=== PATIENT | male | born 1950 | race Caucasian/White ===

== ENCOUNTER 2016-12-13 18:17 | Inpatient (IN) | payer OTHER ==
[~2016-12-13] VITALS: Ht 185.4 cm; Wt 174.6 kg
[2016-12-13] MEDS ORDERED: ASPIRIN CHEWABLE 81 MG TABLET. PO ONE (18:30)
[2016-12-13] MEDS ORDERED: NITROGLYCERIN OINT 1 GM PACKET. TP ONE (18:30)
[2016-12-13 18:51] LABS: BASO % 1 % (0-3); EOS % 3 % (0-3); HEMATOCRIT 46.5 % (39.0-53.0); HEMOGLOBIN 15.4 g/dL (13.0-17.5); LYMPH % 16 % (24-48); MEAN CORPUSCULAR HEMOGLOBIN 29 pg (25-35); MEAN CORPUSCULAR HGB CONC 33 g/dL (31-37); MEAN CORPUSCULAR VOLUME 89 fL (79-100); MONO % 9 % (0-9); NEUT % 73 % (31-73); PLATELET COUNT 174 x10^3/uL (140-400); RED BLOOD COUNT 5.24 x10^6/uL (4.30-5.70); RED CELL DISTRIBUTION WIDTH 15.3 % (11.5-14.5); WHITE BLOOD COUNT 6.3 x10^3/uL (4.0-11.0)
[2016-12-13 19:04] LABS: CREATININE 1.4 mg/dL (0.7-1.3); GFR 50.4; POTASSIUM 4.3 mmol/L (3.5-5.1)
[2016-12-13 19:11] LABS: ALBUMIN 3.2 g/dL (3.4-5.0); ALBUMIN/GLOBULIN RATIO 0.9 (1.0-1.7); TOTAL BILIRUBIN 0.3 mg/dL (0.2-1.0); TOTAL PROTEIN 6.7 g/dL (6.4-8.2)
[2016-12-13] MEDS ORDERED: MORPHINE SULFATE 2 MG/ML DISP.SYRIN. IV PRN (19:45)
[2016-12-13] MEDS ORDERED: ONDANSETRON PF 4 MG/2 ML VIAL. IV PRN (19:45)
[2016-12-13] MEDS ORDERED: NITROGLYCERIN SUBLINGUAL 0.4 MG BOTTLE OF 25. SL PRN (19:45)
[2016-12-13] MEDS ORDERED: ACETAMINOPHEN 325 MG TABLET. PO PRN (19:45)
--- NOTE | 2016-12-13 20:07 | PDOC1 ---
History and Physical Date of Admission Date of Admission DATE: 12/13/16 TIME: 20:02 Identification/Chief Complaint Chief Complaint chest pain, pressure Problems: Source Source: Chart review, Patient History of Present Illness History of Present Illness Mr. Ortiz, 66 yo male, last night arm pain with pressure to arms only. TOday, 3 separate episodes of chest pain, left shoulder across chest multiple times at rest with pressure, pain 8/10, caused diaphoresis 2 times prior chest pain is remote, stress test remote, never cath mult family members with CAD, some deaths at young age. DM2, and Htn, his PCP is Dr. Eric Doyle Past Medical History Cardiovascular: HTN Pulmonary: No pertinent hx GI: No pertinent hx Heme/Onc: No pertinent hx Family History Family History: Coronary Artery Disease, Heart Disease, Hypertension Family History: Parent, Other Social History Smoke: No ALCOHOL: none Drugs: None Current Medications Current Medications Current Medications Nitroglycerin (Nitro-Bid Oint) 1 inch 1X ONCE TP Last administered on 18:38; Start 12/13/16 at 18:30; Stop 12/13/16 at 18:31; Status DC Aspirin (Children'S Aspirin) 324 mg 1X ONCE PO ; Start 12/13/16 at 18:30; Stop 12/13/16 at 18:31; Status DC Enoxaparin Sodium (Lovenox Per Pharmacy Treatment Dosing) 1 each PRN DAILY PRN MC SEE COMMENTS; Start 12/13/16 at 19:15; Status UNV Enoxaparin Sodium (Lovenox 100mg Syringe) 100 mg 1X ONCE SQ Last administered on 12/13/16 19:50; Start 12/13/16 at 19:30; Stop 12/13/16 at 19:31; Status DC Enoxaparin Sodium (Lovenox 80mg Syringe) 80 mg 1X ONCE SQ Last administered on 12/13/16 19:50; Start 12/13/16 at 19:30; Stop 12/13/16 at 19:31; Status DC Ondansetron HCl (Zofran) 4 mg PRN Q8HRS PRN IV NAUSEA/VOMITING; Start 12/13/16 at 19:45; Stop 12/14/16 at 19:44; Status UNV Morphine Sulfate 2 mg PRN Q2HR PRN IV PAIN; Start 12/13/16 at 19:45; Stop 12/14 at 19:44; Status UNV Acetaminophen (Tylenol) 650 mg PRN Q4HRS PRN PO FEVER; Start 12/13/16 at 19:45 ; Stop 12/14/16 at 19:44; Status UNV Nitroglycerin (Nitrostat) 0.4 mg PRN Q5MIN PRN SL CHEST PAIN; Start 12/13/16 at 19:45; Stop 12/14/16 at 19:44; Status UNV Allergies Allergies: Coded Allergies: No Known Drug Allergies (Unverified , 12/13/16) ROS General: YES: Malaise, No: Chills, Night Sweats, Fatigue, Appetite, Other PSYCHOLOGICAL ROS: YES: Suicidal ideation, No: Anxiety, Behavioral Disorder, Concentration difficultie, Decreased libido , Depression, Disorientation, Hallucinations, Hostility, Irritablity, Memory difficulties, Mood Swings, Obsessive thoughts, Other Eyes: No Blurry vision, No Decreased vision, No Double vision, No Dry eyes, No Excessive tearing, No Eye Pain, No Itchy Eyes, No Loss of vision, No Photophobia , No Scotomata, No Uses contacts, No Uses glasses, No Other HEENT: No: Heacaches, Visual Changes, Hearing change, Nasal congestion, Nasal discharge, Oral lesions, Sinus pain, Sore Throat, Epistaxis, Sneezing, Snoring, Tinnitus, Vertigo, Vocal changes, Other Respiratory: No: Cough, Hemoptysis, Orthopnea, Pleuritic Pain, Shortness of breath, SOB with excertion, Sputum Changes, Stridor, Tachypnea, Wheezing, Other Cardiovascular: yes Chest Pain, No Palpitations, No Orthopnea, No Paroxysmal Noc. Dyspnea, No Edema, No Lt Headedness, No Other Gastrointestinal: No Nausea, No Vomiting, No Abdominal Pain, No Diarrhea, No Constipation, No Melena, No Hematochezia, No Other Genitourinary: No Dysuria, No Frequency, No Incontinence, No Hematuria, No Retention, No Discharge, No Urgency, No Pain, No Flank Pain, No Other, No , No , No , No , No , No , No Musculoskeletal: Yes Joint Pain, Yes Joint Stiffness, Yes Pain In: (right ankle ), No Gait Disturbance, No Joint Swelling, No Muscle Pain, No Muscular Weakness , No Swelling In:, No Other Neurological: No Behavorial Changes, No Bowel/Bladder ControlChng, No Confusion , No Dizziness, No Gait Disturbance, No Headaches, No Impaired Coord/balance, No Memory Loss, No Numbness/Tingling, No Seizures, No Speech Problems, No Tremors, No Visual Changes, No Weakness, No Other Skin: No Dry Skin, No Eczema, No Hair Changes, No Lumps, No Mole Changes, No Mottling, No Nail Changes, No Pruritus, No Rash, No Skin Lesion Changes, No Other, No Acne Physical Exam General: Alert, Oriented X3, Cooperative, mild distress HEENT: Mucous membr. moist/pink Lungs: Normal air movement Heart: no gallops, no murmurs Abdomen: Normal bowel sounds, Soft (very obese) Extremities: No clubbing, No cyanosis, Normal pulses Skin: No rashes, No significant lesion, Other (chroinc skin car changer shins, 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 ) Neuro: Normal speech, Sensation intact Psych/Mental Status: Mental status NL, Mood NL Vitals Vitals Vital Signs Date Time Temp Pulse Resp B/P (MAP) Pulse Ox O2 Delivery O2 Flow Rate FiO2 12/13/16 18:38 84 190/107 12/13/16 18:19 98.4 22 93 Room Air 98.4 Labs Labs Laboratory Tests Test 12/13/16 18:22 12/13/16 18:44 Glucose (Fingerstick) 277 mg/dL (70-99) White Blood Count 6.3 x10^3/uL (4.0-11.0) Red Blood Count 5.24 x10^6/uL (4.30-5.70) Hemoglobin 15.4 g/dL (13.0-17.5) Hematocrit 46.5 % (39.0-53.0) Mean Corpuscular Volume 89 fL (79-100) Mean Corpuscular Hemoglobin 29 pg (25-35) Mean Corpuscular Hemoglobin Concent 33 g/dL (31-37) Red Cell Distribution Width 15.3 % (11.5-14.5) Platelet Count 174 x10^3/uL (140-400) Neutrophils (%) (Auto) 73 % (31-73) Lymphocytes (%) (Auto) 16 % (24-48) Monocytes (%) (Auto) 9 % (0-9) Eosinophils (%) (Auto) 3 % (0-3) Basophils (%) (Auto) 1 % (0-3) Neutrophils # (Auto) 4.6 x10^3uL (1.8-7.7) Lymphocytes # (Auto) 1.0 x10^3/uL (1.0-4.8) Monocytes # (Auto) 0.5 x10^3/uL (0.0-1.1) Eosinophils # (Auto) 0.2 x10^3/uL (0.0-0.7) Basophils # (Auto) 0.0 x10^3/uL (0.0-0.2) Sodium Level 138 mmol/L (136-145) Potassium Level 4.3 mmol/L (3.5-5.1) Chloride Level 101 mmol/L (98-107) Carbon Dioxide Level 28 mmol/L (21-32) Anion Gap 9 (6-14) Blood Urea Nitrogen 20 mg/dL (8-26) Creatinine 1.4 mg/dL (0.7-1.3) Estimated GFR (Cockcroft-Gault) 50.4 BUN/Creatinine Ratio 14 (6-20) Glucose Level 267 mg/dL (70-99) Calcium Level 9.0 mg/dL (8.5-10.1) Total Bilirubin 0.3 mg/dL (0.2-1.0) Aspartate Amino Transf (AST/SGOT) 27 U/L (15-37) Alanine Aminotransferase (ALT/SGPT) 31 U/L (16-63) Alkaline Phosphatase 119 U/L (46-116) Troponin I Quantitative 0.081 ng/mL (0.000-0.055) Total Protein 6.7 g/dL (6.4-8.2) Albumin 3.2 g/dL (3.4-5.0) Albumin/Globulin Ratio 0.9 (1.0-1.7) Laboratory Tests Test 12/13/16 18:22 12/13/16 18:44 Glucose (Fingerstick) 277 mg/dL (70-99) White Blood Count 6.3 x10^3/uL (4.0-11.0) Red Blood Count 5.24 x10^6/uL (4.30-5.70) Hemoglobin 15.4 g/dL (13.0-17.5) Hematocrit 46.5 % (39.0-53.0) Mean Corpuscular Volume 89 fL (79-100) Mean Corpuscular Hemoglobin 29 pg (25-35) Mean Corpuscular Hemoglobin Concent 33 g/dL (31-37) Red Cell Distribution Width 15.3 % (11.5-14.5) Platelet Count 174 x10^3/uL (140-400) Neutrophils (%) (Auto) 73 % (31-73) Lymphocytes (%) (Auto) 16 % (24-48) Monocytes (%) (Auto) 9 % (0-9) Eosinophils (%) (Auto) 3 % (0-3) Basophils (%) (Auto) 1 % (0-3) Neutrophils # (Auto) 4.6 x10^3uL (1.8-7.7) Lymphocytes # (Auto) 1.0 x10^3/uL (1.0-4.8) Monocytes # (Auto) 0.5 x10^3/uL (0.0-1.1) Eosinophils # (Auto) 0.2 x10^3/uL (0.0-0.7) Basophils # (Auto) 0.0 x10^3/uL (0.0-0.2) Sodium Level 138 mmol/L (136-145) Potassium Level 4.3 mmol/L (3.5-5.1) Chloride Level 101 mmol/L (98-107) Carbon Dioxide Level 28 mmol/L (21-32) Anion Gap 9 (6-14) Blood Urea Nitrogen 20 mg/dL (8-26) Creatinine 1.4 mg/dL (0.7-1.3) Estimated GFR (Cockcroft-Gault) 50.4 BUN/Creatinine Ratio 14 (6-20) Glucose Level 267 mg/dL (70-99) Calcium Level 9.0 mg/dL (8.5-10.1) Total Bilirubin 0.3 mg/dL (0.2-1.0) Aspartate Amino Transf (AST/SGOT) 27 U/L (15-37) Alanine Aminotransferase (ALT/SGPT) 31 U/L (16-63) Alkaline Phosphatase 119 U/L (46-116) Troponin I Quantitative 0.081 ng/mL (0.000-0.055) Total Protein 6.7 g/dL (6.4-8.2) Albumin 3.2 g/dL (3.4-5.0) Albumin/Globulin Ratio 0.9 (1.0-1.7) VTE Prophylaxis Ordered VTE Prophylaxis Devices: No VTE Pharmacological Prophylaxi: Yes Assessment/Plan Assessment/Plan chest pain, angina, concern for ACS, trop min elevated, lovenox and aspirin given in ER, will continue CV consult angina story seems strong, strong FH, Dm2, and htn admit morbid obesity, BMI 51 Dm2, home meds htn CKD 2-3, may need hydrated if procedure to be done pt seen in ER 1. ROSY RIVERS MD Dec 13, 2016 20:07
[2016-12-13] MEDS ORDERED: DEXTROSE 50% 25 GM / 50ML DISP.SYRIN. IV PRN (20:15)
[2016-12-13 20:42] VITALS: BP 156/86
--- NOTE | 2016-12-13 20:52 | PHYS DOC ---
Past Medical History Past Medical History: Asthma, Diabetes-Type II, High Cholesterol, Hypertension Additional Past Medical Histor: DVT Past Surgical History: Cholecystectomy, Knee Replacement, Tonsillectomy Additional Past Surgical Histo: HERNIA,BACK Alcohol Use: Rarely Drug Use: None Adult General Chief Complaint Chief Complaint: CHEST PAIN HPI HPI Patient is a 66 year old gentleman with a history significant for diabetes and hypertension who presents here today complaining of midsternal chest pressure radiating to both arms. Patient denies any history of liver longer kidney problems. Patient denies any prior coronary artery disease. Patient reports he was on dialysis for short time secondary to obtaining metformin and a CT With contrast. Patient reports today had pain at home that increases with exertion with associated shortness of breath and diaphoresis and nausea. Patient is currently asleep pain-free. Patient was brought in by EMS. Patient discussed the discomfort doesn't hurt. Patient denies any fevers shakes chills nausea vomiting diarrhea cough cold or runny nose. Review of Systems Review of Systems Constitutional: Denies fever or chills [] Eyes: Denies change in visual acuity, redness, or eye pain [] All other review systems are negative except as documented in the history of present illness portion. Current Medications Current Medications Current Medications Medications (Trade) Dose Ordered Sig/Андрей Start Time Stop Time Status Last Admin Dose Admin Acetaminophen (Tylenol) 650 mg PRN Q4HRS PRN 12/13/16 19:45 12/14/16 19:44 UNV Aspirin (Children'S Aspirin) 324 mg 1X ONCE 12/13/16 18:30 12/13/16 18:31 DC Dextrose (Dextrose 50%-Water Syringe) 12.5 gm PRN Q15MIN PRN 12/13/16 20:15 UNV Enoxaparin Sodium (Lovenox 100mg Syringe) 100 mg 1X ONCE 12/13/16 19:30 12/13/16 19:31 DC 12/13/16 19:50 100 MG Enoxaparin Sodium (Lovenox 80mg Syringe) 80 mg 1X ONCE 12/13/16 19:30 12/13/16 19:31 DC 12/13/16 19:50 80 MG Enoxaparin Sodium (Lovenox Per Pharmacy Treatment Dosing) 1 each PRN DAILY PRN 12/13/16 19:15 UNV Morphine Sulfate (Morphine Ir) 15 mg Q4HRS PRN 12/13/16 20:15 UNV Nitroglycerin (Nitro-Bid Oint) 1 inch 1X ONCE 12/13/16 18:30 12/13/16 18:31 DC 12/13/16 18:38 1 INCH Nitroglycerin (Nitrostat) 0.4 mg PRN Q5MIN PRN 12/13/16 19:45 12/14/16 19:44 UNV Ondansetron HCl (Zofran) 4 mg PRN Q8HRS PRN 12/13/16 19:45 12/14/16 19:44 UNV Allergies Allergies Allergies Coded Allergies Type Severity Reaction Last Updated Verified No Known Drug Allergies 12/13/16 No Physical Exam Physical Exam Constitutional: Well developed, well nourished, no acute distress, non-toxic appearance. Obese HENT: Normocephalic, atraumatic, bilateral external ears normal, oropharynx moist, no oral exudates, nose normal. Eyes: PERRLA, EOMI, conjunctiva normal, no discharge. Neck: Normal range of motion, no tenderness, supple, no stridor. Cardiovascular:Heart rate regular rhythm, Lungs & Thorax: Bilateral breath sounds clear to auscultation Abdomen: Bowel sounds normal, soft, no tenderness, no masses, no pulsatile masses. Skin: Warm, dry, no erythema, no rash. Back: No tenderness, no CVA tenderness. Extremities: No tenderness, no cyanosis, no clubbing, ROM intact, 2+ edema Neurologic: Alert and oriented X 3, normal motor function, normal sensory function, no focal deficits noted. Psychologic: Affect normal, judgement normal, mood normal. Current Patient Data Vital Signs Vital Signs Date Time Temp Pulse Resp B/P (MAP) Pulse Ox O2 Delivery O2 Flow Rate FiO2 12/13/16 18:38 84 190/107 12/13/16 18:19 98.4 22 93 Room Air 98.4 Lab Values Laboratory Tests Test 12/13/16 18:22 12/13/16 18:44 Glucose (Fingerstick) 277 mg/dL (70-99) H White Blood Count 6.3 x10^3/uL (4.0-11.0) Red Blood Count 5.24 x10^6/uL (4.30-5.70) Hemoglobin 15.4 g/dL (13.0-17.5) Hematocrit 46.5 % (39.0-53.0) Mean Corpuscular Volume 89 fL (79-100) Mean Corpuscular Hemoglobin 29 pg (25-35) Mean Corpuscular Hemoglobin Concent 33 g/dL (31-37) Red Cell Distribution Width 15.3 % (11.5-14.5) H Platelet Count 174 x10^3/uL (140-400) Neutrophils (%) (Auto) 73 % (31-73) Lymphocytes (%) (Auto) 16 % (24-48) L Monocytes (%) (Auto) 9 % (0-9) Eosinophils (%) (Auto) 3 % (0-3) Basophils (%) (Auto) 1 % (0-3) Neutrophils # (Auto) 4.6 x10^3uL (1.8-7.7) Lymphocytes # (Auto) 1.0 x10^3/uL (1.0-4.8) Monocytes # (Auto) 0.5 x10^3/uL (0.0-1.1) Eosinophils # (Auto) 0.2 x10^3/uL (0.0-0.7) Basophils # (Auto) 0.0 x10^3/uL (0.0-0.2) Sodium Level 138 mmol/L (136-145) Potassium Level 4.3 mmol/L (3.5-5.1) Chloride Level 101 mmol/L (98-107) Carbon Dioxide Level 28 mmol/L (21-32) Anion Gap 9 (6-14) Blood Urea Nitrogen 20 mg/dL (8-26) Creatinine 1.4 mg/dL (0.7-1.3) H Estimated GFR (Cockcroft-Gault) 50.4 BUN/Creatinine Ratio 14 (6-20) Glucose Level 267 mg/dL (70-99) H Calcium Level 9.0 mg/dL (8.5-10.1) Total Bilirubin 0.3 mg/dL (0.2-1.0) Aspartate Amino Transferase (AST) 27 U/L (15-37) Alanine Aminotransferase (ALT) 31 U/L (16-63) Alkaline Phosphatase 119 U/L (46-116) H Troponin I Quantitative 0.081 ng/mL (0.000-0.055) Total Protein 6.7 g/dL (6.4-8.2) Albumin 3.2 g/dL (3.4-5.0) L Albumin/Globulin Ratio 0.9 (1.0-1.7) L Laboratory Tests 12/13/16 18:44 Laboratory Tests 12/13/16 18:44 EKG EKG Normal sinus rhythm nonspecific ST-T wave abnormalities no evidence of STEMI as interpreted by Dr. Fishman. Repeat EKG performed secondary to the elevated troponin and there are no changes in the new EKG. Chest x-ray reveals normal heart size no infiltrates or effusions. Assessment and plan This is a 58-year-old gentleman with hypertension diabetes who presents with anginal type symptoms. Patient is currently pain-free. Patient's troponin is elevated. Case has been discussed with the automotive sales manager on-call, Dr. ulloa. Patient received Lovenox, aspirin, O2, Nitropaste. Patient be admitted to the [facility] for further evaluation and monitoring. Case has been transferred over to Dr. bains.[] Interpretation Time: Critical care time of 35 minutes were utilizing a treatment and evaluation of this patient's condition including possibility of arrhythmia, myocardial infarction, sudden . Radiology/Procedures Radiology/Procedures [] Course & Med Decision Making Course & Med Decision Making Pertinent Labs and Imaging studies reviewed. (See chart for details) [] Dragon Disclaimer Dragon Disclaimer This electronic medical record was generated, in whole or in part, using a voice recognition dictation system. Departure Departure Impression: Primary Impression: Non-STEMI (non-ST elevated myocardial infarction) Additional Impression: Chest pain Disposition: 09 ADMITTED INPATIENT Admitting Physician: Dee Dee Bains Condition: GUARDED Problem Qualifiers GABO REICH MD Dec 13, 2016 20:52
[2016-12-13 22:20] VITALS: BP 122/68
[2016-12-13] MEDS: INSULIN ASPART 300 UNITS/3 ML INSULN.PEN SQ SCH (22:25)
[2016-12-14 02:57] VITALS: BP 135/72
[2016-12-14] MEDS ORDERED: CETI10TA16 PO (05:02)
[2016-12-14] MEDS ORDERED: TAMS0.4C2 PO (05:02)
[2016-12-14] MEDS ORDERED: ATOR20TA58 PO (05:02)
[2016-12-14] MEDS ORDERED: LOSA100T6 PO (05:02)
[2016-12-14] MEDS ORDERED: TRIA1CAP3 PO (05:02)
[2016-12-14] MEDS ORDERED: MONT10TA9 PO (05:02)
[2016-12-14] MEDS ORDERED: INSU100I30 SQ ×2 (05:02)
[2016-12-14] MEDS ORDERED: PIOG30TA41 PO (05:02)
[2016-12-14 06:00] LABS: BASO % 1 % (0-3); EOS % 3 % (0-3); HEMATOCRIT 45.1 % (39.0-53.0); LYMPH # 1.3 x10^3/uL (1.0-4.8); LYMPH % 22 % (24-48); MEAN CORPUSCULAR HEMOGLOBIN 29 pg (25-35); MEAN CORPUSCULAR HGB CONC 33 g/dL (31-37); MEAN CORPUSCULAR VOLUME 88 fL (79-100); MONO % 10 % (0-9); NEUT % 65 % (31-73); PLATELET COUNT 209 x10^3/uL (140-400); RED BLOOD COUNT 5.14 x10^6/uL (4.30-5.70); RED CELL DISTRIBUTION WIDTH 15.7 % (11.5-14.5)
[2016-12-14 06:29] LABS: ALBUMIN 3.2 g/dL (3.4-5.0); ALBUMIN/GLOBULIN RATIO 1.1 (1.0-1.7); CALCIUM 8.3 mg/dL (8.5-10.1); CREATININE 1.1 mg/dL (0.7-1.3); GFR 66.6; TOTAL BILIRUBIN 0.3 mg/dL (0.2-1.0)
[2016-12-14 06:32] LABS: CHOLESTEROL/HDL RATIO 4.6
[2016-12-14 07:00] VITALS: BP 137/54
[2016-12-14] MEDS: INSULIN ASPART 300 UNITS/3 ML INSULN.PEN SQ SCH ×4 (07:30→21:22)
--- NOTE | 2016-12-14 10:23 | RAD ---
AP portable chest radiograph 12/13/2016 Clinical History: Cough for 2 weeks. Chest pain today. An AP portable erect digital radiograph of the chest was obtained. Comparison study is dated 04/27/2008. The degree of inspiration is shallow. A right subclavian central venous catheter has been removed. The cardiac silhouette is normal in size. The thoracic aorta is mildly tortuous. No acute pulmonary infiltrate is seen. No pleural effusion or pneumothorax is noted. The osseous structures are grossly intact. Impression: No acute abnormality is seen.
[2016-12-14 11:00] VITALS: BP 158/79
[2016-12-14] MEDS ORDERED: hydrALAZINE 20 MG/ML VIAL. IVP PRN (11:30)
[2016-12-14] MEDS ORDERED: ONDANSETRON PF 4 MG/2 ML VIAL. IV PRN (11:30)
[2016-12-14] MEDS ORDERED: DOCUSATE SODIUM 100 MG CAPSULE. PO PRN (11:30)
[2016-12-14] MEDS ORDERED: MAGNESIUM HYDROXIDE 2,400 MG/30 ML ORAL.SUSP. PO PRN (11:30)
[2016-12-14] MEDS ORDERED: MORPHINE SULFATE 4 MG/ML DISP.SYRIN. IV PRN (11:45)
--- NOTE | 2016-12-14 12:25 | PDOC2 ---
CONSULT Date of Consult Date of Consult DATE: 12/14/16 TIME: 12:25 Reason for Consult Reason for Consult: Chest pain Referring Physician Referring Physician: Dr. Bains Identification/Chief Complaint Chief Complaint Chest pain Problems: Source Source: Chart review, Patient History of Present Illness Reason for Visit: 66-year-old male presented with intermittent episodes of retrosternal chest pressure associated with diaphoresis and mild shortness of breath. He denied any orthopnea/PND, palpitations or syncope. He has strong family history of premature coronary artery disease. Past Medical History Cardiovascular: HTN Pulmonary: No pertinent hx GI: No pertinent hx Heme/Onc: No pertinent hx Family History Family History: Coronary Artery Disease, Heart Disease, Hypertension Social History Social History: Parent, Other No ALCOHOL: none Drugs: None Current Problem List Problem List Problems Medical Problems: (1) Chest pain Status: Acute (2) Non-STEMI (non-ST elevated myocardial infarction) Status: Acute Current Medications Current Medications Current Medications Nitroglycerin (Nitro-Bid Oint) 1 inch 1X ONCE TP Last administered on 18:38; Start 12/13/16 at 18:30; Stop 12/13/16 at 18:31; Status DC Aspirin (Children'S Aspirin) 324 mg 1X ONCE PO ; Start 12/13/16 at 18:30; Stop 12/13/16 at 18:31; Status DC Enoxaparin Sodium (Lovenox Per Pharmacy Treatment Dosing) 1 each PRN DAILY PRN MC SEE COMMENTS; Start 12/13/16 at 19:15 Enoxaparin Sodium (Lovenox 100mg Syringe) 100 mg 1X ONCE SQ Last administered on 12/13/16 19:50; Start 12/13/16 at 19:30; Stop 12/13/16 at 19:31; Status DC Enoxaparin Sodium (Lovenox 80mg Syringe) 80 mg 1X ONCE SQ Last administered on 12/13/16 19:50; Start 12/13/16 at 19:30; Stop 12/13/16 at 19:31; Status DC Ondansetron HCl (Zofran) 4 mg PRN Q8HRS PRN IV NAUSEA/VOMITING; Start 12/13/16 at 19:45; Stop 12/14/16 at 11:34; Status DC Morphine Sulfate 2 mg PRN Q2HR PRN IV PAIN; Start 12/13/16 at 19:45; Stop 12/14 at 11:34; Status DC Acetaminophen (Tylenol) 650 mg PRN Q4HRS PRN PO FEVER Last administered on 12/14 06:36; Start 12/13/16 at 19:45; Stop 12/14/16 at 11:34; Status DC Nitroglycerin (Nitrostat) 0.4 mg PRN Q5MIN PRN SL CHEST PAIN; Start 12/13/16 at 19:45; Stop 12/14/16 at 19:44 Insulin Aspart (NovoLOG) 0-9 UNITS QIDACHS SQ Last administered on 12/13/16 22 :25; Start 12/13/16 at 21:30 Dextrose (Dextrose 50%-Water Syringe) 12.5 gm PRN Q15MIN PRN IV SEE COMMENTS; Start 12/13/16 at 20:15 Morphine Sulfate (Morphine Ir) 15 mg PRN Q4HRS PRN PO PAIN; Start 12/13/16 at 20:15 Enoxaparin Sodium (Lovenox 100mg Syringe) 180 mg Q12HR SQ ; Start 12/14/16 at 09 :00 Atorvastatin Calcium (Lipitor) 20 mg QHS PO ; Start 12/14/16 at 21:00 Cetirizine HCl (ZyrTEC) 10 mg DAILY PO ; Start 12/14/16 at 12:00 Montelukast Sodium (Singulair) 10 mg DAILY PO ; Start 12/14/16 at 12:00 Tamsulosin HCl (Flomax) 0.8 mg DAILY PO ; Start 12/14/16 at 12:00 Losartan Potassium (Cozaar) 100 mg DAILY PO ; Start 12/14/16 at 12:00 Pioglitazone HCl (Actos) 30 mg DAILY PO ; Start 12/14/16 at 12:00 Triamterene/HCTZ (Maxzide 37.5/ 25mg) 1 tab DAILY PO ; Start 12/14/16 at 12:00 Acetaminophen (Tylenol) 650 mg PRN Q6HRS PRN PO FEVER; Start 12/14/16 at 11:30 Ondansetron HCl (Zofran) 4 mg PRN Q6HRS PRN IV NAUSEA/VOMITING; Start 12/14/16 at 11:30 Morphine Sulfate 2 mg PRN Q2HR PRN IV MODERATE TO SEVERE PAIN; Start 12/14/16 at 11:45 Tramadol HCl (Ultram) 50 mg PRN Q6HRS PRN PO MILD TO MODERATE PAIN; Start 12/14 at 11:30 Hydralazine HCl (Apresoline) 10 mg PRN Q4HRS PRN IVP ELEVATED BP, SEE COMMENTS ; Start 12/14/16 at 11:30 Docusate Sodium (Colace) 100 mg PRN DAILY PRN PO CONSTIPATION; Start 12/14/16 at 11:30 Senna/Docusate Sodium (Senna Plus) 1 tab BID PO ; Start 12/14/16 at 12:00 Docusate Sodium (Colace) 100 mg BID PO ; Start 12/14/16 at 12:00 Magnesium Hydroxide (Milk Of Magnesia) 2,400 mg PRN Q12HR PRN PO CONSTIPATION; Start 12/14/16 at 11:30 Insulin Detemir (Levemir) 20 units QHS SQ ; Start 12/14/16 at 21:00 Active Scripts Active Reported Tresiba Flextouch U-100 (Insulin Degludec) 100 Unit/1 Ml Insuln.pen 40 Unit SQ HS Tresiba Flextouch U-100 (Insulin Degludec) 100 Unit/1 Ml Insuln.pen 36 Unit SQ DAILY Cetirizine Hcl 10 Mg Tablet 1 Tab PO DAILY Tamsulosin Hcl 0.4 Mg Cap.er.24h 2 Cap PO DAILY Triamterene-Hctz 37.5-25 Mg Cp (Triamterene/Hydrochlorothiazid) 1 Each Capsule 1 Cap PO DAILY Atorvastatin Calcium 20 Mg Tablet 1 Tab PO DAILY Actos (Pioglitazone Hcl) 30 Mg Tablet 1 Tab PO DAILY Montelukast Sodium Tablet (Montelukast Sodium) 10 Mg Tablet 1 Tab PO DAILY Losartan Potassium 100 Mg Tablet 100 Mg PO DAILY Allergies Allergies: Coded Allergies: No Known Drug Allergies (Unverified , 12/13/16) ROS PSYCHOLOGICAL ROS: No: Hallucinations Eyes: No Loss of vision HEENT: No: Epistaxis Respiratory: YES: Shortness of breath, No: Hemoptysis Cardiovascular: yes Chest Pain, No Palpitations Gastrointestinal: No Vomiting, No Diarrhea Skin: No Rash Physical Exam General: Alert, Oriented X3 HEENT: Atraumatic, PERRLA Lungs: Clear to auscultation Heart: Regular rate Abdomen: Soft, No tenderness Extremities: No edema Psych/Mental Status: Mood NL Vitals VITALS Vital Signs Date Time Temp Pulse Resp B/P (MAP) Pulse Ox O2 Delivery O2 Flow Rate FiO2 12/14/16 11:00 97.6 75 19 158/79 (105) 94 Nasal Cannula 2.0 97.6 Labs Labs Laboratory Tests Test 12/13/16 18:22 12/13/16 18:44 12/13/16 20:58 12/14/16 02:30 Glucose (Fingerstick) 277 mg/dL (70-99) 215 mg/dL (70-99) White Blood Count 6.3 x10^3/uL (4.0-11.0) Red Blood Count 5.24 x10^6/uL (4.30-5.70) Hemoglobin 15.4 g/dL (13.0-17.5) Hematocrit 46.5 % (39.0-53.0) Mean Corpuscular Volume 89 fL (79-100) Mean Corpuscular Hemoglobin 29 pg (25-35) Mean Corpuscular Hemoglobin Concent 33 g/dL (31-37) Red Cell Distribution Width 15.3 % (11.5-14.5) Platelet Count 174 x10^3/uL (140-400) Neutrophils (%) (Auto) 73 % (31-73) Lymphocytes (%) (Auto) 16 % (24-48) Monocytes (%) (Auto) 9 % (0-9) Eosinophils (%) (Auto) 3 % (0-3) Basophils (%) (Auto) 1 % (0-3) Neutrophils # (Auto) 4.6 x10^3uL (1.8-7.7) Lymphocytes # (Auto) 1.0 x10^3/uL (1.0-4.8) Monocytes # (Auto) 0.5 x10^3/uL (0.0-1.1) Eosinophils # (Auto) 0.2 x10^3/uL (0.0-0.7) Basophils # (Auto) 0.0 x10^3/uL (0.0-0.2) Sodium Level 138 mmol/L (136-145) Potassium Level 4.3 mmol/L (3.5-5.1) Chloride Level 101 mmol/L (98-107) Carbon Dioxide Level 28 mmol/L (21-32) Anion Gap 9 (6-14) Blood Urea Nitrogen 20 mg/dL (8-26) Creatinine 1.4 mg/dL (0.7-1.3) Estimated GFR (Cockcroft-Gault) 50.4 BUN/Creatinine Ratio 14 (6-20) Glucose Level 267 mg/dL (70-99) Calcium Level 9.0 mg/dL (8.5-10.1) Total Bilirubin 0.3 mg/dL (0.2-1.0) Aspartate Amino Transf (AST/SGOT) 27 U/L (15-37) Alanine Aminotransferase (ALT/SGPT) 31 U/L (16-63) Alkaline Phosphatase 119 U/L (46-116) Troponin I Quantitative 0.081 ng/mL (0.000-0.055) 0.151 ng/mL (0.000-0.055) Total Protein 6.7 g/dL (6.4-8.2) Albumin 3.2 g/dL (3.4-5.0) Albumin/Globulin Ratio 0.9 (1.0-1.7) Test 12/14/16 04:30 12/14/16 07:41 12/14/16 07:56 12/14/16 12:03 White Blood Count 6.0 x10^3/uL (4.0-11.0) Red Blood Count 5.14 x10^6/uL (4.30-5.70) Hemoglobin 15.0 g/dL (13.0-17.5) Hematocrit 45.1 % (39.0-53.0) Mean Corpuscular Volume 88 fL (79-100) Mean Corpuscular Hemoglobin 29 pg (25-35) Mean Corpuscular Hemoglobin Concent 33 g/dL (31-37) Red Cell Distribution Width 15.7 % (11.5-14.5) Platelet Count 209 x10^3/uL (140-400) Neutrophils (%) (Auto) 65 % (31-73) Lymphocytes (%) (Auto) 22 % (24-48) Monocytes (%) (Auto) 10 % (0-9) Eosinophils (%) (Auto) 3 % (0-3) Basophils (%) (Auto) 1 % (0-3) Neutrophils # (Auto) 3.9 x10^3uL (1.8-7.7) Lymphocytes # (Auto) 1.3 x10^3/uL (1.0-4.8) Monocytes # (Auto) 0.6 x10^3/uL (0.0-1.1) Eosinophils # (Auto) 0.2 x10^3/uL (0.0-0.7) Basophils # (Auto) 0.0 x10^3/uL (0.0-0.2) Sodium Level 141 mmol/L (136-145) Potassium Level 4.0 mmol/L (3.5-5.1) Chloride Level 101 mmol/L (98-107) Carbon Dioxide Level 32 mmol/L (21-32) Anion Gap 8 (6-14) Blood Urea Nitrogen 22 mg/dL (8-26) Creatinine 1.1 mg/dL (0.7-1.3) Estimated GFR (Cockcroft-Gault) 66.6 BUN/Creatinine Ratio 20 (6-20) Glucose Level 166 mg/dL (70-99) Calcium Level 8.3 mg/dL (8.5-10.1) Total Bilirubin 0.3 mg/dL (0.2-1.0) Aspartate Amino Transf (AST/SGOT) 21 U/L (15-37) Alanine Aminotransferase (ALT/SGPT) 34 U/L (16-63) Alkaline Phosphatase 102 U/L (46-116) Total Protein 6.0 g/dL (6.4-8.2) Albumin 3.2 g/dL (3.4-5.0) Albumin/Globulin Ratio 1.1 (1.0-1.7) Triglycerides Level 204 mg/dL (0-150) Cholesterol Level 160 mg/dL (0-200) LDL Cholesterol, Calculated 84 mg/dL (0-100) VLDL Cholesterol, Calculated 41 mg/dL (0-40) Non-HDL Cholesterol Calculated 125 mg/dL (0-129) HDL Cholesterol 35 mg/dL (40-60) Cholesterol/HDL Ratio 4.6 Troponin I Quantitative 0.102 ng/mL (0.000-0.055) Glucose (Fingerstick) 194 mg/dL (70-99) 163 mg/dL (70-99) Laboratory Tests Test 12/13/16 18:22 12/13/16 18:44 12/13/16 20:58 12/14/16 02:30 Glucose (Fingerstick) 277 mg/dL (70-99) 215 mg/dL (70-99) White Blood Count 6.3 x10^3/uL (4.0-11.0) Red Blood Count 5.24 x10^6/uL (4.30-5.70) Hemoglobin 15.4 g/dL (13.0-17.5) Hematocrit 46.5 % (39.0-53.0) Mean Corpuscular Volume 89 fL (79-100) Mean Corpuscular Hemoglobin 29 pg (25-35) Mean Corpuscular Hemoglobin Concent 33 g/dL (31-37) Red Cell Distribution Width 15.3 % (11.5-14.5) Platelet Count 174 x10^3/uL (140-400) Neutrophils (%) (Auto) 73 % (31-73) Lymphocytes (%) (Auto) 16 % (24-48) Monocytes (%) (Auto) 9 % (0-9) Eosinophils (%) (Auto) 3 % (0-3) Basophils (%) (Auto) 1 % (0-3) Neutrophils # (Auto) 4.6 x10^3uL (1.8-7.7) Lymphocytes # (Auto) 1.0 x10^3/uL (1.0-4.8) Monocytes # (Auto) 0.5 x10^3/uL (0.0-1.1) Eosinophils # (Auto) 0.2 x10^3/uL (0.0-0.7) Basophils # (Auto) 0.0 x10^3/uL (0.0-0.2) Sodium Level 138 mmol/L (136-145) Potassium Level 4.3 mmol/L (3.5-5.1) Chloride Level 101 mmol/L (98-107) Carbon Dioxide Level 28 mmol/L (21-32) Anion Gap 9 (6-14) Blood Urea Nitrogen 20 mg/dL (8-26) Creatinine 1.4 mg/dL (0.7-1.3) Estimated GFR (Cockcroft-Gault) 50.4 BUN/Creatinine Ratio 14 (6-20) Glucose Level 267 mg/dL (70-99) Calcium Level 9.0 mg/dL (8.5-10.1) Total Bilirubin 0.3 mg/dL (0.2-1.0) Aspartate Amino Transf (AST/SGOT) 27 U/L (15-37) Alanine Aminotransferase (ALT/SGPT) 31 U/L (16-63) Alkaline Phosphatase 119 U/L (46-116) Troponin I Quantitative 0.081 ng/mL (0.000-0.055) 0.151 ng/mL (0.000-0.055) Total Protein 6.7 g/dL (6.4-8.2) Albumin 3.2 g/dL (3.4-5.0) Albumin/Globulin Ratio 0.9 (1.0-1.7) Test 12/14/16 04:30 12/14/16 07:41 12/14/16 07:56 12/14/16 12:03 White Blood Count 6.0 x10^3/uL (4.0-11.0) Red Blood Count 5.14 x10^6/uL (4.30-5.70) Hemoglobin 15.0 g/dL (13.0-17.5) Hematocrit 45.1 % (39.0-53.0) Mean Corpuscular Volume 88 fL (79-100) Mean Corpuscular Hemoglobin 29 pg (25-35) Mean Corpuscular Hemoglobin Concent 33 g/dL (31-37) Red Cell Distribution Width 15.7 % (11.5-14.5) Platelet Count 209 x10^3/uL (140-400) Neutrophils (%) (Auto) 65 % (31-73) Lymphocytes (%) (Auto) 22 % (24-48) Monocytes (%) (Auto) 10 % (0-9) Eosinophils (%) (Auto) 3 % (0-3) Basophils (%) (Auto) 1 % (0-3) Neutrophils # (Auto) 3.9 x10^3uL (1.8-7.7) Lymphocytes # (Auto) 1.3 x10^3/uL (1.0-4.8) Monocytes # (Auto) 0.6 x10^3/uL (0.0-1.1) Eosinophils # (Auto) 0.2 x10^3/uL (0.0-0.7) Basophils # (Auto) 0.0 x10^3/uL (0.0-0.2) Sodium Level 141 mmol/L (136-145) Potassium Level 4.0 mmol/L (3.5-5.1) Chloride Level 101 mmol/L (98-107) Carbon Dioxide Level 32 mmol/L (21-32) Anion Gap 8 (6-14) Blood Urea Nitrogen 22 mg/dL (8-26) Creatinine 1.1 mg/dL (0.7-1.3) Estimated GFR (Cockcroft-Gault) 66.6 BUN/Creatinine Ratio 20 (6-20) Glucose Level 166 mg/dL (70-99) Calcium Level 8.3 mg/dL (8.5-10.1) Total Bilirubin 0.3 mg/dL (0.2-1.0) Aspartate Amino Transf (AST/SGOT) 21 U/L (15-37) Alanine Aminotransferase (ALT/SGPT) 34 U/L (16-63) Alkaline Phosphatase 102 U/L (46-116) Total Protein 6.0 g/dL (6.4-8.2) Albumin 3.2 g/dL (3.4-5.0) Albumin/Globulin Ratio 1.1 (1.0-1.7) Triglycerides Level 204 mg/dL (0-150) Cholesterol Level 160 mg/dL (0-200) LDL Cholesterol, Calculated 84 mg/dL (0-100) VLDL Cholesterol, Calculated 41 mg/dL (0-40) Non-HDL Cholesterol Calculated 125 mg/dL (0-129) HDL Cholesterol 35 mg/dL (40-60) Cholesterol/HDL Ratio 4.6 Troponin I Quantitative 0.102 ng/mL (0.000-0.055) Glucose (Fingerstick) 194 mg/dL (70-99) 163 mg/dL (70-99) Assessment/Plan Assessment/Plan 1. Chest pain with typical features in a patient with multiple cardiovascular risk factors including strong family history concerning for unstable angina. Troponin slightly elevated. He is currently chest pain-free. Continue current medications including Lovenox and proceed with cardiac catheterization and possible angioplasty. Risks and benefits were explained and he is agreeable. 2. Hypertension: Blood pressure slightly elevated. Resume home medications and titrate for better control. 3. Hyperlipidemia: Continue statin therapy 4. Diabetes mellitus type 2: Treated per Thank you for your consultation SIDNEY FLORES MD Dec 14, 2016 12:25
--- NOTE | 2016-12-14 12:45 | EKG ---
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
[2016-12-14] MEDS: PIOGLITAZONE 15 MG TABLET. PO SCH (12:58)
[2016-12-14] MEDS: DOCUSATE SODIUM 100 MG CAPSULE. PO SCH ×2 (12:58→21:14)
[2016-12-14] MEDS: MONTELUKAST SODIUM 10 MG TABLET. PO SCH (13:01)
[2016-12-14] MEDS: TAMSULOSIN 0.4 MG CAP.ER.24H. PO SCH (13:01)
[2016-12-14] MEDS: CETIRIZINE HCL 10 MG TABLET. PO SCH (13:01)
[2016-12-14] MEDS: SENNOSIDES/DOCUSATE 8.6/50MG TABLET. PO SCH ×2 (13:11→21:14)
[2016-12-14] MEDS: TRIAMTERENE/HCTZ 37.5/25MG TABLET. PO SCH (13:12)
[2016-12-14] MEDS: LOSARTAN POTASSIUM 50 MG TABLET. PO SCH (13:12)
--- NOTE | 2016-12-14 13:20 | EKG ---
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
--- NOTE | 2016-12-14 13:28 | EKG ---
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
--- NOTE | 2016-12-14 14:34 | PDOC ---
PROGRESS NOTES Chief Complaint Chief Complaint chest pain, NTEMI dm2 uncontrolled htn morbid obesity CKD 2-3 constipation with changed BM habit mild malnutrition plan: card consult hIGH CE, on lovenox bid cont home meds check hba1c, add levemir 20u qhs, ssi for now may need cath? GI consult, may need to colonoscopy as outpt check EKG add stool softner History of Present Illness History of Present Illness ROS: no fever, chills, sob or chest pain chest pain gone for now anxious on NC2 l, NEW said he has to push for BM , hard, and only small pieces, last colonoscopy was about 10years ago, neg family h/o CAD Vitals Vitals Vital Signs Date Time Temp Pulse Resp B/P (MAP) Pulse Ox O2 Delivery O2 Flow Rate FiO2 12/14/16 13:12 80 158/79 12/14/16 11:00 97.6 19 94 Nasal Cannula 2.0 97.6 Physical Exam General: Alert, Oriented X3, Cooperative, mild distress Heart: Regular rate, Normal S1 Lungs: Clear Abdomen: Normal bowel sounds, Soft (very obese) Extremities: No clubbing, No cyanosis, Normal pulses Skin: No rashes, No significant lesion, Other (chroinc skin change person shins, 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 ) Labs LABS Laboratory Tests Test 12/13/16 18:22 12/13/16 18:44 12/13/16 20:58 12/14/16 02:30 Glucose (Fingerstick) 277 mg/dL (70-99) 215 mg/dL (70-99) White Blood Count 6.3 x10^3/uL (4.0-11.0) Red Blood Count 5.24 x10^6/uL (4.30-5.70) Hemoglobin 15.4 g/dL (13.0-17.5) Hematocrit 46.5 % (39.0-53.0) Mean Corpuscular Volume 89 fL (79-100) Mean Corpuscular Hemoglobin 29 pg (25-35) Mean Corpuscular Hemoglobin Concent 33 g/dL (31-37) Red Cell Distribution Width 15.3 % (11.5-14.5) Platelet Count 174 x10^3/uL (140-400) Neutrophils (%) (Auto) 73 % (31-73) Lymphocytes (%) (Auto) 16 % (24-48) Monocytes (%) (Auto) 9 % (0-9) Eosinophils (%) (Auto) 3 % (0-3) Basophils (%) (Auto) 1 % (0-3) Neutrophils # (Auto) 4.6 x10^3uL (1.8-7.7) Lymphocytes # (Auto) 1.0 x10^3/uL (1.0-4.8) Monocytes # (Auto) 0.5 x10^3/uL (0.0-1.1) Eosinophils # (Auto) 0.2 x10^3/uL (0.0-0.7) Basophils # (Auto) 0.0 x10^3/uL (0.0-0.2) Sodium Level 138 mmol/L (136-145) Potassium Level 4.3 mmol/L (3.5-5.1) Chloride Level 101 mmol/L (98-107) Carbon Dioxide Level 28 mmol/L (21-32) Anion Gap 9 (6-14) Blood Urea Nitrogen 20 mg/dL (8-26) Creatinine 1.4 mg/dL (0.7-1.3) Estimated GFR (Cockcroft-Gault) 50.4 BUN/Creatinine Ratio 14 (6-20) Glucose Level 267 mg/dL (70-99) Calcium Level 9.0 mg/dL (8.5-10.1) Total Bilirubin 0.3 mg/dL (0.2-1.0) Aspartate Amino Transf (AST/SGOT) 27 U/L (15-37) Alanine Aminotransferase (ALT/SGPT) 31 U/L (16-63) Alkaline Phosphatase 119 U/L (46-116) Troponin I Quantitative 0.081 ng/mL (0.000-0.055) 0.151 ng/mL (0.000-0.055) Total Protein 6.7 g/dL (6.4-8.2) Albumin 3.2 g/dL (3.4-5.0) Albumin/Globulin Ratio 0.9 (1.0-1.7) Test 12/14/16 04:30 12/14/16 07:41 12/14/16 07:56 12/14/16 12:03 White Blood Count 6.0 x10^3/uL (4.0-11.0) Red Blood Count 5.14 x10^6/uL (4.30-5.70) Hemoglobin 15.0 g/dL (13.0-17.5) Hematocrit 45.1 % (39.0-53.0) Mean Corpuscular Volume 88 fL (79-100) Mean Corpuscular Hemoglobin 29 pg (25-35) Mean Corpuscular Hemoglobin Concent 33 g/dL (31-37) Red Cell Distribution Width 15.7 % (11.5-14.5) Platelet Count 209 x10^3/uL (140-400) Neutrophils (%) (Auto) 65 % (31-73) Lymphocytes (%) (Auto) 22 % (24-48) Monocytes (%) (Auto) 10 % (0-9) Eosinophils (%) (Auto) 3 % (0-3) Basophils (%) (Auto) 1 % (0-3) Neutrophils # (Auto) 3.9 x10^3uL (1.8-7.7) Lymphocytes # (Auto) 1.3 x10^3/uL (1.0-4.8) Monocytes # (Auto) 0.6 x10^3/uL (0.0-1.1) Eosinophils # (Auto) 0.2 x10^3/uL (0.0-0.7) Basophils # (Auto) 0.0 x10^3/uL (0.0-0.2) Sodium Level 141 mmol/L (136-145) Potassium Level 4.0 mmol/L (3.5-5.1) Chloride Level 101 mmol/L (98-107) Carbon Dioxide Level 32 mmol/L (21-32) Anion Gap 8 (6-14) Blood Urea Nitrogen 22 mg/dL (8-26) Creatinine 1.1 mg/dL (0.7-1.3) Estimated GFR (Cockcroft-Gault) 66.6 BUN/Creatinine Ratio 20 (6-20) Glucose Level 166 mg/dL (70-99) Calcium Level 8.3 mg/dL (8.5-10.1) Total Bilirubin 0.3 mg/dL (0.2-1.0) Aspartate Amino Transf (AST/SGOT) 21 U/L (15-37) Alanine Aminotransferase (ALT/SGPT) 34 U/L (16-63) Alkaline Phosphatase 102 U/L (46-116) Total Protein 6.0 g/dL (6.4-8.2) Albumin 3.2 g/dL (3.4-5.0) Albumin/Globulin Ratio 1.1 (1.0-1.7) Triglycerides Level 204 mg/dL (0-150) Cholesterol Level 160 mg/dL (0-200) LDL Cholesterol, Calculated 84 mg/dL (0-100) VLDL Cholesterol, Calculated 41 mg/dL (0-40) Non-HDL Cholesterol Calculated 125 mg/dL (0-129) HDL Cholesterol 35 mg/dL (40-60) Cholesterol/HDL Ratio 4.6 Troponin I Quantitative 0.102 ng/mL (0.000-0.055) Glucose (Fingerstick) 194 mg/dL (70-99) 163 mg/dL (70-99) Assessment and Plan Assessmemt and Plan Problems Medical Problems: (1) Chest pain Status: Acute (2) Non-STEMI (non-ST elevated myocardial infarction) Status: Acute Problems: Comment Review of Relevant I have reviewed the following items maxine (where applicable) has been applied. Labs Laboratory Tests Test 12/13/16 18:22 12/13/16 18:44 12/13/16 20:58 12/14/16 02:30 Glucose (Fingerstick) 277 mg/dL (70-99) 215 mg/dL (70-99) White Blood Count 6.3 x10^3/uL (4.0-11.0) Red Blood Count 5.24 x10^6/uL (4.30-5.70) Hemoglobin 15.4 g/dL (13.0-17.5) Hematocrit 46.5 % (39.0-53.0) Mean Corpuscular Volume 89 fL (79-100) Mean Corpuscular Hemoglobin 29 pg (25-35) Mean Corpuscular Hemoglobin Concent 33 g/dL (31-37) Red Cell Distribution Width 15.3 % (11.5-14.5) Platelet Count 174 x10^3/uL (140-400) Neutrophils (%) (Auto) 73 % (31-73) Lymphocytes (%) (Auto) 16 % (24-48) Monocytes (%) (Auto) 9 % (0-9) Eosinophils (%) (Auto) 3 % (0-3) Basophils (%) (Auto) 1 % (0-3) Neutrophils # (Auto) 4.6 x10^3uL (1.8-7.7) Lymphocytes # (Auto) 1.0 x10^3/uL (1.0-4.8) Monocytes # (Auto) 0.5 x10^3/uL (0.0-1.1) Eosinophils # (Auto) 0.2 x10^3/uL (0.0-0.7) Basophils # (Auto) 0.0 x10^3/uL (0.0-0.2) Sodium Level 138 mmol/L (136-145) Potassium Level 4.3 mmol/L (3.5-5.1) Chloride Level 101 mmol/L (98-107) Carbon Dioxide Level 28 mmol/L (21-32) Anion Gap 9 (6-14) Blood Urea Nitrogen 20 mg/dL (8-26) Creatinine 1.4 mg/dL (0.7-1.3) Estimated GFR (Cockcroft-Gault) 50.4 BUN/Creatinine Ratio 14 (6-20) Glucose Level 267 mg/dL (70-99) Calcium Level 9.0 mg/dL (8.5-10.1) Total Bilirubin 0.3 mg/dL (0.2-1.0) Aspartate Amino Transf (AST/SGOT) 27 U/L (15-37) Alanine Aminotransferase (ALT/SGPT) 31 U/L (16-63) Alkaline Phosphatase 119 U/L (46-116) Troponin I Quantitative 0.081 ng/mL (0.000-0.055) 0.151 ng/mL (0.000-0.055) Total Protein 6.7 g/dL (6.4-8.2) Albumin 3.2 g/dL (3.4-5.0) Albumin/Globulin Ratio 0.9 (1.0-1.7) Test 12/14/16 04:30 12/14/16 07:41 12/14/16 07:56 12/14/16 12:03 White Blood Count 6.0 x10^3/uL (4.0-11.0) Red Blood Count 5.14 x10^6/uL (4.30-5.70) Hemoglobin 15.0 g/dL (13.0-17.5) Hematocrit 45.1 % (39.0-53.0) Mean Corpuscular Volume 88 fL (79-100) Mean Corpuscular Hemoglobin 29 pg (25-35) Mean Corpuscular Hemoglobin Concent 33 g/dL (31-37) Red Cell Distribution Width 15.7 % (11.5-14.5) Platelet Count 209 x10^3/uL (140-400) Neutrophils (%) (Auto) 65 % (31-73) Lymphocytes (%) (Auto) 22 % (24-48) Monocytes (%) (Auto) 10 % (0-9) Eosinophils (%) (Auto) 3 % (0-3) Basophils (%) (Auto) 1 % (0-3) Neutrophils # (Auto) 3.9 x10^3uL (1.8-7.7) Lymphocytes # (Auto) 1.3 x10^3/uL (1.0-4.8) Monocytes # (Auto) 0.6 x10^3/uL (0.0-1.1) Eosinophils # (Auto) 0.2 x10^3/uL (0.0-0.7) Basophils # (Auto) 0.0 x10^3/uL (0.0-0.2) Sodium Level 141 mmol/L (136-145) Potassium Level 4.0 mmol/L (3.5-5.1) Chloride Level 101 mmol/L (98-107) Carbon Dioxide Level 32 mmol/L (21-32) Anion Gap 8 (6-14) Blood Urea Nitrogen 22 mg/dL (8-26) Creatinine 1.1 mg/dL (0.7-1.3) Estimated GFR (Cockcroft-Gault) 66.6 BUN/Creatinine Ratio 20 (6-20) Glucose Level 166 mg/dL (70-99) Calcium Level 8.3 mg/dL (8.5-10.1) Total Bilirubin 0.3 mg/dL (0.2-1.0) Aspartate Amino Transf (AST/SGOT) 21 U/L (15-37) Alanine Aminotransferase (ALT/SGPT) 34 U/L (16-63) Alkaline Phosphatase 102 U/L (46-116) Total Protein 6.0 g/dL (6.4-8.2) Albumin 3.2 g/dL (3.4-5.0) Albumin/Globulin Ratio 1.1 (1.0-1.7) Triglycerides Level 204 mg/dL (0-150) Cholesterol Level 160 mg/dL (0-200) LDL Cholesterol, Calculated 84 mg/dL (0-100) VLDL Cholesterol, Calculated 41 mg/dL (0-40) Non-HDL Cholesterol Calculated 125 mg/dL (0-129) HDL Cholesterol 35 mg/dL (40-60) Cholesterol/HDL Ratio 4.6 Troponin I Quantitative 0.102 ng/mL (0.000-0.055) Glucose (Fingerstick) 194 mg/dL (70-99) 163 mg/dL (70-99) Laboratory Tests Test 12/13/16 18:22 12/13/16 18:44 12/13/16 20:58 12/14/16 02:30 Glucose (Fingerstick) 277 mg/dL (70-99) 215 mg/dL (70-99) White Blood Count 6.3 x10^3/uL (4.0-11.0) Red Blood Count 5.24 x10^6/uL (4.30-5.70) Hemoglobin 15.4 g/dL (13.0-17.5) Hematocrit 46.5 % (39.0-53.0) Mean Corpuscular Volume 89 fL (79-100) Mean Corpuscular Hemoglobin 29 pg (25-35) Mean Corpuscular Hemoglobin Concent 33 g/dL (31-37) Red Cell Distribution Width 15.3 % (11.5-14.5) Platelet Count 174 x10^3/uL (140-400) Neutrophils (%) (Auto) 73 % (31-73) Lymphocytes (%) (Auto) 16 % (24-48) Monocytes (%) (Auto) 9 % (0-9) Eosinophils (%) (Auto) 3 % (0-3) Basophils (%) (Auto) 1 % (0-3) Neutrophils # (Auto) 4.6 x10^3uL (1.8-7.7) Lymphocytes # (Auto) 1.0 x10^3/uL (1.0-4.8) Monocytes # (Auto) 0.5 x10^3/uL (0.0-1.1) Eosinophils # (Auto) 0.2 x10^3/uL (0.0-0.7) Basophils # (Auto) 0.0 x10^3/uL (0.0-0.2) Sodium Level 138 mmol/L (136-145) Potassium Level 4.3 mmol/L (3.5-5.1) Chloride Level 101 mmol/L (98-107) Carbon Dioxide Level 28 mmol/L (21-32) Anion Gap 9 (6-14) Blood Urea Nitrogen 20 mg/dL (8-26) Creatinine 1.4 mg/dL (0.7-1.3) Estimated GFR (Cockcroft-Gault) 50.4 BUN/Creatinine Ratio 14 (6-20) Glucose Level 267 mg/dL (70-99) Calcium Level 9.0 mg/dL (8.5-10.1) Total Bilirubin 0.3 mg/dL (0.2-1.0) Aspartate Amino Transf (AST/SGOT) 27 U/L (15-37) Alanine Aminotransferase (ALT/SGPT) 31 U/L (16-63) Alkaline Phosphatase 119 U/L (46-116) Troponin I Quantitative 0.081 ng/mL (0.000-0.055) 0.151 ng/mL (0.000-0.055) Total Protein 6.7 g/dL (6.4-8.2) Albumin 3.2 g/dL (3.4-5.0) Albumin/Globulin Ratio 0.9 (1.0-1.7) Test 12/14/16 04:30 12/14/16 07:41 12/14/16 07:56 12/14/16 12:03 White Blood Count 6.0 x10^3/uL (4.0-11.0) Red Blood Count 5.14 x10^6/uL (4.30-5.70) Hemoglobin 15.0 g/dL (13.0-17.5) Hematocrit 45.1 % (39.0-53.0) Mean Corpuscular Volume 88 fL (79-100) Mean Corpuscular Hemoglobin 29 pg (25-35) Mean Corpuscular Hemoglobin Concent 33 g/dL (31-37) Red Cell Distribution Width 15.7 % (11.5-14.5) Platelet Count 209 x10^3/uL (140-400) Neutrophils (%) (Auto) 65 % (31-73) Lymphocytes (%) (Auto) 22 % (24-48) Monocytes (%) (Auto) 10 % (0-9) Eosinophils (%) (Auto) 3 % (0-3) Basophils (%) (Auto) 1 % (0-3) Neutrophils # (Auto) 3.9 x10^3uL (1.8-7.7) Lymphocytes # (Auto) 1.3 x10^3/uL (1.0-4.8) Monocytes # (Auto) 0.6 x10^3/uL (0.0-1.1) Eosinophils # (Auto) 0.2 x10^3/uL (0.0-0.7) Basophils # (Auto) 0.0 x10^3/uL (0.0-0.2) Sodium Level 141 mmol/L (136-145) Potassium Level 4.0 mmol/L (3.5-5.1) Chloride Level 101 mmol/L (98-107) Carbon Dioxide Level 32 mmol/L (21-32) Anion Gap 8 (6-14) Blood Urea Nitrogen 22 mg/dL (8-26) Creatinine 1.1 mg/dL (0.7-1.3) Estimated GFR (Cockcroft-Gault) 66.6 BUN/Creatinine Ratio 20 (6-20) Glucose Level 166 mg/dL (70-99) Calcium Level 8.3 mg/dL (8.5-10.1) Total Bilirubin 0.3 mg/dL (0.2-1.0) Aspartate Amino Transf (AST/SGOT) 21 U/L (15-37) Alanine Aminotransferase (ALT/SGPT) 34 U/L (16-63) Alkaline Phosphatase 102 U/L (46-116) Total Protein 6.0 g/dL (6.4-8.2) Albumin 3.2 g/dL (3.4-5.0) Albumin/Globulin Ratio 1.1 (1.0-1.7) Triglycerides Level 204 mg/dL (0-150) Cholesterol Level 160 mg/dL (0-200) LDL Cholesterol, Calculated 84 mg/dL (0-100) VLDL Cholesterol, Calculated 41 mg/dL (0-40) Non-HDL Cholesterol Calculated 125 mg/dL (0-129) HDL Cholesterol 35 mg/dL (40-60) Cholesterol/HDL Ratio 4.6 Troponin I Quantitative 0.102 ng/mL (0.000-0.055) Glucose (Fingerstick) 194 mg/dL (70-99) 163 mg/dL (70-99) Medications Current Medications Nitroglycerin (Nitro-Bid Oint) 1 inch 1X ONCE TP Last administered on 18:38; Start 12/13/16 at 18:30; Stop 12/13/16 at 18:31; Status DC Aspirin (Children'S Aspirin) 324 mg 1X ONCE PO ; Start 12/13/16 at 18:30; Stop 12/13/16 at 18:31; Status DC Enoxaparin Sodium (Lovenox Per Pharmacy Treatment Dosing) 1 each PRN DAILY PRN MC SEE COMMENTS; Start 12/13/16 at 19:15 Enoxaparin Sodium (Lovenox 100mg Syringe) 100 mg 1X ONCE SQ Last administered on 12/13/16 19:50; Start 12/13/16 at 19:30; Stop 12/13/16 at 19:31; Status DC Enoxaparin Sodium (Lovenox 80mg Syringe) 80 mg 1X ONCE SQ Last administered on 12/13/16 19:50; Start 12/13/16 at 19:30; Stop 12/13/16 at 19:31; Status DC Ondansetron HCl (Zofran) 4 mg PRN Q8HRS PRN IV NAUSEA/VOMITING; Start 12/13/16 at 19:45; Stop 12/14/16 at 11:34; Status DC Morphine Sulfate 2 mg PRN Q2HR PRN IV PAIN; Start 12/13/16 at 19:45; Stop 12/14 at 11:34; Status DC Acetaminophen (Tylenol) 650 mg PRN Q4HRS PRN PO FEVER Last administered on 12/14 06:36; Start 12/13/16 at 19:45; Stop 12/14/16 at 11:34; Status DC Nitroglycerin (Nitrostat) 0.4 mg PRN Q5MIN PRN SL CHEST PAIN; Start 12/13/16 at 19:45; Stop 12/14/16 at 19:44 Insulin Aspart (NovoLOG) 0-9 UNITS QIDACHS SQ Last administered on 12/14/16 13 :24; Start 12/13/16 at 21:30 Dextrose (Dextrose 50%-Water Syringe) 12.5 gm PRN Q15MIN PRN IV SEE COMMENTS; Start 12/13/16 at 20:15 Morphine Sulfate (Morphine Ir) 15 mg PRN Q4HRS PRN PO PAIN; Start 12/13/16 at 20:15 Enoxaparin Sodium (Lovenox 100mg Syringe) 180 mg Q12HR SQ Last administered on 12/14/16 12:58; Start 12/14/16 at 09:00 Atorvastatin Calcium (Lipitor) 20 mg QHS PO ; Start 12/14/16 at 21:00 Cetirizine HCl (ZyrTEC) 10 mg DAILY PO Last administered on 12/14/16 13:01; Start 12/14/16 at 12:00 Montelukast Sodium (Singulair) 10 mg DAILY PO Last administered on 12/14/16 13 :01; Start 12/14/16 at 12:00 Tamsulosin HCl (Flomax) 0.8 mg DAILY PO Last administered on 12/14/16 13:01; Start 12/14/16 at 12:00 Losartan Potassium (Cozaar) 100 mg DAILY PO Last administered on 12/14/16 13: 12; Start 12/14/16 at 12:00 Pioglitazone HCl (Actos) 30 mg DAILY PO Last administered on 12/14/16 12:58; Start 12/14/16 at 12:00 Triamterene/HCTZ (Maxzide 37.5/ 25mg) 1 tab DAILY PO Last administered on 13:12; Start 12/14/16 at 12:00 Acetaminophen (Tylenol) 650 mg PRN Q6HRS PRN PO FEVER; Start 12/14/16 at 11:30 Ondansetron HCl (Zofran) 4 mg PRN Q6HRS PRN IV NAUSEA/VOMITING; Start 12/14/16 at 11:30 Morphine Sulfate 2 mg PRN Q2HR PRN IV MODERATE TO SEVERE PAIN; Start 12/14/16 at 11:45 Tramadol HCl (Ultram) 50 mg PRN Q6HRS PRN PO MILD TO MODERATE PAIN; Start 12/14 at 11:30 Hydralazine HCl (Apresoline) 10 mg PRN Q4HRS PRN IVP ELEVATED BP, SEE COMMENTS ; Start 12/14/16 at 11:30 Docusate Sodium (Colace) 100 mg PRN DAILY PRN PO CONSTIPATION; Start 12/14/16 at 11:30 Senna/Docusate Sodium (Senna Plus) 1 tab BID PO Last administered on 12/14/16 13:11; Start 12/14/16 at 12:00 Docusate Sodium (Colace) 100 mg BID PO Last administered on 12/14/16t 12:58; Start 12/14/16 at 12:00 Magnesium Hydroxide (Milk Of Magnesia) 2,400 mg PRN Q12HR PRN PO CONSTIPATION; Start 12/14/16 at 11:30 Insulin Detemir (Levemir) 20 units QHS SQ ; Start 12/14/16 at 21:00 Active Scripts Active Reported Tresiba Flextouch U-100 (Insulin Degludec) 100 Unit/1 Ml Insuln.pen 40 Unit SQ HS Tresiba Flextouch U-100 (Insulin Degludec) 100 Unit/1 Ml Insuln.pen 36 Unit SQ DAILY Cetirizine Hcl 10 Mg Tablet 1 Tab PO DAILY Tamsulosin Hcl 0.4 Mg Cap.er.24h 2 Cap PO DAILY Triamterene-Hctz 37.5-25 Mg Cp (Triamterene/Hydrochlorothiazid) 1 Each Capsule 1 Cap PO DAILY Atorvastatin Calcium 20 Mg Tablet 1 Tab PO DAILY Actos (Pioglitazone Hcl) 30 Mg Tablet 1 Tab PO DAILY Montelukast Sodium Tablet (Montelukast Sodium) 10 Mg Tablet 1 Tab PO DAILY Losartan Potassium 100 Mg Tablet 100 Mg PO DAILY Vitals/I & O Vital Sign - Last 24 Hours 12/13/16 12/13/16 12/13/16 12/13/16 18:17 18:19 18:38 19:17 Temp 98.4 98.4 Pulse 92 82 84 80 Resp 22 B/P (MAP) 190/107 (134) 190/107 (134) 190/107 190/90 (123) Pulse Ox 89 93 92 O2 Delivery Room Air Room Air Room Air 12/13/16 12/13/16 12/13/16 12/13/16 19:47 20:17 20:42 21:00 Temp 97.4 97.4 Pulse 73 76 74 Resp 18 B/P (MAP) 168/79 (108) 168/83 (111) 156/86 (109) Pulse Ox 96 96 96 O2 Delivery Nasal Cannula Nasal Cannula Nasal Cannula Nasal Cannula O2 Flow Rate 2.0 2.0 2.0 2.0 12/13/16 12/13/16 12/14/16 12/14/16 22:20 23:22 02:57 07:00 Temp 97.3 97.4 98.7 97.3 97.4 98.7 Pulse 70 72 70 Resp 20 20 19 B/P (MAP) 122/68 (86) 135/72 (93) 137/54 (81) Pulse Ox 94 92 90 O2 Delivery Nasal Cannula Nasal Cannula Nasal Cannula O2 Flow Rate 2.0 2.0 2.0 12/14/16 12/14/16 12/14/16 08:00 11:00 13:12 Temp 97.6 97.6 Pulse 75 80 Resp 19 B/P (MAP) 158/79 (105) 158/79 Pulse Ox 94 O2 Delivery Nasal Cannula Nasal Cannula O2 Flow Rate 2.0 2.0 GOLDEN PEARSON MD Dec 14, 2016 14:34
[2016-12-14 15:00] VITALS: BP 153/78
[2016-12-14 19:21] VITALS: BP 139/77
[2016-12-14] MEDS: ATORVASTATIN CALCIUM 20 MG TABLET PO SCH (21:14)
[2016-12-14] MEDS: INSULIN DETEMIR 300 UNITS/3 ML INSULN.PEN. SQ SCH (21:22)
[2016-12-14 23:26] VITALS: BP 132/70
[2016-12-15] VITALS (11 sets, daily range): BP systolic 115–176; BP diastolic 74–101
[2016-12-15 06:49] LABS: BASO % 1 % (0-3); EOS % 4 % (0-3); HEMATOCRIT 46.7 % (39.0-53.0); HEMOGLOBIN 15.6 g/dL (13.0-17.5); LYMPH % 17 % (24-48); MEAN CORPUSCULAR HEMOGLOBIN 29 pg (25-35); MEAN CORPUSCULAR HGB CONC 33 g/dL (31-37); MEAN CORPUSCULAR VOLUME 87 fL (79-100); MONO % 9 % (0-9); NEUT % 70 % (31-73); PLATELET COUNT 192 x10^3/uL (140-400); RED BLOOD COUNT 5.36 x10^6/uL (4.30-5.70); RED CELL DISTRIBUTION WIDTH 15.5 % (11.5-14.5)
[2016-12-15] MEDS ORDERED: LIDOCAINE 2% 20 ML VIAL. ONE (07:10)
[2016-12-15 07:14] LABS: CALCIUM 9.2 mg/dL (8.5-10.1); GFR 74.3; POTASSIUM 3.7 mmol/L (3.5-5.1)
[2016-12-15] MEDS ORDERED: IOHEXOL 300 MG/ML 100ML VIAL. ONE (07:14)
[2016-12-15] MEDS: INSULIN ASPART 300 UNITS/3 ML INSULN.PEN SQ SCH ×4 (07:30→21:00)
--- NOTE | 2016-12-15 09:05 | PDOC2 ---
GI CONSULT Reason For Consult: Constipation HPI: HPI: 66 y/o male admitted w/ chest pressure, diaphoresis, SOA, and mild nausea. Troponin was elevated, cardiac cath planned for today. GI asked to see re: constipation. Difficult to pin down, but the patient thinks he has struggled w / straining and passage of small stools (sometimes hard, sometimes string-like) w/ feeling of incomplete evacuation for >1 year. Has tried stool softeners at home which were ineffective. 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 Thinks last colonoscopy was normal 9-10 years ago (possibly performed at [facility]). No hematochezia or melena. Decreased appetite for awhile, no weight loss or vomiting. Had GERD >5 years ago, no longer bothersome. No dysphagia. Believes had previous EGD which was normal. Takes Aleve PRN and just started a new pill for knee and foot pain, unsure of name. S/p cholecystectomy (?biliary dyskinesia - had a "special test " after recurrent n/v). No liver or pancreatic history. PMH: PMH: HTN, HLD, DM (A1c 9.1), DVT, JOY, allergic rhinitis, BPH, CKD, cholecystectomy, right inguinal hernia repair, bilateral knee arthroscopies, back surgery FH: Family History: No pertinent hx (denies GI cancers, liver/pancreatic disease, PUD), CAD Social History: Smoke: No ALCOHOL: none Drugs: None ROS: GEN: Denies fevers, chills, sweats HEENT: Denies blurred vision, sore throat CV: +CP (resolved) RESP: +SOA (resolved) GI: Per HPI : Denies hematuria, dysuria ENDO: Denies weight changes NEURO: Denies confusion, dizziness MSK: +BLE swelling +knee pain SKIN: Denies jaundice, pruritus Vitals: Vitals: Vital Signs Date Time Temp Pulse Resp B/P (MAP) Pulse Ox O2 Delivery O2 Flow Rate FiO2 12/15/16 03:12 98.4 75 16 122/75 (91) 91 Room Air 98.4 12/14/16 15:00 2.0 Labs: Labs: Laboratory Tests Test 12/14/16 12:03 12/14/16 17:17 12/14/16 20:43 12/15/16 06:15 Glucose (Fingerstick) 163 mg/dL (70-99) 131 mg/dL (70-99) 213 mg/dL (70-99) White Blood Count 6.0 x10^3/uL (4.0-11.0) Red Blood Count 5.36 x10^6/uL (4.30-5.70) Hemoglobin 15.6 g/dL (13.0-17.5) Hematocrit 46.7 % (39.0-53.0) Mean Corpuscular Volume 87 fL (79-100) Mean Corpuscular Hemoglobin 29 pg (25-35) Mean Corpuscular Hemoglobin Concent 33 g/dL (31-37) Red Cell Distribution Width 15.5 % (11.5-14.5) Platelet Count 192 x10^3/uL (140-400) Neutrophils (%) (Auto) 70 % (31-73) Lymphocytes (%) (Auto) 17 % (24-48) Monocytes (%) (Auto) 9 % (0-9) Eosinophils (%) (Auto) 4 % (0-3) Basophils (%) (Auto) 1 % (0-3) Neutrophils # (Auto) 4.3 x10^3uL (1.8-7.7) Lymphocytes # (Auto) 1.0 x10^3/uL (1.0-4.8) Monocytes # (Auto) 0.5 x10^3/uL (0.0-1.1) Eosinophils # (Auto) 0.2 x10^3/uL (0.0-0.7) Basophils # (Auto) 0.0 x10^3/uL (0.0-0.2) Sodium Level 138 mmol/L (136-145) Potassium Level 3.7 mmol/L (3.5-5.1) Chloride Level 100 mmol/L (98-107) Carbon Dioxide Level 32 mmol/L (21-32) Anion Gap 6 (6-14) Blood Urea Nitrogen 18 mg/dL (8-26) Creatinine 1.0 mg/dL (0.7-1.3) Estimated GFR (Cockcroft-Gault) 74.3 Glucose Level 161 mg/dL (70-99) Calcium Level 9.2 mg/dL (8.5-10.1) Test 12/15/16 08:10 Glucose (Fingerstick) 187 mg/dL (70-99) Allergies: Coded Allergies: No Known Drug Allergies (Unverified , 12/13/16) Medications: Current Medications Medications (Trade) Dose Ordered Sig/Андрей Route PRN Reason Start Time Stop Time Status Last Admin Dose Admin Enoxaparin Sodium (Lovenox 100mg Syringe) 180 mg Q12HR SQ 12/14/16 09:00 12/14/16 21:24 Atorvastatin Calcium (Lipitor) 20 mg QHS PO 12/14/16 21:00 12/14/16 21:14 Cetirizine HCl (ZyrTEC) 10 mg DAILY PO 12/14/16 12:00 12/14/16 13:01 Montelukast Sodium (Singulair) 10 mg DAILY PO 12/14/16 12:00 12/14/16 13:01 Tamsulosin HCl (Flomax) 0.8 mg DAILY PO 12/14/16 12:00 12/14/16 13:01 Losartan Potassium (Cozaar) 100 mg DAILY PO 12/14/16 12:00 12/14/16 13:12 Pioglitazone HCl (Actos) 30 mg DAILY PO 12/14/16 12:00 12/14/16 12:58 Triamterene/HCTZ (Maxzide 37.5/ 25mg) 1 tab DAILY PO 12/14/16 12:00 12/14/16 13:12 Senna/Docusate Sodium (Senna Plus) 1 tab BID PO 12/14/16 12:00 12/14/16 21:14 Docusate Sodium (Colace) 100 mg BID PO 12/14/16 12:00 12/14/16 21:14 Insulin Detemir (Levemir) 20 units QHS SQ 12/14/16 21:00 12/14/16 21:22 Imaging: Imaging: CXR 12/14/16 Impression: No acute abnormality is seen. PE: GEN: NAD HEENT: Atraumatic, PERRL LUNGS: clear anteriorly HEART: RRR ABD: BS+, obese, RUQ/epigastric discomfort (vague/mild) EXTREMITY: BLE edema, wrapped SKIN: chronic changes BLE NEURO/PSYCH: A & O 3 A/P: A/P: Chest pain, SOA, elevated troponin -per cardiology, cardiac cath planned Uncontrolled DM -per primary Irregular bowel habits/constipation -probably a gradual globe changer a few years, more noticeable now -incomplete evacuation, straining, passage of small stools -has tried stool softeners at home, not really helpful H/o GERD, no longer bothersome -believes had normal EGD at some point CRC screen -reports normal colonoscopy 9-10 years ago -- Proceed per cardiology. Will review w/ Dr. Seo - consider Miralax, FiberCon, Amitiza, Linzess, etc. Probably due for screening colonoscopy fairly soon, can pursue as outpt. FRANSISCO GERMAIN Dec 15, 2016 09:05
[2016-12-15] MEDS ORDERED: fentaNYL PF VIAL 100 MCG/2 ML VIAL ONE (10:07)
[2016-12-15] MEDS ORDERED: VERAPAMIL 5 MG/2 ML VIAL. ONE (10:08)
[2016-12-15] MEDS ORDERED: HEPARIN for IV BOLUS 10,000 UNIT/10 ML VIAL. ONE (10:08)
[2016-12-15] MEDS ORDERED: NITROGLYCERIN 200 MCG/2 ML SYRINGE FOR CATH/VASC LAB. ONE (10:08)
[2016-12-15] MEDS ORDERED: MIDAZOLAM HCL/PF 2 MG/2 ML VIAL. ONE (10:08)
[2016-12-15] MEDS ORDERED: NITROGLYCERIN 200 MCG/2 ML SYRINGE FOR CATH/VASC LAB. IART ONE (10:45)
[2016-12-15] MEDS ORDERED: HEPARIN for IV BOLUS 10,000 UNIT/10 ML VIAL. IART ONE (10:45)
[2016-12-15] MEDS ORDERED: IOHEXOL 300 MG/ML 100ML VIAL. IART ONE (10:45)
[2016-12-15] MEDS ORDERED: LIDOCAINE 2% 20 ML VIAL. IJ ONE (10:45)
[2016-12-15] MEDS ORDERED: MIDAZOLAM HCL/PF 2 MG/2 ML VIAL. IV ONE (10:45)
[2016-12-15] MEDS ORDERED: fentaNYL PF VIAL 100 MCG/2 ML VIAL IV ONE (10:45)
[2016-12-15] MEDS ORDERED: VERAPAMIL 5 MG/2 ML VIAL. IART ONE (10:45)
--- NOTE | 2016-12-15 10:51 | PDOC ---
MODERATE SEDATION ASSESSMENT RISKS/ALTERNATIVES Risks/Alternatives Risks and alternatives of this type of sedation and procedure discussed with: RISK/ALTERNATIVES: Patient H & P ON CHART H & P H & P on chart and reviewed for co-morbid conditions and appropriate labs. H&P ON CHART: Yes STATUS PREG STATUS ASSESSED: N/A MEDS/ALLERGIES REVIEWED Meds/Allergies Reviewed Medications and Allergies including time and route of recently administered narcotics and sedatives. MEDS/ALLERGIES REVIEWED: Yes ASA RATING ASA RATING: II AIRWAY ASSESSMENT Airway Assessment Airway patency, oral function limitations, presence of caps, crowns, dentures, partials, and ability to extend neck assessed. AIRWAY ASSESSMENT: Yes MALLAMPATI SCORE MALLAMPATI SCORE: II PRE-SEDATION ASSESSMENT PRE-SEDATION ASSESSMENT: Yes SIDNEY FLORES MD Dec 15, 2016 10:51
[2016-12-15] MEDS: SENNOSIDES/DOCUSATE 8.6/50MG TABLET. PO SCH ×2 (11:09→21:34)
[2016-12-15] MEDS: LOSARTAN POTASSIUM 50 MG TABLET. PO SCH (11:09)
--- NOTE | 2016-12-15 11:09 | CARD ---
APPROVED REPORT Procedure(s) performed: Left heart catheterization, selective coronary angiography and left ventricul ography via right transradial approach Moderate sedation: 28 minutes INDICATION The indication(s) include : non-STEMI . PROCEDURE NARRATIVE After explaining the risks, benefits and alternative options, informed consent was obtained from lula ent. Patient was brought to the cardiac Security Intern and right wrist was prepped and draped in the usual fashion after confirming a positive modified Dung's test. Arterial access was obtained in the [facility] t radial artery and a 6 Polish sheath was inserted. 6 Polish David catheter was used to perform austin ective angiography of the left and right coronary arteries. 6 Polish pigtail catheter was used to pe rform left ventriculography. Patient tolerated the procedure well. Hemostasis was achieved using TR band. There were no immediate complications. The following findings were noted. FINDINGS 1. Hemodynamics: Left ventricular end-diastolic pressure of 20 mmHg. No pullback gradient across th e aortic valve. 2. Left ventriculography: Normal left ventricle systolic function with ejection fraction estimated at 55%. No significant mitral regurgitation seen. 3. Coronary angiography: a. The left main coronary artery arose from the left sinus of Valsalva, gave rise to the left anteri or descending and left circumflex arteries and did not show any significant stenosis. b. The left anterior descending artery showed 90-95% stenosis involving the midsegment. c. The left circumflex artery showed 40-50% stenosis involving the midsegment. The first obtuse kaci inal branch showed 70% stenosis in the proximal segment. d. The right coronary artery was a dominant vessel arising from the right sinus of Valsalva that melisa wed 70% stenosis in the proximal to midsegment followed by 100% chronic total occlusion in the midseg ment. There is distal reconstitution of posterior descending and posterolateral branches from left to right collaterals. Conclusion 1. Three-vessel coronary artery disease 2. Normal left ventricle systolic function with ejection fraction estimated at 55%. Recommendations Cardiothoracic surgical team consultation for coronary artery bypass surgery.
[2016-12-15] MEDS: DOCUSATE SODIUM 100 MG CAPSULE. PO SCH ×2 (11:10→21:35)
[2016-12-15] MEDS: CETIRIZINE HCL 10 MG TABLET. PO SCH (11:10)
[2016-12-15] MEDS: TAMSULOSIN 0.4 MG CAP.ER.24H. PO SCH (11:10)
[2016-12-15] MEDS: TRIAMTERENE/HCTZ 37.5/25MG TABLET. PO SCH (11:10)
[2016-12-15] MEDS: MONTELUKAST SODIUM 10 MG TABLET. PO SCH (11:10)
[2016-12-15] MEDS: PIOGLITAZONE 15 MG TABLET. PO SCH (11:10)
[2016-12-15] MEDS ORDERED: GABA-587 PO (11:20)
--- NOTE | 2016-12-15 11:31 | PDOC ---
PROGRESS NOTES Chief Complaint Chief Complaint chest pain, NTEMI dm2 uncontrolled htn morbid obesity CKD 2-3 constipation with changed BM habit mild malnutrition plan: card consult hIGH CE, on lovenox bid cont home meds check hba1c, add levemir 20u qhs, ssi for now GI consult, may need to colonoscopy as outpt add stool softner Cath today History of Present Illness History of Present Illness ROS: no fever, chills, sob or chest pain chest pain gone anxious on NC2 l, NEW said he has to push for BM , hard, and only small pieces, last colonoscopy was about 10years ago, neg family h/o CAD Vitals Vitals Vital Signs Date Time Temp Pulse Resp B/P (MAP) Pulse Ox O2 Delivery O2 Flow Rate FiO2 12/15/16 11:09 148/77 12/15/16 10:54 82 24 91 Nasal Cannula 4.0 12/15/16 07:00 97.9 97.9 Physical Exam General: Alert, Oriented X3 Heart: Regular rate, Normal S1, Normal S2 Lungs: Clear Abdomen: Normal bowel sounds, Soft, No tenderness Extremities: No edema Skin: No rashes, No significant lesion, Other (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, 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 ) Labs LABS Laboratory Tests Test 12/14/16 12:03 12/14/16 17:17 12/14/16 20:43 12/15/16 06:15 Glucose (Fingerstick) 163 mg/dL (70-99) 131 mg/dL (70-99) 213 mg/dL (70-99) White Blood Count 6.0 x10^3/uL (4.0-11.0) Red Blood Count 5.36 x10^6/uL (4.30-5.70) Hemoglobin 15.6 g/dL (13.0-17.5) Hematocrit 46.7 % (39.0-53.0) Mean Corpuscular Volume 87 fL (79-100) Mean Corpuscular Hemoglobin 29 pg (25-35) Mean Corpuscular Hemoglobin Concent 33 g/dL (31-37) Red Cell Distribution Width 15.5 % (11.5-14.5) Platelet Count 192 x10^3/uL (140-400) Neutrophils (%) (Auto) 70 % (31-73) Lymphocytes (%) (Auto) 17 % (24-48) Monocytes (%) (Auto) 9 % (0-9) Eosinophils (%) (Auto) 4 % (0-3) Basophils (%) (Auto) 1 % (0-3) Neutrophils # (Auto) 4.3 x10^3uL (1.8-7.7) Lymphocytes # (Auto) 1.0 x10^3/uL (1.0-4.8) Monocytes # (Auto) 0.5 x10^3/uL (0.0-1.1) Eosinophils # (Auto) 0.2 x10^3/uL (0.0-0.7) Basophils # (Auto) 0.0 x10^3/uL (0.0-0.2) Sodium Level 138 mmol/L (136-145) Potassium Level 3.7 mmol/L (3.5-5.1) Chloride Level 100 mmol/L (98-107) Carbon Dioxide Level 32 mmol/L (21-32) Anion Gap 6 (6-14) Blood Urea Nitrogen 18 mg/dL (8-26) Creatinine 1.0 mg/dL (0.7-1.3) Estimated GFR (Cockcroft-Gault) 74.3 Glucose Level 161 mg/dL (70-99) Calcium Level 9.2 mg/dL (8.5-10.1) Test 12/15/16 08:10 Glucose (Fingerstick) 187 mg/dL (70-99) Assessment and Plan Assessmemt and Plan Problems Medical Problems: (1) Chest pain Status: Acute (2) Non-STEMI (non-ST elevated myocardial infarction) Status: Acute Problems: Comment Review of Relevant I have reviewed the following items maxine (where applicable) has been applied. Labs Laboratory Tests Test 12/13/16 18:22 12/13/16 18:44 12/13/16 20:58 12/14/16 02:30 Glucose (Fingerstick) 277 mg/dL (70-99) 215 mg/dL (70-99) White Blood Count 6.3 x10^3/uL (4.0-11.0) Red Blood Count 5.24 x10^6/uL (4.30-5.70) Hemoglobin 15.4 g/dL (13.0-17.5) Hematocrit 46.5 % (39.0-53.0) Mean Corpuscular Volume 89 fL (79-100) Mean Corpuscular Hemoglobin 29 pg (25-35) Mean Corpuscular Hemoglobin Concent 33 g/dL (31-37) Red Cell Distribution Width 15.3 % (11.5-14.5) Platelet Count 174 x10^3/uL (140-400) Neutrophils (%) (Auto) 73 % (31-73) Lymphocytes (%) (Auto) 16 % (24-48) Monocytes (%) (Auto) 9 % (0-9) Eosinophils (%) (Auto) 3 % (0-3) Basophils (%) (Auto) 1 % (0-3) Neutrophils # (Auto) 4.6 x10^3uL (1.8-7.7) Lymphocytes # (Auto) 1.0 x10^3/uL (1.0-4.8) Monocytes # (Auto) 0.5 x10^3/uL (0.0-1.1) Eosinophils # (Auto) 0.2 x10^3/uL (0.0-0.7) Basophils # (Auto) 0.0 x10^3/uL (0.0-0.2) Sodium Level 138 mmol/L (136-145) Potassium Level 4.3 mmol/L (3.5-5.1) Chloride Level 101 mmol/L (98-107) Carbon Dioxide Level 28 mmol/L (21-32) Anion Gap 9 (6-14) Blood Urea Nitrogen 20 mg/dL (8-26) Creatinine 1.4 mg/dL (0.7-1.3) Estimated GFR (Cockcroft-Gault) 50.4 BUN/Creatinine Ratio 14 (6-20) Glucose Level 267 mg/dL (70-99) Hemoglobin A1c 9.1 % (4.8-5.6) Calcium Level 9.0 mg/dL (8.5-10.1) Total Bilirubin 0.3 mg/dL (0.2-1.0) Aspartate Amino Transf (AST/SGOT) 27 U/L (15-37) Alanine Aminotransferase (ALT/SGPT) 31 U/L (16-63) Alkaline Phosphatase 119 U/L (46-116) Troponin I Quantitative 0.081 ng/mL (0.000-0.055) 0.151 ng/mL (0.000-0.055) Total Protein 6.7 g/dL (6.4-8.2) Albumin 3.2 g/dL (3.4-5.0) Albumin/Globulin Ratio 0.9 (1.0-1.7) Test 12/14/16 04:30 12/14/16 07:41 12/14/16 07:56 12/14/16 12:03 White Blood Count 6.0 x10^3/uL (4.0-11.0) Red Blood Count 5.14 x10^6/uL (4.30-5.70) Hemoglobin 15.0 g/dL (13.0-17.5) Hematocrit 45.1 % (39.0-53.0) Mean Corpuscular Volume 88 fL (79-100) Mean Corpuscular Hemoglobin 29 pg (25-35) Mean Corpuscular Hemoglobin Concent 33 g/dL (31-37) Red Cell Distribution Width 15.7 % (11.5-14.5) Platelet Count 209 x10^3/uL (140-400) Neutrophils (%) (Auto) 65 % (31-73) Lymphocytes (%) (Auto) 22 % (24-48) Monocytes (%) (Auto) 10 % (0-9) Eosinophils (%) (Auto) 3 % (0-3) Basophils (%) (Auto) 1 % (0-3) Neutrophils # (Auto) 3.9 x10^3uL (1.8-7.7) Lymphocytes # (Auto) 1.3 x10^3/uL (1.0-4.8) Monocytes # (Auto) 0.6 x10^3/uL (0.0-1.1) Eosinophils # (Auto) 0.2 x10^3/uL (0.0-0.7) Basophils # (Auto) 0.0 x10^3/uL (0.0-0.2) Sodium Level 141 mmol/L (136-145) Potassium Level 4.0 mmol/L (3.5-5.1) Chloride Level 101 mmol/L (98-107) Carbon Dioxide Level 32 mmol/L (21-32) Anion Gap 8 (6-14) Blood Urea Nitrogen 22 mg/dL (8-26) Creatinine 1.1 mg/dL (0.7-1.3) Estimated GFR (Cockcroft-Gault) 66.6 BUN/Creatinine Ratio 20 (6-20) Glucose Level 166 mg/dL (70-99) Calcium Level 8.3 mg/dL (8.5-10.1) Total Bilirubin 0.3 mg/dL (0.2-1.0) Aspartate Amino Transf (AST/SGOT) 21 U/L (15-37) Alanine Aminotransferase (ALT/SGPT) 34 U/L (16-63) Alkaline Phosphatase 102 U/L (46-116) Total Protein 6.0 g/dL (6.4-8.2) Albumin 3.2 g/dL (3.4-5.0) Albumin/Globulin Ratio 1.1 (1.0-1.7) Triglycerides Level 204 mg/dL (0-150) Cholesterol Level 160 mg/dL (0-200) LDL Cholesterol, Calculated 84 mg/dL (0-100) VLDL Cholesterol, Calculated 41 mg/dL (0-40) Non-HDL Cholesterol Calculated 125 mg/dL (0-129) HDL Cholesterol 35 mg/dL (40-60) Cholesterol/HDL Ratio 4.6 Troponin I Quantitative 0.102 ng/mL (0.000-0.055) Glucose (Fingerstick) 194 mg/dL (70-99) 163 mg/dL (70-99) Test 12/14/16 17:17 12/14/16 20:43 12/15/16 06:15 12/15/16 08:10 Glucose (Fingerstick) 131 mg/dL (70-99) 213 mg/dL (70-99) 187 mg/dL (70-99) White Blood Count 6.0 x10^3/uL (4.0-11.0) Red Blood Count 5.36 x10^6/uL (4.30-5.70) Hemoglobin 15.6 g/dL (13.0-17.5) Hematocrit 46.7 % (39.0-53.0) Mean Corpuscular Volume 87 fL (79-100) Mean Corpuscular Hemoglobin 29 pg (25-35) Mean Corpuscular Hemoglobin Concent 33 g/dL (31-37) Red Cell Distribution Width 15.5 % (11.5-14.5) Platelet Count 192 x10^3/uL (140-400) Neutrophils (%) (Auto) 70 % (31-73) Lymphocytes (%) (Auto) 17 % (24-48) Monocytes (%) (Auto) 9 % (0-9) Eosinophils (%) (Auto) 4 % (0-3) Basophils (%) (Auto) 1 % (0-3) Neutrophils # (Auto) 4.3 x10^3uL (1.8-7.7) Lymphocytes # (Auto) 1.0 x10^3/uL (1.0-4.8) Monocytes # (Auto) 0.5 x10^3/uL (0.0-1.1) Eosinophils # (Auto) 0.2 x10^3/uL (0.0-0.7) Basophils # (Auto) 0.0 x10^3/uL (0.0-0.2) Sodium Level 138 mmol/L (136-145) Potassium Level 3.7 mmol/L (3.5-5.1) Chloride Level 100 mmol/L (98-107) Carbon Dioxide Level 32 mmol/L (21-32) Anion Gap 6 (6-14) Blood Urea Nitrogen 18 mg/dL (8-26) Creatinine 1.0 mg/dL (0.7-1.3) Estimated GFR (Cockcroft-Gault) 74.3 Glucose Level 161 mg/dL (70-99) Calcium Level 9.2 mg/dL (8.5-10.1) Laboratory Tests Test 12/14/16 12:03 12/14/16 17:17 12/14/16 20:43 12/15/16 06:15 Glucose (Fingerstick) 163 mg/dL (70-99) 131 mg/dL (70-99) 213 mg/dL (70-99) White Blood Count 6.0 x10^3/uL (4.0-11.0) Red Blood Count 5.36 x10^6/uL (4.30-5.70) Hemoglobin 15.6 g/dL (13.0-17.5) Hematocrit 46.7 % (39.0-53.0) Mean Corpuscular Volume 87 fL (79-100) Mean Corpuscular Hemoglobin 29 pg (25-35) Mean Corpuscular Hemoglobin Concent 33 g/dL (31-37) Red Cell Distribution Width 15.5 % (11.5-14.5) Platelet Count 192 x10^3/uL (140-400) Neutrophils (%) (Auto) 70 % (31-73) Lymphocytes (%) (Auto) 17 % (24-48) Monocytes (%) (Auto) 9 % (0-9) Eosinophils (%) (Auto) 4 % (0-3) Basophils (%) (Auto) 1 % (0-3) Neutrophils # (Auto) 4.3 x10^3uL (1.8-7.7) Lymphocytes # (Auto) 1.0 x10^3/uL (1.0-4.8) Monocytes # (Auto) 0.5 x10^3/uL (0.0-1.1) Eosinophils # (Auto) 0.2 x10^3/uL (0.0-0.7) Basophils # (Auto) 0.0 x10^3/uL (0.0-0.2) Sodium Level 138 mmol/L (136-145) Potassium Level 3.7 mmol/L (3.5-5.1) Chloride Level 100 mmol/L (98-107) Carbon Dioxide Level 32 mmol/L (21-32) Anion Gap 6 (6-14) Blood Urea Nitrogen 18 mg/dL (8-26) Creatinine 1.0 mg/dL (0.7-1.3) Estimated GFR (Cockcroft-Gault) 74.3 Glucose Level 161 mg/dL (70-99) Calcium Level 9.2 mg/dL (8.5-10.1) Test 12/15/16 08:10 Glucose (Fingerstick) 187 mg/dL (70-99) Medications Current Medications Nitroglycerin (Nitro-Bid Oint) 1 inch 1X ONCE TP Last administered on t 18:38; Start 12/13/16 at 18:30; Stop 12/13/16 at 18:31; Status DC Aspirin (Children'S Aspirin) 324 mg 1X ONCE PO ; Start 12/13/16 at 18:30; Stop 12/13/16 at 18:31; Status DC Enoxaparin Sodium (Lovenox Per Pharmacy Treatment Dosing) 1 each PRN DAILY PRN MC SEE COMMENTS; Start 12/13/16 at 19:15 Enoxaparin Sodium (Lovenox 100mg Syringe) 100 mg 1X ONCE SQ Last administered on 12/13/16 19:50; Start 12/13/16 at 19:30; Stop 12/13/16 at 19:31; Status DC Enoxaparin Sodium (Lovenox 80mg Syringe) 80 mg 1X ONCE SQ Last administered on 12/13/16 19:50; Start 12/13/16 at 19:30; Stop 12/13/16 at 19:31; Status DC Ondansetron HCl (Zofran) 4 mg PRN Q8HRS PRN IV NAUSEA/VOMITING; Start 12/13/16 at 19:45; Stop 12/14/16 at 11:34; Status DC Morphine Sulfate 2 mg PRN Q2HR PRN IV PAIN; Start 12/13/16 at 19:45; Stop 12/14 at 11:34; Status DC Acetaminophen (Tylenol) 650 mg PRN Q4HRS PRN PO FEVER Last administered on 12/14 06:36; Start 12/13/16 at 19:45; Stop 12/14/16 at 11:34; Status DC Nitroglycerin (Nitrostat) 0.4 mg PRN Q5MIN PRN SL CHEST PAIN; Start 12/13/16 at 19:45; Stop 12/14/16 at 19:44; Status DC Insulin Aspart (NovoLOG) 0-9 UNITS QIDACHS SQ Last administered on 12/14/16 21 :22; Start 12/13/16 at 21:30 Dextrose (Dextrose 50%-Water Syringe) 12.5 gm PRN Q15MIN PRN IV SEE COMMENTS; Start 12/13/16 at 20:15 Morphine Sulfate (Morphine Ir) 15 mg PRN Q4HRS PRN PO PAIN; Start 12/13/16 at 20:15 Enoxaparin Sodium (Lovenox 100mg Syringe) 180 mg Q12HR SQ Last administered on 12/14/16 21:24; Start 12/14/16 at 09:00 Atorvastatin Calcium (Lipitor) 20 mg QHS PO Last administered on 12/14/16 21: 14; Start 12/14/16 at 21:00 Cetirizine HCl (ZyrTEC) 10 mg DAILY PO Last administered on 12/15/16 11:10; Start 12/14/16 at 12:00 Montelukast Sodium (Singulair) 10 mg DAILY PO Last administered on 12/15/16 11 :10; Start 12/14/16 at 12:00 Tamsulosin HCl (Flomax) 0.8 mg DAILY PO Last administered on 12/15/16 11:10; Start 12/14/16 at 12:00 Losartan Potassium (Cozaar) 100 mg DAILY PO Last administered on 12/15/16 11: 09; Start 12/14/16 at 12:00 Pioglitazone HCl (Actos) 30 mg DAILY PO Last administered on 12/15/16 11:10; Start 12/14/16 at 12:00 Triamterene/HCTZ (Maxzide 37.5/ 25mg) 1 tab DAILY PO Last administered on 11:10; Start 12/14/16 at 12:00 Acetaminophen (Tylenol) 650 mg PRN Q6HRS PRN PO FEVER; Start 12/14/16 at 11:30 Ondansetron HCl (Zofran) 4 mg PRN Q6HRS PRN IV NAUSEA/VOMITING; Start 12/14/16 at 11:30 Morphine Sulfate 2 mg PRN Q2HR PRN IV MODERATE TO SEVERE PAIN; Start 12/14/16 at 11:45 Tramadol HCl (Ultram) 50 mg PRN Q6HRS PRN PO MILD TO MODERATE PAIN; Start 12/14 at 11:30 Hydralazine HCl (Apresoline) 10 mg PRN Q4HRS PRN IVP ELEVATED BP, SEE COMMENTS ; Start 12/14/16 at 11:30 Docusate Sodium (Colace) 100 mg PRN DAILY PRN PO CONSTIPATION; Start 12/14/16 at 11:30 Senna/Docusate Sodium (Senna Plus) 1 tab BID PO Last administered on 12/15/16 11:09; Start 12/14/16 at 12:00 Docusate Sodium (Colace) 100 mg BID PO Last administered on 12/15/16 11:10; Start 12/14/16 at 12:00 Magnesium Hydroxide (Milk Of Magnesia) 2,400 mg PRN Q12HR PRN PO CONSTIPATION; Start 12/14/16 at 11:30 Insulin Detemir (Levemir) 20 units QHS SQ Last administered on 12/14/16 21:22 ; Start 12/14/16 at 21:00 Heparin Sodium/ Sodium Chloride 1,000 ml @ As Directed STK-MED ONCE .ROUTE ; Start 12/15/16 at 07:09; Stop 12/15/16 at 07:10; Status DC Lidocaine HCl 20 ml STK-MED ONCE .ROUTE ; Start 12/15/16 at 07:10; Stop at 07:11; Status DC Iohexol (Omnipaque 300 Mg/ml) 100 ml STK-MED ONCE .ROUTE ; Start 12/15/16 at 07: 14; Stop 12/15/16 at 07:15; Status DC Fentanyl Citrate (Fentanyl 2ml Vial) 100 mcg STK-MED ONCE .ROUTE ; Start at 10:07; Stop 12/15/16 at 10:08; Status DC Midazolam HCl (Versed) 2 mg STK-MED ONCE .ROUTE ; Start 12/15/16 at 10:08; Stop 12/15/16 at 10:09; Status DC Verapamil HCl (Verapamil) 5 mg STK-MED ONCE .ROUTE ; Start 12/15/16 at 10:08; Stop 12/15/16 at 10:09; Status DC Heparin Sodium (Porcine) (Heparin Sodium) 10,000 unit STK-MED ONCE .ROUTE ; Start 12/15/16 at 10:08; Stop 12/15/16 at 10:09; Status DC Nitroglycerin (Nitroglycerin) 200 mcg STK-MED ONCE .ROUTE ; Start 12/15/16 at 10 :08; Stop 12/15/16 at 10:09; Status DC Nitroglycerin (Nitroglycerin) 200 mcg 1X ONCE IART Last administered on 10:43; Start 12/15/16 at 10:45; Stop 12/15/16 at 10:46; Status DC Verapamil HCl (Verapamil) 2.5 mg 1X ONCE IART Last administered on 12/15/16 10:43; Start 12/15/16 at 10:45; Stop 12/15/16 at 10:46; Status DC Heparin Sodium (Porcine) (Heparin Sodium) 2,500 unit 1X ONCE IART Last administered on 12/15/16 10:45; Start 12/15/16 at 10:45; Stop 12/15/16 at 10:46 ; Status DC Heparin Sodium/ Sodium Chloride 1,000 unit 1X ONCE IART Last administered on 10:42; Start 12/15/16 at 10:45; Stop 12/15/16 at 10:46; Status DC Midazolam HCl (Versed) 2 mg 1X ONCE IV Last administered on 12/15/16 10:44; Start 12/15/16 at 10:45; Stop 12/15/16 at 10:46; Status DC Fentanyl Citrate (Fentanyl 2ml Vial) 50 mcg 1X ONCE IV Last administered on 10:44; Start 12/15/16 at 10:45; Stop 12/15/16 at 10:46; Status DC Iohexol (Omnipaque 300 Mg/ml) 100 ml 1X ONCE IART Last administered on 10:42; Start 12/15/16 at 10:45; Stop 12/15/16 at 10:46; Status DC Lidocaine HCl 2 ml 1X ONCE IJ Last administered on 12/15/16 10:42; Start at 10:45; Stop 12/15/16 at 10:46; Status DC Sodium Chloride 1,000 ml @ 60 mls/hr [id number] IV ; Start 12/15/16 at 10:51 Active Scripts Active Reported Gabapentin 400 Mg Capsule 400 Mg PO TID PRN Tresiba Flextouch U-100 (Insulin Degludec) 100 Unit/1 Ml Insuln.pen 40 Unit SQ HS Tresiba Flextouch U-100 (Insulin Degludec) 100 Unit/1 Ml Insuln.pen 36 Unit SQ DAILY Cetirizine Hcl 10 Mg Tablet 1 Tab PO DAILY Tamsulosin Hcl 0.4 Mg Cap.er.24h 2 Cap PO DAILY Triamterene-Hctz 37.5-25 Mg Cp (Triamterene/Hydrochlorothiazid) 1 Each Capsule 1 Cap PO DAILY Atorvastatin Calcium 20 Mg Tablet 1 Tab PO DAILY Actos (Pioglitazone Hcl) 30 Mg Tablet 1 Tab PO DAILY Montelukast Sodium Tablet (Montelukast Sodium) 10 Mg Tablet 1 Tab PO DAILY Losartan Potassium 100 Mg Tablet 100 Mg PO DAILY Vitals/I & O Vital Sign - Last 24 Hours 9/12/14/16 12/14/16 12/14/16 13:12 15:00 19:21 19:25 Temp 97.6 98.6 97.6 98.6 Pulse 80 77 89 Resp 19 18 B/P (MAP) 158/79 153/78 (103) 139/77 (97) Pulse Ox 92 92 O2 Delivery Nasal Cannula Room Air Room Air O2 Flow Rate 2.0 12/14/16 12/15/16 12/15/16 12/15/16 23:26 03:12 07:00 10:43 Temp 98.0 98.4 97.9 98.0 98.4 97.9 Pulse 80 75 48 82 Resp 18 16 20 B/P (MAP) 132/70 (90) 122/75 (91) 129/74 (92) Pulse Ox 91 91 93 O2 Delivery Room Air Room Air Room Air 12/15/16 12/15/16 12/15/16 10:44 10:54 11:09 Pulse 82 Resp 24 24 B/P (MAP) 148/77 Pulse Ox 93 91 O2 Delivery Nasal Cannula Nasal Cannula O2 Flow Rate 4.0 4.0 GOLDEN PEARSON MD Dec 15, 2016 11:31
[2016-12-15] MEDS: IV 1/2 NORMAL SALINE 1,000 ML IV SCH (12:20)
--- NOTE | 2016-12-15 16:13 | PDOC2 ---
CONSULT Date of Consult Date of Consult DATE: 12/15/16 TIME: 16:05 Reason for Consult Reason for Consult: Three-vessel coronary artery disease Referring Physician Referring Physician: Dr Culver Identification/Chief Complaint Chief Complaint Angina Problems: Source Source: Chart review, Patient History of Present Illness Reason for Visit: Patient is a 66 year old male,who presented with intermittent episodes of retrosternal chest pressure associated with diaphoresis and mild shortness of breath. He denied any orthopnea/PND, palpitations or syncope. He has strong family history of premature coronary artery disease. Troponin was negative and EKG did not show ischemic changes. LHC today showed proximal/Mid 80% LAD stenosis, 70% ostial OM and an occluded mid RCA and an RPDA that fills from left to right. LV function is preserved and there is no valvular disease. I was consulted consider the patient for surgical coronary revascularization. Past Medical History Cardiovascular: HTN Pulmonary: No pertinent hx GI: No pertinent hx Heme/Onc: No pertinent hx Family History Family History: Coronary Artery Disease, Heart Disease, Hypertension Social History Social History: Parent, Other No ALCOHOL: none Drugs: None Current Problem List Problem List Problems Medical Problems: (1) Chest pain Status: Acute (2) Non-STEMI (non-ST elevated myocardial infarction) Status: Acute Current Medications Current Medications Current Medications Nitroglycerin (Nitro-Bid Oint) 1 inch 1X ONCE TP Last administered on 18:38; Start 12/13/16 at 18:30; Stop 12/13/16 at 18:31; Status DC Aspirin (Children'S Aspirin) 324 mg 1X ONCE PO ; Start 12/13/16 at 18:30; Stop 12/13/16 at 18:31; Status DC Enoxaparin Sodium (Lovenox Per Pharmacy Treatment Dosing) 1 each PRN DAILY PRN MC SEE COMMENTS; Start 12/13/16 at 19:15 Enoxaparin Sodium (Lovenox 100mg Syringe) 100 mg 1X ONCE SQ Last administered on 12/13/16 19:50; Start 12/13/16 at 19:30; Stop 12/13/16 at 19:31; Status DC Enoxaparin Sodium (Lovenox 80mg Syringe) 80 mg 1X ONCE SQ Last administered on 12/13/16 19:50; Start 12/13/16 at 19:30; Stop 12/13/16 at 19:31; Status DC Ondansetron HCl (Zofran) 4 mg PRN Q8HRS PRN IV NAUSEA/VOMITING; Start 12/13/16 at 19:45; Stop 12/14/16 at 11:34; Status DC Morphine Sulfate 2 mg PRN Q2HR PRN IV PAIN; Start 12/13/16 at 19:45; Stop 12/14 at 11:34; Status DC Acetaminophen (Tylenol) 650 mg PRN Q4HRS PRN PO FEVER Last administered on 12/14 06:36; Start 12/13/16 at 19:45; Stop 12/14/16 at 11:34; Status DC Nitroglycerin (Nitrostat) 0.4 mg PRN Q5MIN PRN SL CHEST PAIN; Start 12/13/16 at 19:45; Stop 12/14/16 at 19:44; Status DC Insulin Aspart (NovoLOG) 0-9 UNITS QIDACHS SQ Last administered on 12/14/16 21 :22; Start 12/13/16 at 21:30 Dextrose (Dextrose 50%-Water Syringe) 12.5 gm PRN Q15MIN PRN IV SEE COMMENTS; Start 12/13/16 at 20:15 Morphine Sulfate (Morphine Ir) 15 mg PRN Q4HRS PRN PO PAIN; Start 12/13/16 at 20:15 Enoxaparin Sodium (Lovenox 100mg Syringe) 180 mg Q12HR SQ Last administered on 12/14/16 21:24; Start 12/14/16 at 09:00 Atorvastatin Calcium (Lipitor) 20 mg QHS PO Last administered on 12/14/16 21: 14; Start 12/14/16 at 21:00 Cetirizine HCl (ZyrTEC) 10 mg DAILY PO Last administered on 12/15/16 11:10; Start 12/14/16 at 12:00 Montelukast Sodium (Singulair) 10 mg DAILY PO Last administered on 12/15/16 11 :10; Start 12/14/16 at 12:00 Tamsulosin HCl (Flomax) 0.8 mg DAILY PO Last administered on 12/15/16 11:10; Start 12/14/16 at 12:00 Losartan Potassium (Cozaar) 100 mg DAILY PO Last administered on 12/15/16 11: 09; Start 12/14/16 at 12:00 Pioglitazone HCl (Actos) 30 mg DAILY PO Last administered on 12/15/16 11:10; Start 12/14/16 at 12:00 Triamterene/HCTZ (Maxzide 37.5/ 25mg) 1 tab DAILY PO Last administered on 11:10; Start 12/14/16 at 12:00 Acetaminophen (Tylenol) 650 mg PRN Q6HRS PRN PO FEVER; Start 12/14/16 at 11:30 Ondansetron HCl (Zofran) 4 mg PRN Q6HRS PRN IV NAUSEA/VOMITING; Start 12/14/16 at 11:30 Morphine Sulfate 2 mg PRN Q2HR PRN IV MODERATE TO SEVERE PAIN; Start 12/14/16 at 11:45 Tramadol HCl (Ultram) 50 mg PRN Q6HRS PRN PO MILD TO MODERATE PAIN; Start 12/14 at 11:30 Hydralazine HCl (Apresoline) 10 mg PRN Q4HRS PRN IVP ELEVATED BP, SEE COMMENTS ; Start 12/14/16 at 11:30 Docusate Sodium (Colace) 100 mg PRN DAILY PRN PO CONSTIPATION; Start 12/14/16 at 11:30 Senna/Docusate Sodium (Senna Plus) 1 tab BID PO Last administered on 12/15/16 11:09; Start 12/14/16 at 12:00 Docusate Sodium (Colace) 100 mg BID PO Last administered on 12/15/16 11:10; Start 12/14/16 at 12:00 Magnesium Hydroxide (Milk Of Magnesia) 2,400 mg PRN Q12HR PRN PO CONSTIPATION; Start 12/14/16 at 11:30 Insulin Detemir (Levemir) 20 units QHS SQ Last administered on 12/14/16 21:22 ; Start 12/14/16 at 21:00 Heparin Sodium/ Sodium Chloride 1,000 ml @ As Directed STK-MED ONCE .ROUTE ; Start 12/15/16 at 07:09; Stop 12/15/16 at 07:10; Status DC Lidocaine HCl 20 ml STK-MED ONCE .ROUTE ; Start 12/15/16 at 07:10; Stop at 07:11; Status DC Iohexol (Omnipaque 300 Mg/ml) 100 ml STK-MED ONCE .ROUTE ; Start 12/15/16 at 07: 14; Stop 12/15/16 at 07:15; Status DC Fentanyl Citrate (Fentanyl 2ml Vial) 100 mcg STK-MED ONCE .ROUTE ; Start at 10:07; Stop 12/15/16 at 10:08; Status DC Midazolam HCl (Versed) 2 mg STK-MED ONCE .ROUTE ; Start 12/15/16 at 10:08; Stop 12/15/16 at 10:09; Status DC Verapamil HCl (Verapamil) 5 mg STK-MED ONCE .ROUTE ; Start 12/15/16 at 10:08; Stop 12/15/16 at 10:09; Status DC Heparin Sodium (Porcine) (Heparin Sodium) 10,000 unit STK-MED ONCE .ROUTE ; Start 12/15/16 at 10:08; Stop 12/15/16 at 10:09; Status DC Nitroglycerin (Nitroglycerin) 200 mcg STK-MED ONCE .ROUTE ; Start 12/15/16 at 10 :08; Stop 12/15/16 at 10:09; Status DC Nitroglycerin (Nitroglycerin) 200 mcg 1X ONCE IART Last administered on 10:43; Start 12/15/16 at 10:45; Stop 12/15/16 at 10:46; Status DC Verapamil HCl (Verapamil) 2.5 mg 1X ONCE IART Last administered on 12/15/16 10:43; Start 12/15/16 at 10:45; Stop 12/15/16 at 10:46; Status DC Heparin Sodium (Porcine) (Heparin Sodium) 2,500 unit 1X ONCE IART Last administered on 12/15/16 10:45; Start 12/15/16 at 10:45; Stop 12/15/16 at 10:46 ; Status DC Heparin Sodium/ Sodium Chloride 1,000 unit 1X ONCE IART Last administered on 10:42; Start 12/15/16 at 10:45; Stop 12/15/16 at 10:46; Status DC Midazolam HCl (Versed) 2 mg 1X ONCE IV Last administered on 12/15/16 10:44; Start 12/15/16 at 10:45; Stop 12/15/16 at 10:46; Status DC Fentanyl Citrate (Fentanyl 2ml Vial) 50 mcg 1X ONCE IV Last administered on 10:44; Start 12/15/16 at 10:45; Stop 12/15/16 at 10:46; Status DC Iohexol (Omnipaque 300 Mg/ml) 100 ml 1X ONCE IART Last administered on 10:42; Start 12/15/16 at 10:45; Stop 12/15/16 at 10:46; Status DC Lidocaine HCl 2 ml 1X ONCE IJ Last administered on 12/15/16 10:42; Start at 10:45; Stop 12/15/16 at 10:46; Status DC Sodium Chloride 1,000 ml @ 60 mls/hr [id number] IV Last administered on 12:20; Start 12/15/16 at 10:51 Active Scripts Active Reported Gabapentin 400 Mg Capsule 400 Mg PO TID PRN Tresiba Flextouch U-100 (Insulin Degludec) 100 Unit/1 Ml Insuln.pen 40 Unit SQ HS Tresiba Flextouch U-100 (Insulin Degludec) 100 Unit/1 Ml Insuln.pen 36 Unit SQ DAILY Cetirizine Hcl 10 Mg Tablet 1 Tab PO DAILY Tamsulosin Hcl 0.4 Mg Cap.er.24h 2 Cap PO DAILY Triamterene-Hctz 37.5-25 Mg Cp (Triamterene/Hydrochlorothiazid) 1 Each Capsule 1 Cap PO DAILY Atorvastatin Calcium 20 Mg Tablet 1 Tab PO DAILY Actos (Pioglitazone Hcl) 30 Mg Tablet 1 Tab PO DAILY Montelukast Sodium Tablet (Montelukast Sodium) 10 Mg Tablet 1 Tab PO DAILY Losartan Potassium 100 Mg Tablet 100 Mg PO DAILY Allergies Allergies: Coded Allergies: No Known Drug Allergies (Unverified , 12/13/16) ROS General: YES: Fatigue, No: Chills, Night Sweats, Malaise, Appetite PSYCHOLOGICAL ROS: No: Anxiety, Behavioral Disorder, Concentration difficultie , Decreased libido, Depression, Disorientation, Hallucinations, Hostility, Irritablity, Memory difficulties, Mood Swings, Obsessive thoughts, Physical abuse, Sexual abuse, Sleep disturbances, Suicidal ideation Eyes: No Blurry vision, No Decreased vision, No Double vision, No Dry eyes, No Excessive tearing, No Eye Pain, No Itchy Eyes, No Loss of vision, No Photophobia , No Scotomata, No Uses contacts, No Uses glasses HEENT: No: Heacaches, Visual Changes, Hearing change, Nasal congestion, Nasal discharge, Oral lesions, Sinus pain, Sore Throat, Epistaxis, Sneezing, Snoring, Tinnitus, Vertigo, Vocal changes ALLERGY AND IMMUNOLOGY: No: Hives, Insect Bite Sensitivity, Itchy/Watery Eyes, Nasal Congestion, Post Nasal Drip, Seasonal Allergies Hematological and Lymphatic: No: Bleeding Problems, Blood Clots, Blood Transfusions, Brusing, Night Sweats, Pallor, Swollen Lymph Nodes ENDOCRINE: No: Breast Changes, Galactorrhea, Hair Pattern Changes, Hot Flashes , Malaise/lethargy, Mood Swings, Palpitations, Polydipsia/polyuria, Skin Changes , Temperature Intolerance, Unexpected Weight Changes Respiratory: YES: Shortness of breath, No: Cough, Hemoptysis, Orthopnea, Pleuritic Pain, SOB with excertion, Sputum Changes, Stridor, Tachypnea, Wheezing Cardiovascular: yes Chest Pain, No Palpitations, No Orthopnea, No Paroxysmal Noc. Dyspnea, No Edema, No Lt Headedness Gastrointestinal: No Nausea, No Vomiting, No Abdominal Pain, No Diarrhea, No Constipation, No Melena, No Hematochezia Genitourinary: No Dysuria, No Frequency, No Incontinence, No Hematuria, No Retention, No Discharge, No Urgency, No Pain, No Flank Pain Musculoskeletal: No Gait Disturbance, No Joint Pain, No Joint Stiffness, No Joint Swelling, No Muscle Pain, No Muscular Weakness, No Pain In:, No Swelling In: Neurological: No Behavorial Changes, No Bowel/Bladder ControlChng, No Confusion , No Dizziness, No Gait Disturbance, No Headaches, No Impaired Coord/balance, No Memory Loss, No Numbness/Tingling, No Seizures, No Speech Problems, No Tremors, No Visual Changes, No Weakness Skin: No Dry Skin, No Eczema, No Hair Changes, No Lumps, No Mole Changes, No Mottling, No Nail Changes, No Pruritus, No Rash, No Skin Lesion Changes, No Acne Physical Exam Physical Exam morbidly obese General: Alert, Oriented X3, No acute distress HEENT: Atraumatic, PERRLA Lungs: Clear to auscultation Heart: Regular rate, Normal S1, Normal S2 Abdomen: Soft, No tenderness Extremities: No edema Skin: No significant lesion Neuro: Normal gait, Normal speech, Strength at 5/5 X4 ext, Normal tone, Sensation intact, Cranial nerves 3-12 NL Psych/Mental Status: Mental status NL MUSCULOSKELETAL: No deformity Vitals VITALS Vital Signs Date Time Temp Pulse Resp B/P (MAP) Pulse Ox O2 Delivery O2 Flow Rate FiO2 12/15/16 15:00 97.6 79 20 133/77 (95) 95 Room Air 97.6 12/15/16 11:15 2.0 Labs Labs Laboratory Tests Test 12/13/16 18:22 12/13/16 18:44 12/13/16 20:58 12/14/16 02:30 Glucose (Fingerstick) 277 mg/dL (70-99) 215 mg/dL (70-99) White Blood Count 6.3 x10^3/uL (4.0-11.0) Red Blood Count 5.24 x10^6/uL (4.30-5.70) Hemoglobin 15.4 g/dL (13.0-17.5) Hematocrit 46.5 % (39.0-53.0) Mean Corpuscular Volume 89 fL (79-100) Mean Corpuscular Hemoglobin 29 pg (25-35) Mean Corpuscular Hemoglobin Concent 33 g/dL (31-37) Red Cell Distribution Width 15.3 % (11.5-14.5) Platelet Count 174 x10^3/uL (140-400) Neutrophils (%) (Auto) 73 % (31-73) Lymphocytes (%) (Auto) 16 % (24-48) Monocytes (%) (Auto) 9 % (0-9) Eosinophils (%) (Auto) 3 % (0-3) Basophils (%) (Auto) 1 % (0-3) Neutrophils # (Auto) 4.6 x10^3uL (1.8-7.7) Lymphocytes # (Auto) 1.0 x10^3/uL (1.0-4.8) Monocytes # (Auto) 0.5 x10^3/uL (0.0-1.1) Eosinophils # (Auto) 0.2 x10^3/uL (0.0-0.7) Basophils # (Auto) 0.0 x10^3/uL (0.0-0.2) Sodium Level 138 mmol/L (136-145) Potassium Level 4.3 mmol/L (3.5-5.1) Chloride Level 101 mmol/L (98-107) Carbon Dioxide Level 28 mmol/L (21-32) Anion Gap 9 (6-14) Blood Urea Nitrogen 20 mg/dL (8-26) Creatinine 1.4 mg/dL (0.7-1.3) Estimated GFR (Cockcroft-Gault) 50.4 BUN/Creatinine Ratio 14 (6-20) Glucose Level 267 mg/dL (70-99) Hemoglobin A1c 9.1 % (4.8-5.6) Calcium Level 9.0 mg/dL (8.5-10.1) Total Bilirubin 0.3 mg/dL (0.2-1.0) Aspartate Amino Transf (AST/SGOT) 27 U/L (15-37) Alanine Aminotransferase (ALT/SGPT) 31 U/L (16-63) Alkaline Phosphatase 119 U/L (46-116) Troponin I Quantitative 0.081 ng/mL (0.000-0.055) 0.151 ng/mL (0.000-0.055) Total Protein 6.7 g/dL (6.4-8.2) Albumin 3.2 g/dL (3.4-5.0) Albumin/Globulin Ratio 0.9 (1.0-1.7) Test 12/14/16 04:30 12/14/16 07:41 12/14/16 07:56 12/14/16 12:03 White Blood Count 6.0 x10^3/uL (4.0-11.0) Red Blood Count 5.14 x10^6/uL (4.30-5.70) Hemoglobin 15.0 g/dL (13.0-17.5) Hematocrit 45.1 % (39.0-53.0) Mean Corpuscular Volume 88 fL (79-100) Mean Corpuscular Hemoglobin 29 pg (25-35) Mean Corpuscular Hemoglobin Concent 33 g/dL (31-37) Red Cell Distribution Width 15.7 % (11.5-14.5) Platelet Count 209 x10^3/uL (140-400) Neutrophils (%) (Auto) 65 % (31-73) Lymphocytes (%) (Auto) 22 % (24-48) Monocytes (%) (Auto) 10 % (0-9) Eosinophils (%) (Auto) 3 % (0-3) Basophils (%) (Auto) 1 % (0-3) Neutrophils # (Auto) 3.9 x10^3uL (1.8-7.7) Lymphocytes # (Auto) 1.3 x10^3/uL (1.0-4.8) Monocytes # (Auto) 0.6 x10^3/uL (0.0-1.1) Eosinophils # (Auto) 0.2 x10^3/uL (0.0-0.7) Basophils # (Auto) 0.0 x10^3/uL (0.0-0.2) Sodium Level 141 mmol/L (136-145) Potassium Level 4.0 mmol/L (3.5-5.1) Chloride Level 101 mmol/L (98-107) Carbon Dioxide Level 32 mmol/L (21-32) Anion Gap 8 (6-14) Blood Urea Nitrogen 22 mg/dL (8-26) Creatinine 1.1 mg/dL (0.7-1.3) Estimated GFR (Cockcroft-Gault) 66.6 BUN/Creatinine Ratio 20 (6-20) Glucose Level 166 mg/dL (70-99) Calcium Level 8.3 mg/dL (8.5-10.1) Total Bilirubin 0.3 mg/dL (0.2-1.0) Aspartate Amino Transf (AST/SGOT) 21 U/L (15-37) Alanine Aminotransferase (ALT/SGPT) 34 U/L (16-63) Alkaline Phosphatase 102 U/L (46-116) Total Protein 6.0 g/dL (6.4-8.2) Albumin 3.2 g/dL (3.4-5.0) Albumin/Globulin Ratio 1.1 (1.0-1.7) Triglycerides Level 204 mg/dL (0-150) Cholesterol Level 160 mg/dL (0-200) LDL Cholesterol, Calculated 84 mg/dL (0-100) VLDL Cholesterol, Calculated 41 mg/dL (0-40) Non-HDL Cholesterol Calculated 125 mg/dL (0-129) HDL Cholesterol 35 mg/dL (40-60) Cholesterol/HDL Ratio 4.6 Troponin I Quantitative 0.102 ng/mL (0.000-0.055) Glucose (Fingerstick) 194 mg/dL (70-99) 163 mg/dL (70-99) Test 12/14/16 17:17 12/14/16 20:43 12/15/16 06:15 12/15/16 08:10 Glucose (Fingerstick) 131 mg/dL (70-99) 213 mg/dL (70-99) 187 mg/dL (70-99) White Blood Count 6.0 x10^3/uL (4.0-11.0) Red Blood Count 5.36 x10^6/uL (4.30-5.70) Hemoglobin 15.6 g/dL (13.0-17.5) Hematocrit 46.7 % (39.0-53.0) Mean Corpuscular Volume 87 fL (79-100) Mean Corpuscular Hemoglobin 29 pg (25-35) Mean Corpuscular Hemoglobin Concent 33 g/dL (31-37) Red Cell Distribution Width 15.5 % (11.5-14.5) Platelet Count 192 x10^3/uL (140-400) Neutrophils (%) (Auto) 70 % (31-73) Lymphocytes (%) (Auto) 17 % (24-48) Monocytes (%) (Auto) 9 % (0-9) Eosinophils (%) (Auto) 4 % (0-3) Basophils (%) (Auto) 1 % (0-3) Neutrophils # (Auto) 4.3 x10^3uL (1.8-7.7) Lymphocytes # (Auto) 1.0 x10^3/uL (1.0-4.8) Monocytes # (Auto) 0.5 x10^3/uL (0.0-1.1) Eosinophils # (Auto) 0.2 x10^3/uL (0.0-0.7) Basophils # (Auto) 0.0 x10^3/uL (0.0-0.2) Sodium Level 138 mmol/L (136-145) Potassium Level 3.7 mmol/L (3.5-5.1) Chloride Level 100 mmol/L (98-107) Carbon Dioxide Level 32 mmol/L (21-32) Anion Gap 6 (6-14) Blood Urea Nitrogen 18 mg/dL (8-26) Creatinine 1.0 mg/dL (0.7-1.3) Estimated GFR (Cockcroft-Gault) 74.3 Glucose Level 161 mg/dL (70-99) Calcium Level 9.2 mg/dL (8.5-10.1) Test 12/15/16 12:07 Glucose (Fingerstick) 156 mg/dL (70-99) Laboratory Tests Test 12/14/16 17:17 12/14/16 20:43 12/15/16 06:15 12/15/16 08:10 Glucose (Fingerstick) 131 mg/dL (70-99) 213 mg/dL (70-99) 187 mg/dL (70-99) White Blood Count 6.0 x10^3/uL (4.0-11.0) Red Blood Count 5.36 x10^6/uL (4.30-5.70) Hemoglobin 15.6 g/dL (13.0-17.5) Hematocrit 46.7 % (39.0-53.0) Mean Corpuscular Volume 87 fL (79-100) Mean Corpuscular Hemoglobin 29 pg (25-35) Mean Corpuscular Hemoglobin Concent 33 g/dL (31-37) Red Cell Distribution Width 15.5 % (11.5-14.5) Platelet Count 192 x10^3/uL (140-400) Neutrophils (%) (Auto) 70 % (31-73) Lymphocytes (%) (Auto) 17 % (24-48) Monocytes (%) (Auto) 9 % (0-9) Eosinophils (%) (Auto) 4 % (0-3) Basophils (%) (Auto) 1 % (0-3) Neutrophils # (Auto) 4.3 x10^3uL (1.8-7.7) Lymphocytes # (Auto) 1.0 x10^3/uL (1.0-4.8) Monocytes # (Auto) 0.5 x10^3/uL (0.0-1.1) Eosinophils # (Auto) 0.2 x10^3/uL (0.0-0.7) Basophils # (Auto) 0.0 x10^3/uL (0.0-0.2) Sodium Level 138 mmol/L (136-145) Potassium Level 3.7 mmol/L (3.5-5.1) Chloride Level 100 mmol/L (98-107) Carbon Dioxide Level 32 mmol/L (21-32) Anion Gap 6 (6-14) Blood Urea Nitrogen 18 mg/dL (8-26) Creatinine 1.0 mg/dL (0.7-1.3) Estimated GFR (Cockcroft-Gault) 74.3 Glucose Level 161 mg/dL (70-99) Calcium Level 9.2 mg/dL (8.5-10.1) Test 12/15/16 12:07 Glucose (Fingerstick) 156 mg/dL (70-99) Images Images FINDINGS 1. Hemodynamics: Left ventricular end-diastolic pressure of 20 mmHg. No pullback gradient across the aortic valve. 2. Left ventriculography: Normal left ventricle systolic function with ejection fraction estimated at 55%. No significant mitral regurgitation seen. 3. Coronary angiography: a. The left main coronary artery arose from the left sinus of Valsalva, gave rise to the left anterior descending and left circumflex arteries and did not show any significant stenosis. b. The left anterior descending artery showed 90-95% stenosis involving the midsegment. c. The left circumflex artery showed 40-50% stenosis involving the midsegment. The first obtuse marginal branch showed 70% stenosis in the proximal segment. d. The right coronary artery was a dominant vessel arising from the right sinus of Valsalva that showed 70% stenosis in the proximal to midsegment followed by 100% chronic total occlusion in the midsegment. There is distal reconstitution of posterior descending and posterolateral branches from left to right collaterals. Assessment/Plan Assessment/Plan 66-year-old male, with a strong family history of premature ischemic heart disease, who presents with angina. LHC today showed proximal/Mid 80% LAD stenosis, 70% ostial OM and an occluded mid RCA and an RPDA that fills from left to right. LV function is preserved and there is no valvular disease. The patient is a candidate for CABG x3 (KEN to LAD, SVG to OM and SVG to RCA) Will obtain preoperative: Carotid duplex CT chest non contrast Vein mapping Coags INR/PTT Hold YARI inhibitor before cardiac surgery X match 2 units PRBCs Plan for CABG on 12/17/16 SEVERO FARRIS MD Dec 15, 2016 16:13
--- NOTE | 2016-12-15 17:50 | CARD ---
APPROVED REPORT EXAM: Two-dimensional and M-mode echocardiogram with Doppler and color Doppler. Other Information Quality : Technically Limited Technically limited study due to body habitus. INDICATION Non STEMI 2D DIMENSIONS Left Atrium(2D)4.1 (1.6-4.0cm)IVSd2.1 (0.7-1.1cm) LVDd4.5 (3.9-5.9cm)LVOT Diameter2.5 (1.8-2.4cm) PWd1.8 (0.7-1.1cm)LVDs3.2 (2.5-4.0cm) FS (%) 29.5 %SV52.3 ml LVEF(%)56.6 (>50%) Aortic Valve AoV Peak Moises.110.8cm/sAoV VTI16.7cm AO Peak GR.4.9mmHgLVOT VTI 17.75cm AO Mean GR.3mmHg Mitral Valve MV E Anpshozj21.8cm/sMV DECEL [id number] MV A Sxvoxddd967.4cm/sE/A Ratio0.6 TDI Lateral E' P. V12.93cm/sMedial E' P. V10.16cm/s E/Lateral E'4.8E/Medial E'6.1 LEFT VENTRICLE The left ventricle is not well visualized. The left ventricle is normal size. Left ventricle systolic function is normal. The Ejection Fraction is 55-60%. There is normal LV segmental wall motion. Tissu e Doppler imaging reveals mild left ventricular diastolic dysfunction. Transmitral Doppler flow patte rn is Grade I-abnormal relaxation pattern. RIGHT VENTRICLE The right ventricle is not well visualized. ATRIA The left atrium is not well visualized. The right atrium is not well visualized. The atrial septum is not well visualized. AORTIC VALVE The aortic valve is not well visualized but appears to open. Doppler and Color Flow revealed no signi ficant aortic regurgitation. There is no significant aortic valvular stenosis. MITRAL VALVE The mitral valve is not well visualized. There is no mitral valve stenosis. Doppler and Color Flow re vealed no mitral valve regurgitation noted. TRICUSPID VALVE The tricuspid valve is not well visualized. Doppler and Color Flow revealed no tricuspid valve regurg itation noted. Unable to estimate PA pressure. There is no tricuspid valve stenosis. PULMONIC VALVE The pulmonic valve is not well visualized. Doppler and Color Flow revealed no pulmonic valvular regur gitation. There is no pulmonic valvular stenosis. GREAT VESSELS The aortic root is not well visualized. Pulmonary veins not recorded. Due to poor image quality, the IVC could not be assessed. PERICARDIAL EFFUSION There is no evidence of significant pericardial effusion. Critical Notification Critical Value: No <Conclusion> Technically very difficult study. Valves poorly visualized. Left ventricle systolic function is normal. The Ejection Fraction is 55-60%. Transmitral Doppler flow pattern is Grade I-abnormal relaxation pattern. There is no evidence of significant pericardial effusion.
[2016-12-15 18:59] LABS: PROTHROMBIN TIME PATIENT 12.5 SEC (11.7-14.0)
[2016-12-15] MEDS: METOPROLOL TART IMMED RELEASE 25 MG TABLET. PO SCH (21:34)
[2016-12-15] MEDS: ATORVASTATIN CALCIUM 20 MG TABLET PO SCH (21:35)
[2016-12-15] MEDS: traMADol 50 MG TABLET PO PRN (21:39)
[2016-12-15] MEDS: INSULIN DETEMIR 300 UNITS/3 ML INSULN.PEN. SQ SCH (21:43)
[2016-12-16 03:00] VITALS: BP 132/62
[2016-12-16] MEDS: IV 1/2 NORMAL SALINE 1,000 ML IV SCH ×2 (03:31→20:02)
[2016-12-16] MEDS: ACETAMINOPHEN 325 MG TABLET. PO PRN ×2 (03:38→19:31)
[2016-12-16 04:56] LABS: BASO % 1 % (0-3); EOS % 2 % (0-3); HEMATOCRIT 46.4 % (39.0-53.0); HEMOGLOBIN 15.3 g/dL (13.0-17.5); LYMPH % 16 % (24-48); MEAN CORPUSCULAR HEMOGLOBIN 29 pg (25-35); MEAN CORPUSCULAR HGB CONC 33 g/dL (31-37); MEAN CORPUSCULAR VOLUME 89 fL (79-100); MONO % 9 % (0-9); NEUT % 72 % (31-73); PLATELET COUNT 201 x10^3/uL (140-400); RED BLOOD COUNT 5.24 x10^6/uL (4.30-5.70); RED CELL DISTRIBUTION WIDTH 15.8 % (11.5-14.5); WHITE BLOOD COUNT 6.2 x10^3/uL (4.0-11.0)
[2016-12-16 05:14] LABS: CALCIUM 8.6 mg/dL (8.5-10.1); CREATININE 1.1 mg/dL (0.7-1.3); GFR 66.6; POTASSIUM 3.5 mmol/L (3.5-5.1)
[2016-12-16 07:00] VITALS: BP 143/76
[2016-12-16] MEDS: TAMSULOSIN 0.4 MG CAP.ER.24H. PO SCH (09:02)
[2016-12-16] MEDS: TRIAMTERENE/HCTZ 37.5/25MG TABLET. PO SCH (09:02)
[2016-12-16] MEDS: PIOGLITAZONE 15 MG TABLET. PO SCH (09:02)
[2016-12-16] MEDS: MONTELUKAST SODIUM 10 MG TABLET. PO SCH (09:02)
[2016-12-16] MEDS: CETIRIZINE HCL 10 MG TABLET. PO SCH (09:04)
[2016-12-16] MEDS: METOPROLOL TART IMMED RELEASE 25 MG TABLET. PO SCH ×2 (09:05→21:05)
[2016-12-16] MEDS: DOCUSATE SODIUM 100 MG CAPSULE. PO SCH ×2 (09:05→21:06)
[2016-12-16] MEDS: SENNOSIDES/DOCUSATE 8.6/50MG TABLET. PO SCH ×2 (09:05→21:06)
--- NOTE | 2016-12-16 09:09 | RAD ---
EXAM: Carotid Doppler sonogram. HISTORY: Coronary artery bypass grafting. TECHNIQUE: Doppler sonographic evaluation of the neck was performed and static images are submitted for review. FINDINGS: The peak systolic velocity within the right common carotid artery is 83 cm/sec. The peak systolic velocities within the right proximal, mid and distal internal carotid artery are 56 cm/sec, 61 cm/sec, and 66 cm/sec, respectively. The peak systolic velocity within the left common carotid artery is 101 cm/sec. The peak systolic velocities within the left proximal, mid and distal internal carotid artery are 60 cm/sec, 74 cm/sec, and 66 cm/sec, respectively. There is normal antegrade flow within both vertebral arteries. IMPRESSION: No Doppler evidence of hemodynamically significant stenosis within the carotid or vertebral arteries PQRS Statement: NASCET criteria were utilized for this exam.
[2016-12-16] MEDS: INSULIN ASPART 300 UNITS/3 ML INSULN.PEN SQ SCH ×4 (09:10→21:00)
--- NOTE | 2016-12-16 10:36 | RAD ---
Examination: CT chest without contrast History: History of preop CABG. Comparison: 04/16/2008 Technique: Axial CT images of the chest performed without contrast. Coronal and sagittal reformats are performed. PQRS Compliance Statement: One or more of the following individualized dose reduction techniques were utilized for this examination: 1. Automated exposure control 2. Adjustment of the mA and/or kV according to patient size 3. Use of iterative reconstruction technique Findings: The visualized thyroid gland grossly appears unremarkable with central airways are patent. Diffuse coronary artery calcifications identified. The heart size grossly appears unremarkable. No evidence of a pleural effusion. The ascending aorta measures 4.4 cm in transverse dimension. Mild prominent appearing mediastinal lymph nodes identified with the largest measuring 1.2 cm in the subcarinal region. Few enlarged mediastinal lymph nodes are identified in the right paratracheal and anterior mediastinal region measuring about 1 cm. There is a 3.0 x 2.2 cm masslike density identified in the left lower lobe of the lungs best visualized on series 2 image 34. Linear left lung base atelectasis is identified. Small calcified granuloma identified in the left lower lobe of the lung. There is focal area of diffuse low density identified in the left lobe of the liver measuring 9.2 x 1.7 cm probably large area of focal fat or fatty mass or metastasis. Moderate degenerative changes thoracic spine. There is a soft tissue density identified abutting the anterior right third rib measuring 3.4 x 2.8 cm and causing mottled appearance of the anterior portion of the right third rib. Partially visualized mottled appearance of the L2 vertebral body. Impression: 1. 3 cm masslike density identified left lower lobe of the lung, suspicious for neoplasm. Examination limited without IV contrast. 2. Soft tissue density identified abutting the anterior right third rib measuring 3.4 x 2.8 cm and causing mottled appearance of the anterior portion of the right third rib, suspicious for metastasis. 3. Multiple prominent appearing mediastinal lymph nodes could be reactive lymphadenopathy or metastasis. 4. Mild ascending aortic aneurysm with ascending aorta measuring 4.4 cm in transverse dimension. 5. Diffuse coronary artery calcifications. 6. Large 9.2 cm hypodensity identified in the left lobe of the liver possibly a large area of focal fat or fatty mass or metastasis. Consider ultrasound follow-up for further evaluation. 7. Partially visualized mottled appearance of the L2 vertebral body. Suspect metastasis or severe degeneration , consider follow-up bone scan or MRI for further evaluation.
[2016-12-16 11:00] VITALS: BP 138/88
--- NOTE | 2016-12-16 11:30 | RAD ---
EXAM: Bilateral lower extremity venous mapping. HISTORY: CABG. TECHNIQUE: Sonographic imaging of the lower extremity veins with spectral waveform analysis was performed. COMPARISON: None. FINDINGS: The right long saphenous vein measures 7.3 mm within the proximal thigh, 4.5 mm within the upper mid thigh, 4.5 mm within the mid thigh, 3.5 mm within the distal thigh, 2.8 mm at the level of the knee, 3.8 mm within the proximal calf, 2.8 mm within the distal calf and 2.2 mm at the level of the ankle. The right greater saphenous vein splits and is decreased in caliber within the mid calf. The right lesser saphenous vein measures 2.1 and within the proximal calf, 1.8 mm within the mid calf and 2.8 and within the distal calf. The left long saphenous vein measures 6.6 mm within the proximal thigh, 6.5 mm within the upper mid thigh, 5.0 mm within the mid thigh, 5.7 mm within the distal thigh, 4.1 mm the level of the knee, 5.2 mL within the proximal calf, 3.0 mm within the distal calf, and 3.9 mm at the level of the ankle. The left lesser saphenous vein measures 1.4 mm within the proximal calf, 1.3 mm within the mid calf, and 1.4 mm within the distal calf. IMPRESSION: Bilateral long and lesser saphenous vein caliber measurements, described above.
--- NOTE | 2016-12-16 13:08 | PDOC ---
Subjective: Subjective: Stooled earlier - a little "better" than yesterday but "small pellets." Says hasn't received Miralax yet. Objective: Objective: D/w RN - CABG tomorrow. Vital Signs: Vital Signs Date Time Temp Pulse Resp B/P (MAP) Pulse Ox O2 Delivery O2 Flow Rate FiO2 12/16/16 11:00 97.6 68 22 138/88 (105) 91 Room Air 97.6 12/15/16 11:15 2.0 Labs: Laboratory Tests Test 12/15/16 16:25 12/15/16 18:30 12/15/16 21:33 12/16/16 03:55 Glucose (Fingerstick) 168 mg/dL 186 mg/dL Prothrombin Time 12.5 SEC Prothromb Time International Ratio 1.0 Activated Partial Thromboplast Time 28 SEC White Blood Count 6.2 x10^3/uL Red Blood Count 5.24 x10^6/uL Hemoglobin 15.3 g/dL Hematocrit 46.4 % Mean Corpuscular Volume 89 fL Mean Corpuscular Hemoglobin 29 pg Mean Corpuscular Hemoglobin Concent 33 g/dL Red Cell Distribution Width 15.8 % Platelet Count 201 x10^3/uL Neutrophils (%) (Auto) 72 % Lymphocytes (%) (Auto) 16 % Monocytes (%) (Auto) 9 % Eosinophils (%) (Auto) 2 % Basophils (%) (Auto) 1 % Neutrophils # (Auto) 4.5 x10^3uL Lymphocytes # (Auto) 1.0 x10^3/uL Monocytes # (Auto) 0.6 x10^3/uL Eosinophils # (Auto) 0.1 x10^3/uL Basophils # (Auto) 0.0 x10^3/uL Sodium Level 138 mmol/L Potassium Level 3.5 mmol/L Chloride Level 99 mmol/L Carbon Dioxide Level 32 mmol/L Anion Gap 7 Blood Urea Nitrogen 16 mg/dL Creatinine 1.1 mg/dL Estimated GFR (Cockcroft-Gault) 66.6 Glucose Level 178 mg/dL Calcium Level 8.6 mg/dL Test 12/16/16 07:53 12/16/16 11:15 Glucose (Fingerstick) 170 mg/dL 226 mg/dL Imaging: Cardiac Cath 12/15/16 Conclusion 1. Three-vessel coronary artery disease 2. Normal left ventricle systolic function with ejection fraction estimated at 55%. Recommendations Cardiothoracic surgical team consultation for coronary artery bypass surgery. PE: GEN: NAD, up to chair LUNGS: clear HEART: RRR ABD: non-tender, obese NEURO/PSYCH: A & O 3 A/P: CAD -CABG tomorrow Irregular bowel habits/constipation -has Miralax ordered -colonoscopy ~8 years ago -- Give Miralax now (since hasn't received), continue after surgery. FRANSISCO GERMAIN Dec 16, 2016 13:08
[2016-12-16] MEDS ORDERED: POLYETHYLENE GLYCOL 3350 17 GM PACKET. PO ONE (13:30)
--- NOTE | 2016-12-16 13:41 | PDOC ---
PROGRESS NOTES Subjective Subjective No new complaints. Objective Objective Vital Signs Date Time Temp Pulse Resp B/P (MAP) Pulse Ox O2 Delivery O2 Flow Rate FiO2 12/16/16 11:00 97.6 68 22 138/88 (105) 91 Room Air 97.6 12/15/16 11:15 2.0 Intake and Output 12/17/16 07:00 Intake Total 250 ml Balance 250 ml Intake Oral 250 ml Physical Exam Physical Exam He continues with no active movements of right ankle and weakness of left foot dorsiflexor muscles.He is walking in his room. Assessment Assessment Problems Medical Problems: (1) Chest pain Status: Acute (2) Non-STEMI (non-ST elevated myocardial infarction) Status: Acute Plan Plan of Care To try him with right AFO. Comment Review of Relevant I have reviewed the following items maxine (where applicable) has been applied. Labs Laboratory Tests Test 12/14/16 17:17 12/14/16 20:43 12/15/16 06:15 12/15/16 08:10 Glucose (Fingerstick) 131 mg/dL (70-99) 213 mg/dL (70-99) 187 mg/dL (70-99) White Blood Count 6.0 x10^3/uL (4.0-11.0) Red Blood Count 5.36 x10^6/uL (4.30-5.70) Hemoglobin 15.6 g/dL (13.0-17.5) Hematocrit 46.7 % (39.0-53.0) Mean Corpuscular Volume 87 fL (79-100) Mean Corpuscular Hemoglobin 29 pg (25-35) Mean Corpuscular Hemoglobin Concent 33 g/dL (31-37) Red Cell Distribution Width 15.5 % (11.5-14.5) Platelet Count 192 x10^3/uL (140-400) Neutrophils (%) (Auto) 70 % (31-73) Lymphocytes (%) (Auto) 17 % (24-48) Monocytes (%) (Auto) 9 % (0-9) Eosinophils (%) (Auto) 4 % (0-3) Basophils (%) (Auto) 1 % (0-3) Neutrophils # (Auto) 4.3 x10^3uL (1.8-7.7) Lymphocytes # (Auto) 1.0 x10^3/uL (1.0-4.8) Monocytes # (Auto) 0.5 x10^3/uL (0.0-1.1) Eosinophils # (Auto) 0.2 x10^3/uL (0.0-0.7) Basophils # (Auto) 0.0 x10^3/uL (0.0-0.2) Sodium Level 138 mmol/L (136-145) Potassium Level 3.7 mmol/L (3.5-5.1) Chloride Level 100 mmol/L (98-107) Carbon Dioxide Level 32 mmol/L (21-32) Anion Gap 6 (6-14) Blood Urea Nitrogen 18 mg/dL (8-26) Creatinine 1.0 mg/dL (0.7-1.3) Estimated GFR (Cockcroft-Gault) 74.3 Glucose Level 161 mg/dL (70-99) Calcium Level 9.2 mg/dL (8.5-10.1) Test 12/15/16 12:07 12/15/16 16:25 12/15/16 18:30 12/15/16 21:33 Glucose (Fingerstick) 156 mg/dL (70-99) 168 mg/dL (70-99) 186 mg/dL (70-99) Prothrombin Time 12.5 SEC (11.7-14.0) Prothromb Time International Ratio 1.0 (0.8-1.1) Activated Partial Thromboplast Time 28 SEC (24-38) Test 12/16/16 03:55 12/16/16 07:53 12/16/16 11:15 White Blood Count 6.2 x10^3/uL (4.0-11.0) Red Blood Count 5.24 x10^6/uL (4.30-5.70) Hemoglobin 15.3 g/dL (13.0-17.5) Hematocrit 46.4 % (39.0-53.0) Mean Corpuscular Volume 89 fL (79-100) Mean Corpuscular Hemoglobin 29 pg (25-35) Mean Corpuscular Hemoglobin Concent 33 g/dL (31-37) Red Cell Distribution Width 15.8 % (11.5-14.5) Platelet Count 201 x10^3/uL (140-400) Neutrophils (%) (Auto) 72 % (31-73) Lymphocytes (%) (Auto) 16 % (24-48) Monocytes (%) (Auto) 9 % (0-9) Eosinophils (%) (Auto) 2 % (0-3) Basophils (%) (Auto) 1 % (0-3) Neutrophils # (Auto) 4.5 x10^3uL (1.8-7.7) Lymphocytes # (Auto) 1.0 x10^3/uL (1.0-4.8) Monocytes # (Auto) 0.6 x10^3/uL (0.0-1.1) Eosinophils # (Auto) 0.1 x10^3/uL (0.0-0.7) Basophils # (Auto) 0.0 x10^3/uL (0.0-0.2) Sodium Level 138 mmol/L (136-145) Potassium Level 3.5 mmol/L (3.5-5.1) Chloride Level 99 mmol/L (98-107) Carbon Dioxide Level 32 mmol/L (21-32) Anion Gap 7 (6-14) Blood Urea Nitrogen 16 mg/dL (8-26) Creatinine 1.1 mg/dL (0.7-1.3) Estimated GFR (Cockcroft-Gault) 66.6 Glucose Level 178 mg/dL (70-99) Calcium Level 8.6 mg/dL (8.5-10.1) Glucose (Fingerstick) 170 mg/dL (70-99) 226 mg/dL (70-99) Laboratory Tests Test 12/15/16 16:25 12/15/16 18:30 12/15/16 21:33 12/16/16 03:55 Glucose (Fingerstick) 168 mg/dL (70-99) 186 mg/dL (70-99) Prothrombin Time 12.5 SEC (11.7-14.0) Prothromb Time International Ratio 1.0 (0.8-1.1) Activated Partial Thromboplast Time 28 SEC (24-38) White Blood Count 6.2 x10^3/uL (4.0-11.0) Red Blood Count 5.24 x10^6/uL (4.30-5.70) Hemoglobin 15.3 g/dL (13.0-17.5) Hematocrit 46.4 % (39.0-53.0) Mean Corpuscular Volume 89 fL (79-100) Mean Corpuscular Hemoglobin 29 pg (25-35) Mean Corpuscular Hemoglobin Concent 33 g/dL (31-37) Red Cell Distribution Width 15.8 % (11.5-14.5) Platelet Count 201 x10^3/uL (140-400) Neutrophils (%) (Auto) 72 % (31-73) Lymphocytes (%) (Auto) 16 % (24-48) Monocytes (%) (Auto) 9 % (0-9) Eosinophils (%) (Auto) 2 % (0-3) Basophils (%) (Auto) 1 % (0-3) Neutrophils # (Auto) 4.5 x10^3uL (1.8-7.7) Lymphocytes # (Auto) 1.0 x10^3/uL (1.0-4.8) Monocytes # (Auto) 0.6 x10^3/uL (0.0-1.1) Eosinophils # (Auto) 0.1 x10^3/uL (0.0-0.7) Basophils # (Auto) 0.0 x10^3/uL (0.0-0.2) Sodium Level 138 mmol/L (136-145) Potassium Level 3.5 mmol/L (3.5-5.1) Chloride Level 99 mmol/L (98-107) Carbon Dioxide Level 32 mmol/L (21-32) Anion Gap 7 (6-14) Blood Urea Nitrogen 16 mg/dL (8-26) Creatinine 1.1 mg/dL (0.7-1.3) Estimated GFR (Cockcroft-Gault) 66.6 Glucose Level 178 mg/dL (70-99) Calcium Level 8.6 mg/dL (8.5-10.1) Test 12/16/16 07:53 12/16/16 11:15 Glucose (Fingerstick) 170 mg/dL (70-99) 226 mg/dL (70-99) Medications Current Medications Nitroglycerin (Nitro-Bid Oint) 1 inch 1X ONCE TP Last administered on t 18:38; Start 12/13/16 at 18:30; Stop 12/13/16 at 18:31; Status DC Aspirin (Children'S Aspirin) 324 mg 1X ONCE PO ; Start 12/13/16 at 18:30; Stop 12/13/16 at 18:31; Status DC Enoxaparin Sodium (Lovenox Per Pharmacy Treatment Dosing) 1 each PRN DAILY PRN MC SEE COMMENTS; Start 12/13/16 at 19:15 Enoxaparin Sodium (Lovenox 100mg Syringe) 100 mg 1X ONCE SQ Last administered on 12/13/16 19:50; Start 12/13/16 at 19:30; Stop 12/13/16 at 19:31; Status DC Enoxaparin Sodium (Lovenox 80mg Syringe) 80 mg 1X ONCE SQ Last administered on 12/13/16 19:50; Start 12/13/16 at 19:30; Stop 12/13/16 at 19:31; Status DC Ondansetron HCl (Zofran) 4 mg PRN Q8HRS PRN IV NAUSEA/VOMITING; Start 12/13/16 at 19:45; Stop 12/14/16 at 11:34; Status DC Morphine Sulfate 2 mg PRN Q2HR PRN IV PAIN; Start 12/13/16 at 19:45; Stop 12/14 at 11:34; Status DC Acetaminophen (Tylenol) 650 mg PRN Q4HRS PRN PO FEVER Last administered on 12/14 06:36; Start 12/13/16 at 19:45; Stop 12/14/16 at 11:34; Status DC Nitroglycerin (Nitrostat) 0.4 mg PRN Q5MIN PRN SL CHEST PAIN; Start 12/13/16 at 19:45; Stop 12/14/16 at 19:44; Status DC Insulin Aspart (NovoLOG) 0-9 UNITS QIDACHS SQ Last administered on 12/16/16 12 :50; Start 12/13/16 at 21:30 Dextrose (Dextrose 50%-Water Syringe) 12.5 gm PRN Q15MIN PRN IV SEE COMMENTS; Start 12/13/16 at 20:15 Morphine Sulfate (Morphine Ir) 15 mg PRN Q4HRS PRN PO PAIN; Start 12/13/16 at 20:15 Enoxaparin Sodium (Lovenox 100mg Syringe) 180 mg Q12HR SQ Last administered on 12/16/16 11:03; Start 12/14/16 at 09:00 Atorvastatin Calcium (Lipitor) 20 mg QHS PO Last administered on 12/15/16 21: 35; Start 12/14/16 at 21:00 Cetirizine HCl (ZyrTEC) 10 mg DAILY PO Last administered on 12/16/16 09:04; Start 12/14/16 at 12:00 Montelukast Sodium (Singulair) 10 mg DAILY PO Last administered on 12/16/16 09 :02; Start 12/14/16 at 12:00 Tamsulosin HCl (Flomax) 0.8 mg DAILY PO Last administered on 12/16/16 09:02; Start 12/14/16 at 12:00 Losartan Potassium (Cozaar) 100 mg DAILY PO Last administered on 12/15/16 11: 09; Start 12/14/16 at 12:00; Stop 12/15/16 at 16:19; Status DC Pioglitazone HCl (Actos) 30 mg DAILY PO Last administered on 12/16/16 09:02; Start 12/14/16 at 12:00 Triamterene/HCTZ (Maxzide 37.5/ 25mg) 1 tab DAILY PO Last administered on 09:02; Start 12/14/16 at 12:00 Acetaminophen (Tylenol) 650 mg PRN Q6HRS PRN PO FEVER Last administered on 12/16 03:38; Start 12/14/16 at 11:30 Ondansetron HCl (Zofran) 4 mg PRN Q6HRS PRN IV NAUSEA/VOMITING; Start 12/14/16 at 11:30 Morphine Sulfate 2 mg PRN Q2HR PRN IV MODERATE TO SEVERE PAIN; Start 12/14/16 at 11:45 Tramadol HCl (Ultram) 50 mg PRN Q6HRS PRN PO MILD TO MODERATE PAIN Last administered on 12/15/16 21:39; Start 12/14/16 at 11:30 Hydralazine HCl (Apresoline) 10 mg PRN Q4HRS PRN IVP ELEVATED BP, SEE COMMENTS ; Start 12/14/16 at 11:30 Docusate Sodium (Colace) 100 mg PRN DAILY PRN PO CONSTIPATION; Start 12/14/16 at 11:30 Senna/Docusate Sodium (Senna Plus) 1 tab BID PO Last administered on 12/16/16 09:05; Start 12/14/16 at 12:00 Docusate Sodium (Colace) 100 mg BID PO Last administered on 12/16/16 09:05; Start 12/14/16 at 12:00 Magnesium Hydroxide (Milk Of Magnesia) 2,400 mg PRN Q12HR PRN PO CONSTIPATION; Start 12/14/16 at 11:30 Insulin Detemir (Levemir) 20 units QHS SQ Last administered on 12/15/16 21:43 ; Start 12/14/16 at 21:00 Heparin Sodium/ Sodium Chloride 1,000 ml @ As Directed STK-MED ONCE .ROUTE ; Start 12/15/16 at 07:09; Stop 12/15/16 at 07:10; Status DC Lidocaine HCl 20 ml STK-MED ONCE .ROUTE ; Start 12/15/16 at 07:10; Stop at 07:11; Status DC Iohexol (Omnipaque 300 Mg/ml) 100 ml STK-MED ONCE .ROUTE ; Start 12/15/16 at 07: 14; Stop 12/15/16 at 07:15; Status DC Fentanyl Citrate (Fentanyl 2ml Vial) 100 mcg STK-MED ONCE .ROUTE ; Start at 10:07; Stop 12/15/16 at 10:08; Status DC Midazolam HCl (Versed) 2 mg STK-MED ONCE .ROUTE ; Start 12/15/16 at 10:08; Stop 12/15/16 at 10:09; Status DC Verapamil HCl (Verapamil) 5 mg STK-MED ONCE .ROUTE ; Start 12/15/16 at 10:08; Stop 12/15/16 at 10:09; Status DC Heparin Sodium (Porcine) (Heparin Sodium) 10,000 unit STK-MED ONCE .ROUTE ; Start 12/15/16 at 10:08; Stop 12/15/16 at 10:09; Status DC Nitroglycerin (Nitroglycerin) 200 mcg STK-MED ONCE .ROUTE ; Start 12/15/16 at 10 :08; Stop 12/15/16 at 10:09; Status DC Nitroglycerin (Nitroglycerin) 200 mcg 1X ONCE IART Last administered on 10:43; Start 12/15/16 at 10:45; Stop 12/15/16 at 10:46; Status DC Verapamil HCl (Verapamil) 2.5 mg 1X ONCE IART Last administered on 12/15/16 10:43; Start 12/15/16 at 10:45; Stop 12/15/16 at 10:46; Status DC Heparin Sodium (Porcine) (Heparin Sodium) 2,500 unit 1X ONCE IART Last administered on 12/15/16 10:45; Start 12/15/16 at 10:45; Stop 12/15/16 at 10:46 ; Status DC Heparin Sodium/ Sodium Chloride 1,000 unit 1X ONCE IART Last administered on 10:42; Start 12/15/16 at 10:45; Stop 12/15/16 at 10:46; Status DC Midazolam HCl (Versed) 2 mg 1X ONCE IV Last administered on 12/15/16 10:44; Start 12/15/16 at 10:45; Stop 12/15/16 at 10:46; Status DC Fentanyl Citrate (Fentanyl 2ml Vial) 50 mcg 1X ONCE IV Last administered on 10:44; Start 12/15/16 at 10:45; Stop 12/15/16 at 10:46; Status DC Iohexol (Omnipaque 300 Mg/ml) 100 ml 1X ONCE IART Last administered on 10:42; Start 12/15/16 at 10:45; Stop 12/15/16 at 10:46; Status DC Lidocaine HCl 2 ml 1X ONCE IJ Last administered on 12/15/16 10:42; Start at 10:45; Stop 12/15/16 at 10:46; Status DC Sodium Chloride 1,000 ml @ 60 mls/hr [id number] IV Last administered on 03:31; Start 12/15/16 at 10:51 Polyethylene Glycol (miraLAX PACKET) 17 gm DAILY PO ; Start 12/16/16 at 16:30; Stop 12/16/16 at 16:30; Status DC Metoprolol Tartrate (Lopressor) 25 mg BID PO Last administered on 12/16/16 09: 05; Start 12/15/16 at 21:00 Polyethylene Glycol (miraLAX PACKET) 17 gm DAILY PO ; Start 12/17/16 at 07:00 Polyethylene Glycol (miraLAX PACKET) 17 gm 1X ONCE PO Last administered on t 13:34; Start 12/16/16 at 13:30; Stop 12/16/16 at 13:31; Status DC Active Scripts Active Reported Gabapentin 400 Mg Capsule 400 Mg PO TID PRN Tresiba Flextouch U-100 (Insulin Degludec) 100 Unit/1 Ml Insuln.pen 40 Unit SQ HS Tresiba Flextouch U-100 (Insulin Degludec) 100 Unit/1 Ml Insuln.pen 36 Unit SQ DAILY Cetirizine Hcl 10 Mg Tablet 1 Tab PO DAILY Tamsulosin Hcl 0.4 Mg Cap.er.24h 2 Cap PO DAILY Triamterene-Hctz 37.5-25 Mg Cp (Triamterene/Hydrochlorothiazid) 1 Each Capsule 1 Cap PO DAILY Atorvastatin Calcium 20 Mg Tablet 1 Tab PO DAILY Actos (Pioglitazone Hcl) 30 Mg Tablet 1 Tab PO DAILY Montelukast Sodium Tablet (Montelukast Sodium) 10 Mg Tablet 1 Tab PO DAILY Losartan Potassium 100 Mg Tablet 100 Mg PO DAILY Vitals/I & O Vital Sign - Last 24 Hours 12/15/16 12/15/16 12/15/16 12/15/16 15:00 19:00 20:00 20:00 Temp 97.6 98.4 97.6 98.4 Pulse 79 95 Resp 20 20 B/P (MAP) 133/77 (95) 132/80 (97) Pulse Ox 95 92 O2 Delivery Room Air Room Air Room Air Room Air 12/15/16 12/15/16 12/15/16 12/15/16 21:34 21:39 22:39 23:00 Temp 98.2 98.2 Pulse 95 74 Resp 22 B/P (MAP) 132/80 115/76 (89) Pulse Ox 92 92 92 O2 Delivery Room Air Room Air Room Air 12/16/16 12/16/16 12/16/16 12/16/16 03:00 07:00 08:00 09:05 Temp 98.3 98.4 98.3 98.4 Pulse 74 59 83 Resp 22 20 B/P (MAP) 132/62 (85) 143/76 (98) 143/76 Pulse Ox 88 92 O2 Delivery Room Air Room Air Room Air 12/16/16 11:00 Temp 97.6 97.6 Pulse 68 Resp 22 B/P (MAP) 138/88 (105) Pulse Ox 91 O2 Delivery Room Air Intake and Output 12/16/16 12/16/16 12/17/16 15:00 23:00 07:00 Intake Total 250 ml Balance 250 ml ARCHIE MILTON MD Dec 16, 2016 13:41
--- NOTE | 2016-12-16 13:45 | CONS ---
DATE OF CONSULTATION: 12/15/2016 HISTORY OF PRESENT ILLNESS: This is a 66-year-old right-handed male, retired. The patient was admitted through the Emergency Room on 12/13/2016 with right arm pain with associated upper chest wall pain and sweating with activity. He had 3 episodes prior to the admission on 12/13/2016. The patient with known diabetes mellitus and also lumbar spine surgery done by Dr. Green in the past. He had residual right foot drop. The patient also with known hypertension. He denies any neck or back pain at the present time. Dr. Siddhartha Doyle is his family physician. The patient had family history of coronary artery disease with some deaths at young age, also family history of hypertension. He has no known allergies to any medication. Since admission, he had cardiac evaluation and he had cardiac catheterization, which revealed 3-vessel disease and he is being considered for coronary artery bypass graft. PHYSICAL EXAMINATION: Today revealed a middle-aged male. He is alert, oriented to time, place, person and circumstance, pleasant, and follows commands appropriately, moves all 4 extremities voluntarily where he had 4+/5 grade muscle strength except no active right foot dorsiflexion or plantar flexion and also relatively weak left foot dorsiflexion. Deep tendon reflexes are decreased overall with absent knee and ankle jerks and he had decreased touch and pinprick sensation over a sock and glove distribution and also over right foot, both dorsal and plantar aspect. He had no tenderness to palpation around right ankle. He had crepitus on range of motion of both knee joints without any obvious knee joint effusion and he had pain free range of motion of both shoulders and hips. He had some edema and redness of the skin over distal parts of both legs secondary to chronic venous insufficiency. The patient is obese. I have not tested his mobility and self-care skills at the present time. ASSESSMENT: A middle-aged male with coronary artery disease, hypertension, diabetes mellitus with peripheral neuropathy with associated right foot drop. The patient is status post lumbar spine surgery, also degenerative joint disease of both knees without much pain. The patient with morbid obesity with BMI of 51. RECOMMENDATION: To ask [facility] to measure and provide him with right ankle foot brace, he may need one to the left side, but let us try first on the right side; to try him with [place]oke boots to help ease his lower extremity edema and redness. Dr. Bains, I appreciate asking me to participate in the care of this interesting patient. I will be glad to follow him with you as needed for the rehabilitation. ARCHIE MILTON MD DR: BLESSING/amira JOB#: [id number] / [id number]
--- NOTE | 2016-12-16 14:20 | PDOC ---
PROGRESS NOTES Chief Complaint Chief Complaint chest pain, NSTEMI dm2 uncontrolled htn morbid obesity CKD 2-3 constipation with changed BM habit mild malnutrition History of Present Illness History of Present Illness Lots of qs about his CABG kathe Wants to be knocked out before they "put him on the table" Lots of counselling done Requests sleep aid tonight PLAN: NPO post MN Restoril prn tonight Heavy counselling today, time in room 30 mins alone Vitals Vitals Vital Signs Date Time Temp Pulse Resp B/P (MAP) Pulse Ox O2 Delivery O2 Flow Rate FiO2 12/16/16 11:00 97.6 68 22 138/88 (105) 91 Room Air 97.6 12/15/16 11:15 2.0 Physical Exam General: Alert, Oriented X3, No acute distress Heart: Regular rate, Normal S1, Normal S2 Lungs: Clear Abdomen: Soft, No tenderness Extremities: No edema Skin: No significant lesion Labs LABS Laboratory Tests Test 12/15/16 16:25 12/15/16 18:30 12/15/16 21:33 12/16/16 03:55 Glucose (Fingerstick) 168 mg/dL (70-99) 186 mg/dL (70-99) Prothrombin Time 12.5 SEC (11.7-14.0) Prothromb Time International Ratio 1.0 (0.8-1.1) Activated Partial Thromboplast Time 28 SEC (24-38) White Blood Count 6.2 x10^3/uL (4.0-11.0) Red Blood Count 5.24 x10^6/uL (4.30-5.70) Hemoglobin 15.3 g/dL (13.0-17.5) Hematocrit 46.4 % (39.0-53.0) Mean Corpuscular Volume 89 fL (79-100) Mean Corpuscular Hemoglobin 29 pg (25-35) Mean Corpuscular Hemoglobin Concent 33 g/dL (31-37) Red Cell Distribution Width 15.8 % (11.5-14.5) Platelet Count 201 x10^3/uL (140-400) Neutrophils (%) (Auto) 72 % (31-73) Lymphocytes (%) (Auto) 16 % (24-48) Monocytes (%) (Auto) 9 % (0-9) Eosinophils (%) (Auto) 2 % (0-3) Basophils (%) (Auto) 1 % (0-3) Neutrophils # (Auto) 4.5 x10^3uL (1.8-7.7) Lymphocytes # (Auto) 1.0 x10^3/uL (1.0-4.8) Monocytes # (Auto) 0.6 x10^3/uL (0.0-1.1) Eosinophils # (Auto) 0.1 x10^3/uL (0.0-0.7) Basophils # (Auto) 0.0 x10^3/uL (0.0-0.2) Sodium Level 138 mmol/L (136-145) Potassium Level 3.5 mmol/L (3.5-5.1) Chloride Level 99 mmol/L (98-107) Carbon Dioxide Level 32 mmol/L (21-32) Anion Gap 7 (6-14) Blood Urea Nitrogen 16 mg/dL (8-26) Creatinine 1.1 mg/dL (0.7-1.3) Estimated GFR (Cockcroft-Gault) 66.6 Glucose Level 178 mg/dL (70-99) Calcium Level 8.6 mg/dL (8.5-10.1) Test 12/16/16 07:53 12/16/16 11:15 Glucose (Fingerstick) 170 mg/dL (70-99) 226 mg/dL (70-99) Review of Systems Review of Systems anxiety,insomnia Assessment and Plan Assessmemt and Plan Problems Medical Problems: (1) Chest pain Status: Acute (2) Non-STEMI (non-ST elevated myocardial infarction) Status: Acute Problems: Comment Review of Relevant I have reviewed the following items maxine (where applicable) has been applied. Labs Laboratory Tests Test 12/14/16 17:17 12/14/16 20:43 12/15/16 06:15 12/15/16 08:10 Glucose (Fingerstick) 131 mg/dL (70-99) 213 mg/dL (70-99) 187 mg/dL (70-99) White Blood Count 6.0 x10^3/uL (4.0-11.0) Red Blood Count 5.36 x10^6/uL (4.30-5.70) Hemoglobin 15.6 g/dL (13.0-17.5) Hematocrit 46.7 % (39.0-53.0) Mean Corpuscular Volume 87 fL (79-100) Mean Corpuscular Hemoglobin 29 pg (25-35) Mean Corpuscular Hemoglobin Concent 33 g/dL (31-37) Red Cell Distribution Width 15.5 % (11.5-14.5) Platelet Count 192 x10^3/uL (140-400) Neutrophils (%) (Auto) 70 % (31-73) Lymphocytes (%) (Auto) 17 % (24-48) Monocytes (%) (Auto) 9 % (0-9) Eosinophils (%) (Auto) 4 % (0-3) Basophils (%) (Auto) 1 % (0-3) Neutrophils # (Auto) 4.3 x10^3uL (1.8-7.7) Lymphocytes # (Auto) 1.0 x10^3/uL (1.0-4.8) Monocytes # (Auto) 0.5 x10^3/uL (0.0-1.1) Eosinophils # (Auto) 0.2 x10^3/uL (0.0-0.7) Basophils # (Auto) 0.0 x10^3/uL (0.0-0.2) Sodium Level 138 mmol/L (136-145) Potassium Level 3.7 mmol/L (3.5-5.1) Chloride Level 100 mmol/L (98-107) Carbon Dioxide Level 32 mmol/L (21-32) Anion Gap 6 (6-14) Blood Urea Nitrogen 18 mg/dL (8-26) Creatinine 1.0 mg/dL (0.7-1.3) Estimated GFR (Cockcroft-Gault) 74.3 Glucose Level 161 mg/dL (70-99) Calcium Level 9.2 mg/dL (8.5-10.1) Test 12/15/16 12:07 12/15/16 16:25 12/15/16 18:30 12/15/16 21:33 Glucose (Fingerstick) 156 mg/dL (70-99) 168 mg/dL (70-99) 186 mg/dL (70-99) Prothrombin Time 12.5 SEC (11.7-14.0) Prothromb Time International Ratio 1.0 (0.8-1.1) Activated Partial Thromboplast Time 28 SEC (24-38) Test 12/16/16 03:55 12/16/16 07:53 12/16/16 11:15 White Blood Count 6.2 x10^3/uL (4.0-11.0) Red Blood Count 5.24 x10^6/uL (4.30-5.70) Hemoglobin 15.3 g/dL (13.0-17.5) Hematocrit 46.4 % (39.0-53.0) Mean Corpuscular Volume 89 fL (79-100) Mean Corpuscular Hemoglobin 29 pg (25-35) Mean Corpuscular Hemoglobin Concent 33 g/dL (31-37) Red Cell Distribution Width 15.8 % (11.5-14.5) Platelet Count 201 x10^3/uL (140-400) Neutrophils (%) (Auto) 72 % (31-73) Lymphocytes (%) (Auto) 16 % (24-48) Monocytes (%) (Auto) 9 % (0-9) Eosinophils (%) (Auto) 2 % (0-3) Basophils (%) (Auto) 1 % (0-3) Neutrophils # (Auto) 4.5 x10^3uL (1.8-7.7) Lymphocytes # (Auto) 1.0 x10^3/uL (1.0-4.8) Monocytes # (Auto) 0.6 x10^3/uL (0.0-1.1) Eosinophils # (Auto) 0.1 x10^3/uL (0.0-0.7) Basophils # (Auto) 0.0 x10^3/uL (0.0-0.2) Sodium Level 138 mmol/L (136-145) Potassium Level 3.5 mmol/L (3.5-5.1) Chloride Level 99 mmol/L (98-107) Carbon Dioxide Level 32 mmol/L (21-32) Anion Gap 7 (6-14) Blood Urea Nitrogen 16 mg/dL (8-26) Creatinine 1.1 mg/dL (0.7-1.3) Estimated GFR (Cockcroft-Gault) 66.6 Glucose Level 178 mg/dL (70-99) Calcium Level 8.6 mg/dL (8.5-10.1) Glucose (Fingerstick) 170 mg/dL (70-99) 226 mg/dL (70-99) Laboratory Tests Test 12/15/16 16:25 12/15/16 18:30 12/15/16 21:33 12/16/16 03:55 Glucose (Fingerstick) 168 mg/dL (70-99) 186 mg/dL (70-99) Prothrombin Time 12.5 SEC (11.7-14.0) Prothromb Time International Ratio 1.0 (0.8-1.1) Activated Partial Thromboplast Time 28 SEC (24-38) White Blood Count 6.2 x10^3/uL (4.0-11.0) Red Blood Count 5.24 x10^6/uL (4.30-5.70) Hemoglobin 15.3 g/dL (13.0-17.5) Hematocrit 46.4 % (39.0-53.0) Mean Corpuscular Volume 89 fL (79-100) Mean Corpuscular Hemoglobin 29 pg (25-35) Mean Corpuscular Hemoglobin Concent 33 g/dL (31-37) Red Cell Distribution Width 15.8 % (11.5-14.5) Platelet Count 201 x10^3/uL (140-400) Neutrophils (%) (Auto) 72 % (31-73) Lymphocytes (%) (Auto) 16 % (24-48) Monocytes (%) (Auto) 9 % (0-9) Eosinophils (%) (Auto) 2 % (0-3) Basophils (%) (Auto) 1 % (0-3) Neutrophils # (Auto) 4.5 x10^3uL (1.8-7.7) Lymphocytes # (Auto) 1.0 x10^3/uL (1.0-4.8) Monocytes # (Auto) 0.6 x10^3/uL (0.0-1.1) Eosinophils # (Auto) 0.1 x10^3/uL (0.0-0.7) Basophils # (Auto) 0.0 x10^3/uL (0.0-0.2) Sodium Level 138 mmol/L (136-145) Potassium Level 3.5 mmol/L (3.5-5.1) Chloride Level 99 mmol/L (98-107) Carbon Dioxide Level 32 mmol/L (21-32) Anion Gap 7 (6-14) Blood Urea Nitrogen 16 mg/dL (8-26) Creatinine 1.1 mg/dL (0.7-1.3) Estimated GFR (Cockcroft-Gault) 66.6 Glucose Level 178 mg/dL (70-99) Calcium Level 8.6 mg/dL (8.5-10.1) Test 12/16/16 07:53 12/16/16 11:15 Glucose (Fingerstick) 170 mg/dL (70-99) 226 mg/dL (70-99) Medications Current Medications Nitroglycerin (Nitro-Bid Oint) 1 inch 1X ONCE TP Last administered on 18:38; Start 12/13/16 at 18:30; Stop 12/13/16 at 18:31; Status DC Aspirin (Children'S Aspirin) 324 mg 1X ONCE PO ; Start 12/13/16 at 18:30; Stop 12/13/16 at 18:31; Status DC Enoxaparin Sodium (Lovenox Per Pharmacy Treatment Dosing) 1 each PRN DAILY PRN MC SEE COMMENTS; Start 12/13/16 at 19:15 Enoxaparin Sodium (Lovenox 100mg Syringe) 100 mg 1X ONCE SQ Last administered on 12/13/16 19:50; Start 12/13/16 at 19:30; Stop 12/13/16 at 19:31; Status DC Enoxaparin Sodium (Lovenox 80mg Syringe) 80 mg 1X ONCE SQ Last administered on 12/13/16 19:50; Start 12/13/16 at 19:30; Stop 12/13/16 at 19:31; Status DC Ondansetron HCl (Zofran) 4 mg PRN Q8HRS PRN IV NAUSEA/VOMITING; Start 12/13/16 at 19:45; Stop 12/14/16 at 11:34; Status DC Morphine Sulfate 2 mg PRN Q2HR PRN IV PAIN; Start 12/13/16 at 19:45; Stop 12/14 at 11:34; Status DC Acetaminophen (Tylenol) 650 mg PRN Q4HRS PRN PO FEVER Last administered on 12/14 06:36; Start 12/13/16 at 19:45; Stop 12/14/16 at 11:34; Status DC Nitroglycerin (Nitrostat) 0.4 mg PRN Q5MIN PRN SL CHEST PAIN; Start 12/13/16 at 19:45; Stop 12/14/16 at 19:44; Status DC Insulin Aspart (NovoLOG) 0-9 UNITS QIDACHS SQ Last administered on 12/16/16 12 :50; Start 12/13/16 at 21:30 Dextrose (Dextrose 50%-Water Syringe) 12.5 gm PRN Q15MIN PRN IV SEE COMMENTS; Start 12/13/16 at 20:15 Morphine Sulfate (Morphine Ir) 15 mg PRN Q4HRS PRN PO PAIN; Start 12/13/16 at 20:15 Enoxaparin Sodium (Lovenox 100mg Syringe) 180 mg Q12HR SQ Last administered on 12/16/16 11:03; Start 12/14/16 at 09:00 Atorvastatin Calcium (Lipitor) 20 mg QHS PO Last administered on 12/15/16 21: 35; Start 12/14/16 at 21:00 Cetirizine HCl (ZyrTEC) 10 mg DAILY PO Last administered on 12/16/16 09:04; Start 12/14/16 at 12:00 Montelukast Sodium (Singulair) 10 mg DAILY PO Last administered on 12/16/16 09 :02; Start 12/14/16 at 12:00 Tamsulosin HCl (Flomax) 0.8 mg DAILY PO Last administered on 12/16/16 09:02; Start 12/14/16 at 12:00 Losartan Potassium (Cozaar) 100 mg DAILY PO Last administered on 12/15/16 11: 09; Start 12/14/16 at 12:00; Stop 12/15/16 at 16:19; Status DC Pioglitazone HCl (Actos) 30 mg DAILY PO Last administered on 12/16/16 09:02; Start 12/14/16 at 12:00 Triamterene/HCTZ (Maxzide 37.5/ 25mg) 1 tab DAILY PO Last administered on 09:02; Start 12/14/16 at 12:00 Acetaminophen (Tylenol) 650 mg PRN Q6HRS PRN PO FEVER Last administered on 12/16 03:38; Start 12/14/16 at 11:30 Ondansetron HCl (Zofran) 4 mg PRN Q6HRS PRN IV NAUSEA/VOMITING; Start 12/14/16 at 11:30 Morphine Sulfate 2 mg PRN Q2HR PRN IV MODERATE TO SEVERE PAIN; Start 12/14/16 at 11:45 Tramadol HCl (Ultram) 50 mg PRN Q6HRS PRN PO MILD TO MODERATE PAIN Last administered on 12/15/16 21:39; Start 12/14/16 at 11:30 Hydralazine HCl (Apresoline) 10 mg PRN Q4HRS PRN IVP ELEVATED BP, SEE COMMENTS ; Start 12/14/16 at 11:30 Docusate Sodium (Colace) 100 mg PRN DAILY PRN PO CONSTIPATION; Start 12/14/16 at 11:30 Senna/Docusate Sodium (Senna Plus) 1 tab BID PO Last administered on 12/16/16 09:05; Start 12/14/16 at 12:00 Docusate Sodium (Colace) 100 mg BID PO Last administered on 12/16/16 09:05; Start 12/14/16 at 12:00 Magnesium Hydroxide (Milk Of Magnesia) 2,400 mg PRN Q12HR PRN PO CONSTIPATION; Start 12/14/16 at 11:30 Insulin Detemir (Levemir) 20 units QHS SQ Last administered on 12/15/16 21:43 ; Start 12/14/16 at 21:00 Heparin Sodium/ Sodium Chloride 1,000 ml @ As Directed STK-MED ONCE .ROUTE ; Start 12/15/16 at 07:09; Stop 12/15/16 at 07:10; Status DC Lidocaine HCl 20 ml STK-MED ONCE .ROUTE ; Start 12/15/16 at 07:10; Stop at 07:11; Status DC Iohexol (Omnipaque 300 Mg/ml) 100 ml STK-MED ONCE .ROUTE ; Start 12/15/16 at 07: 14; Stop 12/15/16 at 07:15; Status DC Fentanyl Citrate (Fentanyl 2ml Vial) 100 mcg STK-MED ONCE .ROUTE ; Start at 10:07; Stop 12/15/16 at 10:08; Status DC Midazolam HCl (Versed) 2 mg STK-MED ONCE .ROUTE ; Start 12/15/16 at 10:08; Stop 12/15/16 at 10:09; Status DC Verapamil HCl (Verapamil) 5 mg STK-MED ONCE .ROUTE ; Start 12/15/16 at 10:08; Stop 12/15/16 at 10:09; Status DC Heparin Sodium (Porcine) (Heparin Sodium) 10,000 unit STK-MED ONCE .ROUTE ; Start 12/15/16 at 10:08; Stop 12/15/16 at 10:09; Status DC Nitroglycerin (Nitroglycerin) 200 mcg STK-MED ONCE .ROUTE ; Start 12/15/16 at 10 :08; Stop 12/15/16 at 10:09; Status DC Nitroglycerin (Nitroglycerin) 200 mcg 1X ONCE IART Last administered on 10:43; Start 12/15/16 at 10:45; Stop 12/15/16 at 10:46; Status DC Verapamil HCl (Verapamil) 2.5 mg 1X ONCE IART Last administered on 12/15/16 10:43; Start 12/15/16 at 10:45; Stop 12/15/16 at 10:46; Status DC Heparin Sodium (Porcine) (Heparin Sodium) 2,500 unit 1X ONCE IART Last administered on 12/15/16 10:45; Start 12/15/16 at 10:45; Stop 12/15/16 at 10:46 ; Status DC Heparin Sodium/ Sodium Chloride 1,000 unit 1X ONCE IART Last administered on 10:42; Start 12/15/16 at 10:45; Stop 12/15/16 at 10:46; Status DC Midazolam HCl (Versed) 2 mg 1X ONCE IV Last administered on 12/15/16 10:44; Start 12/15/16 at 10:45; Stop 12/15/16 at 10:46; Status DC Fentanyl Citrate (Fentanyl 2ml Vial) 50 mcg 1X ONCE IV Last administered on 10:44; Start 12/15/16 at 10:45; Stop 12/15/16 at 10:46; Status DC Iohexol (Omnipaque 300 Mg/ml) 100 ml 1X ONCE IART Last administered on 10:42; Start 12/15/16 at 10:45; Stop 12/15/16 at 10:46; Status DC Lidocaine HCl 2 ml 1X ONCE IJ Last administered on 12/15/16 10:42; Start at 10:45; Stop 12/15/16 at 10:46; Status DC Sodium Chloride 1,000 ml @ 60 mls/hr [id number] IV Last administered on 03:31; Start 12/15/16 at 10:51 Polyethylene Glycol (miraLAX PACKET) 17 gm DAILY PO ; Start 12/16/16 at 16:30; Stop 12/16/16 at 16:30; Status DC Metoprolol Tartrate (Lopressor) 25 mg BID PO Last administered on 12/16/16 09: 05; Start 12/15/16 at 21:00 Polyethylene Glycol (miraLAX PACKET) 17 gm DAILY PO ; Start 12/17/16 at 07:00 Polyethylene Glycol (miraLAX PACKET) 17 gm 1X ONCE PO Last administered on 13:34; Start 12/16/16 at 13:30; Stop 12/16/16 at 13:31; Status DC Ondansetron HCl (Zofran) 4 mg PRN Q6HRS PRN IV NAUSEA/VOMITING; Start 12/17/16 at 07:00; Stop 12/18/16 at 06:59 Fentanyl Citrate (Fentanyl 2ml Vial) 25 mcg PRN Q5MIN PRN IV MILD PAIN; Start 12/17/16 at 07:00; Stop 12/18/16 at 06:59 Fentanyl Citrate (Fentanyl 2ml Vial) 50 mcg PRN Q5MIN PRN IV MODERATE PAIN; Start 12/17/16 at 07:00; Stop 12/18/16 at 06:59 Morphine Sulfate 1 mg PRN Q10MIN PRN IV SEVERE PAIN; Start 12/17/16 at 07:00; Stop 12/18/16 at 06:59 Ringer's Solution 1,000 ml @ 30 mls/hr Q24H IV ; Start 12/17/16 at 07:00; Stop 12/17/16 at 18:59 Lidocaine HCl (Xylocaine-Mpf 1% Vial) 2 ml PRN 1X PRN ID IV START; Start at 07:00; Stop 12/18/16 at 06:59 Hydromorphone HCl (Dilaudid) 0.5 mg PRN Q10MIN PRN IV SEV PAIN, Second choice; Start 12/17/16 at 07:00; Stop 12/18/16 at 06:59 Prochlorperazine Edisylate (Compazine) 5 mg PACU PRN PRN IV NAUSEA, MRX1; Start 12/17/16 at 07:00; Stop 12/18/16 at 06:59 Active Scripts Active Reported Gabapentin 400 Mg Capsule 400 Mg PO TID PRN Tresiba Flextouch U-100 (Insulin Degludec) 100 Unit/1 Ml Insuln.pen 40 Unit SQ HS Tresiba Flextouch U-100 (Insulin Degludec) 100 Unit/1 Ml Insuln.pen 36 Unit SQ DAILY Cetirizine Hcl 10 Mg Tablet 1 Tab PO DAILY Tamsulosin Hcl 0.4 Mg Cap.er.24h 2 Cap PO DAILY Triamterene-Hctz 37.5-25 Mg Cp (Triamterene/Hydrochlorothiazid) 1 Each Capsule 1 Cap PO DAILY Atorvastatin Calcium 20 Mg Tablet 1 Tab PO DAILY Actos (Pioglitazone Hcl) 30 Mg Tablet 1 Tab PO DAILY Montelukast Sodium Tablet (Montelukast Sodium) 10 Mg Tablet 1 Tab PO DAILY Losartan Potassium 100 Mg Tablet 100 Mg PO DAILY Vitals/I & O Vital Sign - Last 24 Hours 12/15/16 12/15/16 12/15/16 12/15/16 15:00 19:00 20:00 20:00 Temp 97.6 98.4 97.6 98.4 Pulse 79 95 Resp 20 20 B/P (MAP) 133/77 (95) 132/80 (97) Pulse Ox 95 92 O2 Delivery Room Air Room Air Room Air Room Air 12/15/16 12/15/16 12/15/16 12/15/16 21:34 21:39 22:39 23:00 Temp 98.2 98.2 Pulse 95 74 Resp 22 B/P (MAP) 132/80 115/76 (89) Pulse Ox 92 92 92 O2 Delivery Room Air Room Air Room Air 12/16/16 12/16/16 12/16/16 12/16/16 03:00 07:00 08:00 09:05 Temp 98.3 98.4 98.3 98.4 Pulse 74 59 83 Resp 22 20 B/P (MAP) 132/62 (85) 143/76 (98) 143/76 Pulse Ox 88 92 O2 Delivery Room Air Room Air Room Air 12/16/16 11:00 Temp 97.6 97.6 Pulse 68 Resp 22 B/P (MAP) 138/88 (105) Pulse Ox 91 O2 Delivery Room Air Intake and Output 12/16/16 12/16/16 12/17/16 15:00 23:00 07:00 Intake Total 250 ml Balance 250 ml TOYA CARRERA MD Dec 16, 2016 14:20
[2016-12-16 15:00] VITALS: BP 147/67
[2016-12-16] MEDS ORDERED: POLYETHYLENE GLYCOL 3350 17 GM PACKET. PO SCH (16:30)
--- NOTE | 2016-12-16 17:03 | PDOC ---
Provider Note Provider Note Mr Ortiz was scheduled for CABG tomorrow morning. A noncontrast CT of the chest, which was performed as part of his preoperative workup, demonstrated a mass in the left lower lobe, a mass in the right anterior chest wall, a mass in the left lateral segment of the liver and mediastinal lymphadenopathy, which are all very suspicious. As a result, we will have to cancel his CABG, as these new findings become a priority. We will now proceed with a CT-guided biopsy of the left lower lobe mass. We will ask the interventional radiologist to perform a biopsy of the right anterior chest wall mass in the same setting. If both are proven to be the same malignant pathology, then stage IV cancer would be confirmed and a liver biopsy would not be needed. If pathology defers between these 2 masses, then he would need a biopsy of the liver. He will also need a PET/CT. We will consult pulmonary and medical oncology. If the patient develops ongoing chest pain and requires early coronary intervention, I would recommend PCI to the LAD and left circumflex. SEVERO FARRIS MD Dec 16, 2016 17:03
--- NOTE | 2016-12-16 17:46 | PDOC ---
PROGRESS NOTES Subjective Subjective Denied any chest pain. Objective Objective Vital Signs Date Time Temp Pulse Resp B/P (MAP) Pulse Ox O2 Delivery O2 Flow Rate FiO2 12/16/16 15:00 97.4 89 20 147/67 (93) 93 Room Air 97.4 12/15/16 11:15 2.0 Intake and Output 12/17/16 07:00 Intake Total 250 ml Balance 250 ml Intake Oral 250 ml Physical Exam Abdomen: Soft, No tenderness Heart: Regular rate, Normal S1, Normal S2 Extremities: No edema General: Alert, Oriented X3, No acute distress HEENT: Atraumatic, PERRLA Lungs: Clear to auscultation MUSCULOSKELETAL: No deformity Neuro: Normal gait, Normal speech, Strength at 5/5 X4 ext, Normal tone, Sensation intact, Cranial nerves 3-12 NL Psych/Mental Status: Mental status NL Skin: No significant lesion Assessment Assessment 1. Unstable angina: Cardiac catheterization showed three-vessel coronary artery disease. CT surgery following. Patient would benefit from CABG but non contrast CT suggested metastatic lung Ca.. Consult Pulm team. If CABG not an option we will consider PCI/stents to LAD and LCX. 2. Hypertension: Continue current medications. 3. Hyperlipidemia: Continue statin therapy 4. Diabetes mellitus type 2: Treated per IM Plan Plan of Care Problems Medical Problems: (1) Chest pain Status: Acute (2) Non-STEMI (non-ST elevated myocardial infarction) Status: Acute Comment Review of Relevant I have reviewed the following items maxine (where applicable) has been applied. Labs Laboratory Tests Test 12/15/16 18:30 12/15/16 21:33 12/16/16 03:55 12/16/16 07:53 Prothrombin Time 12.5 SEC (11.7-14.0) Prothromb Time International Ratio 1.0 (0.8-1.1) Activated Partial Thromboplast Time 28 SEC (24-38) Glucose (Fingerstick) 186 mg/dL (70-99) 170 mg/dL (70-99) White Blood Count 6.2 x10^3/uL (4.0-11.0) Red Blood Count 5.24 x10^6/uL (4.30-5.70) Hemoglobin 15.3 g/dL (13.0-17.5) Hematocrit 46.4 % (39.0-53.0) Mean Corpuscular Volume 89 fL (79-100) Mean Corpuscular Hemoglobin 29 pg (25-35) Mean Corpuscular Hemoglobin Concent 33 g/dL (31-37) Red Cell Distribution Width 15.8 % (11.5-14.5) Platelet Count 201 x10^3/uL (140-400) Neutrophils (%) (Auto) 72 % (31-73) Lymphocytes (%) (Auto) 16 % (24-48) Monocytes (%) (Auto) 9 % (0-9) Eosinophils (%) (Auto) 2 % (0-3) Basophils (%) (Auto) 1 % (0-3) Neutrophils # (Auto) 4.5 x10^3uL (1.8-7.7) Lymphocytes # (Auto) 1.0 x10^3/uL (1.0-4.8) Monocytes # (Auto) 0.6 x10^3/uL (0.0-1.1) Eosinophils # (Auto) 0.1 x10^3/uL (0.0-0.7) Basophils # (Auto) 0.0 x10^3/uL (0.0-0.2) Sodium Level 138 mmol/L (136-145) Potassium Level 3.5 mmol/L (3.5-5.1) Chloride Level 99 mmol/L (98-107) Carbon Dioxide Level 32 mmol/L (21-32) Anion Gap 7 (6-14) Blood Urea Nitrogen 16 mg/dL (8-26) Creatinine 1.1 mg/dL (0.7-1.3) Estimated GFR (Cockcroft-Gault) 66.6 Glucose Level 178 mg/dL (70-99) Calcium Level 8.6 mg/dL (8.5-10.1) Test 12/16/16 11:15 12/16/16 15:00 12/16/16 16:32 Glucose (Fingerstick) 226 mg/dL (70-99) 133 mg/dL (70-99) Low Molecular Weight Heparin 0.92 IU/mL Medications Current Medications Fentanyl Citrate (Fentanyl 2ml Vial) 25 mcg PRN Q5MIN PRN IV MILD PAIN; Start 12/17/16 at 07:00; Stop 12/18/16 at 06:59 Fentanyl Citrate (Fentanyl 2ml Vial) 50 mcg PRN Q5MIN PRN IV MODERATE PAIN; Start 12/17/16 at 07:00; Stop 12/18/16 at 06:59 Hydromorphone HCl (Dilaudid) 0.5 mg PRN Q10MIN PRN IV SEV PAIN, Second choice; Start 12/17/16 at 07:00; Stop 12/18/16 at 06:59 Lidocaine HCl (Xylocaine-Mpf 1% Vial) 2 ml PRN 1X PRN ID IV START; Start at 07:00; Stop 12/18/16 at 06:59 Metoprolol Tartrate (Lopressor) 25 mg BID PO Last administered on 12/16/16t 09: 05; Start 12/15/16 at 21:00 Morphine Sulfate 1 mg PRN Q10MIN PRN IV SEVERE PAIN; Start 12/17/16 at 07:00; Stop 12/18/16 at 06:59 Ondansetron HCl (Zofran) 4 mg PRN Q6HRS PRN IV NAUSEA/VOMITING; Start 12/17/16 at 07:00; Stop 12/18/16 at 06:59 Polyethylene Glycol (miraLAX PACKET) 17 gm 1X ONCE PO Last administered on t 13:34; Start 12/16/16 at 13:30; Stop 12/16/16 at 13:31; Status DC Polyethylene Glycol (miraLAX PACKET) 17 gm DAILY PO ; Start 12/16/16 at 16:30; Stop 12/16/16 at 16:30; Status DC Polyethylene Glycol (miraLAX PACKET) 17 gm DAILY PO ; Start 12/17/16 at 07:00 Prochlorperazine Edisylate (Compazine) 5 mg PACU PRN PRN IV NAUSEA, MRX1; Start 12/17/16 at 07:00; Stop 12/18/16 at 06:59 Ringer's Solution 1,000 ml @ 30 mls/hr Q24H IV ; Start 12/17/16 at 07:00; Stop 12/17/16 at 18:59 Temazepam (Restoril) 7.5 mg PRN QHS PRN PO INSOMNIA; Start 12/16/16 at 14:30 Vitals/I & O Vital Sign - Last 24 Hours 12/15/16 12/15/16 12/15/16 12/15/16 19:00 20:00 20:00 21:34 Temp 98.4 98.4 Pulse 95 95 Resp 20 B/P (MAP) 132/80 (97) 132/80 Pulse Ox 92 O2 Delivery Room Air Room Air Room Air 12/15/16 12/15/16 12/15/16 12/16/16 21:39 22:39 23:00 03:00 Temp 98.2 98.3 98.2 98.3 Pulse 74 74 Resp 22 22 B/P (MAP) 115/76 (89) 132/62 (85) Pulse Ox 92 92 92 88 O2 Delivery Room Air Room Air Room Air Room Air 12/16/16 12/16/16 12/16/16 12/16/16 07:00 08:00 09:05 11:00 Temp 98.4 97.6 98.4 97.6 Pulse 59 83 68 Resp 20 22 B/P (MAP) 143/76 (98) 143/76 138/88 (105) Pulse Ox 92 91 O2 Delivery Room Air Room Air Room Air 12/16/16 15:00 Temp 97.4 97.4 Pulse 89 Resp 20 B/P (MAP) 147/67 (93) Pulse Ox 93 O2 Delivery Room Air Intake and Output 12/16/16 12/16/16 12/17/16 15:00 23:00 07:00 Intake Total 250 ml Balance 250 ml SIDNEY FLORES MD Dec 16, 2016 17:46
[2016-12-16 19:20] VITALS: BP 118/76
[2016-12-16] MEDS: ATORVASTATIN CALCIUM 20 MG TABLET PO SCH (21:05)
[2016-12-16] MEDS: INSULIN DETEMIR 300 UNITS/3 ML INSULN.PEN. SQ SCH (21:10)
[2016-12-16 23:25] VITALS: BP 120/79
[2016-12-16] MEDS: traMADol 50 MG TABLET PO PRN (23:28)
[2016-12-16] MEDS: TEMAZEPAM 7.5 MG CAPSULE PO PRN (23:28)
[2016-12-17] VITALS (31 sets, daily range): BP systolic 117–186; BP diastolic 62–101
[2016-12-17] MEDS: MORPHINE IR 15 MG TABLET PO PRN ×2 (03:29→19:23)
[2016-12-17] MEDS ORDERED: ONDANSETRON PF 4 MG/2 ML VIAL. IV PRN (07:00)
[2016-12-17] MEDS ORDERED: IV RINGERS,LACTATED 1000ML 1,000 ML IV SCH (07:00)
[2016-12-17] MEDS ORDERED: PROCHLORPERAZINE 10 MG/2 ML VIAL. IV PRN (07:00)
[2016-12-17] MEDS ORDERED: MORPHINE SULFATE 2 MG/ML DISP.SYRIN. IV PRN (07:00)
[2016-12-17] MEDS: POLYETHYLENE GLYCOL 3350 17 GM PACKET. PO SCH ×2 (07:00→15:32)
[2016-12-17] MEDS ORDERED: HYDROmorphone 2 MG/ML VIAL IV PRN (07:00)
[2016-12-17] MEDS ORDERED: LIDOCAINE 1% PF 2 ML VIAL. ID PRN (07:00)
[2016-12-17] MEDS ORDERED: fentaNYL PF VIAL 100 MCG/2 ML VIAL IV PRN ×2 (07:00)
[2016-12-17] MEDS: INSULIN ASPART 300 UNITS/3 ML INSULN.PEN SQ SCH ×4 (07:30→21:00)
[2016-12-17] MEDS: traMADol 50 MG TABLET PO PRN (07:32)
--- NOTE | 2016-12-17 08:57 | PDOC ---
PROGRESS NOTES Subjective Subjective c/c - f/u of Lung mass ROS - has rt sided CP Objective Objective Vital Signs Date Time Temp Pulse Resp B/P (MAP) Pulse Ox O2 Delivery O2 Flow Rate FiO2 12/17/16 08:33 16 Room Air 12/17/16 07:00 98.3 66 117/62 (80) 90 98.3 12/15/16 11:15 2.0 Physical Exam Heart: Normal S1, Normal S2 General: Alert, Oriented X3 Lungs: Clear to auscultation Neuro: Normal speech Psych/Mental Status: Mental status NL Assessment Assessment Problems Medical Problems: (1) Chest pain Status: Acute (2) Non-STEMI (non-ST elevated myocardial infarction) Status: Acute Imp/Plan: 1. Lung mass in the left lower lobe, a mass in the right anterior chest wall, a mass in the left lateral segment of the liver and mediastinal lymphadenopathy, which are all very suspicious for malignancy. Plan Ct guided bx 12/17/16. He will also need a PET/CT as outpt. 2. CAD - appreciate cardio and CT surgery eval. Comment Review of Relevant I have reviewed the following items maxine (where applicable) has been applied. Labs Laboratory Tests Test 12/15/16 12:07 12/15/16 16:25 12/15/16 18:30 12/15/16 21:33 Glucose (Fingerstick) 156 mg/dL (70-99) 168 mg/dL (70-99) 186 mg/dL (70-99) Prothrombin Time 12.5 SEC (11.7-14.0) Prothromb Time International Ratio 1.0 (0.8-1.1) Activated Partial Thromboplast Time 28 SEC (24-38) Test 12/16/16 03:55 12/16/16 07:53 12/16/16 11:15 12/16/16 15:00 White Blood Count 6.2 x10^3/uL (4.0-11.0) Red Blood Count 5.24 x10^6/uL (4.30-5.70) Hemoglobin 15.3 g/dL (13.0-17.5) Hematocrit 46.4 % (39.0-53.0) Mean Corpuscular Volume 89 fL (79-100) Mean Corpuscular Hemoglobin 29 pg (25-35) Mean Corpuscular Hemoglobin Concent 33 g/dL (31-37) Red Cell Distribution Width 15.8 % (11.5-14.5) Platelet Count 201 x10^3/uL (140-400) Neutrophils (%) (Auto) 72 % (31-73) Lymphocytes (%) (Auto) 16 % (24-48) Monocytes (%) (Auto) 9 % (0-9) Eosinophils (%) (Auto) 2 % (0-3) Basophils (%) (Auto) 1 % (0-3) Neutrophils # (Auto) 4.5 x10^3uL (1.8-7.7) Lymphocytes # (Auto) 1.0 x10^3/uL (1.0-4.8) Monocytes # (Auto) 0.6 x10^3/uL (0.0-1.1) Eosinophils # (Auto) 0.1 x10^3/uL (0.0-0.7) Basophils # (Auto) 0.0 x10^3/uL (0.0-0.2) Sodium Level 138 mmol/L (136-145) Potassium Level 3.5 mmol/L (3.5-5.1) Chloride Level 99 mmol/L (98-107) Carbon Dioxide Level 32 mmol/L (21-32) Anion Gap 7 (6-14) Blood Urea Nitrogen 16 mg/dL (8-26) Creatinine 1.1 mg/dL (0.7-1.3) Estimated GFR (Cockcroft-Gault) 66.6 Glucose Level 178 mg/dL (70-99) Calcium Level 8.6 mg/dL (8.5-10.1) Glucose (Fingerstick) 170 mg/dL (70-99) 226 mg/dL (70-99) Low Molecular Weight Heparin 0.92 IU/mL Test 12/16/16 16:32 12/16/16 20:39 12/17/16 07:34 Glucose (Fingerstick) 133 mg/dL (70-99) 186 mg/dL (70-99) 160 mg/dL (70-99) Laboratory Tests Test 12/16/16 11:15 12/16/16 15:00 12/16/16 16:32 12/16/16 20:39 Glucose (Fingerstick) 226 mg/dL (70-99) 133 mg/dL (70-99) 186 mg/dL (70-99) Low Molecular Weight Heparin 0.92 IU/mL Test 12/17/16 07:34 Glucose (Fingerstick) 160 mg/dL (70-99) Medications Current Medications Nitroglycerin (Nitro-Bid Oint) 1 inch 1X ONCE TP Last administered on 18:38; Start 12/13/16 at 18:30; Stop 12/13/16 at 18:31; Status DC Aspirin (Children'S Aspirin) 324 mg 1X ONCE PO ; Start 12/13/16 at 18:30; Stop 12/13/16 at 18:31; Status DC Enoxaparin Sodium (Lovenox Per Pharmacy Treatment Dosing) 1 each PRN DAILY PRN MC SEE COMMENTS; Start 12/13/16 at 19:15 Enoxaparin Sodium (Lovenox 100mg Syringe) 100 mg 1X ONCE SQ Last administered on 12/13/16 19:50; Start 12/13/16 at 19:30; Stop 12/13/16 at 19:31; Status DC Enoxaparin Sodium (Lovenox 80mg Syringe) 80 mg 1X ONCE SQ Last administered on 12/13/16 19:50; Start 12/13/16 at 19:30; Stop 12/13/16 at 19:31; Status DC Ondansetron HCl (Zofran) 4 mg PRN Q8HRS PRN IV NAUSEA/VOMITING; Start 12/13/16 at 19:45; Stop 12/14/16 at 11:34; Status DC Morphine Sulfate 2 mg PRN Q2HR PRN IV PAIN; Start 12/13/16 at 19:45; Stop 12/14 at 11:34; Status DC Acetaminophen (Tylenol) 650 mg PRN Q4HRS PRN PO FEVER Last administered on 12/14 06:36; Start 12/13/16 at 19:45; Stop 12/14/16 at 11:34; Status DC Nitroglycerin (Nitrostat) 0.4 mg PRN Q5MIN PRN SL CHEST PAIN; Start 12/13/16 at 19:45; Stop 12/14/16 at 19:44; Status DC Insulin Aspart (NovoLOG) 0-9 UNITS QIDACHS SQ Last administered on 12/16/16 12 :50; Start 12/13/16 at 21:30 Dextrose (Dextrose 50%-Water Syringe) 12.5 gm PRN Q15MIN PRN IV SEE COMMENTS; Start 12/13/16 at 20:15 Morphine Sulfate (Morphine Ir) 15 mg PRN Q4HRS PRN PO PAIN Last administered on 12/17/16 03:29; Start 12/13/16 at 20:15 Enoxaparin Sodium (Lovenox 100mg Syringe) 180 mg Q12HR SQ Last administered on 12/16/16 21:06; Start 12/14/16 at 09:00 Atorvastatin Calcium (Lipitor) 20 mg QHS PO Last administered on 12/16/16 21: 05; Start 12/14/16 at 21:00 Cetirizine HCl (ZyrTEC) 10 mg DAILY PO Last administered on 12/16/16 09:04; Start 12/14/16 at 12:00 Montelukast Sodium (Singulair) 10 mg DAILY PO Last administered on 12/16/16 09 :02; Start 12/14/16 at 12:00 Tamsulosin HCl (Flomax) 0.8 mg DAILY PO Last administered on 12/16/16 09:02; Start 12/14/16 at 12:00 Losartan Potassium (Cozaar) 100 mg DAILY PO Last administered on 12/15/16 11: 09; Start 12/14/16 at 12:00; Stop 12/15/16 at 16:19; Status DC Pioglitazone HCl (Actos) 30 mg DAILY PO Last administered on 12/16/16 09:02; Start 12/14/16 at 12:00 Triamterene/HCTZ (Maxzide 37.5/ 25mg) 1 tab DAILY PO Last administered on 09:02; Start 12/14/16 at 12:00 Acetaminophen (Tylenol) 650 mg PRN Q6HRS PRN PO FEVER Last administered on 12/16 19:31; Start 12/14/16 at 11:30 Ondansetron HCl (Zofran) 4 mg PRN Q6HRS PRN IV NAUSEA/VOMITING; Start 12/14/16 at 11:30 Morphine Sulfate 2 mg PRN Q2HR PRN IV MODERATE TO SEVERE PAIN; Start 12/14/16 at 11:45 Tramadol HCl (Ultram) 50 mg PRN Q6HRS PRN PO MILD TO MODERATE PAIN Last administered on 12/17/16 07:32; Start 12/14/16 at 11:30 Hydralazine HCl (Apresoline) 10 mg PRN Q4HRS PRN IVP ELEVATED BP, SEE COMMENTS ; Start 12/14/16 at 11:30 Docusate Sodium (Colace) 100 mg PRN DAILY PRN PO CONSTIPATION; Start 12/14/16 at 11:30 Senna/Docusate Sodium (Senna Plus) 1 tab BID PO Last administered on 12/16/16 21:06; Start 12/14/16 at 12:00 Docusate Sodium (Colace) 100 mg BID PO Last administered on 12/16/16 21:06; Start 12/14/16 at 12:00 Magnesium Hydroxide (Milk Of Magnesia) 2,400 mg PRN Q12HR PRN PO CONSTIPATION; Start 12/14/16 at 11:30 Insulin Detemir (Levemir) 20 units QHS SQ Last administered on 12/16/16 21:10 ; Start 12/14/16 at 21:00 Heparin Sodium/ Sodium Chloride 1,000 ml @ As Directed STK-MED ONCE .ROUTE ; Start 12/15/16 at 07:09; Stop 12/15/16 at 07:10; Status DC Lidocaine HCl 20 ml STK-MED ONCE .ROUTE ; Start 12/15/16 at 07:10; Stop at 07:11; Status DC Iohexol (Omnipaque 300 Mg/ml) 100 ml STK-MED ONCE .ROUTE ; Start 12/15/16 at 07: 14; Stop 12/15/16 at 07:15; Status DC Fentanyl Citrate (Fentanyl 2ml Vial) 100 mcg STK-MED ONCE .ROUTE ; Start at 10:07; Stop 12/15/16 at 10:08; Status DC Midazolam HCl (Versed) 2 mg STK-MED ONCE .ROUTE ; Start 12/15/16 at 10:08; Stop 12/15/16 at 10:09; Status DC Verapamil HCl (Verapamil) 5 mg STK-MED ONCE .ROUTE ; Start 12/15/16 at 10:08; Stop 12/15/16 at 10:09; Status DC Heparin Sodium (Porcine) (Heparin Sodium) 10,000 unit STK-MED ONCE .ROUTE ; Start 12/15/16 at 10:08; Stop 12/15/16 at 10:09; Status DC Nitroglycerin (Nitroglycerin) 200 mcg STK-MED ONCE .ROUTE ; Start 12/15/16 at 10 :08; Stop 12/15/16 at 10:09; Status DC Nitroglycerin (Nitroglycerin) 200 mcg 1X ONCE IART Last administered on 10:43; Start 12/15/16 at 10:45; Stop 12/15/16 at 10:46; Status DC Verapamil HCl (Verapamil) 2.5 mg 1X ONCE IART Last administered on 12/15/16 10:43; Start 12/15/16 at 10:45; Stop 12/15/16 at 10:46; Status DC Heparin Sodium (Porcine) (Heparin Sodium) 2,500 unit 1X ONCE IART Last administered on 12/15/16 10:45; Start 12/15/16 at 10:45; Stop 12/15/16 at 10:46 ; Status DC Heparin Sodium/ Sodium Chloride 1,000 unit 1X ONCE IART Last administered on 10:42; Start 12/15/16 at 10:45; Stop 12/15/16 at 10:46; Status DC Midazolam HCl (Versed) 2 mg 1X ONCE IV Last administered on 12/15/16 10:44; Start 12/15/16 at 10:45; Stop 12/15/16 at 10:46; Status DC Fentanyl Citrate (Fentanyl 2ml Vial) 50 mcg 1X ONCE IV Last administered on 10:44; Start 12/15/16 at 10:45; Stop 12/15/16 at 10:46; Status DC Iohexol (Omnipaque 300 Mg/ml) 100 ml 1X ONCE IART Last administered on 10:42; Start 12/15/16 at 10:45; Stop 12/15/16 at 10:46; Status DC Lidocaine HCl 2 ml 1X ONCE IJ Last administered on 12/15/16 10:42; Start at 10:45; Stop 12/15/16 at 10:46; Status DC Sodium Chloride 1,000 ml @ 60 mls/hr [id number] IV Last administered on 03:31; Start 12/15/16 at 10:51; Stop 12/16/16 at 20:04; Status DC Polyethylene Glycol (miraLAX PACKET) 17 gm DAILY PO ; Start 12/16/16 at 16:30; Stop 12/16/16 at 16:30; Status DC Metoprolol Tartrate (Lopressor) 25 mg BID PO Last administered on 12/16/16 21: 05; Start 12/15/16 at 21:00 Polyethylene Glycol (miraLAX PACKET) 17 gm DAILY PO ; Start 12/17/16 at 07:00 Polyethylene Glycol (miraLAX PACKET) 17 gm 1X ONCE PO Last administered on 13:34; Start 12/16/16 at 13:30; Stop 12/16/16 at 13:31; Status DC Ondansetron HCl (Zofran) 4 mg PRN Q6HRS PRN IV NAUSEA/VOMITING; Start 12/17/16 at 07:00; Stop 12/18/16 at 06:59 Fentanyl Citrate (Fentanyl 2ml Vial) 25 mcg PRN Q5MIN PRN IV MILD PAIN; Start 12/17/16 at 07:00; Stop 12/18/16 at 06:59 Fentanyl Citrate (Fentanyl 2ml Vial) 50 mcg PRN Q5MIN PRN IV MODERATE PAIN; Start 12/17/16 at 07:00; Stop 12/18/16 at 06:59 Morphine Sulfate 1 mg PRN Q10MIN PRN IV SEVERE PAIN; Start 12/17/16 at 07:00; Stop 12/18/16 at 06:59 Ringer's Solution 1,000 ml @ 30 mls/hr Q24H IV ; Start 12/17/16 at 07:00; Stop 12/17/16 at 18:59 Lidocaine HCl (Xylocaine-Mpf 1% Vial) 2 ml PRN 1X PRN ID IV START; Start at 07:00; Stop 12/18/16 at 06:59 Hydromorphone HCl (Dilaudid) 0.5 mg PRN Q10MIN PRN IV SEV PAIN, Second choice; Start 12/17/16 at 07:00; Stop 12/18/16 at 06:59 Prochlorperazine Edisylate (Compazine) 5 mg PACU PRN PRN IV NAUSEA, MRX1; Start 12/17/16 at 07:00; Stop 12/18/16 at 06:59 Temazepam (Restoril) 7.5 mg PRN QHS PRN PO INSOMNIA Last administered on t 23:28; Start 12/16/16 at 14:30 Active Scripts Active Reported Gabapentin 400 Mg Capsule 400 Mg PO TID PRN Tresiba Flextouch U-100 (Insulin Degludec) 100 Unit/1 Ml Insuln.pen 40 Unit SQ HS Tresiba Flextouch U-100 (Insulin Degludec) 100 Unit/1 Ml Insuln.pen 36 Unit SQ DAILY Cetirizine Hcl 10 Mg Tablet 1 Tab PO DAILY Tamsulosin Hcl 0.4 Mg Cap.er.24h 2 Cap PO DAILY Triamterene-Hctz 37.5-25 Mg Cp (Triamterene/Hydrochlorothiazid) 1 Each Capsule 1 Cap PO DAILY Atorvastatin Calcium 20 Mg Tablet 1 Tab PO DAILY Actos (Pioglitazone Hcl) 30 Mg Tablet 1 Tab PO DAILY Montelukast Sodium Tablet (Montelukast Sodium) 10 Mg Tablet 1 Tab PO DAILY Losartan Potassium 100 Mg Tablet 100 Mg PO DAILY Vitals/I & O Vital Sign - Last 24 Hours 12/16/16 12/16/16 12/16/16 12/16/16 09:05 11:00 15:00 19:20 Temp 97.6 97.4 98.5 97.6 97.4 98.5 Pulse 83 68 89 89 Resp 22 20 22 B/P (MAP) 143/76 138/88 (105) 147/67 (93) 118/76 (90) Pulse Ox 91 93 93 O2 Delivery Room Air Room Air Room Air 12/16/16 12/16/16 12/16/16 12/16/16 19:44 21:05 23:25 23:28 Temp 98.7 98.7 Pulse 89 75 Resp 20 B/P (MAP) 118/76 120/79 (93) Pulse Ox 92 O2 Delivery Room Air Room Air Room Air 12/17/16 12/17/16 12/17/16 12/17/16 03:20 03:29 04:29 07:00 Temp 97.8 98.3 97.8 98.3 Pulse 73 66 Resp 22 20 B/P (MAP) 138/71 (93) 117/62 (80) Pulse Ox 92 90 O2 Delivery Room Air Room Air Room Air Room Air 12/17/16 12/17/16 12/17/16 07:32 07:50 08:33 Resp 16 16 O2 Delivery Room Air Room Air Room Air ANIVAL PLASCENCIA MD Dec 17, 2016 08:57
[2016-12-17] MEDS: CETIRIZINE HCL 10 MG TABLET. PO SCH (09:00)
[2016-12-17] MEDS: TAMSULOSIN 0.4 MG CAP.ER.24H. PO SCH (09:05)
[2016-12-17] MEDS: TRIAMTERENE/HCTZ 37.5/25MG TABLET. PO SCH (09:05)
[2016-12-17] MEDS: DOCUSATE SODIUM 100 MG CAPSULE. PO SCH ×2 (09:06→21:26)
[2016-12-17] MEDS: SENNOSIDES/DOCUSATE 8.6/50MG TABLET. PO SCH ×2 (09:06→21:26)
[2016-12-17] MEDS: MONTELUKAST SODIUM 10 MG TABLET. PO SCH (09:06)
[2016-12-17] MEDS: METOPROLOL TART IMMED RELEASE 25 MG TABLET. PO SCH ×2 (09:06→21:00)
--- NOTE | 2016-12-17 10:19 | PDOC ---
Subjective: Subjective: Stooling better w/ Miralax. Objective: Objective: CABG cancelled w/ lung mass on CT - biopsy planned for today. Vital Signs: Vital Signs Date Time Temp Pulse Resp B/P (MAP) Pulse Ox O2 Delivery O2 Flow Rate FiO2 12/17/16 09:06 68 117/62 12/17/16 08:33 16 Room Air 12/17/16 07:00 98.3 90 98.3 Labs: Laboratory Tests Test 12/16/16 11:15 12/16/16 15:00 12/16/16 16:32 12/16/16 20:39 Glucose (Fingerstick) 226 mg/dL 133 mg/dL 186 mg/dL Low Molecular Weight Heparin 0.92 IU/mL Test 12/17/16 07:34 Glucose (Fingerstick) 160 mg/dL Imaging: Chest CT Impression: 1. 3 cm masslike density identified left lower lobe of the lung, suspicious for neoplasm. Examination limited without IV contrast. 2. Soft tissue density identified abutting the anterior right third rib measuring 3.4 x 2.8 cm and causing mottled appearance of the anterior portion of the right third rib, suspicious for metastasis. 3. Multiple prominent appearing mediastinal lymph nodes could be reactive lymphadenopathy or metastasis. 4. Mild ascending aortic aneurysm with ascending aorta measuring 4.4 cm in transverse dimension. 5. Diffuse coronary artery calcifications. 6. Large 9.2 cm hypodensity identified in the left lobe of the liver possibly a large area of focal fat or fatty mass or metastasis. Consider ultrasound follow -up for further evaluation. 7. Partially visualized mottled appearance of the L2 vertebral body. Suspect metastasis or severe degeneration , consider follow-up bone scan or MRI for further evaluation. PE: GEN: NAD, up to chair LUNGS: clear HEART: RRR ABD: obese, soft, non-tender NEURO/PSYCH: A & O 3 A/P: CAD Abnormal CT - chest/lung/liver masses w/ adenopathy Irregular bowel habits/constipation -has Miralax ordered -colonoscopy ~8 years ago -- Proceed per oncology/CTS/pulm/cardio. Continue Miralax. FRANSISCO GERMAIN Dec 17, 2016 10:19
--- NOTE | 2016-12-17 11:15 | PDOC ---
Provider Note Provider Note BRIEF IR NOTE Mr Ortiz is a 66 year old male admitted with NSTEMI who was found to have a LLL lung mass, a right anterior chest wall mass with destructive changes in the underlying rib, and a left hepatic lobe mass. IR consulted for biopsy. Will plan on biopsy of chest wall mass today. If this represents metastatic lung cancer than the lung lesion may not need to be biopsied. Spoke to oncology about plans, who agrees. HANK LUGO MD Dec 17, 2016 11:15
--- NOTE | 2016-12-17 11:26 | PDOC ---
PROGRESS NOTES Chief Complaint Chief Complaint chest pain, NSTEMI - CABG candidate New lung masses, concerning for malignancy with possible mets dm2 better control now htn, controlled morbid obesity CKD 2-3 constipation resolved mild malnutrition History of Present Illness History of Present Illness New updates: pre op CT chest shows multiple lung masses concerning for mets, so now CABG is on hold and is NPO for lung mass biopsy by IR today Heme onc also now on board and plans for OP PET scan Also thoughts about possible PCI now from cards since CABG wont be done anytime soon Clinically, pt looks fine at bedside HEavy discussion and counselling done, 2 visits, print out of images provided PLAN: Lung mass biopsy Thoughts of PCI,. Hopefully path results out by thursday AM Dw and pt Vitals Vitals Vital Signs Date Time Temp Pulse Resp B/P (MAP) Pulse Ox O2 Delivery O2 Flow Rate FiO2 12/17/16 09:06 68 117/62 12/17/16 08:33 16 Room Air 12/17/16 07:00 98.3 90 98.3 Physical Exam General: Alert, Oriented X3 Heart: Normal S1, Normal S2 Lungs: Clear Abdomen: Soft, No tenderness Extremities: No edema Skin: No significant lesion Labs LABS Laboratory Tests Test 12/16/16 15:00 12/16/16 16:32 12/16/16 20:39 12/17/16 07:34 Low Molecular Weight Heparin 0.92 IU/mL Glucose (Fingerstick) 133 mg/dL (70-99) 186 mg/dL (70-99) 160 mg/dL (70-99) Review of Systems Review of Systems denies 14 pt reviewed Assessment and Plan Assessmemt and Plan Problems Medical Problems: (1) Chest pain Status: Acute (2) Non-STEMI (non-ST elevated myocardial infarction) Status: Acute Problems: Comment Review of Relevant I have reviewed the following items maxine (where applicable) has been applied. Labs Laboratory Tests Test 12/15/16 12:07 12/15/16 16:25 12/15/16 18:30 12/15/16 21:33 Glucose (Fingerstick) 156 mg/dL (70-99) 168 mg/dL (70-99) 186 mg/dL (70-99) Prothrombin Time 12.5 SEC (11.7-14.0) Prothromb Time International Ratio 1.0 (0.8-1.1) Activated Partial Thromboplast Time 28 SEC (24-38) Test 12/16/16 03:55 12/16/16 07:53 12/16/16 11:15 12/16/16 15:00 White Blood Count 6.2 x10^3/uL (4.0-11.0) Red Blood Count 5.24 x10^6/uL (4.30-5.70) Hemoglobin 15.3 g/dL (13.0-17.5) Hematocrit 46.4 % (39.0-53.0) Mean Corpuscular Volume 89 fL (79-100) Mean Corpuscular Hemoglobin 29 pg (25-35) Mean Corpuscular Hemoglobin Concent 33 g/dL (31-37) Red Cell Distribution Width 15.8 % (11.5-14.5) Platelet Count 201 x10^3/uL (140-400) Neutrophils (%) (Auto) 72 % (31-73) Lymphocytes (%) (Auto) 16 % (24-48) Monocytes (%) (Auto) 9 % (0-9) Eosinophils (%) (Auto) 2 % (0-3) Basophils (%) (Auto) 1 % (0-3) Neutrophils # (Auto) 4.5 x10^3uL (1.8-7.7) Lymphocytes # (Auto) 1.0 x10^3/uL (1.0-4.8) Monocytes # (Auto) 0.6 x10^3/uL (0.0-1.1) Eosinophils # (Auto) 0.1 x10^3/uL (0.0-0.7) Basophils # (Auto) 0.0 x10^3/uL (0.0-0.2) Sodium Level 138 mmol/L (136-145) Potassium Level 3.5 mmol/L (3.5-5.1) Chloride Level 99 mmol/L (98-107) Carbon Dioxide Level 32 mmol/L (21-32) Anion Gap 7 (6-14) Blood Urea Nitrogen 16 mg/dL (8-26) Creatinine 1.1 mg/dL (0.7-1.3) Estimated GFR (Cockcroft-Gault) 66.6 Glucose Level 178 mg/dL (70-99) Calcium Level 8.6 mg/dL (8.5-10.1) Glucose (Fingerstick) 170 mg/dL (70-99) 226 mg/dL (70-99) Low Molecular Weight Heparin 0.92 IU/mL Test 12/16/16 16:32 12/16/16 20:39 12/17/16 07:34 Glucose (Fingerstick) 133 mg/dL (70-99) 186 mg/dL (70-99) 160 mg/dL (70-99) Laboratory Tests Test 12/16/16 15:00 12/16/16 16:32 12/16/16 20:39 12/17/16 07:34 Low Molecular Weight Heparin 0.92 IU/mL Glucose (Fingerstick) 133 mg/dL (70-99) 186 mg/dL (70-99) 160 mg/dL (70-99) Medications Current Medications Nitroglycerin (Nitro-Bid Oint) 1 inch 1X ONCE TP Last administered on 18:38; Start 12/13/16 at 18:30; Stop 12/13/16 at 18:31; Status DC Aspirin (Children'S Aspirin) 324 mg 1X ONCE PO ; Start 12/13/16 at 18:30; Stop 12/13/16 at 18:31; Status DC Enoxaparin Sodium (Lovenox Per Pharmacy Treatment Dosing) 1 each PRN DAILY PRN MC SEE COMMENTS; Start 12/13/16 at 19:15 Enoxaparin Sodium (Lovenox 100mg Syringe) 100 mg 1X ONCE SQ Last administered on 12/13/16 19:50; Start 12/13/16 at 19:30; Stop 12/13/16 at 19:31; Status DC Enoxaparin Sodium (Lovenox 80mg Syringe) 80 mg 1X ONCE SQ Last administered on 12/13/16 19:50; Start 12/13/16 at 19:30; Stop 12/13/16 at 19:31; Status DC Ondansetron HCl (Zofran) 4 mg PRN Q8HRS PRN IV NAUSEA/VOMITING; Start 12/13/16 at 19:45; Stop 12/14/16 at 11:34; Status DC Morphine Sulfate 2 mg PRN Q2HR PRN IV PAIN; Start 12/13/16 at 19:45; Stop 12/14 at 11:34; Status DC Acetaminophen (Tylenol) 650 mg PRN Q4HRS PRN PO FEVER Last administered on 12/14 06:36; Start 12/13/16 at 19:45; Stop 12/14/16 at 11:34; Status DC Nitroglycerin (Nitrostat) 0.4 mg PRN Q5MIN PRN SL CHEST PAIN; Start 12/13/16 at 19:45; Stop 12/14/16 at 19:44; Status DC Insulin Aspart (NovoLOG) 0-9 UNITS QIDACHS SQ Last administered on 12/16/16 12 :50; Start 12/13/16 at 21:30 Dextrose (Dextrose 50%-Water Syringe) 12.5 gm PRN Q15MIN PRN IV SEE COMMENTS; Start 12/13/16 at 20:15 Morphine Sulfate (Morphine Ir) 15 mg PRN Q4HRS PRN PO PAIN Last administered on 12/17/16 03:29; Start 12/13/16 at 20:15 Enoxaparin Sodium (Lovenox 100mg Syringe) 180 mg Q12HR SQ Last administered on 12/16/16 21:06; Start 12/14/16 at 09:00 Atorvastatin Calcium (Lipitor) 20 mg QHS PO Last administered on 12/16/16 21: 05; Start 12/14/16 at 21:00 Cetirizine HCl (ZyrTEC) 10 mg DAILY PO Last administered on 12/17/16 09:00; Start 12/14/16 at 12:00 Montelukast Sodium (Singulair) 10 mg DAILY PO Last administered on 12/17/16 09 :06; Start 12/14/16 at 12:00 Tamsulosin HCl (Flomax) 0.8 mg DAILY PO Last administered on 12/17/16 09:05; Start 12/14/16 at 12:00 Losartan Potassium (Cozaar) 100 mg DAILY PO Last administered on 12/15/16 11: 09; Start 12/14/16 at 12:00; Stop 12/15/16 at 16:19; Status DC Pioglitazone HCl (Actos) 30 mg DAILY PO Last administered on 12/16/16 09:02; Start 12/14/16 at 12:00 Triamterene/HCTZ (Maxzide 37.5/ 25mg) 1 tab DAILY PO Last administered on 09:05; Start 12/14/16 at 12:00 Acetaminophen (Tylenol) 650 mg PRN Q6HRS PRN PO FEVER Last administered on 12/16 19:31; Start 12/14/16 at 11:30 Ondansetron HCl (Zofran) 4 mg PRN Q6HRS PRN IV NAUSEA/VOMITING; Start 12/14/16 at 11:30 Morphine Sulfate 2 mg PRN Q2HR PRN IV MODERATE TO SEVERE PAIN; Start 12/14/16 at 11:45 Tramadol HCl (Ultram) 50 mg PRN Q6HRS PRN PO MILD TO MODERATE PAIN Last administered on 12/17/16 07:32; Start 12/14/16 at 11:30 Hydralazine HCl (Apresoline) 10 mg PRN Q4HRS PRN IVP ELEVATED BP, SEE COMMENTS ; Start 12/14/16 at 11:30 Docusate Sodium (Colace) 100 mg PRN DAILY PRN PO CONSTIPATION; Start 12/14/16 at 11:30 Senna/Docusate Sodium (Senna Plus) 1 tab BID PO Last administered on 12/17/16 09:06; Start 12/14/16 at 12:00 Docusate Sodium (Colace) 100 mg BID PO Last administered on 12/17/16 09:06; Start 12/14/16 at 12:00 Magnesium Hydroxide (Milk Of Magnesia) 2,400 mg PRN Q12HR PRN PO CONSTIPATION; Start 12/14/16 at 11:30 Insulin Detemir (Levemir) 20 units QHS SQ Last administered on 12/16/16 21:10 ; Start 12/14/16 at 21:00 Heparin Sodium/ Sodium Chloride 1,000 ml @ As Directed STK-MED ONCE .ROUTE ; Start 12/15/16 at 07:09; Stop 12/15/16 at 07:10; Status DC Lidocaine HCl 20 ml STK-MED ONCE .ROUTE ; Start 12/15/16 at 07:10; Stop at 07:11; Status DC Iohexol (Omnipaque 300 Mg/ml) 100 ml STK-MED ONCE .ROUTE ; Start 12/15/16 at 07: 14; Stop 12/15/16 at 07:15; Status DC Fentanyl Citrate (Fentanyl 2ml Vial) 100 mcg STK-MED ONCE .ROUTE ; Start at 10:07; Stop 12/15/16 at 10:08; Status DC Midazolam HCl (Versed) 2 mg STK-MED ONCE .ROUTE ; Start 12/15/16 at 10:08; Stop 12/15/16 at 10:09; Status DC Verapamil HCl (Verapamil) 5 mg STK-MED ONCE .ROUTE ; Start 12/15/16 at 10:08; Stop 12/15/16 at 10:09; Status DC Heparin Sodium (Porcine) (Heparin Sodium) 10,000 unit STK-MED ONCE .ROUTE ; Start 12/15/16 at 10:08; Stop 12/15/16 at 10:09; Status DC Nitroglycerin (Nitroglycerin) 200 mcg STK-MED ONCE .ROUTE ; Start 12/15/16 at 10 :08; Stop 12/15/16 at 10:09; Status DC Nitroglycerin (Nitroglycerin) 200 mcg 1X ONCE IART Last administered on 10:43; Start 12/15/16 at 10:45; Stop 12/15/16 at 10:46; Status DC Verapamil HCl (Verapamil) 2.5 mg 1X ONCE IART Last administered on 12/15/16 10:43; Start 12/15/16 at 10:45; Stop 12/15/16 at 10:46; Status DC Heparin Sodium (Porcine) (Heparin Sodium) 2,500 unit 1X ONCE IART Last administered on 12/15/16 10:45; Start 12/15/16 at 10:45; Stop 12/15/16 at 10:46 ; Status DC Heparin Sodium/ Sodium Chloride 1,000 unit 1X ONCE IART Last administered on 10:42; Start 12/15/16 at 10:45; Stop 12/15/16 at 10:46; Status DC Midazolam HCl (Versed) 2 mg 1X ONCE IV Last administered on 12/15/16 10:44; Start 12/15/16 at 10:45; Stop 12/15/16 at 10:46; Status DC Fentanyl Citrate (Fentanyl 2ml Vial) 50 mcg 1X ONCE IV Last administered on 10:44; Start 12/15/16 at 10:45; Stop 12/15/16 at 10:46; Status DC Iohexol (Omnipaque 300 Mg/ml) 100 ml 1X ONCE IART Last administered on 10:42; Start 12/15/16 at 10:45; Stop 12/15/16 at 10:46; Status DC Lidocaine HCl 2 ml 1X ONCE IJ Last administered on 12/15/16 10:42; Start at 10:45; Stop 12/15/16 at 10:46; Status DC Sodium Chloride 1,000 ml @ 60 mls/hr [id number] IV Last administered on 03:31; Start 12/15/16 at 10:51; Stop 12/16/16 at 20:04; Status DC Polyethylene Glycol (miraLAX PACKET) 17 gm DAILY PO ; Start 12/16/16 at 16:30; Stop 12/16/16 at 16:30; Status DC Metoprolol Tartrate (Lopressor) 25 mg BID PO Last administered on 12/17/16 09: 06; Start 12/15/16 at 21:00 Polyethylene Glycol (miraLAX PACKET) 17 gm DAILY PO ; Start 12/17/16 at 07:00 Polyethylene Glycol (miraLAX PACKET) 17 gm 1X ONCE PO Last administered on 13:34; Start 12/16/16 at 13:30; Stop 12/16/16 at 13:31; Status DC Ondansetron HCl (Zofran) 4 mg PRN Q6HRS PRN IV NAUSEA/VOMITING; Start 12/17/16 at 07:00; Stop 12/18/16 at 06:59 Fentanyl Citrate (Fentanyl 2ml Vial) 25 mcg PRN Q5MIN PRN IV MILD PAIN; Start 12/17/16 at 07:00; Stop 12/18/16 at 06:59 Fentanyl Citrate (Fentanyl 2ml Vial) 50 mcg PRN Q5MIN PRN IV MODERATE PAIN; Start 12/17/16 at 07:00; Stop 12/18/16 at 06:59 Morphine Sulfate 1 mg PRN Q10MIN PRN IV SEVERE PAIN; Start 12/17/16 at 07:00; Stop 12/18/16 at 06:59 Ringer's Solution 1,000 ml @ 30 mls/hr Q24H IV ; Start 12/17/16 at 07:00; Stop 12/17/16 at 18:59 Lidocaine HCl (Xylocaine-Mpf 1% Vial) 2 ml PRN 1X PRN ID IV START; Start at 07:00; Stop 12/18/16 at 06:59 Hydromorphone HCl (Dilaudid) 0.5 mg PRN Q10MIN PRN IV SEV PAIN, Second choice; Start 12/17/16 at 07:00; Stop 12/18/16 at 06:59 Prochlorperazine Edisylate (Compazine) 5 mg PACU PRN PRN IV NAUSEA, MRX1; Start 12/17/16 at 07:00; Stop 12/18/16 at 06:59 Temazepam (Restoril) 7.5 mg PRN QHS PRN PO INSOMNIA Last administered on t 23:28; Start 12/16/16 at 14:30 Active Scripts Active Reported Gabapentin 400 Mg Capsule 400 Mg PO TID PRN Tresiba Flextouch U-100 (Insulin Degludec) 100 Unit/1 Ml Insuln.pen 40 Unit SQ HS Tresiba Flextouch U-100 (Insulin Degludec) 100 Unit/1 Ml Insuln.pen 36 Unit SQ DAILY Cetirizine Hcl 10 Mg Tablet 1 Tab PO DAILY Tamsulosin Hcl 0.4 Mg Cap.er.24h 2 Cap PO DAILY Triamterene-Hctz 37.5-25 Mg Cp (Triamterene/Hydrochlorothiazid) 1 Each Capsule 1 Cap PO DAILY Atorvastatin Calcium 20 Mg Tablet 1 Tab PO DAILY Actos (Pioglitazone Hcl) 30 Mg Tablet 1 Tab PO DAILY Montelukast Sodium Tablet (Montelukast Sodium) 10 Mg Tablet 1 Tab PO DAILY Losartan Potassium 100 Mg Tablet 100 Mg PO DAILY Vitals/I & O Vital Sign - Last 24 Hours 12/16/16 12/16/16 12/16/16 12/16/16 15:00 19:20 19:44 21:05 Temp 97.4 98.5 97.4 98.5 Pulse 89 89 89 Resp 20 22 B/P (MAP) 147/67 (93) 118/76 (90) 118/76 Pulse Ox 93 93 O2 Delivery Room Air Room Air Room Air 9/26/12/16/16 12/17/16 12/17/16 23:25 23:28 03:20 03:29 Temp 98.7 97.8 98.7 97.8 Pulse 75 73 Resp 20 22 B/P (MAP) 120/79 (93) 138/71 (93) Pulse Ox 92 92 O2 Delivery Room Air Room Air Room Air Room Air 12/17/16 12/17/16 12/17/16 12/17/16 04:29 07:00 07:32 07:50 Temp 98.3 98.3 Pulse 66 Resp 20 16 B/P (MAP) 117/62 (80) Pulse Ox 90 O2 Delivery Room Air Room Air Room Air Room Air 12/17/16 12/17/16 08:33 09:06 Pulse 68 Resp 16 B/P (MAP) 117/62 O2 Delivery Room Air TOYA CARRERA MD Dec 17, 2016 11:26
[2016-12-17] MEDS ORDERED: LIDOCAINE 1% / SOD BICARB 8.4% 20 ML VIAL. IJ ONE ×2 (13:12→14:30)
[2016-12-17] MEDS ORDERED: MIDAZOLAM HCL/PF 2 MG/2 ML VIAL. ONE (13:47)
[2016-12-17] MEDS ORDERED: MIDAZOLAM HCL/PF 2 MG/2 ML VIAL. IV ONE (14:30)
[2016-12-17] MEDS ORDERED: fentaNYL PF VIAL 100 MCG/2 ML VIAL IV ONE (14:30)
[2016-12-17] MEDS: PIOGLITAZONE 15 MG TABLET. PO SCH (15:32)
--- NOTE | 2016-12-17 16:05 | RAD ---
CT-guided biopsy of expansile mass within the right anterior chest wall including involvement of underlying rib 12/17/2016 Discussion: The risks and benefits of the procedure were discussed the patient. Informed consent was obtained. A timeout procedure was performed. The patient was placed in the supine position on the CT scanner. Imaging of the chest redemonstrate demonstrates an expansile mass arising from an the anterior right third rib. Once an appropriate site for skin entry been selected 1% lidocaine without epinephrine was administered for local anesthesia. Following this a 17-gauge guiding needle was advanced the periphery of the mass, targeting the anterior aspect of the lesion. 4 18-gauge core biopsy samples were obtained and placed in formalin. The needle was removed and manual pressure held to achieve hemostasis. Postprocedural imaging demonstrated no immediate complications. The patient remained hemodynamically stable throughout the procedure. This procedure was performed conscious sedation including continuous cardiopulmonary monitoring via dedicated sedation nurse. Sedation time: 25 minutes. Impression: Successful CT-guided biopsy of right anterior chest wall mass
--- NOTE | 2016-12-17 16:50 | CONS ---
DATE OF CONSULTATION: 12/16/2016 REQUESTING PHYSICIAN: Dr. Dee Dee Bains. REASON FOR CONSULTATION: Lung mass concerning for malignancy. HISTORY OF PRESENT ILLNESS: The patient is a 66-year-old gentleman who presented to [facility] with chest pain and he was admitted on 12/13/2016. He had retrosternal chest pressure associated with diaphoresis and shortness of breath. He denies palpitations or syncopal episode. He has a strong family history of premature coronary artery disease. Troponin has been negative and the EKG did not show any ischemic changes. He had 80% stenosis of the LAD. He was evaluated by Thoracic Surgery for CABG as part of the preoperative evaluation. He underwent a CT scan of the chest on 12/15/2016. This revealed a soft tissue density in the right third rib measuring 3.4 x 2.8 cm causing mottled appearance of the anterior portion of the right third rib suspicious for metastatic disease. There was evidence of multiple prominent appearing mediastinal lymph nodes. A large 9.2 cm hypodensity was identified in the left lobe of the liver. A 3 cm mass-like density was also noted in the left lower lobe concerning for malignancy. A CT-guided biopsy of the left lower lobe lung mass and the right rib has been planned. I was asked to see the patient for further evaluation and management of possible malignancy. The patient denies any hemoptysis. He does have a chronic cough. No history of loss of weight or loss of appetite. No fevers, chills or night sweats. No history of hemoptysis. PAST MEDICAL HISTORY: Hypertension. FAMILY HISTORY: Positive for coronary artery disease, heart disease and hypertension. No history of cancer. SOCIAL HISTORY: He is a never smoker. No alcohol abuse. REVIEW OF SYSTEMS: A 12-point review of system was performed. Pertinent positives are mentioned in the history of present illness. Rest of the system review is negative. PHYSICAL EXAMINATION: GENERAL APPEARANCE: The patient is a 66-year-old gentleman who is well developed, well nourished, and in no acute cardiorespiratory distress. VITAL SIGNS: Blood pressure 147/67, temperature 97.4. HEAD: Atraumatic, normocephalic. EYES: No icterus. NECK: Supple. CHEST: Bilaterally symmetrical. HEART: S1, S2 normal. ABDOMEN: Soft, nontender. CENTRAL NERVOUS SYSTEM: No focal deficits. LYMPHATICS: No lymphadenopathy. SKIN: No rashes. PSYCHOLOGIC: Mood and affect are appropriate. MUSCULOSKELETAL: No joint effusions. LABORATORY DATA: WBC 6.2, hemoglobin 15.3, platelet count 201, creatinine 1.1, calcium 8.3, total protein 6, albumin 3.2, total bilirubin 0.3, AST 21, ALT 34, alkaline phosphatase 102. IMPRESSION AND PLAN: 1. Left lower lobe lung mass with associated right-sided third rib bone lesion and evidence of mediastinal lymphadenopathy and a liver mass is clinically concerning for lung cancer with metastatic disease. Appreciate cardiothoracic evaluation and I agree with the planned biopsy of the left lower lobe lung lesion and the right rib lesion. I agreed to proceed with a PET scan as outpatient for completion of staging workup. If this is confirmed to be malignant, then I would discuss with him regarding the options for chemotherapy. I discussed the clinical impression and the CT findings in detail with the patient and his and all his questions were answered. I discussed with the registered nurse. I will await the biopsy results for further treatment planning. 2. Chest pain. Appreciate Cardiology and cardiothoracic evaluation. CABG was planned, but it was canceled because of the findings on the CT chest concerning for malignancy. ANIVAL PLASCENCIA MD DR: URIEL/amira JOB#: [id number] / [id number] DEE DEE Gaines MD, ATHANASIOS MD [facility]
--- NOTE | 2016-12-17 17:17 | PDOC ---
PROGRESS NOTES Subjective Subjective No new complaints but events with lung x-ray noted. Objective Objective Vital Signs Date Time Temp Pulse Resp B/P (MAP) Pulse Ox O2 Delivery O2 Flow Rate FiO2 12/17/16 14:56 16 Room Air 12/17/16 14:28 79 91 4.0 12/17/16 11:00 97.7 127/69 (88) 97.7 Physical Exam Physical Exam He is supine in bed receiving oxygen by nasal canula and his family at bedside.He has not received his right AFO yet. Assessment Assessment Problems Medical Problems: (1) Chest pain Status: Acute (2) Non-STEMI (non-ST elevated myocardial infarction) Status: Acute Plan Plan of Care Agree with present care efforts. Comment Review of Relevant I have reviewed the following items maxine (where applicable) has been applied. Labs Laboratory Tests Test 12/15/16 18:30 12/15/16 21:33 12/16/16 03:55 12/16/16 07:53 Prothrombin Time 12.5 SEC (11.7-14.0) Prothromb Time International Ratio 1.0 (0.8-1.1) Activated Partial Thromboplast Time 28 SEC (24-38) Glucose (Fingerstick) 186 mg/dL (70-99) 170 mg/dL (70-99) White Blood Count 6.2 x10^3/uL (4.0-11.0) Red Blood Count 5.24 x10^6/uL (4.30-5.70) Hemoglobin 15.3 g/dL (13.0-17.5) Hematocrit 46.4 % (39.0-53.0) Mean Corpuscular Volume 89 fL (79-100) Mean Corpuscular Hemoglobin 29 pg (25-35) Mean Corpuscular Hemoglobin Concent 33 g/dL (31-37) Red Cell Distribution Width 15.8 % (11.5-14.5) Platelet Count 201 x10^3/uL (140-400) Neutrophils (%) (Auto) 72 % (31-73) Lymphocytes (%) (Auto) 16 % (24-48) Monocytes (%) (Auto) 9 % (0-9) Eosinophils (%) (Auto) 2 % (0-3) Basophils (%) (Auto) 1 % (0-3) Neutrophils # (Auto) 4.5 x10^3uL (1.8-7.7) Lymphocytes # (Auto) 1.0 x10^3/uL (1.0-4.8) Monocytes # (Auto) 0.6 x10^3/uL (0.0-1.1) Eosinophils # (Auto) 0.1 x10^3/uL (0.0-0.7) Basophils # (Auto) 0.0 x10^3/uL (0.0-0.2) Sodium Level 138 mmol/L (136-145) Potassium Level 3.5 mmol/L (3.5-5.1) Chloride Level 99 mmol/L (98-107) Carbon Dioxide Level 32 mmol/L (21-32) Anion Gap 7 (6-14) Blood Urea Nitrogen 16 mg/dL (8-26) Creatinine 1.1 mg/dL (0.7-1.3) Estimated GFR (Cockcroft-Gault) 66.6 Glucose Level 178 mg/dL (70-99) Calcium Level 8.6 mg/dL (8.5-10.1) Test 12/16/16 11:15 12/16/16 15:00 12/16/16 16:32 12/16/16 20:39 Glucose (Fingerstick) 226 mg/dL (70-99) 133 mg/dL (70-99) 186 mg/dL (70-99) Low Molecular Weight Heparin 0.92 IU/mL Test 12/17/16 07:34 12/17/16 11:22 Glucose (Fingerstick) 160 mg/dL (70-99) 164 mg/dL (70-99) Laboratory Tests Test 12/16/16 20:39 12/17/16 07:34 12/17/16 11:22 Glucose (Fingerstick) 186 mg/dL (70-99) 160 mg/dL (70-99) 164 mg/dL (70-99) Medications Current Medications Nitroglycerin (Nitro-Bid Oint) 1 inch 1X ONCE TP Last administered on t 18:38; Start 12/13/16 at 18:30; Stop 12/13/16 at 18:31; Status DC Aspirin (Children'S Aspirin) 324 mg 1X ONCE PO ; Start 12/13/16 at 18:30; Stop 12/13/16 at 18:31; Status DC Enoxaparin Sodium (Lovenox Per Pharmacy Treatment Dosing) 1 each PRN DAILY PRN MC SEE COMMENTS; Start 12/13/16 at 19:15 Enoxaparin Sodium (Lovenox 100mg Syringe) 100 mg 1X ONCE SQ Last administered on 12/13/16 19:50; Start 12/13/16 at 19:30; Stop 12/13/16 at 19:31; Status DC Enoxaparin Sodium (Lovenox 80mg Syringe) 80 mg 1X ONCE SQ Last administered on 12/13/16 19:50; Start 12/13/16 at 19:30; Stop 12/13/16 at 19:31; Status DC Ondansetron HCl (Zofran) 4 mg PRN Q8HRS PRN IV NAUSEA/VOMITING; Start 12/13/16 at 19:45; Stop 12/14/16 at 11:34; Status DC Morphine Sulfate 2 mg PRN Q2HR PRN IV PAIN; Start 12/13/16 at 19:45; Stop 12/14 at 11:34; Status DC Acetaminophen (Tylenol) 650 mg PRN Q4HRS PRN PO FEVER Last administered on 12/14 06:36; Start 12/13/16 at 19:45; Stop 12/14/16 at 11:34; Status DC Nitroglycerin (Nitrostat) 0.4 mg PRN Q5MIN PRN SL CHEST PAIN; Start 12/13/16 at 19:45; Stop 12/14/16 at 19:44; Status DC Insulin Aspart (NovoLOG) 0-9 UNITS QIDACHS SQ Last administered on 12/16/16 12 :50; Start 12/13/16 at 21:30 Dextrose (Dextrose 50%-Water Syringe) 12.5 gm PRN Q15MIN PRN IV SEE COMMENTS; Start 12/13/16 at 20:15 Morphine Sulfate (Morphine Ir) 15 mg PRN Q4HRS PRN PO PAIN Last administered on 12/17/16 03:29; Start 12/13/16 at 20:15 Enoxaparin Sodium (Lovenox 100mg Syringe) 180 mg Q12HR SQ Last administered on 12/16/16 21:06; Start 12/14/16 at 09:00 Atorvastatin Calcium (Lipitor) 20 mg QHS PO Last administered on 12/16/16 21: 05; Start 12/14/16 at 21:00 Cetirizine HCl (ZyrTEC) 10 mg DAILY PO Last administered on 12/17/16 09:00; Start 12/14/16 at 12:00 Montelukast Sodium (Singulair) 10 mg DAILY PO Last administered on 12/17/16 09 :06; Start 12/14/16 at 12:00 Tamsulosin HCl (Flomax) 0.8 mg DAILY PO Last administered on 12/17/16 09:05; Start 12/14/16 at 12:00 Losartan Potassium (Cozaar) 100 mg DAILY PO Last administered on 12/15/16 11: 09; Start 12/14/16 at 12:00; Stop 12/15/16 at 16:19; Status DC Pioglitazone HCl (Actos) 30 mg DAILY PO Last administered on 12/17/16 15:32; Start 12/14/16 at 12:00 Triamterene/HCTZ (Maxzide 37.5/ 25mg) 1 tab DAILY PO Last administered on 09:05; Start 12/14/16 at 12:00 Acetaminophen (Tylenol) 650 mg PRN Q6HRS PRN PO FEVER Last administered on 12/16 19:31; Start 12/14/16 at 11:30 Ondansetron HCl (Zofran) 4 mg PRN Q6HRS PRN IV NAUSEA/VOMITING; Start 12/14/16 at 11:30 Morphine Sulfate 2 mg PRN Q2HR PRN IV MODERATE TO SEVERE PAIN; Start 12/14/16 at 11:45 Tramadol HCl (Ultram) 50 mg PRN Q6HRS PRN PO MILD TO MODERATE PAIN Last administered on 12/17/16 07:32; Start 12/14/16 at 11:30 Hydralazine HCl (Apresoline) 10 mg PRN Q4HRS PRN IVP ELEVATED BP, SEE COMMENTS ; Start 12/14/16 at 11:30 Docusate Sodium (Colace) 100 mg PRN DAILY PRN PO CONSTIPATION; Start 12/14/16 at 11:30 Senna/Docusate Sodium (Senna Plus) 1 tab BID PO Last administered on 12/17/16 09:06; Start 12/14/16 at 12:00 Docusate Sodium (Colace) 100 mg BID PO Last administered on 12/17/16 09:06; Start 12/14/16 at 12:00 Magnesium Hydroxide (Milk Of Magnesia) 2,400 mg PRN Q12HR PRN PO CONSTIPATION; Start 12/14/16 at 11:30 Insulin Detemir (Levemir) 20 units QHS SQ Last administered on 12/16/16 21:10 ; Start 12/14/16 at 21:00 Heparin Sodium/ Sodium Chloride 1,000 ml @ As Directed STK-MED ONCE .ROUTE ; Start 12/15/16 at 07:09; Stop 12/15/16 at 07:10; Status DC Lidocaine HCl 20 ml STK-MED ONCE .ROUTE ; Start 12/15/16 at 07:10; Stop at 07:11; Status DC Iohexol (Omnipaque 300 Mg/ml) 100 ml STK-MED ONCE .ROUTE ; Start 12/15/16 at 07: 14; Stop 12/15/16 at 07:15; Status DC Fentanyl Citrate (Fentanyl 2ml Vial) 100 mcg STK-MED ONCE .ROUTE ; Start at 10:07; Stop 12/15/16 at 10:08; Status DC Midazolam HCl (Versed) 2 mg STK-MED ONCE .ROUTE ; Start 12/15/16 at 10:08; Stop 12/15/16 at 10:09; Status DC Verapamil HCl (Verapamil) 5 mg STK-MED ONCE .ROUTE ; Start 12/15/16 at 10:08; Stop 12/15/16 at 10:09; Status DC Heparin Sodium (Porcine) (Heparin Sodium) 10,000 unit STK-MED ONCE .ROUTE ; Start 12/15/16 at 10:08; Stop 12/15/16 at 10:09; Status DC Nitroglycerin (Nitroglycerin) 200 mcg STK-MED ONCE .ROUTE ; Start 12/15/16 at 10 :08; Stop 12/15/16 at 10:09; Status DC Nitroglycerin (Nitroglycerin) 200 mcg 1X ONCE IART Last administered on 10:43; Start 12/15/16 at 10:45; Stop 12/15/16 at 10:46; Status DC Verapamil HCl (Verapamil) 2.5 mg 1X ONCE IART Last administered on 12/15/16 10:43; Start 12/15/16 at 10:45; Stop 12/15/16 at 10:46; Status DC Heparin Sodium (Porcine) (Heparin Sodium) 2,500 unit 1X ONCE IART Last administered on 12/15/16 10:45; Start 12/15/16 at 10:45; Stop 12/15/16 at 10:46 ; Status DC Heparin Sodium/ Sodium Chloride 1,000 unit 1X ONCE IART Last administered on 10:42; Start 12/15/16 at 10:45; Stop 12/15/16 at 10:46; Status DC Midazolam HCl (Versed) 2 mg 1X ONCE IV Last administered on 12/15/16 10:44; Start 12/15/16 at 10:45; Stop 12/15/16 at 10:46; Status DC Fentanyl Citrate (Fentanyl 2ml Vial) 50 mcg 1X ONCE IV Last administered on 10:44; Start 12/15/16 at 10:45; Stop 12/15/16 at 10:46; Status DC Iohexol (Omnipaque 300 Mg/ml) 100 ml 1X ONCE IART Last administered on 10:42; Start 12/15/16 at 10:45; Stop 12/15/16 at 10:46; Status DC Lidocaine HCl 2 ml 1X ONCE IJ Last administered on 12/15/16 10:42; Start at 10:45; Stop 12/15/16 at 10:46; Status DC Sodium Chloride 1,000 ml @ 60 mls/hr [id number] IV Last administered on 03:31; Start 12/15/16 at 10:51; Stop 12/16/16 at 20:04; Status DC Polyethylene Glycol (miraLAX PACKET) 17 gm DAILY PO ; Start 12/16/16 at 16:30; Stop 12/16/16 at 16:30; Status DC Metoprolol Tartrate (Lopressor) 25 mg BID PO Last administered on 12/17/16 09: 06; Start 12/15/16 at 21:00 Polyethylene Glycol (miraLAX PACKET) 17 gm DAILY PO Last administered on 15:32; Start 12/17/16 at 07:00 Polyethylene Glycol (miraLAX PACKET) 17 gm 1X ONCE PO Last administered on 13:34; Start 12/16/16 at 13:30; Stop 12/16/16 at 13:31; Status DC Ondansetron HCl (Zofran) 4 mg PRN Q6HRS PRN IV NAUSEA/VOMITING; Start 12/17/16 at 07:00; Stop 12/18/16 at 06:59 Fentanyl Citrate (Fentanyl 2ml Vial) 25 mcg PRN Q5MIN PRN IV MILD PAIN; Start 12/17/16 at 07:00; Stop 12/18/16 at 06:59 Fentanyl Citrate (Fentanyl 2ml Vial) 50 mcg PRN Q5MIN PRN IV MODERATE PAIN; Start 12/17/16 at 07:00; Stop 12/18/16 at 06:59 Morphine Sulfate 1 mg PRN Q10MIN PRN IV SEVERE PAIN; Start 12/17/16 at 07:00; Stop 12/18/16 at 06:59 Ringer's Solution 1,000 ml @ 30 mls/hr Q24H IV ; Start 12/17/16 at 07:00; Stop 12/17/16 at 15:23; Status DC Lidocaine HCl (Xylocaine-Mpf 1% Vial) 2 ml PRN 1X PRN ID IV START; Start at 07:00; Stop 12/18/16 at 06:59 Hydromorphone HCl (Dilaudid) 0.5 mg PRN Q10MIN PRN IV SEV PAIN, Second choice; Start 12/17/16 at 07:00; Stop 12/18/16 at 06:59 Prochlorperazine Edisylate (Compazine) 5 mg PACU PRN PRN IV NAUSEA, MRX1; Start 12/17/16 at 07:00; Stop 12/18/16 at 06:59 Temazepam (Restoril) 7.5 mg PRN QHS PRN PO INSOMNIA Last administered on t 23:28; Start 12/16/16 at 14:30 Lidocaine/Sodium Bicarbonate (Buffered Lidocaine 1%) 20 ml STK-MED ONCE IJ ; Start 12/17/16 at 13:12; Stop 12/17/16 at 13:13; Status DC Midazolam HCl (Versed) 2 mg STK-MED ONCE .ROUTE ; Start 12/17/16 at 13:47; Stop 12/17/16 at 13:48; Status DC Lidocaine/Sodium Bicarbonate (Buffered Lidocaine 1%) 3 ml 1X ONCE IJ Last administered on 12/17/16 14:00; Start 12/17/16 at 14:30; Stop 12/17/16 at 14:31 ; Status DC Midazolam HCl (Versed) 1 mg 1X ONCE IV Last administered on 12/17/16 14:00; Start 12/17/16 at 14:30; Stop 12/17/16 at 14:31; Status DC Fentanyl Citrate (Fentanyl 2ml Vial) 50 mcg 1X ONCE IV Last administered on 14:26; Start 12/17/16 at 14:30; Stop 12/17/16 at 14:31; Status DC Active Scripts Active Reported Gabapentin 400 Mg Capsule 400 Mg PO TID PRN Tresiba Flextouch U-100 (Insulin Degludec) 100 Unit/1 Ml Insuln.pen 40 Unit SQ HS Tresiba Flextouch U-100 (Insulin Degludec) 100 Unit/1 Ml Insuln.pen 36 Unit SQ DAILY Cetirizine Hcl 10 Mg Tablet 1 Tab PO DAILY Tamsulosin Hcl 0.4 Mg Cap.er.24h 2 Cap PO DAILY Triamterene-Hctz 37.5-25 Mg Cp (Triamterene/Hydrochlorothiazid) 1 Each Capsule 1 Cap PO DAILY Atorvastatin Calcium 20 Mg Tablet 1 Tab PO DAILY Actos (Pioglitazone Hcl) 30 Mg Tablet 1 Tab PO DAILY Montelukast Sodium Tablet (Montelukast Sodium) 10 Mg Tablet 1 Tab PO DAILY Losartan Potassium 100 Mg Tablet 100 Mg PO DAILY Vitals/I & O Vital Sign - Last 24 Hours 12/16/16 12/16/16 12/16/16 12/16/16 19:20 19:44 21:05 23:25 Temp 98.5 98.7 98.5 98.7 Pulse 89 89 75 Resp 22 20 B/P (MAP) 118/76 (90) 118/76 120/79 (93) Pulse Ox 93 92 O2 Delivery Room Air Room Air Room Air 12/16/16 12/17/16 12/17/16 12/17/16 23:28 03:20 03:29 04:29 Temp 97.8 97.8 Pulse 73 Resp 22 B/P (MAP) 138/71 (93) Pulse Ox 92 O2 Delivery Room Air Room Air Room Air Room Air 12/17/16 12/17/16 12/17/16 12/17/16 07:00 07:32 07:50 08:33 Temp 98.3 98.3 Pulse 66 Resp 20 16 16 B/P (MAP) 117/62 (80) Pulse Ox 90 O2 Delivery Room Air Room Air Room Air Room Air 12/17/16 12/17/16 12/17/16 12/17/16 09:06 11:00 14:00 14:05 Temp 97.7 97.7 Pulse 68 64 79 78 Resp 20 15 20 B/P (MAP) 117/62 127/69 (88) Pulse Ox 94 90 90 O2 Delivery Room Air Nasal Cannula Nasal Cannula O2 Flow Rate 2.0 4.0 12/17/16 12/17/16 12/17/16 12/17/16 14:10 14:15 14:20 14:26 Pulse 77 79 76 Resp 21 18 14 19 Pulse Ox 89 91 89 91 O2 Delivery Nasal Cannula Nasal Cannula Nasal Cannula Nasal Cannula O2 Flow Rate 4.0 4.0 4.0 4.0 12/17/16 12/17/16 14:28 14:56 Pulse 79 Resp 14 16 Pulse Ox 91 O2 Delivery Nasal Cannula Room Air O2 Flow Rate 4.0 ARCHIE MILTON MD Dec 17, 2016 17:17
--- NOTE | 2016-12-17 18:21 | PDOC ---
PULMONARY PROGRESS NOTES Vitals Vital Signs Date Time Temp Pulse Resp B/P (MAP) Pulse Ox O2 Delivery O2 Flow Rate FiO2 12/17/16 14:56 16 Room Air 12/17/16 14:28 79 91 4.0 12/17/16 11:00 97.7 127/69 (88) 97.7 Lungs: Clear Labs Laboratory Tests Test 12/15/16 18:30 12/15/16 21:33 12/16/16 03:55 12/16/16 07:53 Prothrombin Time 12.5 SEC (11.7-14.0) Prothromb Time International Ratio 1.0 (0.8-1.1) Activated Partial Thromboplast Time 28 SEC (24-38) Glucose (Fingerstick) 186 mg/dL (70-99) 170 mg/dL (70-99) White Blood Count 6.2 x10^3/uL (4.0-11.0) Red Blood Count 5.24 x10^6/uL (4.30-5.70) Hemoglobin 15.3 g/dL (13.0-17.5) Hematocrit 46.4 % (39.0-53.0) Mean Corpuscular Volume 89 fL (79-100) Mean Corpuscular Hemoglobin 29 pg (25-35) Mean Corpuscular Hemoglobin Concent 33 g/dL (31-37) Red Cell Distribution Width 15.8 % (11.5-14.5) Platelet Count 201 x10^3/uL (140-400) Neutrophils (%) (Auto) 72 % (31-73) Lymphocytes (%) (Auto) 16 % (24-48) Monocytes (%) (Auto) 9 % (0-9) Eosinophils (%) (Auto) 2 % (0-3) Basophils (%) (Auto) 1 % (0-3) Neutrophils # (Auto) 4.5 x10^3uL (1.8-7.7) Lymphocytes # (Auto) 1.0 x10^3/uL (1.0-4.8) Monocytes # (Auto) 0.6 x10^3/uL (0.0-1.1) Eosinophils # (Auto) 0.1 x10^3/uL (0.0-0.7) Basophils # (Auto) 0.0 x10^3/uL (0.0-0.2) Sodium Level 138 mmol/L (136-145) Potassium Level 3.5 mmol/L (3.5-5.1) Chloride Level 99 mmol/L (98-107) Carbon Dioxide Level 32 mmol/L (21-32) Anion Gap 7 (6-14) Blood Urea Nitrogen 16 mg/dL (8-26) Creatinine 1.1 mg/dL (0.7-1.3) Estimated GFR (Cockcroft-Gault) 66.6 Glucose Level 178 mg/dL (70-99) Calcium Level 8.6 mg/dL (8.5-10.1) Test 12/16/16 11:15 12/16/16 15:00 12/16/16 16:32 12/16/16 20:39 Glucose (Fingerstick) 226 mg/dL (70-99) 133 mg/dL (70-99) 186 mg/dL (70-99) Low Molecular Weight Heparin 0.92 IU/mL Test 12/17/16 07:34 12/17/16 11:22 12/17/16 17:37 Glucose (Fingerstick) 160 mg/dL (70-99) 164 mg/dL (70-99) 198 mg/dL (70-99) Laboratory Tests Test 12/16/16 20:39 12/17/16 07:34 12/17/16 11:22 12/17/16 17:37 Glucose (Fingerstick) 186 mg/dL (70-99) 160 mg/dL (70-99) 164 mg/dL (70-99) 198 mg/dL (70-99) Medications Active Scripts Medications Dose Route/Sig Max Daily Dose Days Date Category Gabapentin 400 Mg Capsule 400 Mg PO TID PRN 12/15/16 Reported Tresiba Flextouch U-100 (Insulin Degludec) 100 Unit/1 Ml Insuln.pen 40 Unit SQ HS 12/14/16 Reported Tresiba Flextouch U-100 (Insulin Degludec) 100 Unit/1 Ml Insuln.pen 36 Unit SQ DAILY 12/14/16 Reported Cetirizine Hcl 10 Mg Tablet 1 Tab PO DAILY 12/14/16 Reported Tamsulosin Hcl 0.4 Mg Cap.er.24h 2 Cap PO DAILY 12/14/16 Reported Triamterene-Hctz 37.5-25 Mg Cp (Triamterene/Hydrochlorothiazid) 1 Each Capsule 1 Cap PO DAILY 12/14/16 Reported Atorvastatin Calcium 20 Mg Tablet 1 Tab PO DAILY 12/14/16 Reported Actos (Pioglitazone Hcl) 30 Mg Tablet 1 Tab PO DAILY 12/14/16 Reported Montelukast Sodium Tablet (Montelukast Sodium) 10 Mg Tablet 1 Tab PO DAILY 12/14/16 Reported Losartan Potassium 100 Mg Tablet 100 Mg PO DAILY 12/14/16 Reported Impression . CONSULT DICTATED FNA PENDING OK TO D/C HOME SOON AND FOLLOW UP WITH ME OUTPT I WILL SCHEDULE A PET OP ARUNA NOVAK MD Dec 17, 2016 18:21
--- NOTE | 2016-12-17 19:38 | EKG ---
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
[2016-12-17] MEDS ORDERED: NITROGLYCERIN PREMIX 250 ML IV PRN (19:45)
--- NOTE | 2016-12-17 20:13 | RAD ---
INDICATION: Atraumatic chest pain today. Fever. Cough for 2 weeks. TECHNIQUE: Upright portable chest radiograph was obtained and compared to a study from December 13, 2016. FINDINGS: The lungs are clear. The heart is not enlarged allowing for portable technique. There is no heart failure. Bony structures are intact. Leads overlie the patient. IMPRESSION: No acute thoracic findings. Electronically signed by: Kody Nvoa MD (12/17/2016 8:10 PM) [facility]
[2016-12-17] MEDS: ATORVASTATIN CALCIUM 20 MG TABLET PO SCH (21:26)
[2016-12-17] MEDS: INSULIN DETEMIR 300 UNITS/3 ML INSULN.PEN. SQ SCH (21:33)
[2016-12-17] MEDS: TEMAZEPAM 7.5 MG CAPSULE PO PRN (21:45)
[2016-12-18] VITALS (13 sets, daily range): BP systolic 110–145; BP diastolic 62–73
[2016-12-18] MEDS: ACETAMINOPHEN 325 MG TABLET. PO PRN ×2 (08:49→20:33)
[2016-12-18] MEDS: POLYETHYLENE GLYCOL 3350 17 GM PACKET. PO SCH (08:49)
[2016-12-18] MEDS: MONTELUKAST SODIUM 10 MG TABLET. PO SCH (08:50)
[2016-12-18] MEDS: DOCUSATE SODIUM 100 MG CAPSULE. PO SCH ×2 (08:50→20:28)
[2016-12-18] MEDS: CETIRIZINE HCL 10 MG TABLET. PO SCH (08:50)
[2016-12-18] MEDS: SENNOSIDES/DOCUSATE 8.6/50MG TABLET. PO SCH ×2 (08:50→20:28)
[2016-12-18] MEDS: TRIAMTERENE/HCTZ 37.5/25MG TABLET. PO SCH (08:50)
[2016-12-18] MEDS: METOPROLOL TART IMMED RELEASE 25 MG TABLET. PO SCH ×2 (08:51→20:28)
[2016-12-18] MEDS: TAMSULOSIN 0.4 MG CAP.ER.24H. PO SCH (08:51)
[2016-12-18] MEDS: PIOGLITAZONE 15 MG TABLET. PO SCH (08:51)
[2016-12-18] MEDS: INSULIN ASPART 300 UNITS/3 ML INSULN.PEN SQ SCH ×4 (09:09→20:43)
--- NOTE | 2016-12-18 09:32 | PDOC ---
PULMONARY PROGRESS NOTES Subjective Pt not more soa Vitals Vital Signs Date Time Temp Pulse Resp B/P (MAP) Pulse Ox O2 Delivery O2 Flow Rate FiO2 12/18/16 08:51 77 128/75 12/18/16 08:00 Nasal Cannula 3.0 12/18/16 07:00 98.1 19 94 98.1 ROS: No Nausea, No Chest Pain, No Abdominal Pain, No Increase Cough Lungs: Clear Cardiovascular: S1, S2 Abdomen: Soft, Other (obese) Neuro Exam: Alert Extremities: No Edema Skin: Warm Labs Laboratory Tests Test 12/16/16 11:15 12/16/16 15:00 12/16/16 16:32 12/16/16 20:39 Glucose (Fingerstick) 226 mg/dL (70-99) 133 mg/dL (70-99) 186 mg/dL (70-99) Low Molecular Weight Heparin 0.92 IU/mL Test 12/17/16 07:34 12/17/16 11:22 12/17/16 17:37 12/17/16 21:09 Glucose (Fingerstick) 160 mg/dL (70-99) 164 mg/dL (70-99) 198 mg/dL (70-99) 194 mg/dL (70-99) Test 12/18/16 07:50 Glucose (Fingerstick) 182 mg/dL (70-99) Laboratory Tests Test 12/17/16 11:22 12/17/16 17:37 12/17/16 21:09 12/18/16 07:50 Glucose (Fingerstick) 164 mg/dL (70-99) 198 mg/dL (70-99) 194 mg/dL (70-99) 182 mg/dL (70-99) Medications Active Scripts Medications Dose Route/Sig Max Daily Dose Days Date Category Gabapentin 400 Mg Capsule 400 Mg PO TID PRN 12/15/16 Reported Tresiba Flextouch U-100 (Insulin Degludec) 100 Unit/1 Ml Insuln.pen 40 Unit SQ HS 12/14/16 Reported Tresiba Flextouch U-100 (Insulin Degludec) 100 Unit/1 Ml Insuln.pen 36 Unit SQ DAILY 12/14/16 Reported Cetirizine Hcl 10 Mg Tablet 1 Tab PO DAILY 12/14/16 Reported Tamsulosin Hcl 0.4 Mg Cap.er.24h 2 Cap PO DAILY 12/14/16 Reported Triamterene-Hctz 37.5-25 Mg Cp (Triamterene/Hydrochlorothiazid) 1 Each Capsule 1 Cap PO DAILY 12/14/16 Reported Atorvastatin Calcium 20 Mg Tablet 1 Tab PO DAILY 12/14/16 Reported Actos (Pioglitazone Hcl) 30 Mg Tablet 1 Tab PO DAILY 12/14/16 Reported Montelukast Sodium Tablet (Montelukast Sodium) 10 Mg Tablet 1 Tab PO DAILY 12/14/16 Reported Losartan Potassium 100 Mg Tablet 100 Mg PO DAILY 12/14/16 Reported Impression . IMPRESSION: 1. Abnormal CT of the chest revealing several findings including a suspicious left lower lobe mass measuring 3.0 x 2.2 cm. 2. Mediastinal adenopathy. 3. Right rib soft tissue density. 4. Coronary artery disease requiring coronary artery bypass grafting. 5. Obesity. 6. Hypertension. Plan . Pt had chest pain last dawna started on NTG will await card input S/P rib biopsy If no diagnosis is established, recommend bronchoscopy. It appears that there may be an endobronchial lesion. Further recommendations depending on his fine needle aspiration results, and PET scanning. ARUNA NOVAK MD Dec 18, 2016 09:32
--- NOTE | 2016-12-18 09:58 | PDOC ---
PROGRESS NOTES Subjective Subjective He had some problems with nausea last night. Objective Objective Vital Signs Date Time Temp Pulse Resp B/P (MAP) Pulse Ox O2 Delivery O2 Flow Rate FiO2 12/18/16 08:51 77 128/75 12/18/16 08:00 Nasal Cannula 3.0 12/18/16 07:00 98.1 19 94 98.1 Physical Exam Physical Exam He is sitting in bedside recliner with oxygen by nasal canula.He continues with right foot drop and he has not been seen by client service associate yet. Assessment Assessment Problems Medical Problems: (1) Chest pain Status: Acute (2) Non-STEMI (non-ST elevated myocardial infarction) Status: Acute Plan Plan of Care Agree with present care plans. Comment Review of Relevant I have reviewed the following items maxine (where applicable) has been applied. Labs Laboratory Tests Test 12/16/16 11:15 12/16/16 15:00 12/16/16 16:32 12/16/16 20:39 Glucose (Fingerstick) 226 mg/dL (70-99) 133 mg/dL (70-99) 186 mg/dL (70-99) Low Molecular Weight Heparin 0.92 IU/mL Test 12/17/16 07:34 12/17/16 11:22 12/17/16 17:37 12/17/16 21:09 Glucose (Fingerstick) 160 mg/dL (70-99) 164 mg/dL (70-99) 198 mg/dL (70-99) 194 mg/dL (70-99) Test 12/18/16 07:50 Glucose (Fingerstick) 182 mg/dL (70-99) Laboratory Tests Test 12/17/16 11:22 12/17/16 17:37 12/17/16 21:09 12/18/16 07:50 Glucose (Fingerstick) 164 mg/dL (70-99) 198 mg/dL (70-99) 194 mg/dL (70-99) 182 mg/dL (70-99) Medications Current Medications Nitroglycerin (Nitro-Bid Oint) 1 inch 1X ONCE TP Last administered on t 18:38; Start 12/13/16 at 18:30; Stop 12/13/16 at 18:31; Status DC Aspirin (Children'S Aspirin) 324 mg 1X ONCE PO ; Start 12/13/16 at 18:30; Stop 12/13/16 at 18:31; Status DC Enoxaparin Sodium (Lovenox Per Pharmacy Treatment Dosing) 1 each PRN DAILY PRN MC SEE COMMENTS; Start 12/13/16 at 19:15 Enoxaparin Sodium (Lovenox 100mg Syringe) 100 mg 1X ONCE SQ Last administered on 12/13/16 19:50; Start 12/13/16 at 19:30; Stop 12/13/16 at 19:31; Status DC Enoxaparin Sodium (Lovenox 80mg Syringe) 80 mg 1X ONCE SQ Last administered on 12/13/16 19:50; Start 12/13/16 at 19:30; Stop 12/13/16 at 19:31; Status DC Ondansetron HCl (Zofran) 4 mg PRN Q8HRS PRN IV NAUSEA/VOMITING; Start 12/13/16 at 19:45; Stop 12/14/16 at 11:34; Status DC Morphine Sulfate 2 mg PRN Q2HR PRN IV PAIN; Start 12/13/16 at 19:45; Stop 12/14 at 11:34; Status DC Acetaminophen (Tylenol) 650 mg PRN Q4HRS PRN PO FEVER Last administered on 12/14 06:36; Start 12/13/16 at 19:45; Stop 12/14/16 at 11:34; Status DC Nitroglycerin (Nitrostat) 0.4 mg PRN Q5MIN PRN SL CHEST PAIN; Start 12/13/16 at 19:45; Stop 12/14/16 at 19:44; Status DC Insulin Aspart (NovoLOG) 0-9 UNITS QIDACHS SQ Last administered on 12/18/16 09 :09; Start 12/13/16 at 21:30 Dextrose (Dextrose 50%-Water Syringe) 12.5 gm PRN Q15MIN PRN IV SEE COMMENTS; Start 12/13/16 at 20:15 Morphine Sulfate (Morphine Ir) 15 mg PRN Q4HRS PRN PO PAIN Last administered on 12/17/16 19:23; Start 12/13/16 at 20:15 Enoxaparin Sodium (Lovenox 100mg Syringe) 180 mg Q12HR SQ Last administered on 12/18/16 08:59; Start 12/14/16 at 09:00 Atorvastatin Calcium (Lipitor) 20 mg QHS PO Last administered on 12/17/16 21: 26; Start 12/14/16 at 21:00 Cetirizine HCl (ZyrTEC) 10 mg DAILY PO Last administered on 12/18/16 08:50; Start 12/14/16 at 12:00 Montelukast Sodium (Singulair) 10 mg DAILY PO Last administered on 12/18/16 08 :50; Start 12/14/16 at 12:00 Tamsulosin HCl (Flomax) 0.8 mg DAILY PO Last administered on 12/18/16 08:51; Start 12/14/16 at 12:00 Losartan Potassium (Cozaar) 100 mg DAILY PO Last administered on 12/15/16 11: 09; Start 12/14/16 at 12:00; Stop 12/15/16 at 16:19; Status DC Pioglitazone HCl (Actos) 30 mg DAILY PO Last administered on 12/18/16 08:51; Start 12/14/16 at 12:00 Triamterene/HCTZ (Maxzide 37.5/ 25mg) 1 tab DAILY PO Last administered on 08:50; Start 12/14/16 at 12:00 Acetaminophen (Tylenol) 650 mg PRN Q6HRS PRN PO FEVER Last administered on 12/18 08:49; Start 12/14/16 at 11:30 Ondansetron HCl (Zofran) 4 mg PRN Q6HRS PRN IV NAUSEA/VOMITING Last administered on 12/17/16 20:22; Start 12/14/16 at 11:30 Morphine Sulfate 2 mg PRN Q2HR PRN IV MODERATE TO SEVERE PAIN; Start 12/14/16 at 11:45 Tramadol HCl (Ultram) 50 mg PRN Q6HRS PRN PO MILD TO MODERATE PAIN Last administered on 12/17/16 07:32; Start 12/14/16 at 11:30 Hydralazine HCl (Apresoline) 10 mg PRN Q4HRS PRN IVP ELEVATED BP, SEE COMMENTS ; Start 12/14/16 at 11:30 Docusate Sodium (Colace) 100 mg PRN DAILY PRN PO CONSTIPATION; Start 12/14/16 at 11:30 Senna/Docusate Sodium (Senna Plus) 1 tab BID PO Last administered on 12/18/16 08:50; Start 12/14/16 at 12:00 Docusate Sodium (Colace) 100 mg BID PO Last administered on 12/18/16 08:50; Start 12/14/16 at 12:00 Magnesium Hydroxide (Milk Of Magnesia) 2,400 mg PRN Q12HR PRN PO CONSTIPATION; Start 12/14/16 at 11:30 Insulin Detemir (Levemir) 20 units QHS SQ Last administered on 12/17/16 21:33 ; Start 12/14/16 at 21:00 Heparin Sodium/ Sodium Chloride 1,000 ml @ As Directed STK-MED ONCE .ROUTE ; Start 12/15/16 at 07:09; Stop 12/15/16 at 07:10; Status DC Lidocaine HCl 20 ml STK-MED ONCE .ROUTE ; Start 12/15/16 at 07:10; Stop at 07:11; Status DC Iohexol (Omnipaque 300 Mg/ml) 100 ml STK-MED ONCE .ROUTE ; Start 12/15/16 at 07: 14; Stop 12/15/16 at 07:15; Status DC Fentanyl Citrate (Fentanyl 2ml Vial) 100 mcg STK-MED ONCE .ROUTE ; Start at 10:07; Stop 12/15/16 at 10:08; Status DC Midazolam HCl (Versed) 2 mg STK-MED ONCE .ROUTE ; Start 12/15/16 at 10:08; Stop 12/15/16 at 10:09; Status DC Verapamil HCl (Verapamil) 5 mg STK-MED ONCE .ROUTE ; Start 12/15/16 at 10:08; Stop 12/15/16 at 10:09; Status DC Heparin Sodium (Porcine) (Heparin Sodium) 10,000 unit STK-MED ONCE .ROUTE ; Start 12/15/16 at 10:08; Stop 12/15/16 at 10:09; Status DC Nitroglycerin (Nitroglycerin) 200 mcg STK-MED ONCE .ROUTE ; Start 12/15/16 at 10 :08; Stop 12/15/16 at 10:09; Status DC Nitroglycerin (Nitroglycerin) 200 mcg 1X ONCE IART Last administered on 10:43; Start 12/15/16 at 10:45; Stop 12/15/16 at 10:46; Status DC Verapamil HCl (Verapamil) 2.5 mg 1X ONCE IART Last administered on 12/15/16 10:43; Start 12/15/16 at 10:45; Stop 12/15/16 at 10:46; Status DC Heparin Sodium (Porcine) (Heparin Sodium) 2,500 unit 1X ONCE IART Last administered on 12/15/16 10:45; Start 12/15/16 at 10:45; Stop 12/15/16 at 10:46 ; Status DC Heparin Sodium/ Sodium Chloride 1,000 unit 1X ONCE IART Last administered on 10:42; Start 12/15/16 at 10:45; Stop 12/15/16 at 10:46; Status DC Midazolam HCl (Versed) 2 mg 1X ONCE IV Last administered on 12/15/16 10:44; Start 12/15/16 at 10:45; Stop 12/15/16 at 10:46; Status DC Fentanyl Citrate (Fentanyl 2ml Vial) 50 mcg 1X ONCE IV Last administered on 10:44; Start 12/15/16 at 10:45; Stop 12/15/16 at 10:46; Status DC Iohexol (Omnipaque 300 Mg/ml) 100 ml 1X ONCE IART Last administered on 10:42; Start 12/15/16 at 10:45; Stop 12/15/16 at 10:46; Status DC Lidocaine HCl 2 ml 1X ONCE IJ Last administered on 12/15/16 10:42; Start at 10:45; Stop 12/15/16 at 10:46; Status DC Sodium Chloride 1,000 ml @ 60 mls/hr [id number] IV Last administered on 03:31; Start 12/15/16 at 10:51; Stop 12/16/16 at 20:04; Status DC Polyethylene Glycol (miraLAX PACKET) 17 gm DAILY PO ; Start 12/16/16 at 16:30; Stop 12/16/16 at 16:30; Status DC Metoprolol Tartrate (Lopressor) 25 mg BID PO Last administered on 12/18/16 08: 51; Start 12/15/16 at 21:00 Polyethylene Glycol (miraLAX PACKET) 17 gm DAILY PO Last administered on 08:49; Start 12/17/16 at 07:00 Polyethylene Glycol (miraLAX PACKET) 17 gm 1X ONCE PO Last administered on 13:34; Start 12/16/16 at 13:30; Stop 12/16/16 at 13:31; Status DC Ondansetron HCl (Zofran) 4 mg PRN Q6HRS PRN IV NAUSEA/VOMITING; Start 12/17/16 at 07:00; Stop 12/18/16 at 06:59; Status DC Fentanyl Citrate (Fentanyl 2ml Vial) 25 mcg PRN Q5MIN PRN IV MILD PAIN; Start 12/17/16 at 07:00; Stop 12/18/16 at 06:59; Status DC Fentanyl Citrate (Fentanyl 2ml Vial) 50 mcg PRN Q5MIN PRN IV MODERATE PAIN; Start 12/17/16 at 07:00; Stop 12/18/16 at 06:59; Status DC Morphine Sulfate 1 mg PRN Q10MIN PRN IV SEVERE PAIN; Start 12/17/16 at 07:00; Stop 12/18/16 at 06:59; Status DC Ringer's Solution 1,000 ml @ 30 mls/hr Q24H IV ; Start 12/17/16 at 07:00; Stop 12/17/16 at 15:23; Status DC Lidocaine HCl (Xylocaine-Mpf 1% Vial) 2 ml PRN 1X PRN ID IV START; Start at 07:00; Stop 12/18/16 at 06:59; Status DC Hydromorphone HCl (Dilaudid) 0.5 mg PRN Q10MIN PRN IV SEV PAIN, Second choice; Start 12/17/16 at 07:00; Stop 12/18/16 at 06:59; Status DC Prochlorperazine Edisylate (Compazine) 5 mg PACU PRN PRN IV NAUSEA, MRX1; Start 12/17/16 at 07:00; Stop 12/18/16 at 06:59; Status DC Temazepam (Restoril) 7.5 mg PRN QHS PRN PO INSOMNIA Last administered on 21:45; Start 12/16/16 at 14:30 Lidocaine/Sodium Bicarbonate (Buffered Lidocaine 1%) 20 ml STK-MED ONCE IJ ; Start 12/17/16 at 13:12; Stop 12/17/16 at 13:13; Status DC Midazolam HCl (Versed) 2 mg STK-MED ONCE .ROUTE ; Start 12/17/16 at 13:47; Stop 12/17/16 at 13:48; Status DC Lidocaine/Sodium Bicarbonate (Buffered Lidocaine 1%) 3 ml 1X ONCE IJ Last administered on 12/17/16 14:00; Start 12/17/16 at 14:30; Stop 12/17/16 at 14:31 ; Status DC Midazolam HCl (Versed) 1 mg 1X ONCE IV Last administered on 12/17/16 14:00; Start 12/17/16 at 14:30; Stop 12/17/16 at 14:31; Status DC Fentanyl Citrate (Fentanyl 2ml Vial) 50 mcg 1X ONCE IV Last administered on 14:26; Start 12/17/16 at 14:30; Stop 12/17/16 at 14:31; Status DC Nitroglycerin/ Dextrose 250 ml @ 0 mls/hr CONT PRN IV SEE I/O RECORD Last administered on 12/17/16 19:53; Start 12/17/16 at 19:45 Active Scripts Active Reported Gabapentin 400 Mg Capsule 400 Mg PO TID PRN Tresiba Flextouch U-100 (Insulin Degludec) 100 Unit/1 Ml Insuln.pen 40 Unit SQ HS Tresiba Flextouch U-100 (Insulin Degludec) 100 Unit/1 Ml Insuln.pen 36 Unit SQ DAILY Cetirizine Hcl 10 Mg Tablet 1 Tab PO DAILY Tamsulosin Hcl 0.4 Mg Cap.er.24h 2 Cap PO DAILY Triamterene-Hctz 37.5-25 Mg Cp (Triamterene/Hydrochlorothiazid) 1 Each Capsule 1 Cap PO DAILY Atorvastatin Calcium 20 Mg Tablet 1 Tab PO DAILY Actos (Pioglitazone Hcl) 30 Mg Tablet 1 Tab PO DAILY Montelukast Sodium Tablet (Montelukast Sodium) 10 Mg Tablet 1 Tab PO DAILY Losartan Potassium 100 Mg Tablet 100 Mg PO DAILY Vitals/I & O Vital Sign - Last 24 Hours 12/17/16 12/17/16 12/17/16 12/17/16 11:00 14:00 14:05 14:10 Temp 97.7 97.7 Pulse 64 79 78 77 Resp 20 15 20 21 B/P (MAP) 127/69 (88) Pulse Ox 94 90 90 89 O2 Delivery Room Air Nasal Cannula Nasal Cannula Nasal Cannula O2 Flow Rate 2.0 4.0 4.0 12/17/16 12/17/16 12/17/16 12/17/16 14:15 14:20 14:26 14:28 Pulse 79 76 79 Resp 18 14 19 14 Pulse Ox 91 89 91 91 O2 Delivery Nasal Cannula Nasal Cannula Nasal Cannula Nasal Cannula O2 Flow Rate 4.0 4.0 4.0 4.0 12/17/16 12/17/16 12/17/16 12/17/16 14:45 14:56 15:00 15:15 Temp 97.9 97.9 Pulse 78 75 75 Resp 18 16 B/P (MAP) 186/96 (126) 179/87 (117) 159/78 (105) Pulse Ox 93 94 94 O2 Delivery Room Air Room Air Room Air Room Air 12/17/16 12/17/16 12/17/16 12/17/16 15:30 16:00 16:30 17:00 Pulse 74 84 77 76 B/P (MAP) 177/81 (113) 146/84 (104) 135/72 (93) 126/62 (83) Pulse Ox 96 96 94 91 O2 Delivery Room Air Room Air Room Air Room Air 12/17/16 12/17/16 12/17/16 12/17/16 19:23 19:56 20:00 20:00 Temp 97.7 97.7 Pulse 84 82 Resp 16 B/P (MAP) 181/87 (118) 181/92 (121) Pulse Ox 91 O2 Delivery Nasal Cannula Nasal Cannula Room Air O2 Flow Rate 2.0 2.0 2.0 12/17/16 12/17/16 12/17/16 12/17/16 20:15 20:23 20:30 20:45 Pulse 86 80 80 B/P (MAP) 175/87 (116) 153/70 (97) 135/77 (96) Pulse Ox 93 O2 Delivery Room Air O2 Flow Rate 2.0 12/17/16 12/17/16 12/17/16 12/17/16 21:00 21:00 21:15 21:30 Pulse 85 84 80 82 B/P (MAP) 118/72 138/72 (94) 128/71 (90) 118/72 (87) 12/17/16 12/17/16 12/17/16 12/17/16 21:45 22:00 22:12 22:27 Temp 98.2 98.2 Pulse 80 82 82 88 Resp 18 B/P (MAP) 127/64 (85) 125/63 (83) 128/66 (86) 122/70 (87) Pulse Ox 93 93 O2 Delivery Nasal Cannula Nasal Cannula O2 Flow Rate 2.0 2.0 12/17/16 12/17/16 12/17/16 12/18/16 22:30 23:00 23:30 00:00 Pulse 84 80 80 78 B/P (MAP) 122/70 (87) 123/68 (86) 124/68 (86) 113/64 (80) 12/18/16 12/18/16 12/18/16 12/18/16 00:30 01:00 02:00 03:12 Temp 98.5 98.5 Pulse 78 76 76 74 Resp 16 B/P (MAP) 126/62 (83) 122/69 (86) 141/62 (88) 139/72 (94) Pulse Ox 94 O2 Delivery Nasal Cannula O2 Flow Rate 3.0 12/18/16 12/18/16 12/18/16 12/18/16 04:00 05:00 06:00 07:00 Temp 98.1 98.1 Pulse 74 74 74 77 Resp 19 B/P (MAP) 118/66 (83) 145/73 (97) 120/62 (81) 132/69 (90) Pulse Ox 94 O2 Delivery Nasal Cannula O2 Flow Rate 3.0 12/18/16 12/18/16 08:00 08:51 Pulse 77 B/P (MAP) 128/75 O2 Delivery Nasal Cannula O2 Flow Rate 3.0 ARCHIE MILTON MD Dec 18, 2016 09:58
--- NOTE | 2016-12-18 10:25 | PDOC ---
Subjective: Subjective: Had a bad night, not feeling too well. No stool yesterday or today, doesn't want to increase Miralax. Objective: Objective: Reviewed other notes. Vital Signs: Vital Signs Date Time Temp Pulse Resp B/P (MAP) Pulse Ox O2 Delivery O2 Flow Rate FiO2 12/18/16 08:51 77 128/75 12/18/16 08:00 Nasal Cannula 3.0 12/18/16 07:00 98.1 19 94 98.1 Labs: Laboratory Tests Test 12/17/16 11:22 12/17/16 17:37 12/17/16 21:09 12/18/16 07:50 Glucose (Fingerstick) 164 mg/dL 198 mg/dL 194 mg/dL 182 mg/dL PE: GEN: NAD, in chair LUNGS: clear HEART: RRR ABD: obese, non-tender NEURO/PSYCH: A & O 3 A/P: CAD Abnormal CT - chest/lung/liver masses w/ adenopathy -s/p lung biopsy 12/17 Irregular bowel habits/constipation -on Miralax QD -colonoscopy ~8 years ago -- Continue same per GI. FRANSISCO GERMAIN Dec 18, 2016 10:25
--- NOTE | 2016-12-18 12:28 | PDOC ---
PROGRESS NOTES Chief Complaint Chief Complaint chest pain, NSTEMI - CABG candidate New lung masses, concerning for malignancy with possible mets V TACH (12/17) dm2 better control now htn, controlled morbid obesity CKD 2-3 constipation resolved mild malnutrition History of Present Illness History of Present Illness HAd a good run of vtach last night, felt horrible, palpitations, dizzy, diaphoretic, numbness in left arm [facility] was consulted that time Dw Cards - plan PCI Thursday likely Had left lung mass biopsy thursday PLAN: RAte control CArdiac meds I will follow up on lung biopsy results kathe AM - hopefully out OP PET scan Tentatively plans of PCI thursday Dw and pt himself, agreeable Vitals Vitals Vital Signs Date Time Temp Pulse Resp B/P (MAP) Pulse Ox O2 Delivery O2 Flow Rate FiO2 12/18/16 11:00 97.9 69 18 110/66 (81) 94 Nasal Cannula 3.0 97.9 Physical Exam General: Alert, Oriented X3 Heart: Normal S1, Normal S2 Lungs: Clear Abdomen: Soft, No tenderness Extremities: No edema Skin: No significant lesion Labs LABS Laboratory Tests Test 12/17/16 17:37 12/17/16 21:09 12/18/16 07:50 12/18/16 11:02 Glucose (Fingerstick) 198 mg/dL (70-99) 194 mg/dL (70-99) 182 mg/dL (70-99) 211 mg/dL (70-99) Review of Systems Review of Systems none currently, weak maybe Assessment and Plan Assessmemt and Plan Problems Medical Problems: (1) Chest pain Status: Acute (2) Non-STEMI (non-ST elevated myocardial infarction) Status: Acute Problems: Comment Review of Relevant I have reviewed the following items maxine (where applicable) has been applied. Labs Laboratory Tests Test 12/16/16 15:00 12/16/16 16:32 12/16/16 20:39 12/17/16 07:34 Low Molecular Weight Heparin 0.92 IU/mL Glucose (Fingerstick) 133 mg/dL (70-99) 186 mg/dL (70-99) 160 mg/dL (70-99) Test 12/17/16 11:22 12/17/16 17:37 12/17/16 21:09 12/18/16 07:50 Glucose (Fingerstick) 164 mg/dL (70-99) 198 mg/dL (70-99) 194 mg/dL (70-99) 182 mg/dL (70-99) Test 12/18/16 11:02 Glucose (Fingerstick) 211 mg/dL (70-99) Laboratory Tests Test 12/17/16 17:37 12/17/16 21:09 12/18/16 07:50 12/18/16 11:02 Glucose (Fingerstick) 198 mg/dL (70-99) 194 mg/dL (70-99) 182 mg/dL (70-99) 211 mg/dL (70-99) Medications Current Medications Nitroglycerin (Nitro-Bid Oint) 1 inch 1X ONCE TP Last administered on 18:38; Start 12/13/16 at 18:30; Stop 12/13/16 at 18:31; Status DC Aspirin (Children'S Aspirin) 324 mg 1X ONCE PO ; Start 12/13/16 at 18:30; Stop 12/13/16 at 18:31; Status DC Enoxaparin Sodium (Lovenox Per Pharmacy Treatment Dosing) 1 each PRN DAILY PRN MC SEE COMMENTS; Start 12/13/16 at 19:15 Enoxaparin Sodium (Lovenox 100mg Syringe) 100 mg 1X ONCE SQ Last administered on 12/13/16 19:50; Start 12/13/16 at 19:30; Stop 12/13/16 at 19:31; Status DC Enoxaparin Sodium (Lovenox 80mg Syringe) 80 mg 1X ONCE SQ Last administered on 12/13/16 19:50; Start 12/13/16 at 19:30; Stop 12/13/16 at 19:31; Status DC Ondansetron HCl (Zofran) 4 mg PRN Q8HRS PRN IV NAUSEA/VOMITING; Start 12/13/16 at 19:45; Stop 12/14/16 at 11:34; Status DC Morphine Sulfate 2 mg PRN Q2HR PRN IV PAIN; Start 12/13/16 at 19:45; Stop 12/14 at 11:34; Status DC Acetaminophen (Tylenol) 650 mg PRN Q4HRS PRN PO FEVER Last administered on 12/14 06:36; Start 12/13/16 at 19:45; Stop 12/14/16 at 11:34; Status DC Nitroglycerin (Nitrostat) 0.4 mg PRN Q5MIN PRN SL CHEST PAIN; Start 12/13/16 at 19:45; Stop 12/14/16 at 19:44; Status DC Insulin Aspart (NovoLOG) 0-9 UNITS QIDACHS SQ Last administered on 12/18/16 09 :09; Start 12/13/16 at 21:30 Dextrose (Dextrose 50%-Water Syringe) 12.5 gm PRN Q15MIN PRN IV SEE COMMENTS; Start 12/13/16 at 20:15 Morphine Sulfate (Morphine Ir) 15 mg PRN Q4HRS PRN PO PAIN Last administered on 12/17/16 19:23; Start 12/13/16 at 20:15 Enoxaparin Sodium (Lovenox 100mg Syringe) 180 mg Q12HR SQ Last administered on 12/18/16 08:59; Start 12/14/16 at 09:00 Atorvastatin Calcium (Lipitor) 20 mg QHS PO Last administered on 12/17/16 21: 26; Start 12/14/16 at 21:00 Cetirizine HCl (ZyrTEC) 10 mg DAILY PO Last administered on 12/18/16 08:50; Start 12/14/16 at 12:00 Montelukast Sodium (Singulair) 10 mg DAILY PO Last administered on 12/18/16 08 :50; Start 12/14/16 at 12:00 Tamsulosin HCl (Flomax) 0.8 mg DAILY PO Last administered on 12/18/16 08:51; Start 12/14/16 at 12:00 Losartan Potassium (Cozaar) 100 mg DAILY PO Last administered on 12/15/16 11: 09; Start 12/14/16 at 12:00; Stop 12/15/16 at 16:19; Status DC Pioglitazone HCl (Actos) 30 mg DAILY PO Last administered on 12/18/16 08:51; Start 12/14/16 at 12:00 Triamterene/HCTZ (Maxzide 37.5/ 25mg) 1 tab DAILY PO Last administered on 08:50; Start 12/14/16 at 12:00 Acetaminophen (Tylenol) 650 mg PRN Q6HRS PRN PO FEVER Last administered on 12/18 08:49; Start 12/14/16 at 11:30 Ondansetron HCl (Zofran) 4 mg PRN Q6HRS PRN IV NAUSEA/VOMITING Last administered on 12/17/16 20:22; Start 12/14/16 at 11:30 Morphine Sulfate 2 mg PRN Q2HR PRN IV MODERATE TO SEVERE PAIN; Start 12/14/16 at 11:45 Tramadol HCl (Ultram) 50 mg PRN Q6HRS PRN PO MILD TO MODERATE PAIN Last administered on 12/17/16 07:32; Start 12/14/16 at 11:30 Hydralazine HCl (Apresoline) 10 mg PRN Q4HRS PRN IVP ELEVATED BP, SEE COMMENTS ; Start 12/14/16 at 11:30 Docusate Sodium (Colace) 100 mg PRN DAILY PRN PO CONSTIPATION; Start 12/14/16 at 11:30 Senna/Docusate Sodium (Senna Plus) 1 tab BID PO Last administered on 12/18/16 08:50; Start 12/14/16 at 12:00 Docusate Sodium (Colace) 100 mg BID PO Last administered on 12/18/16 08:50; Start 12/14/16 at 12:00 Magnesium Hydroxide (Milk Of Magnesia) 2,400 mg PRN Q12HR PRN PO CONSTIPATION; Start 12/14/16 at 11:30 Insulin Detemir (Levemir) 20 units QHS SQ Last administered on 12/17/16 21:33 ; Start 12/14/16 at 21:00 Heparin Sodium/ Sodium Chloride 1,000 ml @ As Directed STK-MED ONCE .ROUTE ; Start 12/15/16 at 07:09; Stop 12/15/16 at 07:10; Status DC Lidocaine HCl 20 ml STK-MED ONCE .ROUTE ; Start 12/15/16 at 07:10; Stop at 07:11; Status DC Iohexol (Omnipaque 300 Mg/ml) 100 ml STK-MED ONCE .ROUTE ; Start 12/15/16 at 07: 14; Stop 12/15/16 at 07:15; Status DC Fentanyl Citrate (Fentanyl 2ml Vial) 100 mcg STK-MED ONCE .ROUTE ; Start at 10:07; Stop 12/15/16 at 10:08; Status DC Midazolam HCl (Versed) 2 mg STK-MED ONCE .ROUTE ; Start 12/15/16 at 10:08; Stop 12/15/16 at 10:09; Status DC Verapamil HCl (Verapamil) 5 mg STK-MED ONCE .ROUTE ; Start 12/15/16 at 10:08; Stop 12/15/16 at 10:09; Status DC Heparin Sodium (Porcine) (Heparin Sodium) 10,000 unit STK-MED ONCE .ROUTE ; Start 12/15/16 at 10:08; Stop 12/15/16 at 10:09; Status DC Nitroglycerin (Nitroglycerin) 200 mcg STK-MED ONCE .ROUTE ; Start 12/15/16 at 10 :08; Stop 12/15/16 at 10:09; Status DC Nitroglycerin (Nitroglycerin) 200 mcg 1X ONCE IART Last administered on 10:43; Start 12/15/16 at 10:45; Stop 12/15/16 at 10:46; Status DC Verapamil HCl (Verapamil) 2.5 mg 1X ONCE IART Last administered on 12/15/16 10:43; Start 12/15/16 at 10:45; Stop 12/15/16 at 10:46; Status DC Heparin Sodium (Porcine) (Heparin Sodium) 2,500 unit 1X ONCE IART Last administered on 12/15/16 10:45; Start 12/15/16 at 10:45; Stop 12/15/16 at 10:46 ; Status DC Heparin Sodium/ Sodium Chloride 1,000 unit 1X ONCE IART Last administered on 10:42; Start 12/15/16 at 10:45; Stop 12/15/16 at 10:46; Status DC Midazolam HCl (Versed) 2 mg 1X ONCE IV Last administered on 12/15/16 10:44; Start 12/15/16 at 10:45; Stop 12/15/16 at 10:46; Status DC Fentanyl Citrate (Fentanyl 2ml Vial) 50 mcg 1X ONCE IV Last administered on 10:44; Start 12/15/16 at 10:45; Stop 12/15/16 at 10:46; Status DC Iohexol (Omnipaque 300 Mg/ml) 100 ml 1X ONCE IART Last administered on 10:42; Start 12/15/16 at 10:45; Stop 12/15/16 at 10:46; Status DC Lidocaine HCl 2 ml 1X ONCE IJ Last administered on 12/15/16 10:42; Start at 10:45; Stop 12/15/16 at 10:46; Status DC Sodium Chloride 1,000 ml @ 60 mls/hr [id number] IV Last administered on 03:31; Start 12/15/16 at 10:51; Stop 12/16/16 at 20:04; Status DC Polyethylene Glycol (miraLAX PACKET) 17 gm DAILY PO ; Start 12/16/16 at 16:30; Stop 12/16/16 at 16:30; Status DC Metoprolol Tartrate (Lopressor) 25 mg BID PO Last administered on 12/18/16 08: 51; Start 12/15/16 at 21:00 Polyethylene Glycol (miraLAX PACKET) 17 gm DAILY PO Last administered on 08:49; Start 12/17/16 at 07:00 Polyethylene Glycol (miraLAX PACKET) 17 gm 1X ONCE PO Last administered on 13:34; Start 12/16/16 at 13:30; Stop 12/16/16 at 13:31; Status DC Ondansetron HCl (Zofran) 4 mg PRN Q6HRS PRN IV NAUSEA/VOMITING; Start 12/17/16 at 07:00; Stop 12/18/16 at 06:59; Status DC Fentanyl Citrate (Fentanyl 2ml Vial) 25 mcg PRN Q5MIN PRN IV MILD PAIN; Start 12/17/16 at 07:00; Stop 12/18/16 at 06:59; Status DC Fentanyl Citrate (Fentanyl 2ml Vial) 50 mcg PRN Q5MIN PRN IV MODERATE PAIN; Start 12/17/16 at 07:00; Stop 12/18/16 at 06:59; Status DC Morphine Sulfate 1 mg PRN Q10MIN PRN IV SEVERE PAIN; Start 12/17/16 at 07:00; Stop 12/18/16 at 06:59; Status DC Ringer's Solution 1,000 ml @ 30 mls/hr Q24H IV ; Start 12/17/16 at 07:00; Stop 12/17/16 at 15:23; Status DC Lidocaine HCl (Xylocaine-Mpf 1% Vial) 2 ml PRN 1X PRN ID IV START; Start at 07:00; Stop 12/18/16 at 06:59; Status DC Hydromorphone HCl (Dilaudid) 0.5 mg PRN Q10MIN PRN IV SEV PAIN, Second choice; Start 12/17/16 at 07:00; Stop 12/18/16 at 06:59; Status DC Prochlorperazine Edisylate (Compazine) 5 mg PACU PRN PRN IV NAUSEA, MRX1; Start 12/17/16 at 07:00; Stop 12/18/16 at 06:59; Status DC Temazepam (Restoril) 7.5 mg PRN QHS PRN PO INSOMNIA Last administered on 21:45; Start 12/16/16 at 14:30 Lidocaine/Sodium Bicarbonate (Buffered Lidocaine 1%) 20 ml STK-MED ONCE IJ ; Start 12/17/16 at 13:12; Stop 12/17/16 at 13:13; Status DC Midazolam HCl (Versed) 2 mg STK-MED ONCE .ROUTE ; Start 12/17/16 at 13:47; Stop 12/17/16 at 13:48; Status DC Lidocaine/Sodium Bicarbonate (Buffered Lidocaine 1%) 3 ml 1X ONCE IJ Last administered on 12/17/16 14:00; Start 12/17/16 at 14:30; Stop 12/17/16 at 14:31 ; Status DC Midazolam HCl (Versed) 1 mg 1X ONCE IV Last administered on 12/17/16 14:00; Start 12/17/16 at 14:30; Stop 12/17/16 at 14:31; Status DC Fentanyl Citrate (Fentanyl 2ml Vial) 50 mcg 1X ONCE IV Last administered on 14:26; Start 12/17/16 at 14:30; Stop 12/17/16 at 14:31; Status DC Nitroglycerin/ Dextrose 250 ml @ 0 mls/hr CONT PRN IV SEE I/O RECORD Last administered on 12/17/16 19:53; Start 12/17/16 at 19:45; Stop 12/18/16 at 11:37 ; Status DC Isosorbide Mononitrate (Imdur) 30 mg DAILY PO ; Start 12/18/16 at 12:00 Active Scripts Active Reported Gabapentin 400 Mg Capsule 400 Mg PO TID PRN Tresiba Flextouch U-100 (Insulin Degludec) 100 Unit/1 Ml Insuln.pen 40 Unit SQ HS Tresiba Flextouch U-100 (Insulin Degludec) 100 Unit/1 Ml Insuln.pen 36 Unit SQ DAILY Cetirizine Hcl 10 Mg Tablet 1 Tab PO DAILY Tamsulosin Hcl 0.4 Mg Cap.er.24h 2 Cap PO DAILY Triamterene-Hctz 37.5-25 Mg Cp (Triamterene/Hydrochlorothiazid) 1 Each Capsule 1 Cap PO DAILY Atorvastatin Calcium 20 Mg Tablet 1 Tab PO DAILY Actos (Pioglitazone Hcl) 30 Mg Tablet 1 Tab PO DAILY Montelukast Sodium Tablet (Montelukast Sodium) 10 Mg Tablet 1 Tab PO DAILY Losartan Potassium 100 Mg Tablet 100 Mg PO DAILY Vitals/I & O Vital Sign - Last 24 Hours 12/17/16 12/17/16 12/17/16 12/17/16 14:00 14:05 14:10 14:15 Pulse 79 78 77 79 Resp 15 20 21 18 Pulse Ox 90 90 89 91 O2 Delivery Nasal Cannula Nasal Cannula Nasal Cannula Nasal Cannula O2 Flow Rate 2.0 4.0 4.0 4.0 12/17/16 12/17/16 12/17/16 12/17/16 14:20 14:26 14:28 14:45 Temp 97.9 97.9 Pulse 76 79 78 Resp 14 19 14 18 B/P (MAP) 186/96 (126) Pulse Ox 89 91 91 93 O2 Delivery Nasal Cannula Nasal Cannula Nasal Cannula Room Air O2 Flow Rate 4.0 4.0 4.0 12/17/16 12/17/16 12/17/16 12/17/16 14:56 15:00 15:15 15:30 Pulse 75 75 74 Resp 16 B/P (MAP) 179/87 (117) 159/78 (105) 177/81 (113) Pulse Ox 94 94 96 O2 Delivery Room Air Room Air Room Air Room Air 12/17/16 12/17/16 12/17/16 12/17/16 16:00 16:30 17:00 19:23 Pulse 84 77 76 B/P (MAP) 146/84 (104) 135/72 (93) 126/62 (83) Pulse Ox 96 94 91 O2 Delivery Room Air Room Air Room Air Nasal Cannula O2 Flow Rate 2.0 12/17/16 12/17/16 12/17/16 12/17/16 19:56 20:00 20:00 20:15 Temp 97.7 97.7 Pulse 84 82 86 Resp 16 B/P (MAP) 181/87 (118) 181/92 (121) 175/87 (116) Pulse Ox 91 O2 Delivery Nasal Cannula Room Air O2 Flow Rate 2.0 2.0 12/17/16 12/17/16 12/17/16 12/17/16 20:23 20:30 20:45 21:00 Pulse 80 80 85 B/P (MAP) 153/70 (97) 135/77 (96) 118/72 Pulse Ox 93 O2 Delivery Room Air O2 Flow Rate 2.0 12/17/16 12/17/16 12/17/16 12/17/16 21:00 21:15 21:30 21:45 Pulse 84 80 82 80 B/P (MAP) 138/72 (94) 128/71 (90) 118/72 (87) 127/64 (85) 12/17/16 12/17/16 12/17/16 12/17/16 22:00 22:12 22:27 22:30 Temp 98.2 98.2 Pulse 82 82 88 84 Resp 18 B/P (MAP) 125/63 (83) 128/66 (86) 122/70 (87) 122/70 (87) Pulse Ox 93 93 O2 Delivery Nasal Cannula Nasal Cannula O2 Flow Rate 2.0 2.0 12/17/16 12/17/16 12/18/16 12/18/16 23:00 23:30 00:00 00:30 Pulse 80 80 78 78 B/P (MAP) 123/68 (86) 124/68 (86) 113/64 (80) 126/62 (83) 12/18/16 12/18/16 12/18/16 12/18/16 01:00 02:00 03:12 04:00 Temp 98.5 98.5 Pulse 76 76 74 74 Resp 16 B/P (MAP) 122/69 (86) 141/62 (88) 139/72 (94) 118/66 (83) Pulse Ox 94 O2 Delivery Nasal Cannula O2 Flow Rate 3.0 12/18/16 12/18/16 12/18/16 12/18/16 05:00 06:00 07:00 08:00 Temp 98.1 98.1 Pulse 74 74 77 Resp 19 B/P (MAP) 145/73 (97) 120/62 (81) 132/69 (90) Pulse Ox 94 O2 Delivery Nasal Cannula Nasal Cannula O2 Flow Rate 3.0 3.0 12/18/16 12/18/16 08:51 11:00 Temp 97.9 97.9 Pulse 77 69 Resp 18 B/P (MAP) 128/75 110/66 (81) Pulse Ox 94 O2 Delivery Nasal Cannula O2 Flow Rate 3.0 TOYA CARRERA MD Dec 18, 2016 12:28
[2016-12-18] MEDS: ISOSORBIDE MONONITRATE ER 30 MG TAB.ER.24H PO SCH (13:09)
--- NOTE | 2016-12-18 13:50 | PDOC ---
PROGRESS NOTES Subjective Subjective c/c - f/u of Left lower lobe lung mass ROS - Had CP Objective Objective Vital Signs Date Time Temp Pulse Resp B/P (MAP) Pulse Ox O2 Delivery O2 Flow Rate FiO2 12/18/16 13:09 80 121/74 12/18/16 11:00 97.9 18 94 Nasal Cannula 3.0 97.9 Intake and Output 12/19/16 07:00 Output Total 275 ml Balance -275 ml Output Urine Total 275 ml Physical Exam Heart: Normal S1, Normal S2 General: Alert, Oriented X3 Lungs: Clear to auscultation Neuro: Normal speech Psych/Mental Status: Mental status NL Assessment Assessment Problems Medical Problems: (1) Chest pain Status: Acute (2) Non-STEMI (non-ST elevated myocardial infarction) Status: Acute IMPRESSION AND PLAN: 1. Left lower lobe lung mass with associated right-sided third rib bone lesion and evidence of mediastinal lymphadenopathy and a liver mass is clinically concerning for lung cancer with metastatic disease. Appreciate cardiothoracic evaluation - s/p biopsy right rib lesion 12/17/16 ( I d/w IR). I agreed to proceed with a PET scan as outpatient for completion of staging workup. 2. Chest pain. Appreciate Cardiology and cardiothoracic evaluation. CABG was planned, but it was canceled because of the findings on the CT chest concerning for malignancy. Comment Review of Relevant I have reviewed the following items maxine (where applicable) has been applied. Labs Laboratory Tests Test 12/16/16 15:00 12/16/16 16:32 12/16/16 20:39 12/17/16 07:34 Low Molecular Weight Heparin 0.92 IU/mL Glucose (Fingerstick) 133 mg/dL (70-99) 186 mg/dL (70-99) 160 mg/dL (70-99) Test 12/17/16 11:22 12/17/16 17:37 12/17/16 21:09 12/18/16 07:50 Glucose (Fingerstick) 164 mg/dL (70-99) 198 mg/dL (70-99) 194 mg/dL (70-99) 182 mg/dL (70-99) Test 12/18/16 11:02 Glucose (Fingerstick) 211 mg/dL (70-99) Laboratory Tests Test 12/17/16 17:37 12/17/16 21:09 12/18/16 07:50 12/18/16 11:02 Glucose (Fingerstick) 198 mg/dL (70-99) 194 mg/dL (70-99) 182 mg/dL (70-99) 211 mg/dL (70-99) Medications Current Medications Nitroglycerin (Nitro-Bid Oint) 1 inch 1X ONCE TP Last administered on 18:38; Start 12/13/16 at 18:30; Stop 12/13/16 at 18:31; Status DC Aspirin (Children'S Aspirin) 324 mg 1X ONCE PO ; Start 12/13/16 at 18:30; Stop 12/13/16 at 18:31; Status DC Enoxaparin Sodium (Lovenox Per Pharmacy Treatment Dosing) 1 each PRN DAILY PRN MC SEE COMMENTS; Start 12/13/16 at 19:15 Enoxaparin Sodium (Lovenox 100mg Syringe) 100 mg 1X ONCE SQ Last administered on 12/13/16 19:50; Start 12/13/16 at 19:30; Stop 12/13/16 at 19:31; Status DC Enoxaparin Sodium (Lovenox 80mg Syringe) 80 mg 1X ONCE SQ Last administered on 12/13/16 19:50; Start 12/13/16 at 19:30; Stop 12/13/16 at 19:31; Status DC Ondansetron HCl (Zofran) 4 mg PRN Q8HRS PRN IV NAUSEA/VOMITING; Start 12/13/16 at 19:45; Stop 12/14/16 at 11:34; Status DC Morphine Sulfate 2 mg PRN Q2HR PRN IV PAIN; Start 12/13/16 at 19:45; Stop 12/14 at 11:34; Status DC Acetaminophen (Tylenol) 650 mg PRN Q4HRS PRN PO FEVER Last administered on 12/14 06:36; Start 12/13/16 at 19:45; Stop 12/14/16 at 11:34; Status DC Nitroglycerin (Nitrostat) 0.4 mg PRN Q5MIN PRN SL CHEST PAIN; Start 12/13/16 at 19:45; Stop 12/14/16 at 19:44; Status DC Insulin Aspart (NovoLOG) 0-9 UNITS QIDACHS SQ Last administered on 12/18/16 13 :16; Start 12/13/16 at 21:30 Dextrose (Dextrose 50%-Water Syringe) 12.5 gm PRN Q15MIN PRN IV SEE COMMENTS; Start 12/13/16 at 20:15 Morphine Sulfate (Morphine Ir) 15 mg PRN Q4HRS PRN PO PAIN Last administered on 12/17/16 19:23; Start 12/13/16 at 20:15 Enoxaparin Sodium (Lovenox 100mg Syringe) 180 mg Q12HR SQ Last administered on 12/18/16 08:59; Start 12/14/16 at 09:00 Atorvastatin Calcium (Lipitor) 20 mg QHS PO Last administered on 12/17/16 21: 26; Start 12/14/16 at 21:00 Cetirizine HCl (ZyrTEC) 10 mg DAILY PO Last administered on 12/18/16 08:50; Start 12/14/16 at 12:00 Montelukast Sodium (Singulair) 10 mg DAILY PO Last administered on 12/18/16 08 :50; Start 12/14/16 at 12:00 Tamsulosin HCl (Flomax) 0.8 mg DAILY PO Last administered on 12/18/16 08:51; Start 12/14/16 at 12:00 Losartan Potassium (Cozaar) 100 mg DAILY PO Last administered on 12/15/16 11: 09; Start 12/14/16 at 12:00; Stop 12/15/16 at 16:19; Status DC Pioglitazone HCl (Actos) 30 mg DAILY PO Last administered on 12/18/16 08:51; Start 12/14/16 at 12:00 Triamterene/HCTZ (Maxzide 37.5/ 25mg) 1 tab DAILY PO Last administered on 08:50; Start 12/14/16 at 12:00 Acetaminophen (Tylenol) 650 mg PRN Q6HRS PRN PO FEVER Last administered on 12/18 08:49; Start 12/14/16 at 11:30 Ondansetron HCl (Zofran) 4 mg PRN Q6HRS PRN IV NAUSEA/VOMITING Last administered on 12/17/16 20:22; Start 12/14/16 at 11:30 Morphine Sulfate 2 mg PRN Q2HR PRN IV MODERATE TO SEVERE PAIN; Start 12/14/16 at 11:45 Tramadol HCl (Ultram) 50 mg PRN Q6HRS PRN PO MILD TO MODERATE PAIN Last administered on 12/17/16 07:32; Start 12/14/16 at 11:30 Hydralazine HCl (Apresoline) 10 mg PRN Q4HRS PRN IVP ELEVATED BP, SEE COMMENTS ; Start 12/14/16 at 11:30 Docusate Sodium (Colace) 100 mg PRN DAILY PRN PO CONSTIPATION; Start 12/14/16 at 11:30 Senna/Docusate Sodium (Senna Plus) 1 tab BID PO Last administered on 12/18/16 08:50; Start 12/14/16 at 12:00 Docusate Sodium (Colace) 100 mg BID PO Last administered on 12/18/16 08:50; Start 12/14/16 at 12:00 Magnesium Hydroxide (Milk Of Magnesia) 2,400 mg PRN Q12HR PRN PO CONSTIPATION; Start 12/14/16 at 11:30 Insulin Detemir (Levemir) 20 units QHS SQ Last administered on 12/17/16 21:33 ; Start 12/14/16 at 21:00 Heparin Sodium/ Sodium Chloride 1,000 ml @ As Directed STK-MED ONCE .ROUTE ; Start 12/15/16 at 07:09; Stop 12/15/16 at 07:10; Status DC Lidocaine HCl 20 ml STK-MED ONCE .ROUTE ; Start 12/15/16 at 07:10; Stop at 07:11; Status DC Iohexol (Omnipaque 300 Mg/ml) 100 ml STK-MED ONCE .ROUTE ; Start 12/15/16 at 07: 14; Stop 12/15/16 at 07:15; Status DC Fentanyl Citrate (Fentanyl 2ml Vial) 100 mcg STK-MED ONCE .ROUTE ; Start at 10:07; Stop 12/15/16 at 10:08; Status DC Midazolam HCl (Versed) 2 mg STK-MED ONCE .ROUTE ; Start 12/15/16 at 10:08; Stop 12/15/16 at 10:09; Status DC Verapamil HCl (Verapamil) 5 mg STK-MED ONCE .ROUTE ; Start 12/15/16 at 10:08; Stop 12/15/16 at 10:09; Status DC Heparin Sodium (Porcine) (Heparin Sodium) 10,000 unit STK-MED ONCE .ROUTE ; Start 12/15/16 at 10:08; Stop 12/15/16 at 10:09; Status DC Nitroglycerin (Nitroglycerin) 200 mcg STK-MED ONCE .ROUTE ; Start 12/15/16 at 10 :08; Stop 12/15/16 at 10:09; Status DC Nitroglycerin (Nitroglycerin) 200 mcg 1X ONCE IART Last administered on 10:43; Start 12/15/16 at 10:45; Stop 12/15/16 at 10:46; Status DC Verapamil HCl (Verapamil) 2.5 mg 1X ONCE IART Last administered on 12/15/16 10:43; Start 12/15/16 at 10:45; Stop 12/15/16 at 10:46; Status DC Heparin Sodium (Porcine) (Heparin Sodium) 2,500 unit 1X ONCE IART Last administered on 12/15/16 10:45; Start 12/15/16 at 10:45; Stop 12/15/16 at 10:46 ; Status DC Heparin Sodium/ Sodium Chloride 1,000 unit 1X ONCE IART Last administered on 10:42; Start 12/15/16 at 10:45; Stop 12/15/16 at 10:46; Status DC Midazolam HCl (Versed) 2 mg 1X ONCE IV Last administered on 12/15/16 10:44; Start 12/15/16 at 10:45; Stop 12/15/16 at 10:46; Status DC Fentanyl Citrate (Fentanyl 2ml Vial) 50 mcg 1X ONCE IV Last administered on 10:44; Start 12/15/16 at 10:45; Stop 12/15/16 at 10:46; Status DC Iohexol (Omnipaque 300 Mg/ml) 100 ml 1X ONCE IART Last administered on 10:42; Start 12/15/16 at 10:45; Stop 12/15/16 at 10:46; Status DC Lidocaine HCl 2 ml 1X ONCE IJ Last administered on 12/15/16 10:42; Start at 10:45; Stop 12/15/16 at 10:46; Status DC Sodium Chloride 1,000 ml @ 60 mls/hr [id number] IV Last administered on 03:31; Start 12/15/16 at 10:51; Stop 12/16/16 at 20:04; Status DC Polyethylene Glycol (miraLAX PACKET) 17 gm DAILY PO ; Start 12/16/16 at 16:30; Stop 12/16/16 at 16:30; Status DC Metoprolol Tartrate (Lopressor) 25 mg BID PO Last administered on 12/18/16 08: 51; Start 12/15/16 at 21:00 Polyethylene Glycol (miraLAX PACKET) 17 gm DAILY PO Last administered on 08:49; Start 12/17/16 at 07:00 Polyethylene Glycol (miraLAX PACKET) 17 gm 1X ONCE PO Last administered on 13:34; Start 12/16/16 at 13:30; Stop 12/16/16 at 13:31; Status DC Ondansetron HCl (Zofran) 4 mg PRN Q6HRS PRN IV NAUSEA/VOMITING; Start 12/17/16 at 07:00; Stop 12/18/16 at 06:59; Status DC Fentanyl Citrate (Fentanyl 2ml Vial) 25 mcg PRN Q5MIN PRN IV MILD PAIN; Start 12/17/16 at 07:00; Stop 12/18/16 at 06:59; Status DC Fentanyl Citrate (Fentanyl 2ml Vial) 50 mcg PRN Q5MIN PRN IV MODERATE PAIN; Start 12/17/16 at 07:00; Stop 12/18/16 at 06:59; Status DC Morphine Sulfate 1 mg PRN Q10MIN PRN IV SEVERE PAIN; Start 12/17/16 at 07:00; Stop 12/18/16 at 06:59; Status DC Ringer's Solution 1,000 ml @ 30 mls/hr Q24H IV ; Start 12/17/16 at 07:00; Stop 12/17/16 at 15:23; Status DC Lidocaine HCl (Xylocaine-Mpf 1% Vial) 2 ml PRN 1X PRN ID IV START; Start at 07:00; Stop 12/18/16 at 06:59; Status DC Hydromorphone HCl (Dilaudid) 0.5 mg PRN Q10MIN PRN IV SEV PAIN, Second choice; Start 12/17/16 at 07:00; Stop 12/18/16 at 06:59; Status DC Prochlorperazine Edisylate (Compazine) 5 mg PACU PRN PRN IV NAUSEA, MRX1; Start 12/17/16 at 07:00; Stop 12/18/16 at 06:59; Status DC Temazepam (Restoril) 7.5 mg PRN QHS PRN PO INSOMNIA Last administered on 21:45; Start 12/16/16 at 14:30 Lidocaine/Sodium Bicarbonate (Buffered Lidocaine 1%) 20 ml STK-MED ONCE IJ ; Start 12/17/16 at 13:12; Stop 12/17/16 at 13:13; Status DC Midazolam HCl (Versed) 2 mg STK-MED ONCE .ROUTE ; Start 12/17/16 at 13:47; Stop 12/17/16 at 13:48; Status DC Lidocaine/Sodium Bicarbonate (Buffered Lidocaine 1%) 3 ml 1X ONCE IJ Last administered on 12/17/16 14:00; Start 12/17/16 at 14:30; Stop 12/17/16 at 14:31 ; Status DC Midazolam HCl (Versed) 1 mg 1X ONCE IV Last administered on 12/17/16 14:00; Start 12/17/16 at 14:30; Stop 12/17/16 at 14:31; Status DC Fentanyl Citrate (Fentanyl 2ml Vial) 50 mcg 1X ONCE IV Last administered on 14:26; Start 12/17/16 at 14:30; Stop 12/17/16 at 14:31; Status DC Nitroglycerin/ Dextrose 250 ml @ 0 mls/hr CONT PRN IV SEE I/O RECORD Last administered on 12/17/16 19:53; Start 12/17/16 at 19:45; Stop 12/18/16 at 11:37 ; Status DC Isosorbide Mononitrate (Imdur) 30 mg DAILY PO Last administered on 12/18/16 13 :09; Start 12/18/16 at 12:00 Active Scripts Active Reported Gabapentin 400 Mg Capsule 400 Mg PO TID PRN Tresiba Flextouch U-100 (Insulin Degludec) 100 Unit/1 Ml Insuln.pen 40 Unit SQ HS Tresiba Flextouch U-100 (Insulin Degludec) 100 Unit/1 Ml Insuln.pen 36 Unit SQ DAILY Cetirizine Hcl 10 Mg Tablet 1 Tab PO DAILY Tamsulosin Hcl 0.4 Mg Cap.er.24h 2 Cap PO DAILY Triamterene-Hctz 37.5-25 Mg Cp (Triamterene/Hydrochlorothiazid) 1 Each Capsule 1 Cap PO DAILY Atorvastatin Calcium 20 Mg Tablet 1 Tab PO DAILY Actos (Pioglitazone Hcl) 30 Mg Tablet 1 Tab PO DAILY Montelukast Sodium Tablet (Montelukast Sodium) 10 Mg Tablet 1 Tab PO DAILY Losartan Potassium 100 Mg Tablet 100 Mg PO DAILY Vitals/I & O Vital Sign - Last 24 Hours 12/17/16 12/17/16 12/17/16 12/17/16 14:00 14:05 14:10 14:15 Pulse 79 78 77 79 Resp 15 20 21 18 Pulse Ox 90 90 89 91 O2 Delivery Nasal Cannula Nasal Cannula Nasal Cannula Nasal Cannula O2 Flow Rate 2.0 4.0 4.0 4.0 12/17/16 12/17/16 12/17/16 12/17/16 14:20 14:26 14:28 14:45 Temp 97.9 97.9 Pulse 76 79 78 Resp 14 19 14 18 B/P (MAP) 186/96 (126) Pulse Ox 89 91 91 93 O2 Delivery Nasal Cannula Nasal Cannula Nasal Cannula Room Air O2 Flow Rate 4.0 4.0 4.0 12/17/16 12/17/16 12/17/16 12/17/16 14:56 15:00 15:15 15:30 Pulse 75 75 74 Resp 16 B/P (MAP) 179/87 (117) 159/78 (105) 177/81 (113) Pulse Ox 94 94 96 O2 Delivery Room Air Room Air Room Air Room Air 12/17/16 12/17/16 12/17/16 12/17/16 16:00 16:30 17:00 19:23 Pulse 84 77 76 B/P (MAP) 146/84 (104) 135/72 (93) 126/62 (83) Pulse Ox 96 94 91 O2 Delivery Room Air Room Air Room Air Nasal Cannula O2 Flow Rate 2.0 12/17/16 12/17/16 12/17/16 12/17/16 19:56 20:00 20:00 20:15 Temp 97.7 97.7 Pulse 84 82 86 Resp 16 B/P (MAP) 181/87 (118) 181/92 (121) 175/87 (116) Pulse Ox 91 O2 Delivery Nasal Cannula Room Air O2 Flow Rate 2.0 2.0 12/17/16 12/17/16 12/17/16 12/17/16 20:23 20:30 20:45 21:00 Pulse 80 80 85 B/P (MAP) 153/70 (97) 135/77 (96) 118/72 Pulse Ox 93 O2 Delivery Room Air O2 Flow Rate 2.0 12/17/16 12/17/16 12/17/16 12/17/16 21:00 21:15 21:30 21:45 Pulse 84 80 82 80 B/P (MAP) 138/72 (94) 128/71 (90) 118/72 (87) 127/64 (85) 12/17/16 12/17/16 12/17/16 12/17/16 22:00 22:12 22:27 22:30 Temp 98.2 98.2 Pulse 82 82 88 84 Resp 18 B/P (MAP) 125/63 (83) 128/66 (86) 122/70 (87) 122/70 (87) Pulse Ox 93 93 O2 Delivery Nasal Cannula Nasal Cannula O2 Flow Rate 2.0 2.0 12/17/16 12/17/16 12/18/16 12/18/16 23:00 23:30 00:00 00:30 Pulse 80 80 78 78 B/P (MAP) 123/68 (86) 124/68 (86) 113/64 (80) 126/62 (83) 12/18/16 12/18/16 12/18/16 12/18/16 01:00 02:00 03:12 04:00 Temp 98.5 98.5 Pulse 76 76 74 74 Resp 16 B/P (MAP) 122/69 (86) 141/62 (88) 139/72 (94) 118/66 (83) Pulse Ox 94 O2 Delivery Nasal Cannula O2 Flow Rate 3.0 12/18/16 12/18/16 12/18/16 12/18/16 05:00 06:00 07:00 08:00 Temp 98.1 98.1 Pulse 74 74 77 Resp 19 B/P (MAP) 145/73 (97) 120/62 (81) 132/69 (90) Pulse Ox 94 O2 Delivery Nasal Cannula Nasal Cannula O2 Flow Rate 3.0 3.0 12/18/16 12/18/16 12/18/16 08:51 11:00 13:09 Temp 97.9 97.9 Pulse 77 69 80 Resp 18 B/P (MAP) 128/75 110/66 (81) 121/74 Pulse Ox 94 O2 Delivery Nasal Cannula O2 Flow Rate 3.0 Intake and Output 12/18/16 12/18/16 12/19/16 15:00 23:00 07:00 Output Total 275 ml Balance -275 ml ANIVAL PLASCENCIA MD Dec 18, 2016 13:50
--- NOTE | 2016-12-18 14:33 | PDOC ---
CARDIO Progress Notes Date and Time Date of Service 12/18/16 Time of Evaluation 1115 Subjective Subjective: No shortness of breath, No Palpitations, Other (had episode of CP last night. resolved with nitro gtt) Vitals Vitals Vital Signs Date Time Temp Pulse Resp B/P (MAP) Pulse Ox O2 Delivery O2 Flow Rate FiO2 12/18/16 13:09 80 121/74 12/18/16 11:00 97.9 18 94 Nasal Cannula 3.0 97.9 Weight Weight [ ] Input and Output Intake and Output Intake and Output 12/19/16 07:00 Output Total 275 ml Balance -275 ml Output Urine Total 275 ml Laboratory Labs Laboratory Tests Test 12/17/16 17:37 12/17/16 21:09 12/18/16 07:50 12/18/16 11:02 Glucose (Fingerstick) 198 mg/dL (70-99) 194 mg/dL (70-99) 182 mg/dL (70-99) 211 mg/dL (70-99) Physical Exam HEENT: Neck Supple W Full Motion Chest: Symmetric LUNGS: Clear to Auscultation, Other (diminished bases) Heart: S1S2, RRR, no gallops, no murmurs Abdomen: Soft N/T, Other (obese ) Extremities: No Calf Tenderness Neurology: alert, oriented, follow commands Assessment Assessment 1. 3V CAD; Cardiac catheterization showed three-vessel coronary artery disease. Awaiting lung biopsy pathology to determine if surgical candidate. Continue secondary prevention measures. Add ACEi and ASA if no plan for surgery. If CABG not an option, will consider for PCI/stents to LAD and LCX. 2. Angina; episode of chest pain last night. Resolved with nitro gtt. Will add scheduled imdur and titrate off nitro. Continue to monitor. 3. Hypertension: Continue current medications. 4. Hyperlipidemia: Continue statin therapy 5. Diabetes mellitus type 2: Treated per IM 6. Lung mass with concern for lung CA with metastatic disease; s/p biopsy. awaiting pathology. continue as per FRANCISCO JAVIER Bejarano APRN Dec 18, 2016 14:33
--- NOTE | 2016-12-18 14:38 | CONS ---
DATE OF CONSULTATION: 12/17/2016 ATTENDING PHYSICIAN: Dr. Bains. REASON FOR CONSULTATION: The patient is seen in pulmonary consultation at the request of Dr. Cavazos for abnormal CT of the chest. HISTORY OF PRESENT ILLNESS: The patient is a 66-year-old male who presented with left arm and chest discomfort. Initially, was felt to have possibility of acute coronary syndrome. He was evaluated and underwent coronary angiogram, found to have 3-vessel coronary artery disease with preserved ejection fraction. He was seen in consultation by Dr. Cavazos and scheduled for coronary artery bypass grafting. Part of his workup included CT of the chest. The patient has never smoked. CT of the chest was reviewed. There was evidence of density in the left lower lobe suspicious for neoplasm measuring 3 cm. There was also a soft tissue density in the anterior right 3rd rib causing some destruction of the rib itself. There was prominent mediastinal adenopathy. I was asked to see him in consultation for further evaluation and management. The patient has never smoked. Denies hemoptysis. PAST MEDICAL HISTORY: Remarkable for hypertension, otherwise no significant past medical history. FAMILY HISTORY: Coronary artery disease, hypertension, and heart disease. SOCIAL HISTORY: He is a lifetime nonsmoker. CURRENT MEDICATION: List was reviewed. REVIEW OF SYSTEMS: As indicated above, otherwise a 10-point system was reviewed and negative. PHYSICAL EXAMINATION: GENERAL: Morbid obese individual in no respiratory distress. VITAL SIGNS: Stable. O2 saturation was greater than 92%. HEENT: Eyes, the sclerae were nonicteric. NECK: Jugular venous distention was not elevated. No lymphadenopathy. CHEST: Full expansion. LUNGS: Adequate airway flow, no wheezes. CARDIOVASCULAR: Regular rate and rhythm with S1, S2, no S3. ABDOMEN: Soft, nontender, nondistended. EXTREMITIES: No clubbing, cyanosis or edema. NEUROLOGIC: The patient was awake, alert, following commands. A detailed neuro exam was not performed. LABORATORY DATA: Reviewed. White count was normal. Hemoglobin and hematocrit were noted. Electrolytes were noted. CT as indicated above. IMPRESSION: 1. Abnormal CT of the chest revealing several findings including a suspicious left lower lobe mass measuring 3.0 x 2.2 cm. 2. Mediastinal adenopathy. 3. Right rib soft tissue density. 4. Coronary artery disease requiring coronary artery bypass grafting. 5. Obesity. 6. Hypertension. PLAN: 1. The patient is scheduled to undergo fine needle aspiration of the rib mass. 2. If no diagnosis is established, recommend bronchoscopy. It appears that there may be an endobronchial lesion. 3. Further recommendations depending on his fine needle aspiration results, and PET scanning. I do appreciate the privilege in sharing in the patient's care. ARUNA NOVAK MD DR: FÉLIX/amira JOB#: [id number] / [id number]
[2016-12-18] MEDS ORDERED: SODIUM CHLORIDE 0.65% NASAL SPRAY 45ML BOTTLE. NS PRN (20:00)
[2016-12-18] MEDS: OXYMETAZOLINE 0.05% NASAL SPRAY 30ML BOTTLE. NS SCH (20:25)
[2016-12-18] MEDS: TEMAZEPAM 7.5 MG CAPSULE PO PRN (20:27)
[2016-12-18] MEDS: ATORVASTATIN CALCIUM 20 MG TABLET PO SCH (20:28)
[2016-12-18] MEDS: INSULIN DETEMIR 300 UNITS/3 ML INSULN.PEN. SQ SCH (20:43)
[2016-12-19 03:17] VITALS: BP 134/75
[2016-12-19 07:00] VITALS: BP 136/71
[2016-12-19] MEDS: POLYETHYLENE GLYCOL 3350 17 GM PACKET. PO SCH ×2 (08:47→21:14)
[2016-12-19] MEDS: CETIRIZINE HCL 10 MG TABLET. PO SCH (08:48)
[2016-12-19] MEDS: MONTELUKAST SODIUM 10 MG TABLET. PO SCH (08:48)
[2016-12-19] MEDS: PIOGLITAZONE 15 MG TABLET. PO SCH (08:48)
[2016-12-19] MEDS: SENNOSIDES/DOCUSATE 8.6/50MG TABLET. PO SCH ×2 (08:48→21:16)
[2016-12-19] MEDS: DOCUSATE SODIUM 100 MG CAPSULE. PO SCH ×2 (08:49→21:16)
[2016-12-19] MEDS: OXYMETAZOLINE 0.05% NASAL SPRAY 30ML BOTTLE. NS SCH ×2 (08:49→21:17)
[2016-12-19] MEDS: TAMSULOSIN 0.4 MG CAP.ER.24H. PO SCH (08:49)
[2016-12-19] MEDS: ISOSORBIDE MONONITRATE ER 30 MG TAB.ER.24H PO SCH (08:49)
[2016-12-19] MEDS: TRIAMTERENE/HCTZ 37.5/25MG TABLET. PO SCH (08:50)
[2016-12-19] MEDS: METOPROLOL TART IMMED RELEASE 25 MG TABLET. PO SCH ×2 (08:50→21:15)
[2016-12-19] MEDS: INSULIN ASPART 300 UNITS/3 ML INSULN.PEN SQ SCH ×4 (09:04→21:26)
--- NOTE | 2016-12-19 09:21 | PDOC ---
PULMONARY PROGRESS NOTES Subjective PT WITH NO INCREASE PAIN Vitals Vital Signs Date Time Temp Pulse Resp B/P (MAP) Pulse Ox O2 Delivery O2 Flow Rate FiO2 12/19/16 08:50 70 136/71 12/19/16 07:00 97.7 17 96 Nasal Cannula 3.0 97.7 ROS: No Nausea, No Abdominal Pain, No Increase Cough Lungs: Clear Cardiovascular: S1, S2 Abdomen: Soft, Other (obese) Neuro Exam: Alert Extremities: No Edema Skin: Warm Labs Laboratory Tests Test 12/17/16 11:22 12/17/16 17:37 12/17/16 21:09 12/18/16 07:50 Glucose (Fingerstick) 164 mg/dL (70-99) 198 mg/dL (70-99) 194 mg/dL (70-99) 182 mg/dL (70-99) Test 12/18/16 11:02 12/18/16 17:20 12/18/16 20:34 12/19/16 07:38 Glucose (Fingerstick) 211 mg/dL (70-99) 191 mg/dL (70-99) 252 mg/dL (70-99) 186 mg/dL (70-99) Laboratory Tests Test 12/18/16 11:02 12/18/16 17:20 12/18/16 20:34 12/19/16 07:38 Glucose (Fingerstick) 211 mg/dL (70-99) 191 mg/dL (70-99) 252 mg/dL (70-99) 186 mg/dL (70-99) Medications Active Scripts Medications Dose Route/Sig Max Daily Dose Days Date Category Gabapentin 400 Mg Capsule 400 Mg PO TID PRN 12/15/16 Reported Tresiba Flextouch U-100 (Insulin Degludec) 100 Unit/1 Ml Insuln.pen 40 Unit SQ HS 12/14/16 Reported Tresiba Flextouch U-100 (Insulin Degludec) 100 Unit/1 Ml Insuln.pen 36 Unit SQ DAILY 12/14/16 Reported Cetirizine Hcl 10 Mg Tablet 1 Tab PO DAILY 12/14/16 Reported Tamsulosin Hcl 0.4 Mg Cap.er.24h 2 Cap PO DAILY 12/14/16 Reported Triamterene-Hctz 37.5-25 Mg Cp (Triamterene/Hydrochlorothiazid) 1 Each Capsule 1 Cap PO DAILY 12/14/16 Reported Atorvastatin Calcium 20 Mg Tablet 1 Tab PO DAILY 12/14/16 Reported Actos (Pioglitazone Hcl) 30 Mg Tablet 1 Tab PO DAILY 12/14/16 Reported Montelukast Sodium Tablet (Montelukast Sodium) 10 Mg Tablet 1 Tab PO DAILY 12/14/16 Reported Losartan Potassium 100 Mg Tablet 100 Mg PO DAILY 12/14/16 Reported Impression . 1. Abnormal CT of the chest revealing several findings including a suspicious left lower lobe mass measuring 3.0 x 2.2 cm. 2. Mediastinal adenopathy. 3. Right rib soft tissue density. 4. Coronary artery disease requiring coronary artery bypass grafting. 5. Obesity. 6. Hypertension. 7. ON GOING ANGINA Plan . NTG FOLLOW CARD INPUT will await card input S/P rib biopsy If no diagnosis is established, recommend bronchoscopy. It appears that there may be an endobronchial lesion. Further recommendations depending on his fine needle aspiration results, and PET scanning. ARUNA NOVAK MD Dec 19, 2016 09:21
[2016-12-19] MEDS: MORPHINE IR 15 MG TABLET PO PRN (09:39)
--- NOTE | 2016-12-19 09:40 | PDOC ---
PROGRESS NOTES Subjective Subjective No new complaints. Objective Objective Vital Signs Date Time Temp Pulse Resp B/P (MAP) Pulse Ox O2 Delivery O2 Flow Rate FiO2 12/19/16 08:50 70 136/71 12/19/16 07:00 97.7 17 96 Nasal Cannula 3.0 97.7 Physical Exam Physical Exam He is comfortable sitting in bedside recliner and continues with right foot drop and has not received AFO yet. Assessment Assessment Problems Medical Problems: (1) Chest pain Status: Acute (2) Non-STEMI (non-ST elevated myocardial infarction) Status: Acute Plan Plan of Care Agree with present care plans. Comment Review of Relevant I have reviewed the following items maxine (where applicable) has been applied. Labs Laboratory Tests Test 12/17/16 11:22 12/17/16 17:37 12/17/16 21:09 12/18/16 07:50 Glucose (Fingerstick) 164 mg/dL (70-99) 198 mg/dL (70-99) 194 mg/dL (70-99) 182 mg/dL (70-99) Test 12/18/16 11:02 12/18/16 17:20 12/18/16 20:34 12/19/16 07:38 Glucose (Fingerstick) 211 mg/dL (70-99) 191 mg/dL (70-99) 252 mg/dL (70-99) 186 mg/dL (70-99) Laboratory Tests Test 12/18/16 11:02 12/18/16 17:20 12/18/16 20:34 12/19/16 07:38 Glucose (Fingerstick) 211 mg/dL (70-99) 191 mg/dL (70-99) 252 mg/dL (70-99) 186 mg/dL (70-99) Medications Current Medications Nitroglycerin (Nitro-Bid Oint) 1 inch 1X ONCE TP Last administered on t 18:38; Start 12/13/16 at 18:30; Stop 12/13/16 at 18:31; Status DC Aspirin (Children'S Aspirin) 324 mg 1X ONCE PO ; Start 12/13/16 at 18:30; Stop 12/13/16 at 18:31; Status DC Enoxaparin Sodium (Lovenox Per Pharmacy Treatment Dosing) 1 each PRN DAILY PRN MC SEE COMMENTS; Start 12/13/16 at 19:15 Enoxaparin Sodium (Lovenox 100mg Syringe) 100 mg 1X ONCE SQ Last administered on 12/13/16 19:50; Start 12/13/16 at 19:30; Stop 12/13/16 at 19:31; Status DC Enoxaparin Sodium (Lovenox 80mg Syringe) 80 mg 1X ONCE SQ Last administered on 12/13/16 19:50; Start 12/13/16 at 19:30; Stop 12/13/16 at 19:31; Status DC Ondansetron HCl (Zofran) 4 mg PRN Q8HRS PRN IV NAUSEA/VOMITING; Start 12/13/16 at 19:45; Stop 12/14/16 at 11:34; Status DC Morphine Sulfate 2 mg PRN Q2HR PRN IV PAIN; Start 12/13/16 at 19:45; Stop 12/14 at 11:34; Status DC Acetaminophen (Tylenol) 650 mg PRN Q4HRS PRN PO FEVER Last administered on 12/14 06:36; Start 12/13/16 at 19:45; Stop 12/14/16 at 11:34; Status DC Nitroglycerin (Nitrostat) 0.4 mg PRN Q5MIN PRN SL CHEST PAIN; Start 12/13/16 at 19:45; Stop 12/14/16 at 19:44; Status DC Insulin Aspart (NovoLOG) 0-9 UNITS QIDACHS SQ Last administered on 12/19/16 09 :04; Start 12/13/16 at 21:30 Dextrose (Dextrose 50%-Water Syringe) 12.5 gm PRN Q15MIN PRN IV SEE COMMENTS; Start 12/13/16 at 20:15 Morphine Sulfate (Morphine Ir) 15 mg PRN Q4HRS PRN PO PAIN Last administered on 12/17/16 19:23; Start 12/13/16 at 20:15 Enoxaparin Sodium (Lovenox 100mg Syringe) 180 mg Q12HR SQ Last administered on 12/19/16 08:48; Start 12/14/16 at 09:00 Atorvastatin Calcium (Lipitor) 20 mg QHS PO Last administered on 12/18/16 20: 28; Start 12/14/16 at 21:00 Cetirizine HCl (ZyrTEC) 10 mg DAILY PO Last administered on 12/19/16 08:48; Start 12/14/16 at 12:00 Montelukast Sodium (Singulair) 10 mg DAILY PO Last administered on 12/19/16 08 :48; Start 12/14/16 at 12:00 Tamsulosin HCl (Flomax) 0.8 mg DAILY PO Last administered on 12/19/16 08:49; Start 12/14/16 at 12:00 Losartan Potassium (Cozaar) 100 mg DAILY PO Last administered on 12/15/16 11: 09; Start 12/14/16 at 12:00; Stop 12/15/16 at 16:19; Status DC Pioglitazone HCl (Actos) 30 mg DAILY PO Last administered on 12/19/16 08:48; Start 12/14/16 at 12:00 Triamterene/HCTZ (Maxzide 37.5/ 25mg) 1 tab DAILY PO Last administered on 08:50; Start 12/14/16 at 12:00 Acetaminophen (Tylenol) 650 mg PRN Q6HRS PRN PO FEVER Last administered on 12/18 20:33; Start 12/14/16 at 11:30 Ondansetron HCl (Zofran) 4 mg PRN Q6HRS PRN IV NAUSEA/VOMITING Last administered on 12/17/16 20:22; Start 12/14/16 at 11:30 Morphine Sulfate 2 mg PRN Q2HR PRN IV MODERATE TO SEVERE PAIN; Start 12/14/16 at 11:45 Tramadol HCl (Ultram) 50 mg PRN Q6HRS PRN PO MILD TO MODERATE PAIN Last administered on 12/17/16 07:32; Start 12/14/16 at 11:30 Hydralazine HCl (Apresoline) 10 mg PRN Q4HRS PRN IVP ELEVATED BP, SEE COMMENTS ; Start 12/14/16 at 11:30 Docusate Sodium (Colace) 100 mg PRN DAILY PRN PO CONSTIPATION; Start 12/14/16 at 11:30 Senna/Docusate Sodium (Senna Plus) 1 tab BID PO Last administered on 12/19/16 08:48; Start 12/14/16 at 12:00 Docusate Sodium (Colace) 100 mg BID PO Last administered on 12/19/16 08:49; Start 12/14/16 at 12:00 Magnesium Hydroxide (Milk Of Magnesia) 2,400 mg PRN Q12HR PRN PO CONSTIPATION; Start 12/14/16 at 11:30 Insulin Detemir (Levemir) 20 units QHS SQ Last administered on 12/18/16 20:43 ; Start 12/14/16 at 21:00 Heparin Sodium/ Sodium Chloride 1,000 ml @ As Directed STK-MED ONCE .ROUTE ; Start 12/15/16 at 07:09; Stop 12/15/16 at 07:10; Status DC Lidocaine HCl 20 ml STK-MED ONCE .ROUTE ; Start 12/15/16 at 07:10; Stop at 07:11; Status DC Iohexol (Omnipaque 300 Mg/ml) 100 ml STK-MED ONCE .ROUTE ; Start 12/15/16 at 07: 14; Stop 12/15/16 at 07:15; Status DC Fentanyl Citrate (Fentanyl 2ml Vial) 100 mcg STK-MED ONCE .ROUTE ; Start at 10:07; Stop 12/15/16 at 10:08; Status DC Midazolam HCl (Versed) 2 mg STK-MED ONCE .ROUTE ; Start 12/15/16 at 10:08; Stop 12/15/16 at 10:09; Status DC Verapamil HCl (Verapamil) 5 mg STK-MED ONCE .ROUTE ; Start 12/15/16 at 10:08; Stop 12/15/16 at 10:09; Status DC Heparin Sodium (Porcine) (Heparin Sodium) 10,000 unit STK-MED ONCE .ROUTE ; Start 12/15/16 at 10:08; Stop 12/15/16 at 10:09; Status DC Nitroglycerin (Nitroglycerin) 200 mcg STK-MED ONCE .ROUTE ; Start 12/15/16 at 10 :08; Stop 12/15/16 at 10:09; Status DC Nitroglycerin (Nitroglycerin) 200 mcg 1X ONCE IART Last administered on 10:43; Start 12/15/16 at 10:45; Stop 12/15/16 at 10:46; Status DC Verapamil HCl (Verapamil) 2.5 mg 1X ONCE IART Last administered on 12/15/16 10:43; Start 12/15/16 at 10:45; Stop 12/15/16 at 10:46; Status DC Heparin Sodium (Porcine) (Heparin Sodium) 2,500 unit 1X ONCE IART Last administered on 12/15/16 10:45; Start 12/15/16 at 10:45; Stop 12/15/16 at 10:46 ; Status DC Heparin Sodium/ Sodium Chloride 1,000 unit 1X ONCE IART Last administered on 10:42; Start 12/15/16 at 10:45; Stop 12/15/16 at 10:46; Status DC Midazolam HCl (Versed) 2 mg 1X ONCE IV Last administered on 12/15/16 10:44; Start 12/15/16 at 10:45; Stop 12/15/16 at 10:46; Status DC Fentanyl Citrate (Fentanyl 2ml Vial) 50 mcg 1X ONCE IV Last administered on 10:44; Start 12/15/16 at 10:45; Stop 12/15/16 at 10:46; Status DC Iohexol (Omnipaque 300 Mg/ml) 100 ml 1X ONCE IART Last administered on 10:42; Start 12/15/16 at 10:45; Stop 12/15/16 at 10:46; Status DC Lidocaine HCl 2 ml 1X ONCE IJ Last administered on 12/15/16 10:42; Start at 10:45; Stop 12/15/16 at 10:46; Status DC Sodium Chloride 1,000 ml @ 60 mls/hr [id number] IV Last administered on 03:31; Start 12/15/16 at 10:51; Stop 12/16/16 at 20:04; Status DC Polyethylene Glycol (miraLAX PACKET) 17 gm DAILY PO ; Start 12/16/16 at 16:30; Stop 12/16/16 at 16:30; Status DC Metoprolol Tartrate (Lopressor) 25 mg BID PO Last administered on 12/19/16 08: 50; Start 12/15/16 at 21:00 Polyethylene Glycol (miraLAX PACKET) 17 gm DAILY PO Last administered on 08:47; Start 12/17/16 at 07:00 Polyethylene Glycol (miraLAX PACKET) 17 gm 1X ONCE PO Last administered on t 13:34; Start 12/16/16 at 13:30; Stop 12/16/16 at 13:31; Status DC Ondansetron HCl (Zofran) 4 mg PRN Q6HRS PRN IV NAUSEA/VOMITING; Start 12/17/16 at 07:00; Stop 12/18/16 at 06:59; Status DC Fentanyl Citrate (Fentanyl 2ml Vial) 25 mcg PRN Q5MIN PRN IV MILD PAIN; Start 12/17/16 at 07:00; Stop 12/18/16 at 06:59; Status DC Fentanyl Citrate (Fentanyl 2ml Vial) 50 mcg PRN Q5MIN PRN IV MODERATE PAIN; Start 12/17/16 at 07:00; Stop 12/18/16 at 06:59; Status DC Morphine Sulfate 1 mg PRN Q10MIN PRN IV SEVERE PAIN; Start 12/17/16 at 07:00; Stop 12/18/16 at 06:59; Status DC Ringer's Solution 1,000 ml @ 30 mls/hr Q24H IV ; Start 12/17/16 at 07:00; Stop 12/17/16 at 15:23; Status DC Lidocaine HCl (Xylocaine-Mpf 1% Vial) 2 ml PRN 1X PRN ID IV START; Start at 07:00; Stop 12/18/16 at 06:59; Status DC Hydromorphone HCl (Dilaudid) 0.5 mg PRN Q10MIN PRN IV SEV PAIN, Second choice; Start 12/17/16 at 07:00; Stop 12/18/16 at 06:59; Status DC Prochlorperazine Edisylate (Compazine) 5 mg PACU PRN PRN IV NAUSEA, MRX1; Start 12/17/16 at 07:00; Stop 12/18/16 at 06:59; Status DC Temazepam (Restoril) 7.5 mg PRN QHS PRN PO INSOMNIA Last administered on t 20:27; Start 12/16/16 at 14:30 Lidocaine/Sodium Bicarbonate (Buffered Lidocaine 1%) 20 ml STK-MED ONCE IJ ; Start 12/17/16 at 13:12; Stop 12/17/16 at 13:13; Status DC Midazolam HCl (Versed) 2 mg STK-MED ONCE .ROUTE ; Start 12/17/16 at 13:47; Stop 12/17/16 at 13:48; Status DC Lidocaine/Sodium Bicarbonate (Buffered Lidocaine 1%) 3 ml 1X ONCE IJ Last administered on 12/17/16 14:00; Start 12/17/16 at 14:30; Stop 12/17/16 at 14:31 ; Status DC Midazolam HCl (Versed) 1 mg 1X ONCE IV Last administered on 12/17/16 14:00; Start 12/17/16 at 14:30; Stop 12/17/16 at 14:31; Status DC Fentanyl Citrate (Fentanyl 2ml Vial) 50 mcg 1X ONCE IV Last administered on 14:26; Start 12/17/16 at 14:30; Stop 12/17/16 at 14:31; Status DC Nitroglycerin/ Dextrose 250 ml @ 0 mls/hr CONT PRN IV SEE I/O RECORD Last administered on 12/17/16 19:53; Start 12/17/16 at 19:45; Stop 12/18/16 at 11:37 ; Status DC Isosorbide Mononitrate (Imdur) 30 mg DAILY PO Last administered on 12/19/16 08 :49; Start 12/18/16 at 12:00 Oxymetazoline HCl (Afrin) 2 spray BID NS Last administered on 12/19/16 08:49; Start 12/18/16 at 21:00; Stop 12/21/16 at 20:59 Sodium Chloride (Saline Mist Nasal) 1 evon PRN Q1HR PRN NS NASAL CONGESTION Last administered on 12/18/16 20:26; Start 12/18/16 at 20:00 Active Scripts Active Reported Gabapentin 400 Mg Capsule 400 Mg PO TID PRN Tresiba Flextouch U-100 (Insulin Degludec) 100 Unit/1 Ml Insuln.pen 40 Unit SQ HS Tresiba Flextouch U-100 (Insulin Degludec) 100 Unit/1 Ml Insuln.pen 36 Unit SQ DAILY Cetirizine Hcl 10 Mg Tablet 1 Tab PO DAILY Tamsulosin Hcl 0.4 Mg Cap.er.24h 2 Cap PO DAILY Triamterene-Hctz 37.5-25 Mg Cp (Triamterene/Hydrochlorothiazid) 1 Each Capsule 1 Cap PO DAILY Atorvastatin Calcium 20 Mg Tablet 1 Tab PO DAILY Actos (Pioglitazone Hcl) 30 Mg Tablet 1 Tab PO DAILY Montelukast Sodium Tablet (Montelukast Sodium) 10 Mg Tablet 1 Tab PO DAILY Losartan Potassium 100 Mg Tablet 100 Mg PO DAILY Vitals/I & O Vital Sign - Last 24 Hours 12/18/16 12/18/16 12/18/16 12/18/16 11:00 13:09 15:00 18:57 Temp 97.9 97.5 97.2 97.9 97.5 97.2 Pulse 69 80 73 80 Resp 18 18 16 B/P (MAP) 110/66 (81) 121/74 129/71 (90) 119/69 (86) Pulse Ox 94 97 95 O2 Delivery Nasal Cannula Nasal Cannula Room Air O2 Flow Rate 3.0 3.0 12/18/16 12/18/16 12/18/16 12/19/16 19:20 20:28 22:02 03:17 Temp 98.5 98.4 98.5 98.4 Pulse 80 80 75 Resp 16 20 B/P (MAP) 119/69 122/65 (84) 134/75 (94) Pulse Ox 97 96 O2 Delivery Nasal Cannula Nasal Cannula Nasal Cannula O2 Flow Rate 3.0 3.0 3.0 12/19/16 12/19/16 12/19/16 07:00 08:49 08:50 Temp 97.7 97.7 Pulse 70 70 70 Resp 17 B/P (MAP) 136/71 (92) 136/71 136/71 Pulse Ox 96 O2 Delivery Nasal Cannula O2 Flow Rate 3.0 ARCHIE MILTON MD Dec 19, 2016 09:40
--- NOTE | 2016-12-19 10:51 | PDOC ---
PROGRESS NOTES Chief Complaint Chief Complaint Chest pain ASSESSMENT AND PLAN: 1. NSTEMI - CABG candidate (vs PCI, pending pathology of lung bx). cont 2ary prevention meds 2. Lung masses: with mediatinal LA and live mass, highly suspicious for malignancy. bx done 12/17, awaiting results 3. Vtach: episode on 12/17; no recurrence. cardiology following 4. HTN: well controlled on current regimen 5. DM2: on levemir plus ISS; fair control 6. MAREN on CKD2: acute resolved, back to baseline creat. monitor 7. Morbid obesity: nutrition consult History of Present Illness History of Present Illness no c/o. fairly good night Vitals Vitals Vital Signs Date Time Temp Pulse Resp B/P (MAP) Pulse Ox O2 Delivery O2 Flow Rate FiO2 12/19/16 09:39 18 96 Nasal Cannula 3.0 12/19/16 08:50 70 136/71 12/19/16 07:00 97.7 97.7 Physical Exam General: Alert, Oriented X3 Heart: Normal S1, Normal S2 Lungs: Clear Abdomen: Soft, No tenderness Extremities: No edema Skin: No significant lesion Labs LABS Laboratory Tests Test 12/18/16 11:02 12/18/16 17:20 12/18/16 20:34 12/19/16 07:38 Glucose (Fingerstick) 211 mg/dL (70-99) 191 mg/dL (70-99) 252 mg/dL (70-99) 186 mg/dL (70-99) ALONSO HOU MD Dec 19, 2016 10:51
[2016-12-19 11:00] VITALS: BP 115/64
--- NOTE | 2016-12-19 11:50 | PATHOLOGY ---
PATHOLOGY REPORT * * * * * * * * FINAL DIAGNOSIS: Chest wall mass, right, core needle biopsy: - Moderately differentiated adenocarcinoma. (Please see comment) (SKM:albert; 12/18/2016) COMMENT: The tumor cells are negative for CK5/6 and p40. The tumor cells are positive for cytokeratin 7, Napsin, and TTF-1. This patient's history of a 3 cm left lower lobe lung nodule is noted. The findings in this case are consistent with a metastatic moderately differentiated adenocarcinoma from the lung. Dr. Jerry Jurado has reviewed the routine stained slides on this case and he agrees with the diagnosis of malignancy. The preliminary findings in this case were discussed with Dr. Mai on 12/19/2016. (SKM:albert; 12/18/2016) PROCEDURE REPORT (Order Date: 12/24/2016 00:00) COMMENT: The slides were marked for testing, and sent at the request of Dr. Jesús Mai. EGFR testing was performed by [facility] on block A1. Please see SCANNED IMAGES under LABORATORY for separate report of results. (JPM:nuvia; d/t: 12/29/2016) PATHOLOGIST: Doc Graves M.D. REPORT ELECTRONICALLY SIGNED BY: Doc Graves M.D. DATE/TIME: 12/29/2016 12:42 PROCEDURE REPORT (Order Date: 12/24/2016 00:00) COMMENT: The slides were marked for testing, and sent at the request of Dr. Jesús Mai. BRAF testing was performed by [facility] on block A1. Please see SCANNED IMAGES under LABORATORY for separate report of results. (JPM:nuvia; d/t: 12/29/2016) PATHOLOGIST: Doc Graves M.D. REPORT ELECTRONICALLY SIGNED BY: Doc Graves M.D. DATE/TIME: 12/29/2016 12:43 PROCEDURE REPORT (Order Date: 12/24/2016 00:00) COMMENT: The slides were marked for testing, and sent at the request of Dr. Jesús Mai. ALK testing was performed by [facility] on block A1. Please see SCANNED IMAGES under LABORATORY for separate report of results. (JPM:nuvia; d/t: 12/29/2016) PATHOLOGIST: Doc Graves M.D. REPORT ELECTRONICALLY SIGNED BY: Doc Graves M.D. DATE/TIME: 12/29/2016 12:43 PROCEDURE REPORT (Order Date: 12/24/2016 00:00) COMMENT: The slides were marked for testing, and sent at the request of Dr. Jesús Mai. ROS1 testing was performed by [facility] on block A1. Please see SCANNED IMAGES under LABORATORY for separate report of results. (JPM:amdory; d/t: 12/29/2016) PATHOLOGIST: Doc Graves M.D. REPORT ELECTRONICALLY SIGNED BY: Doc Graves M.D. DATE/TIME: 12/29/2016 12:44 PROCEDURE REPORT (Order Date: 12/24/2016 00:00) COMMENT: The slides were marked for testing, and sent at the request of Dr. Jesús Mai. PD-L1 testing was performed by [facility] on block A1. Please see SCANNED IMAGES under LABORATORY for separate report of results. (JPM:amdory; d/t: 12/29/2016) PATHOLOGIST: Doc Graves M.D. REPORT ELECTRONICALLY SIGNED BY: Doc Graves M.D. DATE/TIME: 12/29/2016 16:29 REPORT ELECTRONICALLY SIGNED BY: Pati Campos M.D. DATE/TIME: 12/19/2016 11:49 * * * * * * * * GROSS PATHOLOGY: Received in formalin labeled "Allan Lopez, chest wall mass BX," are 6 distinct needle cores of khanna soft tissue ranging from 0.2 to 1.3 cm in length, which are submitted entirely in cassette A1 through A3. (TSD; 12/17/2016) INITIAL CPT CODE(S): A; 41149, 11862, 02328, 08241, 37427, 69145, 63708(2), 59963, 01083, 49441(2), 28556, 08642 Professional services performed by [facility] at [address] [address] Technical services performed by [facility] at [address] [place] [address], [address], [place] [address]. SPECIMEN(S) RECEIVED: A.Right chest wall mass biopsy CLINICAL HISTORY: Right chest wall mass PATIENT: ALLAN LOPEZ /AGE: 7 1950 (Age: 66) PATIENT #: [id number] ALT CASE #: SPECIMEN COLLECTION DATE: 12/17/2016 SPECIMEN RECEIVED DATE: 12/17/2016 [facility] - [id number] [address] - PHONE: [phone] * * * END OF REPORT * * *
--- NOTE | 2016-12-19 12:15 | PDOC ---
PROGRESS NOTES Subjective Subjective c/c - f/u of NSCLC ROS - has rt sided CP Objective Objective Vital Signs Date Time Temp Pulse Resp B/P (MAP) Pulse Ox O2 Delivery O2 Flow Rate FiO2 12/19/16 09:39 18 96 Nasal Cannula 3.0 12/19/16 08:50 70 136/71 12/19/16 07:00 97.7 97.7 Physical Exam Heart: Normal S1, Normal S2 General: Alert, Oriented X3 Lungs: Clear to auscultation Psych/Mental Status: Mental status NL Assessment Assessment Problems Medical Problems: (1) Chest pain Status: Acute (2) Non-STEMI (non-ST elevated myocardial infarction) Status: Acute IMPRESSION AND PLAN: 1. NSCLC (verbal report) - Stage IV - Left lower lobe lung mass with associated right-sided third rib bone lesion and evidence of mediastinal lymphadenopathy and a liver mass is clinically concerning consistent with Stage IV lung cancer with metastatic disease. Appreciate cardiothoracic evaluation - s/p biopsy right rib lesion 12/17/16 ( I d/w pathologist). I agree to proceed with a PET scan as outpatient for completion of staging workup. I will also order MRI brain and bone scan for staging. f/u with me upon discharge for chemotherapy. I will plan biomarker testing depending on histology. 2. Chest pain. Appreciate Cardiology and cardiothoracic evaluation. CABG was planned, but it was canceled because of the findings on the CT chest concerning for malignancy. Comment Review of Relevant I have reviewed the following items maxine (where applicable) has been applied. Labs Laboratory Tests Test 12/17/16 17:37 12/17/16 21:09 12/18/16 07:50 12/18/16 11:02 Glucose (Fingerstick) 198 mg/dL (70-99) 194 mg/dL (70-99) 182 mg/dL (70-99) 211 mg/dL (70-99) Test 12/18/16 17:20 12/18/16 20:34 12/19/16 07:38 Glucose (Fingerstick) 191 mg/dL (70-99) 252 mg/dL (70-99) 186 mg/dL (70-99) Laboratory Tests Test 12/18/16 17:20 12/18/16 20:34 12/19/16 07:38 Glucose (Fingerstick) 191 mg/dL (70-99) 252 mg/dL (70-99) 186 mg/dL (70-99) Medications Current Medications Nitroglycerin (Nitro-Bid Oint) 1 inch 1X ONCE TP Last administered on 18:38; Start 12/13/16 at 18:30; Stop 12/13/16 at 18:31; Status DC Aspirin (Children'S Aspirin) 324 mg 1X ONCE PO ; Start 12/13/16 at 18:30; Stop 12/13/16 at 18:31; Status DC Enoxaparin Sodium (Lovenox Per Pharmacy Treatment Dosing) 1 each PRN DAILY PRN MC SEE COMMENTS; Start 12/13/16 at 19:15 Enoxaparin Sodium (Lovenox 100mg Syringe) 100 mg 1X ONCE SQ Last administered on 12/13/16 19:50; Start 12/13/16 at 19:30; Stop 12/13/16 at 19:31; Status DC Enoxaparin Sodium (Lovenox 80mg Syringe) 80 mg 1X ONCE SQ Last administered on 12/13/16 19:50; Start 12/13/16 at 19:30; Stop 12/13/16 at 19:31; Status DC Ondansetron HCl (Zofran) 4 mg PRN Q8HRS PRN IV NAUSEA/VOMITING; Start 12/13/16 at 19:45; Stop 12/14/16 at 11:34; Status DC Morphine Sulfate 2 mg PRN Q2HR PRN IV PAIN; Start 12/13/16 at 19:45; Stop 12/14 at 11:34; Status DC Acetaminophen (Tylenol) 650 mg PRN Q4HRS PRN PO FEVER Last administered on 12/14 06:36; Start 12/13/16 at 19:45; Stop 12/14/16 at 11:34; Status DC Nitroglycerin (Nitrostat) 0.4 mg PRN Q5MIN PRN SL CHEST PAIN; Start 12/13/16 at 19:45; Stop 12/14/16 at 19:44; Status DC Insulin Aspart (NovoLOG) 0-9 UNITS QIDACHS SQ Last administered on 12/19/16 09 :04; Start 12/13/16 at 21:30 Dextrose (Dextrose 50%-Water Syringe) 12.5 gm PRN Q15MIN PRN IV SEE COMMENTS; Start 12/13/16 at 20:15 Morphine Sulfate (Morphine Ir) 15 mg PRN Q4HRS PRN PO PAIN Last administered on 12/19/16 09:39; Start 12/13/16 at 20:15 Enoxaparin Sodium (Lovenox 100mg Syringe) 180 mg Q12HR SQ Last administered on 12/19/16 08:48; Start 12/14/16 at 09:00 Atorvastatin Calcium (Lipitor) 20 mg QHS PO Last administered on 12/18/16 20: 28; Start 12/14/16 at 21:00 Cetirizine HCl (ZyrTEC) 10 mg DAILY PO Last administered on 12/19/16 08:48; Start 12/14/16 at 12:00 Montelukast Sodium (Singulair) 10 mg DAILY PO Last administered on 12/19/16 08 :48; Start 12/14/16 at 12:00 Tamsulosin HCl (Flomax) 0.8 mg DAILY PO Last administered on 12/19/16 08:49; Start 12/14/16 at 12:00 Losartan Potassium (Cozaar) 100 mg DAILY PO Last administered on 12/15/16 11: 09; Start 12/14/16 at 12:00; Stop 12/15/16 at 16:19; Status DC Pioglitazone HCl (Actos) 30 mg DAILY PO Last administered on 12/19/16 08:48; Start 12/14/16 at 12:00 Triamterene/HCTZ (Maxzide 37.5/ 25mg) 1 tab DAILY PO Last administered on 08:50; Start 12/14/16 at 12:00 Acetaminophen (Tylenol) 650 mg PRN Q6HRS PRN PO FEVER Last administered on 12/18 20:33; Start 12/14/16 at 11:30 Ondansetron HCl (Zofran) 4 mg PRN Q6HRS PRN IV NAUSEA/VOMITING Last administered on 12/17/16 20:22; Start 12/14/16 at 11:30 Morphine Sulfate 2 mg PRN Q2HR PRN IV MODERATE TO SEVERE PAIN; Start 12/14/16 at 11:45 Tramadol HCl (Ultram) 50 mg PRN Q6HRS PRN PO MILD TO MODERATE PAIN Last administered on 12/17/16 07:32; Start 12/14/16 at 11:30 Hydralazine HCl (Apresoline) 10 mg PRN Q4HRS PRN IVP ELEVATED BP, SEE COMMENTS ; Start 12/14/16 at 11:30 Docusate Sodium (Colace) 100 mg PRN DAILY PRN PO CONSTIPATION; Start 12/14/16 at 11:30 Senna/Docusate Sodium (Senna Plus) 1 tab BID PO Last administered on 12/19/16 08:48; Start 12/14/16 at 12:00 Docusate Sodium (Colace) 100 mg BID PO Last administered on 12/19/16 08:49; Start 12/14/16 at 12:00 Magnesium Hydroxide (Milk Of Magnesia) 2,400 mg PRN Q12HR PRN PO CONSTIPATION; Start 12/14/16 at 11:30 Insulin Detemir (Levemir) 20 units QHS SQ Last administered on 12/18/16 20:43 ; Start 12/14/16 at 21:00 Heparin Sodium/ Sodium Chloride 1,000 ml @ As Directed STK-MED ONCE .ROUTE ; Start 12/15/16 at 07:09; Stop 12/15/16 at 07:10; Status DC Lidocaine HCl 20 ml STK-MED ONCE .ROUTE ; Start 12/15/16 at 07:10; Stop at 07:11; Status DC Iohexol (Omnipaque 300 Mg/ml) 100 ml STK-MED ONCE .ROUTE ; Start 12/15/16 at 07: 14; Stop 12/15/16 at 07:15; Status DC Fentanyl Citrate (Fentanyl 2ml Vial) 100 mcg STK-MED ONCE .ROUTE ; Start at 10:07; Stop 12/15/16 at 10:08; Status DC Midazolam HCl (Versed) 2 mg STK-MED ONCE .ROUTE ; Start 12/15/16 at 10:08; Stop 12/15/16 at 10:09; Status DC Verapamil HCl (Verapamil) 5 mg STK-MED ONCE .ROUTE ; Start 12/15/16 at 10:08; Stop 12/15/16 at 10:09; Status DC Heparin Sodium (Porcine) (Heparin Sodium) 10,000 unit STK-MED ONCE .ROUTE ; Start 12/15/16 at 10:08; Stop 12/15/16 at 10:09; Status DC Nitroglycerin (Nitroglycerin) 200 mcg STK-MED ONCE .ROUTE ; Start 12/15/16 at 10 :08; Stop 12/15/16 at 10:09; Status DC Nitroglycerin (Nitroglycerin) 200 mcg 1X ONCE IART Last administered on 10:43; Start 12/15/16 at 10:45; Stop 12/15/16 at 10:46; Status DC Verapamil HCl (Verapamil) 2.5 mg 1X ONCE IART Last administered on 12/15/16 10:43; Start 12/15/16 at 10:45; Stop 12/15/16 at 10:46; Status DC Heparin Sodium (Porcine) (Heparin Sodium) 2,500 unit 1X ONCE IART Last administered on 12/15/16 10:45; Start 12/15/16 at 10:45; Stop 12/15/16 at 10:46 ; Status DC Heparin Sodium/ Sodium Chloride 1,000 unit 1X ONCE IART Last administered on 10:42; Start 12/15/16 at 10:45; Stop 12/15/16 at 10:46; Status DC Midazolam HCl (Versed) 2 mg 1X ONCE IV Last administered on 12/15/16 10:44; Start 12/15/16 at 10:45; Stop 12/15/16 at 10:46; Status DC Fentanyl Citrate (Fentanyl 2ml Vial) 50 mcg 1X ONCE IV Last administered on 10:44; Start 12/15/16 at 10:45; Stop 12/15/16 at 10:46; Status DC Iohexol (Omnipaque 300 Mg/ml) 100 ml 1X ONCE IART Last administered on 10:42; Start 12/15/16 at 10:45; Stop 12/15/16 at 10:46; Status DC Lidocaine HCl 2 ml 1X ONCE IJ Last administered on 12/15/16 10:42; Start at 10:45; Stop 12/15/16 at 10:46; Status DC Sodium Chloride 1,000 ml @ 60 mls/hr [id number] IV Last administered on 03:31; Start 12/15/16 at 10:51; Stop 12/16/16 at 20:04; Status DC Polyethylene Glycol (miraLAX PACKET) 17 gm DAILY PO ; Start 12/16/16 at 16:30; Stop 12/16/16 at 16:30; Status DC Metoprolol Tartrate (Lopressor) 25 mg BID PO Last administered on 12/19/16 08: 50; Start 12/15/16 at 21:00 Polyethylene Glycol (miraLAX PACKET) 17 gm DAILY PO Last administered on 08:47; Start 12/17/16 at 07:00 Polyethylene Glycol (miraLAX PACKET) 17 gm 1X ONCE PO Last administered on 13:34; Start 12/16/16 at 13:30; Stop 12/16/16 at 13:31; Status DC Ondansetron HCl (Zofran) 4 mg PRN Q6HRS PRN IV NAUSEA/VOMITING; Start 12/17/16 at 07:00; Stop 12/18/16 at 06:59; Status DC Fentanyl Citrate (Fentanyl 2ml Vial) 25 mcg PRN Q5MIN PRN IV MILD PAIN; Start 12/17/16 at 07:00; Stop 12/18/16 at 06:59; Status DC Fentanyl Citrate (Fentanyl 2ml Vial) 50 mcg PRN Q5MIN PRN IV MODERATE PAIN; Start 12/17/16 at 07:00; Stop 12/18/16 at 06:59; Status DC Morphine Sulfate 1 mg PRN Q10MIN PRN IV SEVERE PAIN; Start 12/17/16 at 07:00; Stop 12/18/16 at 06:59; Status DC Ringer's Solution 1,000 ml @ 30 mls/hr Q24H IV ; Start 12/17/16 at 07:00; Stop 12/17/16 at 15:23; Status DC Lidocaine HCl (Xylocaine-Mpf 1% Vial) 2 ml PRN 1X PRN ID IV START; Start at 07:00; Stop 12/18/16 at 06:59; Status DC Hydromorphone HCl (Dilaudid) 0.5 mg PRN Q10MIN PRN IV SEV PAIN, Second choice; Start 12/17/16 at 07:00; Stop 12/18/16 at 06:59; Status DC Prochlorperazine Edisylate (Compazine) 5 mg PACU PRN PRN IV NAUSEA, MRX1; Start 12/17/16 at 07:00; Stop 12/18/16 at 06:59; Status DC Temazepam (Restoril) 7.5 mg PRN QHS PRN PO INSOMNIA Last administered on 20:27; Start 12/16/16 at 14:30 Lidocaine/Sodium Bicarbonate (Buffered Lidocaine 1%) 20 ml STK-MED ONCE IJ ; Start 12/17/16 at 13:12; Stop 12/17/16 at 13:13; Status DC Midazolam HCl (Versed) 2 mg STK-MED ONCE .ROUTE ; Start 12/17/16 at 13:47; Stop 12/17/16 at 13:48; Status DC Lidocaine/Sodium Bicarbonate (Buffered Lidocaine 1%) 3 ml 1X ONCE IJ Last administered on 12/17/16 14:00; Start 12/17/16 at 14:30; Stop 12/17/16 at 14:31 ; Status DC Midazolam HCl (Versed) 1 mg 1X ONCE IV Last administered on 12/17/16 14:00; Start 12/17/16 at 14:30; Stop 12/17/16 at 14:31; Status DC Fentanyl Citrate (Fentanyl 2ml Vial) 50 mcg 1X ONCE IV Last administered on 14:26; Start 12/17/16 at 14:30; Stop 12/17/16 at 14:31; Status DC Nitroglycerin/ Dextrose 250 ml @ 0 mls/hr CONT PRN IV SEE I/O RECORD Last administered on 12/17/16 19:53; Start 12/17/16 at 19:45; Stop 12/18/16 at 11:37 ; Status DC Isosorbide Mononitrate (Imdur) 30 mg DAILY PO Last administered on 12/19/16 08 :49; Start 12/18/16 at 12:00 Oxymetazoline HCl (Afrin) 2 spray BID NS Last administered on 12/19/16 08:49; Start 12/18/16 at 21:00; Stop 12/21/16 at 20:59 Sodium Chloride (Saline Mist Nasal) 1 evon PRN Q1HR PRN NS NASAL CONGESTION Last administered on 9/28/17at 20:26; Start 12/18/16 at 20:00 Active Scripts Active Reported Gabapentin 400 Mg Capsule 400 Mg PO TID PRN Tresiba Flextouch U-100 (Insulin Degludec) 100 Unit/1 Ml Insuln.pen 40 Unit SQ HS Tresiba Flextouch U-100 (Insulin Degludec) 100 Unit/1 Ml Insuln.pen 36 Unit SQ DAILY Cetirizine Hcl 10 Mg Tablet 1 Tab PO DAILY Tamsulosin Hcl 0.4 Mg Cap.er.24h 2 Cap PO DAILY Triamterene-Hctz 37.5-25 Mg Cp (Triamterene/Hydrochlorothiazid) 1 Each Capsule 1 Cap PO DAILY Atorvastatin Calcium 20 Mg Tablet 1 Tab PO DAILY Actos (Pioglitazone Hcl) 30 Mg Tablet 1 Tab PO DAILY Montelukast Sodium Tablet (Montelukast Sodium) 10 Mg Tablet 1 Tab PO DAILY Losartan Potassium 100 Mg Tablet 100 Mg PO DAILY Vitals/I & O Vital Sign - Last 24 Hours 12/18/16 12/18/16 12/18/16 12/18/16 13:09 15:00 18:57 19:20 Temp 97.5 97.2 97.5 97.2 Pulse 80 73 80 Resp 18 16 B/P (MAP) 121/74 129/71 (90) 119/69 (86) Pulse Ox 97 95 O2 Delivery Nasal Cannula Room Air Nasal Cannula O2 Flow Rate 3.0 3.0 12/18/16 12/18/16 12/19/16 12/19/16 20:28 22:02 03:17 07:00 Temp 98.5 98.4 97.7 98.5 98.4 97.7 Pulse 80 80 75 70 Resp 16 20 17 B/P (MAP) 119/69 122/65 (84) 134/75 (94) 136/71 (92) Pulse Ox 97 96 96 O2 Delivery Nasal Cannula Nasal Cannula Nasal Cannula O2 Flow Rate 3.0 3.0 3.0 12/19/16 12/19/16 12/19/16 08:49 08:50 09:39 Pulse 70 70 Resp 18 B/P (MAP) 136/71 136/71 Pulse Ox 96 O2 Delivery Nasal Cannula O2 Flow Rate 3.0 ANIVAL PLASCENCIA MD Dec 19, 2016 12:14
--- NOTE | 2016-12-19 12:27 | PDOC ---
Subjective: Subjective: Third day of no stools, now agreeable to increasing Miralax. No path results when I saw him. Objective: Objective: PATHOLOGY REPORT * * * * * * * * FINAL DIAGNOSIS: Chest wall mass, right, core needle biopsy: - Moderately differentiated adenocarcinoma. COMMENT: The tumor cells are negative for CK5/6 and p40. The tumor cells are positive for cytokeratin 7, Napsin, and TTF-1. This patient's history of a 3 cm left lower lobe lung nodule is noted. The findings in this case are consistent with a metastatic moderately differentiated adenocarcinoma from the lung. Vital Signs: Vital Signs Date Time Temp Pulse Resp B/P (MAP) Pulse Ox O2 Delivery O2 Flow Rate FiO2 12/19/16 09:39 18 96 Nasal Cannula 3.0 12/19/16 08:50 70 136/71 12/19/16 07:00 97.7 97.7 Labs: Laboratory Tests Test 12/18/16 17:20 12/18/16 20:34 12/19/16 07:38 12/19/16 11:56 Glucose (Fingerstick) 191 mg/dL 252 mg/dL 186 mg/dL 210 mg/dL PE: GEN: NAD, up to chair LUNGS: diminished HEART: RRR ABD: obese, soft, non-tender NEURO/PSYCH: A & O 3 A/P: CAD Abnormal CT - chest/lung/liver masses w/ adenopathy -s/p lung biopsy 12/17 - adenocarcinoma Irregular bowel habits/constipation -on Miralax QD -colonoscopy ~8 years ago -- Increase Miralax to BID. FRANSISCO GERMAIN Dec 19, 2016 12:27
--- NOTE | 2016-12-19 14:39 | PDOC ---
CARDIO Progress Notes Date and Time Date of Service 12/19/16 Time of Evaluation 1110 Subjective Subjective: No shortness of breath, No Palpitations, Other (had episode of mild chest pain when getting out of bed early this morning) Vitals Vitals Vital Signs Date Time Temp Pulse Resp B/P (MAP) Pulse Ox O2 Delivery O2 Flow Rate FiO2 12/19/16 11:00 97.8 68 18 115/64 (81) 95 Nasal Cannula 3.0 97.8 Weight Weight [ ] Laboratory Labs Laboratory Tests Test 12/18/16 17:20 12/18/16 20:34 12/19/16 07:38 12/19/16 11:56 Glucose (Fingerstick) 191 mg/dL (70-99) 252 mg/dL (70-99) 186 mg/dL (70-99) 210 mg/dL (70-99) Physical Exam HEENT: Neck Supple W Full Motion Chest: Symmetric LUNGS: Clear to Auscultation, Other (diminished bases) Heart: S1S2, RRR, no gallops, no murmurs Abdomen: Soft N/T, Other (obese ) Extremities: No Calf Tenderness Neurology: alert, oriented, follow commands Assessment Assessment 1. 3V CAD; 2. Stage IV lung CA with metastatic disease (new diagnosis); outpatient PET scan planned. 3. Hypertension: controlled 4. Hyperlipidemia: statin therapy 5. Diabetes mellitus type 2: Treated per IM Recommendations Given pathology report, patient not likely surgical candidate. If CABG not an option, will consider for PCI/stents to LAD and LCX. Will need to d/w Dr. Mai Continue secondary prevention measures. Add ACEi and ASA if no plan for surgery. AM labs Supportive care FRANCISCO JAVIER LAWRENCE APRN Dec 19, 2016 14:39
[2016-12-19 15:00] VITALS: BP 150/85
--- NOTE | 2016-12-19 18:26 | RAD ---
INDICATION: Weakness. Newly diagnosed lung cancer. TECHNIQUE: Sagittal T1, axial T2, and diffusion imaging with ADC map was performed. There is poor [id number] ratio, standard coils could not be utilized. Patient declined additional imaging. The study is therefore limited. FINDINGS: There is an area of restricted diffusion with ADC correlate in the left cerebellar hemisphere measuring 6 mm. Findings are compatible with small acute infarct. There is prominence of the ventricles and sulci, within normal limits for age. There is no definite vasogenic or cytotoxic edema apparent. Intracranial flow voids are preserved. Cervicomedullary junction is unremarkable. Clival marrow signal appears preserved. The paranasal sinuses and mastoid air cells are clear. Report was called to the patient's nurse, Jesse. Infarct and limitations were discussed. IMPRESSION: 1. Small acute left cerebellar acute infarct. 2. Brain parenchymal volume loss. 3. Limited study, standard sequences could not be performed, standard coils could not be utilized, and no postcontrast imaging is provided. Electronically signed by: Kody Nova MD (12/19/2016 6:23 PM) [facility]
[2016-12-19] MEDS: LORazepam 0.5 MG TABLET PO PRN (19:12)
[2016-12-19 19:32] VITALS: BP 105/69
[2016-12-19] MEDS: ATORVASTATIN CALCIUM 20 MG TABLET PO SCH (21:15)
[2016-12-19] MEDS: INSULIN DETEMIR 300 UNITS/3 ML INSULN.PEN. SQ SCH (21:28)
[2016-12-19 23:20] VITALS: BP 120/64
[2016-12-20] MEDS: MORPHINE IR 15 MG TABLET PO PRN ×3 (01:04→18:28)
[2016-12-20 06:10] LABS: CALCIUM 8.3 mg/dL (8.5-10.1); CREATININE 1.1 mg/dL (0.7-1.3); GFR 66.6; MAGNESIUM 1.9 mg/dL (1.8-2.4); POTASSIUM 3.4 mmol/L (3.5-5.1)
[2016-12-20 07:00] VITALS: BP 139/75
--- NOTE | 2016-12-20 08:38 | PDOC ---
CARDIOLOGY PROGRESS NOTE SUBJECTIVE: No new chest pain. no new dyspnea at rest. OBJECTIVE: Vital SIgns: Vital Signs Date Time Temp Pulse Resp B/P (MAP) Pulse Ox O2 Delivery O2 Flow Rate FiO2 12/20/16 03:00 65 12/20/16 02:09 20 93 Nasal Cannula 3.0 12/19/16 23:20 98.1 120/64 (82) 98.1 Objective: GEN.: No apparent distress. Alert and oriented. HEENT: Head is normocephalic, atraumatic NECK: Supple. LUNGS: Clear to auscultation. HEART: RRR, S1, S2 present. Peripheral pulses intact ABDOMEN: Soft, nontender. Positive bowel sounds. EXTREMITIES: Without any cyanosis. NEUROLOGIC: Normal speech, normal tone PSYCHIATRIC: Normal affect, normal mood. SKIN: No ulcerations CURRENT MEDICATIONS: statin, metoprolol imdur hctz enoxaparin ASSESSMENT: 1. NSTEMI 2. 3V CAD 3. HTN 4. DLP 5. New dx of stage IV cancer Problems: PLAN: 1. Discussed briefly with Dr. Mai, prognosis possibly 12-18 months depending on further w/u. 2. Will plan for PCI of the LAD, +/- OM on Thu or . Will d/w with Dr. Culver. 3. Continue present meds. Lovenox presumably for NSTEMI. Can stop tomorrow if ok with other services if there is no other indication. NATHAN SUAREZ MD Dec 20, 2016 08:38
[2016-12-20] MEDS: POLYETHYLENE GLYCOL 3350 17 GM PACKET. PO SCH ×2 (09:26→21:09)
[2016-12-20] MEDS: LORazepam 0.5 MG TABLET PO PRN ×2 (09:26→18:28)
[2016-12-20] MEDS: PIOGLITAZONE 15 MG TABLET. PO SCH (09:27)
[2016-12-20] MEDS: DOCUSATE SODIUM 100 MG CAPSULE. PO SCH ×2 (09:27→21:10)
[2016-12-20] MEDS: SENNOSIDES/DOCUSATE 8.6/50MG TABLET. PO SCH ×2 (09:27→21:10)
[2016-12-20] MEDS: TRIAMTERENE/HCTZ 37.5/25MG TABLET. PO SCH (09:27)
[2016-12-20] MEDS: MONTELUKAST SODIUM 10 MG TABLET. PO SCH (09:27)
[2016-12-20] MEDS: TAMSULOSIN 0.4 MG CAP.ER.24H. PO SCH (09:27)
[2016-12-20] MEDS: CETIRIZINE HCL 10 MG TABLET. PO SCH (09:27)
[2016-12-20] MEDS: METOPROLOL TART IMMED RELEASE 25 MG TABLET. PO SCH ×2 (09:28→21:11)
[2016-12-20] MEDS: OXYMETAZOLINE 0.05% NASAL SPRAY 30ML BOTTLE. NS SCH ×2 (09:29→21:09)
[2016-12-20] MEDS: ISOSORBIDE MONONITRATE ER 30 MG TAB.ER.24H PO SCH (09:29)
[2016-12-20] MEDS: INSULIN ASPART 300 UNITS/3 ML INSULN.PEN SQ SCH ×4 (09:37→21:24)
--- NOTE | 2016-12-20 09:55 | RAD ---
Call body bone scan. History: Left lower lobe lung mass abnormal CT Bone scan was done using 25 mCi technetium 99 MDP injected intravenously. There is a focus of increased activity in the anterior right second rib corresponds to a destructive lesion noted on the CT study. There is activity at the costovertebral junction on the right at approximately T5. There is mild sclerosis of the transverse process of T5 on the CT with mild soft tissue swelling which would suggest a metastatic lesion. There is activity in the upper lumbar spine and on the right at T12. There are mild lytic changes the L1 vertebra on the CT images again suggesting metastatic disease.. There is a small focus of activity in the sacrum. There is mild activity in the lateral iliac bone on the left. Impression: 1. Abnormal bone scan consistent with metastatic disease.
[2016-12-20 11:00] VITALS: BP 134/78
--- NOTE | 2016-12-20 11:37 | PDOC ---
PULMONARY PROGRESS NOTES Subjective PT WITH NO INCREASE PAIN Vitals Vital Signs Date Time Temp Pulse Resp B/P (MAP) Pulse Ox O2 Delivery O2 Flow Rate FiO2 12/20/16 10:30 Nasal Cannula 3.0 12/20/16 09:29 81 139/75 12/20/16 07:00 97.6 24 94 97.6 ROS: No Nausea, No Abdominal Pain, No Increase Cough General: Alert Lungs: Clear Cardiovascular: S1, S2 Abdomen: Soft, Other (obese) Neuro Exam: Alert Extremities: No Edema Skin: Warm Labs Laboratory Tests Test 12/18/16 17:20 12/18/16 20:34 12/19/16 07:38 12/19/16 11:56 Glucose (Fingerstick) 191 mg/dL (70-99) 252 mg/dL (70-99) 186 mg/dL (70-99) 210 mg/dL (70-99) Test 12/19/16 17:10 12/19/16 21:15 12/20/16 04:45 12/20/16 07:52 Glucose (Fingerstick) 258 mg/dL (70-99) 238 mg/dL (70-99) 192 mg/dL (70-99) Sodium Level 137 mmol/L (136-145) Potassium Level 3.4 mmol/L (3.5-5.1) Chloride Level 98 mmol/L (98-107) Carbon Dioxide Level 34 mmol/L (21-32) Anion Gap 5 (6-14) Blood Urea Nitrogen 17 mg/dL (8-26) Creatinine 1.1 mg/dL (0.7-1.3) Estimated GFR (Cockcroft-Gault) 66.6 Glucose Level 176 mg/dL (70-99) Calcium Level 8.3 mg/dL (8.5-10.1) Magnesium Level 1.9 mg/dL (1.8-2.4) Laboratory Tests Test 12/19/16 11:56 12/19/16 17:10 12/19/16 21:15 12/20/16 04:45 Glucose (Fingerstick) 210 mg/dL (70-99) 258 mg/dL (70-99) 238 mg/dL (70-99) Sodium Level 137 mmol/L (136-145) Potassium Level 3.4 mmol/L (3.5-5.1) Chloride Level 98 mmol/L (98-107) Carbon Dioxide Level 34 mmol/L (21-32) Anion Gap 5 (6-14) Blood Urea Nitrogen 17 mg/dL (8-26) Creatinine 1.1 mg/dL (0.7-1.3) Estimated GFR (Cockcroft-Gault) 66.6 Glucose Level 176 mg/dL (70-99) Calcium Level 8.3 mg/dL (8.5-10.1) Magnesium Level 1.9 mg/dL (1.8-2.4) Test 12/20/16 07:52 Glucose (Fingerstick) 192 mg/dL (70-99) Medications Active Scripts Medications Dose Route/Sig Max Daily Dose Days Date Category Gabapentin 400 Mg Capsule 400 Mg PO TID PRN 12/15/16 Reported Tresiba Flextouch U-100 (Insulin Degludec) 100 Unit/1 Ml Insuln.pen 40 Unit SQ HS 12/14/16 Reported Tresiba Flextouch U-100 (Insulin Degludec) 100 Unit/1 Ml Insuln.pen 36 Unit SQ DAILY 12/14/16 Reported Cetirizine Hcl 10 Mg Tablet 1 Tab PO DAILY 12/14/16 Reported Tamsulosin Hcl 0.4 Mg Cap.er.24h 2 Cap PO DAILY 12/14/16 Reported Triamterene-Hctz 37.5-25 Mg Cp (Triamterene/Hydrochlorothiazid) 1 Each Capsule 1 Cap PO DAILY 12/14/16 Reported Atorvastatin Calcium 20 Mg Tablet 1 Tab PO DAILY 12/14/16 Reported Actos (Pioglitazone Hcl) 30 Mg Tablet 1 Tab PO DAILY 12/14/16 Reported Montelukast Sodium Tablet (Montelukast Sodium) 10 Mg Tablet 1 Tab PO DAILY 12/14/16 Reported Losartan Potassium 100 Mg Tablet 100 Mg PO DAILY 12/14/16 Reported Impression . 1. Abnormal CT of the chest revealing several findings including a suspicious left lower lobe mass measuring 3.0 x 2.2 cm. 2. Mediastinal adenopathy. 3. Right rib soft tissue density. 4. Coronary artery disease requiring coronary artery bypass grafting. 5. Obesity. 6. Hypertension. 7. ON GOING ANGINA Plan . 1. NSCLC Stage IV - Left lower lobe lung mass with associated right-sided third rib bone lesion and evidence of mediastinal lymphadenopathy and a liver mass is clinically concerning consistent with Stage IV lung cancer with metastatic disease. Appreciate cardiothoracic evaluation - s/p biopsy right rib lesion 12/17/16 c/w moderately diff adeno PET scan as outpatient for completion of staging workup. Angina/ cath/stent thursday JUNITO PANIAGUA MD Dec 20, 2016 11:37
--- NOTE | 2016-12-20 12:09 | PDOC ---
PROGRESS NOTES Chief Complaint Chief Complaint LunG CA stage 4 with mets to bones - new dx via tissue lung biopsy NSTEMI - CABG on hold bec of lung CA new dx, planned for pCI thursday Never smoker V TACH (12/17) dm2 better control now htn, controlled morbid obesity CKD 2-3 constipation resolved mild malnutrition Anxiety NOS History of Present Illness History of Present Illness Right rib pain very weak per staff - needs help to go to bathroom Bone scan is positive for mets in bones, multiple areas- copy provided to pt and Anxiety after the bad news PLAN: Lidoderm patch trial to RT sided chest which is the most painful Add pT/OT asks about tx now - will defer to heme onc rounds XAnax prn PCI thursday SW /case mx as pt needs the DM boot delivered here thursday prior to his dc so medicare can pay for it 100% Start percocet for pain control Dec lovenox dose to 40 qD from therapeutic dose Vitals Vitals Vital Signs Date Time Temp Pulse Resp B/P (MAP) Pulse Ox O2 Delivery O2 Flow Rate FiO2 12/20/16 10:30 Nasal Cannula 3.0 12/20/16 09:29 81 139/75 12/20/16 07:00 97.6 24 94 97.6 Physical Exam General: Alert, Oriented X3 Heart: Normal S1, Normal S2 Lungs: Clear Abdomen: Soft, No tenderness Extremities: No edema Skin: No significant lesion Labs LABS Laboratory Tests Test 12/19/16 17:10 12/19/16 21:15 12/20/16 04:45 12/20/16 07:52 Glucose (Fingerstick) 258 mg/dL (70-99) 238 mg/dL (70-99) 192 mg/dL (70-99) Sodium Level 137 mmol/L (136-145) Potassium Level 3.4 mmol/L (3.5-5.1) Chloride Level 98 mmol/L (98-107) Carbon Dioxide Level 34 mmol/L (21-32) Anion Gap 5 (6-14) Blood Urea Nitrogen 17 mg/dL (8-26) Creatinine 1.1 mg/dL (0.7-1.3) Estimated GFR (Cockcroft-Gault) 66.6 Glucose Level 176 mg/dL (70-99) Calcium Level 8.3 mg/dL (8.5-10.1) Magnesium Level 1.9 mg/dL (1.8-2.4) Review of Systems Review of Systems bone pains, anxiety Assessment and Plan Assessmemt and Plan Problems Medical Problems: (1) Chest pain Status: Acute (2) Non-STEMI (non-ST elevated myocardial infarction) Status: Acute Problems: Comment Review of Relevant I have reviewed the following items maxine (where applicable) has been applied. Labs Laboratory Tests Test 12/18/16 17:20 12/18/16 20:34 12/19/16 07:38 12/19/16 11:56 Glucose (Fingerstick) 191 mg/dL (70-99) 252 mg/dL (70-99) 186 mg/dL (70-99) 210 mg/dL (70-99) Test 12/19/16 17:10 12/19/16 21:15 12/20/16 04:45 12/20/16 07:52 Glucose (Fingerstick) 258 mg/dL (70-99) 238 mg/dL (70-99) 192 mg/dL (70-99) Sodium Level 137 mmol/L (136-145) Potassium Level 3.4 mmol/L (3.5-5.1) Chloride Level 98 mmol/L (98-107) Carbon Dioxide Level 34 mmol/L (21-32) Anion Gap 5 (6-14) Blood Urea Nitrogen 17 mg/dL (8-26) Creatinine 1.1 mg/dL (0.7-1.3) Estimated GFR (Cockcroft-Gault) 66.6 Glucose Level 176 mg/dL (70-99) Calcium Level 8.3 mg/dL (8.5-10.1) Magnesium Level 1.9 mg/dL (1.8-2.4) Laboratory Tests Test 12/19/16 17:10 12/19/16 21:15 12/20/16 04:45 12/20/16 07:52 Glucose (Fingerstick) 258 mg/dL (70-99) 238 mg/dL (70-99) 192 mg/dL (70-99) Sodium Level 137 mmol/L (136-145) Potassium Level 3.4 mmol/L (3.5-5.1) Chloride Level 98 mmol/L (98-107) Carbon Dioxide Level 34 mmol/L (21-32) Anion Gap 5 (6-14) Blood Urea Nitrogen 17 mg/dL (8-26) Creatinine 1.1 mg/dL (0.7-1.3) Estimated GFR (Cockcroft-Gault) 66.6 Glucose Level 176 mg/dL (70-99) Calcium Level 8.3 mg/dL (8.5-10.1) Magnesium Level 1.9 mg/dL (1.8-2.4) Medications Current Medications Nitroglycerin (Nitro-Bid Oint) 1 inch 1X ONCE TP Last administered on 18:38; Start 12/13/16 at 18:30; Stop 12/13/16 at 18:31; Status DC Aspirin (Children'S Aspirin) 324 mg 1X ONCE PO ; Start 12/13/16 at 18:30; Stop 12/13/16 at 18:31; Status DC Enoxaparin Sodium (Lovenox Per Pharmacy Treatment Dosing) 1 each PRN DAILY PRN MC SEE COMMENTS; Start 12/13/16 at 19:15 Enoxaparin Sodium (Lovenox 100mg Syringe) 100 mg 1X ONCE SQ Last administered on 12/13/16 19:50; Start 12/13/16 at 19:30; Stop 12/13/16 at 19:31; Status DC Enoxaparin Sodium (Lovenox 80mg Syringe) 80 mg 1X ONCE SQ Last administered on 12/13/16 19:50; Start 12/13/16 at 19:30; Stop 12/13/16 at 19:31; Status DC Ondansetron HCl (Zofran) 4 mg PRN Q8HRS PRN IV NAUSEA/VOMITING; Start 12/13/16 at 19:45; Stop 12/14/16 at 11:34; Status DC Morphine Sulfate 2 mg PRN Q2HR PRN IV PAIN; Start 12/13/16 at 19:45; Stop 12/14 at 11:34; Status DC Acetaminophen (Tylenol) 650 mg PRN Q4HRS PRN PO FEVER Last administered on 12/14 06:36; Start 12/13/16 at 19:45; Stop 12/14/16 at 11:34; Status DC Nitroglycerin (Nitrostat) 0.4 mg PRN Q5MIN PRN SL CHEST PAIN; Start 12/13/16 at 19:45; Stop 12/14/16 at 19:44; Status DC Insulin Aspart (NovoLOG) 0-9 UNITS QIDACHS SQ Last administered on 12/20/16 09 :37; Start 12/13/16 at 21:30 Dextrose (Dextrose 50%-Water Syringe) 12.5 gm PRN Q15MIN PRN IV SEE COMMENTS; Start 12/13/16 at 20:15 Morphine Sulfate (Morphine Ir) 15 mg PRN Q4HRS PRN PO PAIN Last administered on 12/20/16 09:26; Start 12/13/16 at 20:15 Enoxaparin Sodium (Lovenox 100mg Syringe) 180 mg Q12HR SQ Last administered on 12/20/16 09:30; Start 12/14/16 at 09:00 Atorvastatin Calcium (Lipitor) 20 mg QHS PO Last administered on 12/19/16 21: 15; Start 12/14/16 at 21:00 Cetirizine HCl (ZyrTEC) 10 mg DAILY PO Last administered on 12/20/16 09:27; Start 12/14/16 at 12:00 Montelukast Sodium (Singulair) 10 mg DAILY PO Last administered on 12/20/16 09 :27; Start 12/14/16 at 12:00 Tamsulosin HCl (Flomax) 0.8 mg DAILY PO Last administered on 12/20/16 09:27; Start 12/14/16 at 12:00 Losartan Potassium (Cozaar) 100 mg DAILY PO Last administered on 12/15/16 11: 09; Start 12/14/16 at 12:00; Stop 12/15/16 at 16:19; Status DC Pioglitazone HCl (Actos) 30 mg DAILY PO Last administered on 12/20/16 09:27; Start 12/14/16 at 12:00 Triamterene/HCTZ (Maxzide 37.5/ 25mg) 1 tab DAILY PO Last administered on 09:27; Start 12/14/16 at 12:00 Acetaminophen (Tylenol) 650 mg PRN Q6HRS PRN PO FEVER Last administered on 12/18 20:33; Start 12/14/16 at 11:30 Ondansetron HCl (Zofran) 4 mg PRN Q6HRS PRN IV NAUSEA/VOMITING Last administered on 12/17/16 20:22; Start 12/14/16 at 11:30 Morphine Sulfate 2 mg PRN Q2HR PRN IV MODERATE TO SEVERE PAIN; Start 12/14/16 at 11:45 Tramadol HCl (Ultram) 50 mg PRN Q6HRS PRN PO MILD TO MODERATE PAIN Last administered on 12/17/16 07:32; Start 12/14/16 at 11:30 Hydralazine HCl (Apresoline) 10 mg PRN Q4HRS PRN IVP ELEVATED BP, SEE COMMENTS ; Start 12/14/16 at 11:30 Docusate Sodium (Colace) 100 mg PRN DAILY PRN PO CONSTIPATION; Start 12/14/16 at 11:30; Stop 12/19/16 at 17:43; Status DC Senna/Docusate Sodium (Senna Plus) 1 tab BID PO Last administered on 12/20/16 09:27; Start 12/14/16 at 12:00 Docusate Sodium (Colace) 100 mg BID PO Last administered on 12/20/16 09:27; Start 12/14/16 at 12:00 Magnesium Hydroxide (Milk Of Magnesia) 2,400 mg PRN Q12HR PRN PO CONSTIPATION; Start 12/14/16 at 11:30 Insulin Detemir (Levemir) 20 units QHS SQ Last administered on 12/19/16 21:28 ; Start 12/14/16 at 21:00 Heparin Sodium/ Sodium Chloride 1,000 ml @ As Directed STK-MED ONCE .ROUTE ; Start 12/15/16 at 07:09; Stop 12/15/16 at 07:10; Status DC Lidocaine HCl 20 ml STK-MED ONCE .ROUTE ; Start 12/15/16 at 07:10; Stop at 07:11; Status DC Iohexol (Omnipaque 300 Mg/ml) 100 ml STK-MED ONCE .ROUTE ; Start 12/15/16 at 07: 14; Stop 12/15/16 at 07:15; Status DC Fentanyl Citrate (Fentanyl 2ml Vial) 100 mcg STK-MED ONCE .ROUTE ; Start at 10:07; Stop 12/15/16 at 10:08; Status DC Midazolam HCl (Versed) 2 mg STK-MED ONCE .ROUTE ; Start 12/15/16 at 10:08; Stop 12/15/16 at 10:09; Status DC Verapamil HCl (Verapamil) 5 mg STK-MED ONCE .ROUTE ; Start 12/15/16 at 10:08; Stop 12/15/16 at 10:09; Status DC Heparin Sodium (Porcine) (Heparin Sodium) 10,000 unit STK-MED ONCE .ROUTE ; Start 12/15/16 at 10:08; Stop 12/15/16 at 10:09; Status DC Nitroglycerin (Nitroglycerin) 200 mcg STK-MED ONCE .ROUTE ; Start 12/15/16 at 10 :08; Stop 12/15/16 at 10:09; Status DC Nitroglycerin (Nitroglycerin) 200 mcg 1X ONCE IART Last administered on 10:43; Start 12/15/16 at 10:45; Stop 12/15/16 at 10:46; Status DC Verapamil HCl (Verapamil) 2.5 mg 1X ONCE IART Last administered on 12/15/16 10:43; Start 12/15/16 at 10:45; Stop 12/15/16 at 10:46; Status DC Heparin Sodium (Porcine) (Heparin Sodium) 2,500 unit 1X ONCE IART Last administered on 12/15/16 10:45; Start 12/15/16 at 10:45; Stop 12/15/16 at 10:46 ; Status DC Heparin Sodium/ Sodium Chloride 1,000 unit 1X ONCE IART Last administered on 10:42; Start 12/15/16 at 10:45; Stop 12/15/16 at 10:46; Status DC Midazolam HCl (Versed) 2 mg 1X ONCE IV Last administered on 12/15/16 10:44; Start 12/15/16 at 10:45; Stop 12/15/16 at 10:46; Status DC Fentanyl Citrate (Fentanyl 2ml Vial) 50 mcg 1X ONCE IV Last administered on 10:44; Start 12/15/16 at 10:45; Stop 12/15/16 at 10:46; Status DC Iohexol (Omnipaque 300 Mg/ml) 100 ml 1X ONCE IART Last administered on 10:42; Start 12/15/16 at 10:45; Stop 12/15/16 at 10:46; Status DC Lidocaine HCl 2 ml 1X ONCE IJ Last administered on 12/15/16 10:42; Start at 10:45; Stop 12/15/16 at 10:46; Status DC Sodium Chloride 1,000 ml @ 60 mls/hr [id number] IV Last administered on 03:31; Start 12/15/16 at 10:51; Stop 12/16/16 at 20:04; Status DC Polyethylene Glycol (miraLAX PACKET) 17 gm DAILY PO ; Start 12/16/16 at 16:30; Stop 12/16/16 at 16:30; Status DC Metoprolol Tartrate (Lopressor) 25 mg BID PO Last administered on 12/20/16 09: 28; Start 12/15/16 at 21:00 Polyethylene Glycol (miraLAX PACKET) 17 gm DAILY PO Last administered on 08:47; Start 12/17/16 at 07:00; Stop 12/19/16 at 12:28; Status DC Polyethylene Glycol (miraLAX PACKET) 17 gm 1X ONCE PO Last administered on 13:34; Start 12/16/16 at 13:30; Stop 12/16/16 at 13:31; Status DC Ondansetron HCl (Zofran) 4 mg PRN Q6HRS PRN IV NAUSEA/VOMITING; Start 12/17/16 at 07:00; Stop 12/18/16 at 06:59; Status DC Fentanyl Citrate (Fentanyl 2ml Vial) 25 mcg PRN Q5MIN PRN IV MILD PAIN; Start 12/17/16 at 07:00; Stop 12/18/16 at 06:59; Status DC Fentanyl Citrate (Fentanyl 2ml Vial) 50 mcg PRN Q5MIN PRN IV MODERATE PAIN; Start 12/17/16 at 07:00; Stop 12/18/16 at 06:59; Status DC Morphine Sulfate 1 mg PRN Q10MIN PRN IV SEVERE PAIN; Start 12/17/16 at 07:00; Stop 12/18/16 at 06:59; Status DC Ringer's Solution 1,000 ml @ 30 mls/hr Q24H IV ; Start 12/17/16 at 07:00; Stop 12/17/16 at 15:23; Status DC Lidocaine HCl (Xylocaine-Mpf 1% Vial) 2 ml PRN 1X PRN ID IV START; Start at 07:00; Stop 12/18/16 at 06:59; Status DC Hydromorphone HCl (Dilaudid) 0.5 mg PRN Q10MIN PRN IV SEV PAIN, Second choice; Start 12/17/16 at 07:00; Stop 12/18/16 at 06:59; Status DC Prochlorperazine Edisylate (Compazine) 5 mg PACU PRN PRN IV NAUSEA, MRX1; Start 12/17/16 at 07:00; Stop 12/18/16 at 06:59; Status DC Temazepam (Restoril) 7.5 mg PRN QHS PRN PO INSOMNIA Last administered on 20:27; Start 12/16/16 at 14:30 Lidocaine/Sodium Bicarbonate (Buffered Lidocaine 1%) 20 ml STK-MED ONCE IJ ; Start 12/17/16 at 13:12; Stop 12/17/16 at 13:13; Status DC Midazolam HCl (Versed) 2 mg STK-MED ONCE .ROUTE ; Start 12/17/16 at 13:47; Stop 12/17/16 at 13:48; Status DC Lidocaine/Sodium Bicarbonate (Buffered Lidocaine 1%) 3 ml 1X ONCE IJ Last administered on 12/17/16 14:00; Start 12/17/16 at 14:30; Stop 12/17/16 at 14:31 ; Status DC Midazolam HCl (Versed) 1 mg 1X ONCE IV Last administered on 12/17/16 14:00; Start 12/17/16 at 14:30; Stop 12/17/16 at 14:31; Status DC Fentanyl Citrate (Fentanyl 2ml Vial) 50 mcg 1X ONCE IV Last administered on 14:26; Start 12/17/16 at 14:30; Stop 12/17/16 at 14:31; Status DC Nitroglycerin/ Dextrose 250 ml @ 0 mls/hr CONT PRN IV SEE I/O RECORD Last administered on 12/17/16 19:53; Start 12/17/16 at 19:45; Stop 12/18/16 at 11:37 ; Status DC Isosorbide Mononitrate (Imdur) 30 mg DAILY PO Last administered on 12/20/16 09 :29; Start 12/18/16 at 12:00 Oxymetazoline HCl (Afrin) 2 spray BID NS Last administered on 12/20/16 09:29; Start 12/18/16 at 21:00; Stop 12/21/16 at 20:59 Sodium Chloride (Saline Mist Nasal) 1 evon PRN Q1HR PRN NS NASAL CONGESTION Last administered on 12/18/16 20:26; Start 12/18/16 at 20:00 Polyethylene Glycol (miraLAX PACKET) 17 gm BID PO Last administered on 09:26; Start 12/19/16 at 21:00 Lorazepam (Ativan) 1 mg 1X ONCE IV Last administered on 12/19/16 14:25; Start 12/19/16 at 13:30; Stop 12/19/16 at 13:31; Status DC Lorazepam (Ativan) 0.5 mg Q6HRS PRN PO ANXIETY / AGITATION Last administered on 12/20/16 09:26; Start 12/19/16 at 13:30 Active Scripts Active Reported Gabapentin 400 Mg Capsule 400 Mg PO TID PRN Tresiba Flextouch U-100 (Insulin Degludec) 100 Unit/1 Ml Insuln.pen 40 Unit SQ HS Tresiba Flextouch U-100 (Insulin Degludec) 100 Unit/1 Ml Insuln.pen 36 Unit SQ DAILY Cetirizine Hcl 10 Mg Tablet 1 Tab PO DAILY Tamsulosin Hcl 0.4 Mg Cap.er.24h 2 Cap PO DAILY Triamterene-Hctz 37.5-25 Mg Cp (Triamterene/Hydrochlorothiazid) 1 Each Capsule 1 Cap PO DAILY Atorvastatin Calcium 20 Mg Tablet 1 Tab PO DAILY Actos (Pioglitazone Hcl) 30 Mg Tablet 1 Tab PO DAILY Montelukast Sodium Tablet (Montelukast Sodium) 10 Mg Tablet 1 Tab PO DAILY Losartan Potassium 100 Mg Tablet 100 Mg PO DAILY Vitals/I & O Vital Sign - Last 24 Hours 12/19/16 12/19/16 12/19/16 12/19/16 15:00 19:32 20:00 21:15 Temp 97.6 98.0 97.6 98.0 Pulse 83 84 84 Resp 19 24 B/P (MAP) 150/85 (106) 105/69 (81) 105/69 Pulse Ox 95 95 O2 Delivery Nasal Cannula Nasal Cannula Nasal Cannula O2 Flow Rate 3.0 3.0 3.0 12/19/16 12/20/16 12/20/16 12/20/16 23:20 01:04 02:09 03:00 Temp 98.1 98.1 Pulse 72 65 Resp 22 22 20 B/P (MAP) 120/64 (82) Pulse Ox 93 93 93 O2 Delivery Nasal Cannula Nasal Cannula O2 Flow Rate 3.0 3.0 12/20/16 12/20/16 12/20/16 12/20/16 07:00 08:05 09:26 09:28 Temp 97.6 97.6 Pulse 71 81 Resp 24 B/P (MAP) 139/75 (96) 139/75 Pulse Ox 94 O2 Delivery Nasal Cannula Nasal Cannula Nasal Cannula O2 Flow Rate 3.0 3.0 3.0 12/20/16 12/20/16 09:29 10:30 Pulse 81 B/P (MAP) 139/75 O2 Delivery Nasal Cannula O2 Flow Rate 3.0 OTYA CARRERA MD Dec 20, 2016 12:09
[2016-12-20] MEDS ORDERED: oxyCODONE/APAP 5/325 1 TAB TABLET PO PRN (12:15)
[2016-12-20] MEDS: LIDOCAINE (700MG/PATCH) PATCH. TD SCH (12:49)
[2016-12-20 15:25] VITALS: BP 127/70
[2016-12-20 19:00] VITALS: BP 132/74
[2016-12-20] MEDS: ATORVASTATIN CALCIUM 20 MG TABLET PO SCH (21:10)
[2016-12-20] MEDS: ENOXAPARIN 40 MG/0.4 ML SYRINGE. SQ SCH (21:10)
[2016-12-20] MEDS: INSULIN DETEMIR 300 UNITS/3 ML INSULN.PEN. SQ SCH (21:25)
[2016-12-20 23:19] VITALS: BP 121/67
[2016-12-21 03:45] VITALS: BP 122/63
[2016-12-21 07:00] VITALS: BP 121/65
[2016-12-21] MEDS: MORPHINE IR 15 MG TABLET PO PRN ×2 (08:42→19:50)
[2016-12-21] MEDS: LORazepam 0.5 MG TABLET PO PRN ×2 (08:42→20:31)
[2016-12-21] MEDS: OXYMETAZOLINE 0.05% NASAL SPRAY 30ML BOTTLE. NS SCH (08:43)
[2016-12-21] MEDS: PIOGLITAZONE 15 MG TABLET. PO SCH (08:44)
[2016-12-21] MEDS: SENNOSIDES/DOCUSATE 8.6/50MG TABLET. PO SCH ×2 (08:44→20:31)
[2016-12-21] MEDS: CETIRIZINE HCL 10 MG TABLET. PO SCH (08:44)
[2016-12-21] MEDS: DOCUSATE SODIUM 100 MG CAPSULE. PO SCH ×2 (08:44→20:32)
[2016-12-21] MEDS: TAMSULOSIN 0.4 MG CAP.ER.24H. PO SCH (08:44)
[2016-12-21] MEDS: MONTELUKAST SODIUM 10 MG TABLET. PO SCH (08:44)
[2016-12-21] MEDS: METOPROLOL TART IMMED RELEASE 25 MG TABLET. PO SCH ×2 (08:45→20:32)
[2016-12-21] MEDS: TRIAMTERENE/HCTZ 37.5/25MG TABLET. PO SCH (08:45)
[2016-12-21] MEDS: ISOSORBIDE MONONITRATE ER 30 MG TAB.ER.24H PO SCH (08:46)
[2016-12-21] MEDS: ENOXAPARIN 40 MG/0.4 ML SYRINGE. SQ SCH ×2 (08:46→20:31)
[2016-12-21] MEDS: INSULIN ASPART 300 UNITS/3 ML INSULN.PEN SQ SCH ×4 (08:54→20:41)
[2016-12-21] MEDS: POLYETHYLENE GLYCOL 3350 17 GM PACKET. PO SCH ×2 (08:55→20:31)
[2016-12-21] MEDS: LIDOCAINE (700MG/PATCH) PATCH. TD SCH (08:58)
--- NOTE | 2016-12-21 09:28 | PDOC ---
Provider Note Provider Note Discussed with Dr. Culver. Plan for PCI on Thursday. Due to lab scheduling, most likely will not be able to accomodate PCI tomorrow. Continue present meds including imdur and b-denisha. Will start plavix in anticipation of PCI. Will f/u tomorrow. Thanks NATHAN SUAREZ MD Dec 21, 2016 09:28
[2016-12-21] MEDS ORDERED: CLOPIDOGREL BISULFATE 75 MG TABLET PO ONE (09:30)
[2016-12-21 11:00] VITALS: BP 124/61
--- NOTE | 2016-12-21 12:36 | PDOC ---
PULMONARY PROGRESS NOTES Subjective had an episode of CP today Vitals Vital Signs Date Time Temp Pulse Resp B/P (MAP) Pulse Ox O2 Delivery O2 Flow Rate FiO2 12/21/16 10:56 Nasal Cannula 4.0 12/21/16 09:53 92 12/21/16 08:46 73 122/63 12/21/16 07:00 98.1 20 98.1 ROS: No Nausea, No Abdominal Pain, No Increase Cough General: Alert Lungs: Clear Cardiovascular: S1, S2 Abdomen: Soft, Other (obese) Neuro Exam: Alert Extremities: Other (1+edema) Skin: Warm Labs Laboratory Tests Test 12/19/16 17:10 12/19/16 21:15 12/20/16 04:45 12/20/16 07:52 Glucose (Fingerstick) 258 mg/dL (70-99) 238 mg/dL (70-99) 192 mg/dL (70-99) Sodium Level 137 mmol/L (136-145) Potassium Level 3.4 mmol/L (3.5-5.1) Chloride Level 98 mmol/L (98-107) Carbon Dioxide Level 34 mmol/L (21-32) Anion Gap 5 (6-14) Blood Urea Nitrogen 17 mg/dL (8-26) Creatinine 1.1 mg/dL (0.7-1.3) Estimated GFR (Cockcroft-Gault) 66.6 Glucose Level 176 mg/dL (70-99) Calcium Level 8.3 mg/dL (8.5-10.1) Magnesium Level 1.9 mg/dL (1.8-2.4) Test 12/20/16 11:34 12/20/16 16:35 12/20/16 20:43 12/21/16 08:10 Glucose (Fingerstick) 202 mg/dL (70-99) 246 mg/dL (70-99) 235 mg/dL (70-99) 205 mg/dL (70-99) Test 12/21/16 12:05 Glucose (Fingerstick) 227 mg/dL (70-99) Laboratory Tests Test 12/20/16 16:35 12/20/16 20:43 12/21/16 08:10 12/21/16 12:05 Glucose (Fingerstick) 246 mg/dL (70-99) 235 mg/dL (70-99) 205 mg/dL (70-99) 227 mg/dL (70-99) Medications Active Scripts Medications Dose Route/Sig Max Daily Dose Days Date Category Gabapentin 400 Mg Capsule 400 Mg PO TID PRN 12/15/16 Reported Tresiba Flextouch U-100 (Insulin Degludec) 100 Unit/1 Ml Insuln.pen 40 Unit SQ HS 12/14/16 Reported Tresiba Flextouch U-100 (Insulin Degludec) 100 Unit/1 Ml Insuln.pen 36 Unit SQ DAILY 12/14/16 Reported Cetirizine Hcl 10 Mg Tablet 1 Tab PO DAILY 12/14/16 Reported Tamsulosin Hcl 0.4 Mg Cap.er.24h 2 Cap PO DAILY 12/14/16 Reported Triamterene-Hctz 37.5-25 Mg Cp (Triamterene/Hydrochlorothiazid) 1 Each Capsule 1 Cap PO DAILY 12/14/16 Reported Atorvastatin Calcium 20 Mg Tablet 1 Tab PO DAILY 12/14/16 Reported Actos (Pioglitazone Hcl) 30 Mg Tablet 1 Tab PO DAILY 12/14/16 Reported Montelukast Sodium Tablet (Montelukast Sodium) 10 Mg Tablet 1 Tab PO DAILY 12/14/16 Reported Losartan Potassium 100 Mg Tablet 100 Mg PO DAILY 12/14/16 Reported Impression . 1. Abnormal CT of the chest revealing several findings ,left lower lobe mass measuring 3.0 x 2.2 cm. 2. Mediastinal adenopathy. 3. Right rib soft tissue density. 4. Coronary artery disease requiring coronary artery bypass grafting. 5. Obesity. 6. Hypertension. 7. ON GOING ANGINA Plan . 1. NSCLC Stage IV - Left lower lobe lung mass with associated right-sided third rib bone lesion and evidence of mediastinal lymphadenopathy and a liver mass is clinically concerning consistent with Stage IV lung cancer with metastatic disease. Appreciate cardiothoracic evaluation - s/p biopsy right rib lesion 12/17/16 c/w moderately diff adeno PET scan as outpatient for completion of staging workup per oncology. Unstable Angina/ PCI thursday d/w JUNITO Wolf MD Dec 21, 2016 12:36
--- NOTE | 2016-12-21 12:55 | PDOC ---
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 - new dx via tissue lung biopsy NSTEMI - CABG on hold bec of lung CA new dx, planned for pCI thursday Never smoker V TACH (12/17) dm2 better control now htn, controlled morbid obesity CKD 2-3 constipation resolved mild malnutrition Anxiety NOS History of Present Illness History of Present Illness HAd some CP again last night PCI planned on thursday Heel boot to come prior to him dcing so medicare can pay for it 100% Aware now of his lung CA with mets to bones PLAN Per cards [facility] thursday Awaiting heme onc rounds thursday re plans now has mets to bone OP PET SW for the heel boot prior to dc Dw and pt Xanax prn Vitals Vitals Vital Signs Date Time Temp Pulse Resp B/P (MAP) Pulse Ox O2 Delivery O2 Flow Rate FiO2 12/21/16 11:00 98.1 60 20 124/61 (82) 93 Nasal Cannula 4.0 98.1 Physical Exam General: Alert, Oriented X3 Heart: Normal S1, Normal S2 Lungs: Clear Abdomen: Soft, No tenderness Extremities: No edema Skin: No significant lesion Labs LABS Laboratory Tests Test 12/20/16 16:35 12/20/16 20:43 12/21/16 08:10 12/21/16 12:05 Glucose (Fingerstick) 246 mg/dL (70-99) 235 mg/dL (70-99) 205 mg/dL (70-99) 227 mg/dL (70-99) Review of Systems Review of Systems no soa, rib pain Assessment and Plan Assessmemt and Plan Problems Medical Problems: (1) Chest pain Status: Acute (2) Non-STEMI (non-ST elevated myocardial infarction) Status: Acute Problems: Comment Review of Relevant I have reviewed the following items maxine (where applicable) has been applied. Labs Laboratory Tests Test 12/19/16 17:10 12/19/16 21:15 12/20/16 04:45 12/20/16 07:52 Glucose (Fingerstick) 258 mg/dL (70-99) 238 mg/dL (70-99) 192 mg/dL (70-99) Sodium Level 137 mmol/L (136-145) Potassium Level 3.4 mmol/L (3.5-5.1) Chloride Level 98 mmol/L (98-107) Carbon Dioxide Level 34 mmol/L (21-32) Anion Gap 5 (6-14) Blood Urea Nitrogen 17 mg/dL (8-26) Creatinine 1.1 mg/dL (0.7-1.3) Estimated GFR (Cockcroft-Gault) 66.6 Glucose Level 176 mg/dL (70-99) Calcium Level 8.3 mg/dL (8.5-10.1) Magnesium Level 1.9 mg/dL (1.8-2.4) Test 12/20/16 11:34 12/20/16 16:35 12/20/16 20:43 12/21/16 08:10 Glucose (Fingerstick) 202 mg/dL (70-99) 246 mg/dL (70-99) 235 mg/dL (70-99) 205 mg/dL (70-99) Test 12/21/16 12:05 Glucose (Fingerstick) 227 mg/dL (70-99) Laboratory Tests Test 12/20/16 16:35 12/20/16 20:43 12/21/16 08:10 12/21/16 12:05 Glucose (Fingerstick) 246 mg/dL (70-99) 235 mg/dL (70-99) 205 mg/dL (70-99) 227 mg/dL (70-99) Medications Current Medications Nitroglycerin (Nitro-Bid Oint) 1 inch 1X ONCE TP Last administered on 18:38; Start 12/13/16 at 18:30; Stop 12/13/16 at 18:31; Status DC Aspirin (Children'S Aspirin) 324 mg 1X ONCE PO ; Start 12/13/16 at 18:30; Stop 12/13/16 at 18:31; Status DC Enoxaparin Sodium (Lovenox Per Pharmacy Treatment Dosing) 1 each PRN DAILY PRN MC SEE COMMENTS; Start 12/13/16 at 19:15; Stop 12/20/16 at 12:13; Status DC Enoxaparin Sodium (Lovenox 100mg Syringe) 100 mg 1X ONCE SQ Last administered on 12/13/16 19:50; Start 12/13/16 at 19:30; Stop 12/13/16 at 19:31; Status DC Enoxaparin Sodium (Lovenox 80mg Syringe) 80 mg 1X ONCE SQ Last administered on 12/13/16 19:50; Start 12/13/16 at 19:30; Stop 12/13/16 at 19:31; Status DC Ondansetron HCl (Zofran) 4 mg PRN Q8HRS PRN IV NAUSEA/VOMITING; Start 12/13/16 at 19:45; Stop 12/14/16 at 11:34; Status DC Morphine Sulfate 2 mg PRN Q2HR PRN IV PAIN; Start 12/13/16 at 19:45; Stop 12/14 at 11:34; Status DC Acetaminophen (Tylenol) 650 mg PRN Q4HRS PRN PO FEVER Last administered on 12/14 06:36; Start 12/13/16 at 19:45; Stop 12/14/16 at 11:34; Status DC Nitroglycerin (Nitrostat) 0.4 mg PRN Q5MIN PRN SL CHEST PAIN; Start 12/13/16 at 19:45; Stop 12/14/16 at 19:44; Status DC Insulin Aspart (NovoLOG) 0-9 UNITS QIDACHS SQ Last administered on 12/21/16 12 :31; Start 12/13/16 at 21:30 Dextrose (Dextrose 50%-Water Syringe) 12.5 gm PRN Q15MIN PRN IV SEE COMMENTS; Start 12/13/16 at 20:15 Morphine Sulfate (Morphine Ir) 15 mg PRN Q4HRS PRN PO SEVERE PAIN Last administered on 12/21/16 08:42; Start 12/13/16 at 20:15 Enoxaparin Sodium (Lovenox 100mg Syringe) 180 mg Q12HR SQ Last administered on 12/20/16 09:30; Start 12/14/16 at 09:00; Stop 12/20/16 at 12:09; Status DC Atorvastatin Calcium (Lipitor) 20 mg QHS PO Last administered on 12/20/16 21: 10; Start 12/14/16 at 21:00 Cetirizine HCl (ZyrTEC) 10 mg DAILY PO Last administered on 12/21/16 08:44; Start 12/14/16 at 12:00 Montelukast Sodium (Singulair) 10 mg DAILY PO Last administered on 12/21/16 08 :44; Start 12/14/16 at 12:00 Tamsulosin HCl (Flomax) 0.8 mg DAILY PO Last administered on 12/21/16 08:44; Start 12/14/16 at 12:00 Losartan Potassium (Cozaar) 100 mg DAILY PO Last administered on 12/15/16 11: 09; Start 12/14/16 at 12:00; Stop 12/15/16 at 16:19; Status DC Pioglitazone HCl (Actos) 30 mg DAILY PO Last administered on 12/21/16 08:44; Start 12/14/16 at 12:00 Triamterene/HCTZ (Maxzide 37.5/ 25mg) 1 tab DAILY PO Last administered on 08:45; Start 12/14/16 at 12:00 Acetaminophen (Tylenol) 650 mg PRN Q6HRS PRN PO FEVER Last administered on 12/18 20:33; Start 12/14/16 at 11:30 Ondansetron HCl (Zofran) 4 mg PRN Q6HRS PRN IV NAUSEA/VOMITING Last administered on 12/17/16 20:22; Start 12/14/16 at 11:30 Morphine Sulfate 2 mg PRN Q2HR PRN IV MODERATE TO SEVERE PAIN; Start 12/14/16 at 11:45 Tramadol HCl (Ultram) 50 mg PRN Q6HRS PRN PO MILD PAIN Last administered on 07:32; Start 12/14/16 at 11:30 Hydralazine HCl (Apresoline) 10 mg PRN Q4HRS PRN IVP ELEVATED BP, SEE COMMENTS ; Start 12/14/16 at 11:30 Docusate Sodium (Colace) 100 mg PRN DAILY PRN PO CONSTIPATION; Start 12/14/16 at 11:30; Stop 12/19/16 at 17:43; Status DC Senna/Docusate Sodium (Senna Plus) 1 tab BID PO Last administered on 12/21/16 08:44; Start 12/14/16 at 12:00 Docusate Sodium (Colace) 100 mg BID PO Last administered on 12/21/16 08:44; Start 12/14/16 at 12:00 Magnesium Hydroxide (Milk Of Magnesia) 2,400 mg PRN Q12HR PRN PO CONSTIPATION; Start 12/14/16 at 11:30 Insulin Detemir (Levemir) 20 units QHS SQ Last administered on 12/20/16 21:25 ; Start 12/14/16 at 21:00 Heparin Sodium/ Sodium Chloride 1,000 ml @ As Directed STK-MED ONCE .ROUTE ; Start 12/15/16 at 07:09; Stop 12/15/16 at 07:10; Status DC Lidocaine HCl 20 ml STK-MED ONCE .ROUTE ; Start 12/15/16 at 07:10; Stop at 07:11; Status DC Iohexol (Omnipaque 300 Mg/ml) 100 ml STK-MED ONCE .ROUTE ; Start 12/15/16 at 07: 14; Stop 12/15/16 at 07:15; Status DC Fentanyl Citrate (Fentanyl 2ml Vial) 100 mcg STK-MED ONCE .ROUTE ; Start at 10:07; Stop 12/15/16 at 10:08; Status DC Midazolam HCl (Versed) 2 mg STK-MED ONCE .ROUTE ; Start 12/15/16 at 10:08; Stop 12/15/16 at 10:09; Status DC Verapamil HCl (Verapamil) 5 mg STK-MED ONCE .ROUTE ; Start 12/15/16 at 10:08; Stop 12/15/16 at 10:09; Status DC Heparin Sodium (Porcine) (Heparin Sodium) 10,000 unit STK-MED ONCE .ROUTE ; Start 12/15/16 at 10:08; Stop 12/15/16 at 10:09; Status DC Nitroglycerin (Nitroglycerin) 200 mcg STK-MED ONCE .ROUTE ; Start 12/15/16 at 10 :08; Stop 12/15/16 at 10:09; Status DC Nitroglycerin (Nitroglycerin) 200 mcg 1X ONCE IART Last administered on 10:43; Start 12/15/16 at 10:45; Stop 12/15/16 at 10:46; Status DC Verapamil HCl (Verapamil) 2.5 mg 1X ONCE IART Last administered on 12/15/16 10:43; Start 12/15/16 at 10:45; Stop 12/15/16 at 10:46; Status DC Heparin Sodium (Porcine) (Heparin Sodium) 2,500 unit 1X ONCE IART Last administered on 12/15/16 10:45; Start 12/15/16 at 10:45; Stop 12/15/16 at 10:46 ; Status DC Heparin Sodium/ Sodium Chloride 1,000 unit 1X ONCE IART Last administered on 10:42; Start 12/15/16 at 10:45; Stop 12/15/16 at 10:46; Status DC Midazolam HCl (Versed) 2 mg 1X ONCE IV Last administered on 12/15/16 10:44; Start 12/15/16 at 10:45; Stop 12/15/16 at 10:46; Status DC Fentanyl Citrate (Fentanyl 2ml Vial) 50 mcg 1X ONCE IV Last administered on 10:44; Start 12/15/16 at 10:45; Stop 12/15/16 at 10:46; Status DC Iohexol (Omnipaque 300 Mg/ml) 100 ml 1X ONCE IART Last administered on 10:42; Start 12/15/16 at 10:45; Stop 12/15/16 at 10:46; Status DC Lidocaine HCl 2 ml 1X ONCE IJ Last administered on 12/15/16 10:42; Start at 10:45; Stop 12/15/16 at 10:46; Status DC Sodium Chloride 1,000 ml @ 60 mls/hr [id number] IV Last administered on 03:31; Start 12/15/16 at 10:51; Stop 12/16/16 at 20:04; Status DC Polyethylene Glycol (miraLAX PACKET) 17 gm DAILY PO ; Start 12/16/16 at 16:30; Stop 12/16/16 at 16:30; Status DC Metoprolol Tartrate (Lopressor) 25 mg BID PO Last administered on 12/21/16 08: 45; Start 12/15/16 at 21:00 Polyethylene Glycol (miraLAX PACKET) 17 gm DAILY PO Last administered on 08:47; Start 12/17/16 at 07:00; Stop 12/19/16 at 12:28; Status DC Polyethylene Glycol (miraLAX PACKET) 17 gm 1X ONCE PO Last administered on 13:34; Start 12/16/16 at 13:30; Stop 12/16/16 at 13:31; Status DC Ondansetron HCl (Zofran) 4 mg PRN Q6HRS PRN IV NAUSEA/VOMITING; Start 12/17/16 at 07:00; Stop 12/18/16 at 06:59; Status DC Fentanyl Citrate (Fentanyl 2ml Vial) 25 mcg PRN Q5MIN PRN IV MILD PAIN; Start 12/17/16 at 07:00; Stop 12/18/16 at 06:59; Status DC Fentanyl Citrate (Fentanyl 2ml Vial) 50 mcg PRN Q5MIN PRN IV MODERATE PAIN; Start 12/17/16 at 07:00; Stop 12/18/16 at 06:59; Status DC Morphine Sulfate 1 mg PRN Q10MIN PRN IV SEVERE PAIN; Start 12/17/16 at 07:00; Stop 12/18/16 at 06:59; Status DC Ringer's Solution 1,000 ml @ 30 mls/hr Q24H IV ; Start 12/17/16 at 07:00; Stop 12/17/16 at 15:23; Status DC Lidocaine HCl (Xylocaine-Mpf 1% Vial) 2 ml PRN 1X PRN ID IV START; Start at 07:00; Stop 12/18/16 at 06:59; Status DC Hydromorphone HCl (Dilaudid) 0.5 mg PRN Q10MIN PRN IV SEV PAIN, Second choice; Start 12/17/16 at 07:00; Stop 12/18/16 at 06:59; Status DC Prochlorperazine Edisylate (Compazine) 5 mg PACU PRN PRN IV NAUSEA, MRX1; Start 12/17/16 at 07:00; Stop 12/18/16 at 06:59; Status DC Temazepam (Restoril) 7.5 mg PRN QHS PRN PO INSOMNIA Last administered on t 20:27; Start 12/16/16 at 14:30 Lidocaine/Sodium Bicarbonate (Buffered Lidocaine 1%) 20 ml STK-MED ONCE IJ ; Start 12/17/16 at 13:12; Stop 12/17/16 at 13:13; Status DC Midazolam HCl (Versed) 2 mg STK-MED ONCE .ROUTE ; Start 12/17/16 at 13:47; Stop 12/17/16 at 13:48; Status DC Lidocaine/Sodium Bicarbonate (Buffered Lidocaine 1%) 3 ml 1X ONCE IJ Last administered on 12/17/16 14:00; Start 12/17/16 at 14:30; Stop 12/17/16 at 14:31 ; Status DC Midazolam HCl (Versed) 1 mg 1X ONCE IV Last administered on 12/17/16 14:00; Start 12/17/16 at 14:30; Stop 12/17/16 at 14:31; Status DC Fentanyl Citrate (Fentanyl 2ml Vial) 50 mcg 1X ONCE IV Last administered on 14:26; Start 12/17/16 at 14:30; Stop 12/17/16 at 14:31; Status DC Nitroglycerin/ Dextrose 250 ml @ 0 mls/hr CONT PRN IV SEE I/O RECORD Last administered on 12/17/16 19:53; Start 12/17/16 at 19:45; Stop 12/18/16 at 11:37 ; Status DC Isosorbide Mononitrate (Imdur) 30 mg DAILY PO Last administered on 12/21/16 08 :46; Start 12/18/16 at 12:00 Oxymetazoline HCl (Afrin) 2 spray BID NS Last administered on 12/21/16 08:43; Start 12/18/16 at 21:00; Stop 12/21/16 at 20:59 Sodium Chloride (Saline Mist Nasal) 1 evon PRN Q1HR PRN NS NASAL CONGESTION Last administered on 12/18/16 20:26; Start 12/18/16 at 20:00 Polyethylene Glycol (miraLAX PACKET) 17 gm BID PO Last administered on 08:55; Start 12/19/16 at 21:00 Lorazepam (Ativan) 1 mg 1X ONCE IV Last administered on 12/19/16 14:25; Start 12/19/16 at 13:30; Stop 12/19/16 at 13:31; Status DC Lorazepam (Ativan) 0.5 mg Q6HRS PRN PO ANXIETY / AGITATION Last administered on 12/21/16 08:42; Start 12/19/16 at 13:30 Lidocaine (Lidoderm) 1 patch DAILY TD Last administered on 12/21/16 08:58; Start 12/20/16 at 12:30 Enoxaparin Sodium (Lovenox 40mg Syringe) 40 mg Q12H SQ Last administered on 08:46; Start 12/20/16 at 21:00 Oxycodone/ Acetaminophen (Percocet 5/325) 1 tab PRN Q4HRS PRN PO MODERATE PAIN Last administered on 12/21/16 09:52; Start 12/20/16 at 12:15 Oxycodone/ Acetaminophen (Percocet 10/325) 1 tab PRN Q4HRS PRN PO MODERATE PAIN ; Start 12/20/16 at 12:15 Clopidogrel Bisulfate (Plavix) 300 mg 1X ONCE PO Last administered on 11:00; Start 12/21/16 at 09:30; Stop 12/21/16 at 09:31; Status DC Clopidogrel Bisulfate (Plavix) 75 mg DAILYWBKFT PO ; Start 12/22/16 at 08:00 Active Scripts Active Reported Gabapentin 400 Mg Capsule 400 Mg PO TID PRN Tresiba Flextouch U-100 (Insulin Degludec) 100 Unit/1 Ml Insuln.pen 40 Unit SQ HS Tresiba Flextouch U-100 (Insulin Degludec) 100 Unit/1 Ml Insuln.pen 36 Unit SQ DAILY Cetirizine Hcl 10 Mg Tablet 1 Tab PO DAILY Tamsulosin Hcl 0.4 Mg Cap.er.24h 2 Cap PO DAILY Triamterene-Hctz 37.5-25 Mg Cp (Triamterene/Hydrochlorothiazid) 1 Each Capsule 1 Cap PO DAILY Atorvastatin Calcium 20 Mg Tablet 1 Tab PO DAILY Actos (Pioglitazone Hcl) 30 Mg Tablet 1 Tab PO DAILY Montelukast Sodium Tablet (Montelukast Sodium) 10 Mg Tablet 1 Tab PO DAILY Losartan Potassium 100 Mg Tablet 100 Mg PO DAILY Vitals/I & O Vital Sign - Last 24 Hours 12/20/16 12/20/16 12/20/16 12/20/16 15:25 18:28 19:00 19:40 Temp 97.7 98.4 97.7 98.4 Pulse 75 78 Resp 20 22 16 B/P (MAP) 127/70 (89) 132/74 (93) Pulse Ox 95 94 O2 Delivery Nasal Cannula Nasal Cannula Nasal Cannula O2 Flow Rate 3.0 3.0 4.0 9/12/20/16 12/20/16 12/21/16 20:00 21:11 23:19 03:45 Temp 97.9 98.1 97.9 98.1 Pulse 78 66 64 Resp 20 18 B/P (MAP) 132/74 121/67 (85) 122/63 (82) Pulse Ox 93 94 O2 Delivery Nasal Cannula Nasal Cannula Nasal Cannula O2 Flow Rate 3.0 3.0 4.0 12/21/16 12/21/16 12/21/16 12/21/16 07:00 08:05 08:42 08:45 Temp 98.1 98.1 Pulse 71 73 Resp 20 B/P (MAP) 121/65 (83) 122/63 Pulse Ox 95 O2 Delivery Nasal Cannula Nasal Cannula Nasal Cannula O2 Flow Rate 4.0 4.0 4.0 12/21/16 12/21/16 12/21/16 12/21/16 08:46 09:52 09:53 10:56 Pulse 73 B/P (MAP) 122/63 Pulse Ox 92 92 O2 Delivery Nasal Cannula Nasal Cannula Nasal Cannula O2 Flow Rate 4.0 4.0 4.0 12/21/16 11:00 Temp 98.1 98.1 Pulse 60 Resp 20 B/P (MAP) 124/61 (82) Pulse Ox 93 O2 Delivery Nasal Cannula O2 Flow Rate 4.0 TOYA CARRERA MD Dec 21, 2016 12:55
[2016-12-21 15:00] VITALS: BP 113/62
[2016-12-21 19:00] VITALS: BP 127/65
[2016-12-21] MEDS: ATORVASTATIN CALCIUM 20 MG TABLET PO SCH (20:32)
[2016-12-21] MEDS: INSULIN DETEMIR 300 UNITS/3 ML INSULN.PEN. SQ SCH (20:40)
[2016-12-21] MEDS: TEMAZEPAM 7.5 MG CAPSULE PO PRN (20:43)
[2016-12-21 23:00] VITALS: BP_SYST 115; BP_SYST 135; BP_DIAS 62; BP_DIAS 73
[2016-12-22 03:00] VITALS: BP 140/78
[2016-12-22 07:50] VITALS: BP 157/78
[2016-12-22] MEDS: MORPHINE IR 15 MG TABLET PO PRN ×2 (08:17→18:50)
[2016-12-22] MEDS: LORazepam 0.5 MG TABLET PO PRN ×3 (08:17→21:31)
[2016-12-22] MEDS: POLYETHYLENE GLYCOL 3350 17 GM PACKET. PO SCH ×2 (08:19→21:00)
[2016-12-22] MEDS: LIDOCAINE (700MG/PATCH) PATCH. TD SCH (08:19)
[2016-12-22] MEDS: TRIAMTERENE/HCTZ 37.5/25MG TABLET. PO SCH (08:20)
[2016-12-22] MEDS: TAMSULOSIN 0.4 MG CAP.ER.24H. PO SCH (08:20)
[2016-12-22] MEDS: PIOGLITAZONE 15 MG TABLET. PO SCH (08:20)
[2016-12-22] MEDS: METOPROLOL TART IMMED RELEASE 25 MG TABLET. PO SCH ×2 (08:21→21:31)
[2016-12-22] MEDS: ISOSORBIDE MONONITRATE ER 30 MG TAB.ER.24H PO SCH (08:21)
[2016-12-22] MEDS: MONTELUKAST SODIUM 10 MG TABLET. PO SCH (08:21)
[2016-12-22] MEDS: CETIRIZINE HCL 10 MG TABLET. PO SCH (08:21)
[2016-12-22] MEDS: CLOPIDOGREL BISULFATE 75 MG TABLET PO SCH (08:21)
[2016-12-22] MEDS: ENOXAPARIN 40 MG/0.4 ML SYRINGE. SQ SCH ×2 (08:22→21:31)
[2016-12-22] MEDS: INSULIN ASPART 300 UNITS/3 ML INSULN.PEN SQ SCH ×7 (08:32→21:39)
[2016-12-22] MEDS: SENNOSIDES/DOCUSATE 8.6/50MG TABLET. PO SCH ×2 (09:00→21:31)
[2016-12-22] MEDS: DOCUSATE SODIUM 100 MG CAPSULE. PO SCH ×2 (09:00→21:30)
--- NOTE | 2016-12-22 09:11 | PDOC ---
PULMONARY PROGRESS NOTES Subjective had an episode of CP today Vitals Vital Signs Date Time Temp Pulse Resp B/P (MAP) Pulse Ox O2 Delivery O2 Flow Rate FiO2 12/22/16 08:21 72 140/78 12/22/16 08:17 24 93 Nasal Cannula 2.0 12/22/16 07:50 98.2 98.2 ROS: No Nausea, No Abdominal Pain, No Increase Cough General: Alert Lungs: Clear Cardiovascular: S1, S2 Abdomen: Soft, Other (obese) Neuro Exam: Alert Extremities: Other (1+edema) Skin: Warm Labs Laboratory Tests Test 12/20/16 11:34 12/20/16 16:35 12/20/16 20:43 12/21/16 08:10 Glucose (Fingerstick) 202 mg/dL (70-99) 246 mg/dL (70-99) 235 mg/dL (70-99) 205 mg/dL (70-99) Test 12/21/16 12:05 12/21/16 16:58 12/21/16 20:28 12/22/16 08:16 Glucose (Fingerstick) 227 mg/dL (70-99) 205 mg/dL (70-99) 296 mg/dL (70-99) 233 mg/dL (70-99) Laboratory Tests Test 12/21/16 12:05 12/21/16 16:58 12/21/16 20:28 12/22/16 08:16 Glucose (Fingerstick) 227 mg/dL (70-99) 205 mg/dL (70-99) 296 mg/dL (70-99) 233 mg/dL (70-99) Medications Active Scripts Medications Dose Route/Sig Max Daily Dose Days Date Category Gabapentin 400 Mg Capsule 400 Mg PO TID PRN 12/15/16 Reported Tresiba Flextouch U-100 (Insulin Degludec) 100 Unit/1 Ml Insuln.pen 40 Unit SQ HS 12/14/16 Reported Tresiba Flextouch U-100 (Insulin Degludec) 100 Unit/1 Ml Insuln.pen 36 Unit SQ DAILY 12/14/16 Reported Cetirizine Hcl 10 Mg Tablet 1 Tab PO DAILY 12/14/16 Reported Tamsulosin Hcl 0.4 Mg Cap.er.24h 2 Cap PO DAILY 12/14/16 Reported Triamterene-Hctz 37.5-25 Mg Cp (Triamterene/Hydrochlorothiazid) 1 Each Capsule 1 Cap PO DAILY 12/14/16 Reported Atorvastatin Calcium 20 Mg Tablet 1 Tab PO DAILY 12/14/16 Reported Actos (Pioglitazone Hcl) 30 Mg Tablet 1 Tab PO DAILY 12/14/16 Reported Montelukast Sodium Tablet (Montelukast Sodium) 10 Mg Tablet 1 Tab PO DAILY 12/14/16 Reported Losartan Potassium 100 Mg Tablet 100 Mg PO DAILY 12/14/16 Reported Impression . 1. Abnormal CT of the chest revealing several findings ,left lower lobe mass measuring 3.0 x 2.2 cm. STAGE 4 LUNG CA 2. Mediastinal adenopathy. 3. Right rib soft tissue density. 4. Coronary artery disease requiring coronary artery bypass grafting. 5. Obesity. 6. Hypertension. 7. ON GOING ANGINA Plan . CATH IN AM FOLLOW ONCO INPUT RESP STATUS IS COMPENSATED OP PET ARUNA NOVAK MD Dec 22, 2016 09:11
[2016-12-22 10:50] VITALS: BP 108/67
--- NOTE | 2016-12-22 11:13 | PDOC ---
Subjective: Subjective: Stooling. Objective: Objective: Per RN - stooling w/ Miralax. Cath tomorrow. Outpt PET scan, palliative treatment. Vital Signs: Vital Signs Date Time Temp Pulse Resp B/P (MAP) Pulse Ox O2 Delivery O2 Flow Rate FiO2 12/22/16 09:15 24 93 Nasal Cannula 2.0 12/22/16 08:21 72 140/78 12/22/16 07:50 98.2 98.2 Labs: Laboratory Tests Test 12/21/16 12:05 12/21/16 16:58 12/21/16 20:28 12/22/16 08:16 Glucose (Fingerstick) 227 mg/dL 205 mg/dL 296 mg/dL 233 mg/dL Imaging: Brain MRI 12/19/16 IMPRESSION: 1. Small acute left cerebellar acute infarct. 2. Brain parenchymal volume loss. 3. Limited study, standard sequences could not be performed, standard coils could not be utilized, and no postcontrast imaging is provided. Bone Scan 12/19/16 Impression: 1. Abnormal bone scan consistent with metastatic disease. PE: GEN: NAD, up to chair LUNGS: decreased HEART: RRR ABD: BS+, obese, non-tender NEURO/PSYCH: A & O 3 A/P: NSCLC Stage IV CAD Abnormal brain MRI Irregular bowel habits/constipation - improved -- Continuing Miralax a good idea, particularly w/ ongoing use of pain meds. FRANSISCO GERMAIN Dec 22, 2016 11:13
--- NOTE | 2016-12-22 11:52 | CONS ---
DATE OF CONSULTATION: REFERRING PHYSICIAN: Jesús Mai M.D. 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 We were asked to see him regarding the role of palliative radiation therapy in his care. HISTORY OF PRESENT ILLNESS: The patient is a 66-year-old gentleman who beginning last Thursday had nonexertional chest pain radiating in both arms, lasting initially 5-10 minutes, it recurred through the day. During this time, he had some sweats with no palpation, syncope or nausea. He underwent evaluation here including coronary angiography which revealed 3-vessel coronary artery disease due to his unstable angina, coronary artery bypass graft surgery was felt to be the first consideration and if not feasible stent placement. He underwent screening CT scan of the chest on 12/15/2016. This revealed a 3.4 cm mass in the anterior right 3rd rib compatible with metastatic disease, multilobulated left lower lobe mass, mediastinal adenopathy, most prominent in the subcarinal regions and a low density mass in the far left side of the left lobe of the liver, 9 cm in dimension compatible with a fatty tumor mass versus metastasis. He underwent biopsy of the right rib metastasis on 12/17/2016 which confirmed moderately differentiated adenocarcinoma. As a result of this diagnosis he is now only been considered for stent placement, which is tentatively scheduled for Thursday12/22/2016. During this time, he has had no significant shortness of breath, cough or hemoptysis. He does note right chest soreness with pressure in the area of his known metastatic lesions currently asymptomatic. He has had no headache, nausea, vomiting, fevers or chills. PAST MEDICAL HISTORY: Remarkable for tonsillectomy, herniorrhaphy, cholecystectomy, hypertension, diabetes mellitus, arthroscopic knee surgery bilaterally, lumbar disk surgery. FAMILY HISTORY: Unremarkable for malignancy. SOCIAL HISTORY: for 41 years. is a survivor bilateral breast cancer and has been treated here in the past. He retired from working at a [employer] here in 2000. He denies smoking or alcohol use. 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 PHYSICAL EXAMINATION: GENERAL: Revealed a pleasant gentleman in no acute distress, morbidly obese. VITAL SIGNS: Blood pressure 115/64, pulse oximetry 95% on 3 liters of nasal oxygen. HEENT: Unremarkable. He had good dentition. He had no scleral icterus. LYMPH NODES: He had no palpable cervical or supraclavicular adenopathy. LUNGS: Clear. HEART: Regular. ABDOMEN: Revealed obesity, without hepatomegaly, mass or tenderness. EXTREMITIES: Did reveal bipedal edema. No clubbing or cyanosis. LABORATORY STUDIES: From 12/16/2016, hemoglobin 15.3, white count 6,200, platelet count 201,000. Chemistry panel from 12/14/2016 revealed normal electrolytes, creatinine 1.1. Normal liver function tests. ASSESSMENT AND PLAN: In summary, my impression is that of stage 4 (T1N2M1) adenocarcinoma of the left lower lobe associated with modest mediastinal adenopathy and a biopsy proven metastasis in the right 3rd rib. He has an equivocal metastasis in the left lobe of the liver, which could be benign fatty disease. At this time, his first priority is improving his coronary perfusion with stent placement, which is scheduled for early next week. Following this, stabilization, he should undergo staging PET CT scan as an outpatient to further ascertain the extending his disease. In the event that he has oligometastatic disease limited only in the right rib and primary disease limited in the lung plus minus mediastinum. We could consider aggressive treatment to this volume of disease with radiation and chemotherapy. In the event, he has liver metastatic disease, we would then limited radiation only to the symptomatic right rib lesion, following this, he would be considered for systemic treatment, which could include targeted therapy, depending on the outcome of his bilateral marker assessment. He will also undergo staging MRI scan of the brain. I had a thorough discussion with the patient and his . I reviewed the recommendations in general with Dr. Mai as well. Thank you for allowing us to participate in his evaluation. HEMANT STEPHENS MD DR: JUAN/amira JOB#: [id number] / [id number] JUNITO Hazel MD, SIDNEY NOVAK, SABSILVIA RUTHERFORD MD, MD, ATHANASIOS MD
--- NOTE | 2016-12-22 11:53 | CONS ---
DATE OF CONSULTATION: 12/19/2016 REFERRING PHYSICIAN: Jesús Mai M.D. 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 He underwent biopsy of his right third rib metastasis on 12/19/2016, which confirmed this diagnosis. He was initially admitted unstable angina with plans for coronary artery bypass graft surgery. He is now being considered for stent placement instead. We were asked to see him regarding the role of radiation treatment in his care. ICD 10 34.32 C79.51 HISTORY OF PRESENT ILLNESS: The patient is a 66-year-old gentleman who on 12/13/2016, woke up with chest pain radiating in both arms. He went to his [facility] football game where he developed recurrent chest pain, nausea and sweats that lasted 5-10 minutes, pain recurred and he called 911 and was subsequently admitted. He underwent coronary catheterization following admission, which showed 3-vessel coronary artery disease for which coronary artery bypass graft surgery was the first consideration. He underwent a screening chest CT scan, which revealed a 3 cm mass in the left lower lobe, mild mediastinal adenopathy up to 1.2 cm in the subcarinal region and a destructive soft tissue mass in the anterior aspect of the right third rib measuring 3.4 cm in greatest dimension as well as a low density mass in the left lobe of the liver measuring 9.2 cm in greatest dimension, reflecting focal fatty mass or metastasis. He underwent CT-guided biopsy of the right rib metastasis on 12/17/2016, which did confirm metastatic adenocarcinoma. As a result of this, he is now being considered only for stent placement and not bypass surgery. He does note some right focal chest pain in the area of his known metastasis, worse with pressure. He currently is breathing well with no cough or hemoptysis. Angina is controlled now. Completion staging evaluation including brain MRI without contrast from 12/19/2016 revealed small left cerebellar infarct with no overt metastatic disease. Imaging was limited as lack of contrast media. Bone scan from 12/19/2016 revealed right anterior rib uptake at the right aspect of T5 with mild sclerosis of the transverse process and mild soft tissue swelling suggestive of metastatic disease uptake at right side of T12 and L1 suggestive for metastatic disease. PAST MEDICAL HISTORY: Remarkable for tonsillectomy, herniorrhaphy, cholecystectomy, hypertension, diabetes mellitus, arthroscopic knee surgery bilaterally, lumbar disk surgery resulting in dropfoot in the past and coronary artery disease as documented above with plans for stent placement. FAMILY HISTORY: Unremarkable for malignancy. SOCIAL HISTORY: for 41 years. is a survivor of both stage 0 of stage 1 breast carcinoma. 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 He never smoked and he is a nondrinker. He has one adult daughter, living in [place]. 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 PHYSICAL EXAMINATION: GENERAL: Revealed a morbidly obese pleasant gentleman, in no acute distress. HEENT: Unremarkable and no scleral icterus. CHEST: He did have focal tenderness and palpable mass over his anterior right chest corresponding his biopsy site and known site of metastasis. LUNGS: Otherwise clear to percussion. Heart was regular at this time. ABDOMEN: Revealed obesity with no hepatomegaly, mass or tenderness palpated. EXTREMITIES: Did reveal bilateral pedal edema without clubbing or cyanosis. NEUROLOGICAL: He had no focal neurologic deficits. LABORATORY STUDIES: CBC from 12/16/2016: Hemoglobin 15.3; white count 6200 and platelet count 201,000. Chemistry panel from 12/15/2016: Normal electrolytes and creatinine 1.0. Liver function tests from 12/14/2016 were unremarkable. ASSESSMENT AND PLAN: In summary, my impression is that of pathologic stage 4 (T1N2M1) adenocarcinoma of the left lower lobe with osseous metastatic disease at diagnosis and possible liver metastasis as well seen on initial chest CT scan. At this time, his most critical issue is unstable angina and stent placement as planned. Following this, we would consider him for palliative radiation to his right third rib metastasis. PET CT scan is used for following discharge to confirm the etiology of his liver lesions and the significance of his other potential osseous metastatic lesions seen on bone scan. In the unlikely event that he has oligometastatic disease limited only to the right third rib without metastatic disease elsewhere, we would consider potentially treating his lesion and primary in combination with systemic treatment. In the more likely situation that he has significant metastatic disease elsewhere, a limited course of palliative radiation to the right chest wall followed by chemotherapy would be considered. I had a thorough discussion with the patient and his and we will readdress treatment following his anticipated stent placement, which is scheduled for 12/23/2016. Thank you for allowing us to participate in his evaluation. Sincerely yours, HEMANT STEPHENS MD DR: JUAN/amira JOB#: [id number] / [id number] ALL Wiley AMAN MD PASNOORI, SIDNEY NOAVK, ARUNA DASILVA, SILVIA FARRIS, SEVERO TEJEDA
--- NOTE | 2016-12-22 13:51 | PDOC ---
PROGRESS NOTES Chief Complaint Chief Complaint left lung Adeno CA stage 4 with mets to bones and liver? - new dx via tissue lung biopsy NSTEMI - CABG on hold bec of lung CA new dx Never smoker V TACH (12/17) dm2 better control now htn, controlled morbid obesity CKD 2-3 constipation resolved mild malnutrition Anxiety NOS MRI showed left small acute cerebellar stroke, no mets plan: fu with specialists PCI tmr as per card CABG held given metastatic lung Ca on insulin, increase levemir to 25u qhs, add aspart 5u tid, SSI fu with onco and RT for outpt PET and maybe chemo and XRT History of Present Illness History of Present Illness ROS: no fever, chills, sob chest pain still on NC 2 L hyperglycemia >200 yesterday cannot do CABG since has lung adenocarcinoma mets to liver and bones MRI showed a small acute left cerebellar stroke Vitals Vitals Vital Signs Date Time Temp Pulse Resp B/P (MAP) Pulse Ox O2 Delivery O2 Flow Rate FiO2 12/22/16 10:50 98.0 68 22 108/67 (81) 91 Nasal Cannula 2.0 98.0 Physical Exam General: Alert, Oriented X3 Heart: Normal S1, Normal S2 Lungs: Clear Abdomen: Soft, No tenderness Extremities: No edema Skin: No significant lesion Labs LABS Laboratory Tests Test 12/21/16 16:58 12/21/16 20:28 12/22/16 08:16 12/22/16 11:45 Glucose (Fingerstick) 205 mg/dL (70-99) 296 mg/dL (70-99) 233 mg/dL (70-99) 213 mg/dL (70-99) Assessment and Plan Assessmemt and Plan Problems Medical Problems: (1) Chest pain Status: Acute (2) Non-STEMI (non-ST elevated myocardial infarction) Status: Acute Problems: Comment Review of Relevant I have reviewed the following items maxine (where applicable) has been applied. Labs Laboratory Tests Test 12/20/16 16:35 12/20/16 20:43 12/21/16 08:10 12/21/16 12:05 Glucose (Fingerstick) 246 mg/dL (70-99) 235 mg/dL (70-99) 205 mg/dL (70-99) 227 mg/dL (70-99) Test 12/21/16 16:58 12/21/16 20:28 12/22/16 08:16 12/22/16 11:45 Glucose (Fingerstick) 205 mg/dL (70-99) 296 mg/dL (70-99) 233 mg/dL (70-99) 213 mg/dL (70-99) Laboratory Tests Test 12/21/16 16:58 12/21/16 20:28 12/22/16 08:16 12/22/16 11:45 Glucose (Fingerstick) 205 mg/dL (70-99) 296 mg/dL (70-99) 233 mg/dL (70-99) 213 mg/dL (70-99) Medications Current Medications Nitroglycerin (Nitro-Bid Oint) 1 inch 1X ONCE TP Last administered on 18:38; Start 12/13/16 at 18:30; Stop 12/13/16 at 18:31; Status DC Aspirin (Children'S Aspirin) 324 mg 1X ONCE PO ; Start 12/13/16 at 18:30; Stop 12/13/16 at 18:31; Status DC Enoxaparin Sodium (Lovenox Per Pharmacy Treatment Dosing) 1 each PRN DAILY PRN MC SEE COMMENTS; Start 12/13/16 at 19:15; Stop 12/20/16 at 12:13; Status DC Enoxaparin Sodium (Lovenox 100mg Syringe) 100 mg 1X ONCE SQ Last administered on 12/13/16 19:50; Start 12/13/16 at 19:30; Stop 12/13/16 at 19:31; Status DC Enoxaparin Sodium (Lovenox 80mg Syringe) 80 mg 1X ONCE SQ Last administered on 12/13/16 19:50; Start 12/13/16 at 19:30; Stop 12/13/16 at 19:31; Status DC Ondansetron HCl (Zofran) 4 mg PRN Q8HRS PRN IV NAUSEA/VOMITING; Start 12/13/16 at 19:45; Stop 12/14/16 at 11:34; Status DC Morphine Sulfate 2 mg PRN Q2HR PRN IV PAIN; Start 12/13/16 at 19:45; Stop 12/14 at 11:34; Status DC Acetaminophen (Tylenol) 650 mg PRN Q4HRS PRN PO FEVER Last administered on 12/14 06:36; Start 12/13/16 at 19:45; Stop 12/14/16 at 11:34; Status DC Nitroglycerin (Nitrostat) 0.4 mg PRN Q5MIN PRN SL CHEST PAIN; Start 12/13/16 at 19:45; Stop 12/14/16 at 19:44; Status DC Insulin Aspart (NovoLOG) 0-9 UNITS QIDACHS SQ Last administered on 12/22/16 13 :13; Start 12/13/16 at 21:30 Dextrose (Dextrose 50%-Water Syringe) 12.5 gm PRN Q15MIN PRN IV SEE COMMENTS; Start 12/13/16 at 20:15 Morphine Sulfate (Morphine Ir) 15 mg PRN Q4HRS PRN PO SEVERE PAIN Last administered on 12/22/16 08:17; Start 12/13/16 at 20:15 Enoxaparin Sodium (Lovenox 100mg Syringe) 180 mg Q12HR SQ Last administered on 12/20/16 09:30; Start 12/14/16 at 09:00; Stop 12/20/16 at 12:09; Status DC Atorvastatin Calcium (Lipitor) 20 mg QHS PO Last administered on 12/21/16 20: 32; Start 12/14/16 at 21:00 Cetirizine HCl (ZyrTEC) 10 mg DAILY PO Last administered on 12/22/16 08:21; Start 12/14/16 at 12:00 Montelukast Sodium (Singulair) 10 mg DAILY PO Last administered on 12/22/16 08 :21; Start 12/14/16 at 12:00 Tamsulosin HCl (Flomax) 0.8 mg DAILY PO Last administered on 12/22/16 08:20; Start 12/14/16 at 12:00 Losartan Potassium (Cozaar) 100 mg DAILY PO Last administered on 12/15/16 11: 09; Start 12/14/16 at 12:00; Stop 12/15/16 at 16:19; Status DC Pioglitazone HCl (Actos) 30 mg DAILY PO Last administered on 12/22/16 08:20; Start 12/14/16 at 12:00 Triamterene/HCTZ (Maxzide 37.5/ 25mg) 1 tab DAILY PO Last administered on 08:20; Start 12/14/16 at 12:00 Acetaminophen (Tylenol) 650 mg PRN Q6HRS PRN PO FEVER Last administered on 12/18 20:33; Start 12/14/16 at 11:30 Ondansetron HCl (Zofran) 4 mg PRN Q6HRS PRN IV NAUSEA/VOMITING Last administered on 12/17/16 20:22; Start 12/14/16 at 11:30 Morphine Sulfate 2 mg PRN Q2HR PRN IV MODERATE TO SEVERE PAIN; Start 12/14/16 at 11:45 Tramadol HCl (Ultram) 50 mg PRN Q6HRS PRN PO MILD PAIN Last administered on 07:32; Start 12/14/16 at 11:30 Hydralazine HCl (Apresoline) 10 mg PRN Q4HRS PRN IVP ELEVATED BP, SEE COMMENTS ; Start 12/14/16 at 11:30 Docusate Sodium (Colace) 100 mg PRN DAILY PRN PO CONSTIPATION; Start 12/14/16 at 11:30; Stop 12/19/16 at 17:43; Status DC Senna/Docusate Sodium (Senna Plus) 1 tab BID PO Last administered on 12/21/16 20:31; Start 12/14/16 at 12:00 Docusate Sodium (Colace) 100 mg BID PO Last administered on 12/21/16 20:32; Start 12/14/16 at 12:00 Magnesium Hydroxide (Milk Of Magnesia) 2,400 mg PRN Q12HR PRN PO CONSTIPATION; Start 12/14/16 at 11:30 Insulin Detemir (Levemir) 20 units QHS SQ Last administered on 12/21/16 20:40 ; Start 12/14/16 at 21:00; Stop 12/22/16 at 08:32; Status DC Heparin Sodium/ Sodium Chloride 1,000 ml @ As Directed STK-MED ONCE .ROUTE ; Start 12/15/16 at 07:09; Stop 12/15/16 at 07:10; Status DC Lidocaine HCl 20 ml STK-MED ONCE .ROUTE ; Start 12/15/16 at 07:10; Stop at 07:11; Status DC Iohexol (Omnipaque 300 Mg/ml) 100 ml STK-MED ONCE .ROUTE ; Start 12/15/16 at 07: 14; Stop 12/15/16 at 07:15; Status DC Fentanyl Citrate (Fentanyl 2ml Vial) 100 mcg STK-MED ONCE .ROUTE ; Start at 10:07; Stop 12/15/16 at 10:08; Status DC Midazolam HCl (Versed) 2 mg STK-MED ONCE .ROUTE ; Start 12/15/16 at 10:08; Stop 12/15/16 at 10:09; Status DC Verapamil HCl (Verapamil) 5 mg STK-MED ONCE .ROUTE ; Start 12/15/16 at 10:08; Stop 12/15/16 at 10:09; Status DC Heparin Sodium (Porcine) (Heparin Sodium) 10,000 unit STK-MED ONCE .ROUTE ; Start 12/15/16 at 10:08; Stop 12/15/16 at 10:09; Status DC Nitroglycerin (Nitroglycerin) 200 mcg STK-MED ONCE .ROUTE ; Start 12/15/16 at 10 :08; Stop 12/15/16 at 10:09; Status DC Nitroglycerin (Nitroglycerin) 200 mcg 1X ONCE IART Last administered on 10:43; Start 12/15/16 at 10:45; Stop 12/15/16 at 10:46; Status DC Verapamil HCl (Verapamil) 2.5 mg 1X ONCE IART Last administered on 12/15/16 10:43; Start 12/15/16 at 10:45; Stop 12/15/16 at 10:46; Status DC Heparin Sodium (Porcine) (Heparin Sodium) 2,500 unit 1X ONCE IART Last administered on 12/15/16 10:45; Start 12/15/16 at 10:45; Stop 12/15/16 at 10:46 ; Status DC Heparin Sodium/ Sodium Chloride 1,000 unit 1X ONCE IART Last administered on 10:42; Start 12/15/16 at 10:45; Stop 12/15/16 at 10:46; Status DC Midazolam HCl (Versed) 2 mg 1X ONCE IV Last administered on 12/15/16 10:44; Start 12/15/16 at 10:45; Stop 12/15/16 at 10:46; Status DC Fentanyl Citrate (Fentanyl 2ml Vial) 50 mcg 1X ONCE IV Last administered on 10:44; Start 12/15/16 at 10:45; Stop 12/15/16 at 10:46; Status DC Iohexol (Omnipaque 300 Mg/ml) 100 ml 1X ONCE IART Last administered on 10:42; Start 12/15/16 at 10:45; Stop 12/15/16 at 10:46; Status DC Lidocaine HCl 2 ml 1X ONCE IJ Last administered on 12/15/16 10:42; Start at 10:45; Stop 12/15/16 at 10:46; Status DC Sodium Chloride 1,000 ml @ 60 mls/hr [id number] IV Last administered on 03:31; Start 12/15/16 at 10:51; Stop 12/16/16 at 20:04; Status DC Polyethylene Glycol (miraLAX PACKET) 17 gm DAILY PO ; Start 12/16/16 at 16:30; Stop 12/16/16 at 16:30; Status DC Metoprolol Tartrate (Lopressor) 25 mg BID PO Last administered on 12/22/16 08: 21; Start 12/15/16 at 21:00 Polyethylene Glycol (miraLAX PACKET) 17 gm DAILY PO Last administered on 08:47; Start 12/17/16 at 07:00; Stop 12/19/16 at 12:28; Status DC Polyethylene Glycol (miraLAX PACKET) 17 gm 1X ONCE PO Last administered on 13:34; Start 12/16/16 at 13:30; Stop 12/16/16 at 13:31; Status DC Ondansetron HCl (Zofran) 4 mg PRN Q6HRS PRN IV NAUSEA/VOMITING; Start 12/17/16 at 07:00; Stop 12/18/16 at 06:59; Status DC Fentanyl Citrate (Fentanyl 2ml Vial) 25 mcg PRN Q5MIN PRN IV MILD PAIN; Start 12/17/16 at 07:00; Stop 12/18/16 at 06:59; Status DC Fentanyl Citrate (Fentanyl 2ml Vial) 50 mcg PRN Q5MIN PRN IV MODERATE PAIN; Start 12/17/16 at 07:00; Stop 12/18/16 at 06:59; Status DC Morphine Sulfate 1 mg PRN Q10MIN PRN IV SEVERE PAIN; Start 12/17/16 at 07:00; Stop 12/18/16 at 06:59; Status DC Ringer's Solution 1,000 ml @ 30 mls/hr Q24H IV ; Start 12/17/16 at 07:00; Stop 12/17/16 at 15:23; Status DC Lidocaine HCl (Xylocaine-Mpf 1% Vial) 2 ml PRN 1X PRN ID IV START; Start at 07:00; Stop 12/18/16 at 06:59; Status DC Hydromorphone HCl (Dilaudid) 0.5 mg PRN Q10MIN PRN IV SEV PAIN, Second choice; Start 12/17/16 at 07:00; Stop 12/18/16 at 06:59; Status DC Prochlorperazine Edisylate (Compazine) 5 mg PACU PRN PRN IV NAUSEA, MRX1; Start 12/17/16 at 07:00; Stop 12/18/16 at 06:59; Status DC Temazepam (Restoril) 7.5 mg PRN QHS PRN PO INSOMNIA Last administered on 20:43; Start 12/16/16 at 14:30 Lidocaine/Sodium Bicarbonate (Buffered Lidocaine 1%) 20 ml STK-MED ONCE IJ ; Start 12/17/16 at 13:12; Stop 12/17/16 at 13:13; Status DC Midazolam HCl (Versed) 2 mg STK-MED ONCE .ROUTE ; Start 12/17/16 at 13:47; Stop 12/17/16 at 13:48; Status DC Lidocaine/Sodium Bicarbonate (Buffered Lidocaine 1%) 3 ml 1X ONCE IJ Last administered on 12/17/16 14:00; Start 12/17/16 at 14:30; Stop 12/17/16 at 14:31 ; Status DC Midazolam HCl (Versed) 1 mg 1X ONCE IV Last administered on 12/17/16 14:00; Start 12/17/16 at 14:30; Stop 12/17/16 at 14:31; Status DC Fentanyl Citrate (Fentanyl 2ml Vial) 50 mcg 1X ONCE IV Last administered on 14:26; Start 12/17/16 at 14:30; Stop 12/17/16 at 14:31; Status DC Nitroglycerin/ Dextrose 250 ml @ 0 mls/hr CONT PRN IV SEE I/O RECORD Last administered on 12/17/16 19:53; Start 12/17/16 at 19:45; Stop 12/18/16 at 11:37 ; Status DC Isosorbide Mononitrate (Imdur) 30 mg DAILY PO Last administered on 12/22/16 08 :21; Start 12/18/16 at 12:00 Oxymetazoline HCl (Afrin) 2 spray BID NS Last administered on 12/21/16 08:43; Start 12/18/16 at 21:00; Stop 12/21/16 at 20:59; Status DC Sodium Chloride (Saline Mist Nasal) 1 evon PRN Q1HR PRN NS NASAL CONGESTION Last administered on 12/18/16 20:26; Start 12/18/16 at 20:00 Polyethylene Glycol (miraLAX PACKET) 17 gm BID PO Last administered on 08:19; Start 12/19/16 at 21:00 Lorazepam (Ativan) 1 mg 1X ONCE IV Last administered on 12/19/16 14:25; Start 12/19/16 at 13:30; Stop 12/19/16 at 13:31; Status DC Lorazepam (Ativan) 0.5 mg Q6HRS PRN PO ANXIETY / AGITATION Last administered on 12/22/16 08:17; Start 12/19/16 at 13:30 Lidocaine (Lidoderm) 1 patch DAILY TD Last administered on 12/22/16 08:19; Start 12/20/16 at 12:30 Enoxaparin Sodium (Lovenox 40mg Syringe) 40 mg Q12H SQ Last administered on 08:22; Start 12/20/16 at 21:00 Oxycodone/ Acetaminophen (Percocet 5/325) 1 tab PRN Q4HRS PRN PO MODERATE PAIN Last administered on 12/21/16 09:52; Start 12/20/16 at 12:15 Oxycodone/ Acetaminophen (Percocet 10/325) 1 tab PRN Q4HRS PRN PO MODERATE PAIN ; Start 12/20/16 at 12:15 Clopidogrel Bisulfate (Plavix) 300 mg 1X ONCE PO Last administered on 11:00; Start 12/21/16 at 09:30; Stop 12/21/16 at 09:31; Status DC Clopidogrel Bisulfate (Plavix) 75 mg DAILYWBKFT PO Last administered on 08:21; Start 12/22/16 at 08:00 Insulin Detemir (Levemir) 25 units QHS SQ ; Start 12/22/16 at 21:00 Insulin Aspart (NovoLOG) 5 units TIDAC SQ Last administered on 12/22/16 13:14 ; Start 12/22/16 at 08:33 Ondansetron HCl (Zofran) 4 mg PRN Q6HRS PRN IV NAUSEA/VOMITING; Start 12/23/16 at 07:00; Stop 12/24/16 at 06:59 Fentanyl Citrate (Fentanyl 2ml Vial) 25 mcg PRN Q5MIN PRN IV MILD PAIN; Start 12/23/16 at 07:00; Stop 12/23/16 at 18:00 Fentanyl Citrate (Fentanyl 2ml Vial) 50 mcg PRN Q5MIN PRN IV MODERATE PAIN; Start 12/23/16 at 07:00; Stop 12/23/16 at 18:00 Morphine Sulfate 1 mg PRN Q10MIN PRN IV SEVERE PAIN; Start 12/23/16 at 07:00; Stop 12/23/16 at 18:00 Ringer's Solution 1,000 ml @ 30 mls/hr Q24H IV ; Start 12/23/16 at 07:00; Stop 12/23/16 at 18:59 Lidocaine HCl (Xylocaine-Mpf 1% Vial) 2 ml PRN 1X PRN ID IV START; Start at 07:00; Stop 12/23/16 at 18:00 Hydromorphone HCl (Dilaudid) 0.5 mg PRN Q10MIN PRN IV SEV PAIN, Second choice; Start 12/23/16 at 07:00; Stop 12/23/16 at 18:00 Prochlorperazine Edisylate (Compazine) 5 mg PACU PRN PRN IV NAUSEA, MRX1; Start 12/23/16 at 07:00; Stop 12/23/16 at 18:00 Active Scripts Active Reported Gabapentin 400 Mg Capsule 400 Mg PO TID PRN Tresiba Flextouch U-100 (Insulin Degludec) 100 Unit/1 Ml Insuln.pen 40 Unit SQ HS Tresiba Flextouch U-100 (Insulin Degludec) 100 Unit/1 Ml Insuln.pen 36 Unit SQ DAILY Cetirizine Hcl 10 Mg Tablet 1 Tab PO DAILY Tamsulosin Hcl 0.4 Mg Cap.er.24h 2 Cap PO DAILY Triamterene-Hctz 37.5-25 Mg Cp (Triamterene/Hydrochlorothiazid) 1 Each Capsule 1 Cap PO DAILY Atorvastatin Calcium 20 Mg Tablet 1 Tab PO DAILY Actos (Pioglitazone Hcl) 30 Mg Tablet 1 Tab PO DAILY Montelukast Sodium Tablet (Montelukast Sodium) 10 Mg Tablet 1 Tab PO DAILY Losartan Potassium 100 Mg Tablet 100 Mg PO DAILY Vitals/I & O Vital Sign - Last 24 Hours 12/21/16 12/21/16 12/21/16 12/21/16 15:00 19:00 19:50 19:50 Temp 98.1 98.3 98.1 98.3 Pulse 75 78 Resp 20 18 20 B/P (MAP) 113/62 (79) 127/65 (85) Pulse Ox 96 95 O2 Delivery Nasal Cannula Nasal Cannula Nasal Cannula Nasal Cannula O2 Flow Rate 4.0 2.0 2.0 2.0 12/21/16 12/21/16 12/22/16 12/22/16 20:32 23:00 03:00 07:50 Temp 98.4 98.4 98.2 98.4 98.4 98.2 Pulse 78 73 72 76 Resp 17 19 20 B/P (MAP) 127/65 135/73 (93) 140/78 (98) 157/78 (104) Pulse Ox 95 97 93 O2 Delivery Nasal Cannula Nasal Cannula Nasal Cannula O2 Flow Rate 2.0 2.0 2.0 12/22/16 12/22/16 12/22/16 12/22/16 08:00 08:17 08:21 08:21 Pulse 72 72 Resp 24 B/P (MAP) 140/78 140/78 Pulse Ox 93 O2 Delivery Nasal Cannula Nasal Cannula O2 Flow Rate 2.0 2.0 12/22/16 12/22/16 09:15 10:50 Temp 98.0 98.0 Pulse 68 Resp 24 22 B/P (MAP) 108/67 (81) Pulse Ox 93 91 O2 Delivery Nasal Cannula Nasal Cannula O2 Flow Rate 2.0 2.0 Intake and Output 12/22/16 12/22/16 12/23/16 15:00 23:00 07:00 Intake Total 120 ml Balance 120 ml GOLDEN PEARSON MD Dec 22, 2016 13:51
[2016-12-22] MEDS: oxyCODONE/APAP 10/325 1 TAB TABLET PO PRN ×2 (14:24→20:15)
--- NOTE | 2016-12-22 15:07 | PDOC ---
Provider Note Provider Note [address] IV(T1 N2 M1) adenocarcinoma of LLLobe with osseous and possible liver mets at dx. Admitted for unstable angina at which time CT chest revealed the occult malignancy. CABG was planned now he is only a suitable candidate for stents. He is having ongoing chest to arm pain as well as right upper chest pain in region of known metastatic disease. Stents scheduled for tomorrow. MRI brain without contrast only as patient could not tolerate complete exam: small central left cerebellar CVA. B scan positive at right 3rd rib T5 T12 and upper L spine all suspicious for metastatic disease. Impression; Unstable angina from 3 vessel CAD, stent placement planned 2016. Following this I would recommend short palliative course of treatment to right rib met along with PET/CT followed by systemic treatment with Dr. Mai. Discussed with patient and . HEMANT STEPHENS MD Dec 22, 2016 15:07
[2016-12-22 15:20] VITALS: BP 117/69
--- NOTE | 2016-12-22 16:15 | PDOC2 ---
NEUROLOGY CONSULT Date of Admission Date of Admission DATE: 12/22/16 TIME: 16:06 Reason for Consult Reason for Consult: Stroke on MRI Referring Physician Referring Physician: Dr. Bains PCP: Dr. 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 He was undergoing workup for metastasis and brain MRI showed a left cerebellar stroke. The patient denies any history of stroke, ataxia, seizures, head injury. He feels fine. He gets around with a walker because of arthritis and peripheral neuropathy from diabetes. Past Medical History Cardiovascular: HTN, Hyperlipidemia, Other (deep vein thrombosis) Pulmonary: Asthma, Other (sleep apnea not on treatment) CENTRAL NERVOUS SYSTEM: Periperal neuropathy (has a right foot drop) Musculoskeletal: low back pain Renal/: Acute renal failure (require dialysis time 7 sessions in 2008) Endocrine: Diabetes Past Surgical History Past Surgical History: Cholecystectomy, Hernia Repair (ventral), Total knee replacement (bilateral), Other (lumbar laminectomy, has 4 bulging disks) Family History Family History: CAD Social History Social History , no tobacco or alcohol Current Medications Current Medications Current Medications Nitroglycerin (Nitro-Bid Oint) 1 inch 1X ONCE TP Last administered on 18:38; Start 12/13/16 at 18:30; Stop 12/13/16 at 18:31; Status DC Aspirin (Children'S Aspirin) 324 mg 1X ONCE PO ; Start 12/13/16 at 18:30; Stop 12/13/16 at 18:31; Status DC Enoxaparin Sodium (Lovenox Per Pharmacy Treatment Dosing) 1 each PRN DAILY PRN MC SEE COMMENTS; Start 12/13/16 at 19:15; Stop 12/20/16 at 12:13; Status DC Enoxaparin Sodium (Lovenox 100mg Syringe) 100 mg 1X ONCE SQ Last administered on 12/13/16 19:50; Start 12/13/16 at 19:30; Stop 12/13/16 at 19:31; Status DC Enoxaparin Sodium (Lovenox 80mg Syringe) 80 mg 1X ONCE SQ Last administered on 12/13/16 19:50; Start 12/13/16 at 19:30; Stop 12/13/16 at 19:31; Status DC Ondansetron HCl (Zofran) 4 mg PRN Q8HRS PRN IV NAUSEA/VOMITING; Start 12/13/16 at 19:45; Stop 12/14/16 at 11:34; Status DC Morphine Sulfate 2 mg PRN Q2HR PRN IV PAIN; Start 12/13/16 at 19:45; Stop 12/14 at 11:34; Status DC Acetaminophen (Tylenol) 650 mg PRN Q4HRS PRN PO FEVER Last administered on 12/14 06:36; Start 12/13/16 at 19:45; Stop 12/14/16 at 11:34; Status DC Nitroglycerin (Nitrostat) 0.4 mg PRN Q5MIN PRN SL CHEST PAIN; Start 12/13/16 at 19:45; Stop 12/14/16 at 19:44; Status DC Insulin Aspart (NovoLOG) 0-9 UNITS QIDACHS SQ Last administered on 12/22/16 13 :13; Start 12/13/16 at 21:30 Dextrose (Dextrose 50%-Water Syringe) 12.5 gm PRN Q15MIN PRN IV SEE COMMENTS; Start 12/13/16 at 20:15 Morphine Sulfate (Morphine Ir) 15 mg PRN Q4HRS PRN PO SEVERE PAIN Last administered on 12/22/16 08:17; Start 12/13/16 at 20:15 Enoxaparin Sodium (Lovenox 100mg Syringe) 180 mg Q12HR SQ Last administered on 12/20/16 09:30; Start 12/14/16 at 09:00; Stop 12/20/16 at 12:09; Status DC Atorvastatin Calcium (Lipitor) 20 mg QHS PO Last administered on 12/21/16 20: 32; Start 12/14/16 at 21:00 Cetirizine HCl (ZyrTEC) 10 mg DAILY PO Last administered on 12/22/16 08:21; Start 12/14/16 at 12:00 Montelukast Sodium (Singulair) 10 mg DAILY PO Last administered on 12/22/16 08 :21; Start 12/14/16 at 12:00 Tamsulosin HCl (Flomax) 0.8 mg DAILY PO Last administered on 12/22/16 08:20; Start 12/14/16 at 12:00 Losartan Potassium (Cozaar) 100 mg DAILY PO Last administered on 12/15/16 11: 09; Start 12/14/16 at 12:00; Stop 12/15/16 at 16:19; Status DC Pioglitazone HCl (Actos) 30 mg DAILY PO Last administered on 12/22/16 08:20; Start 12/14/16 at 12:00 Triamterene/HCTZ (Maxzide 37.5/ 25mg) 1 tab DAILY PO Last administered on 08:20; Start 12/14/16 at 12:00 Acetaminophen (Tylenol) 650 mg PRN Q6HRS PRN PO FEVER Last administered on 12/18 20:33; Start 12/14/16 at 11:30 Ondansetron HCl (Zofran) 4 mg PRN Q6HRS PRN IV NAUSEA/VOMITING Last administered on 12/17/16 20:22; Start 12/14/16 at 11:30 Morphine Sulfate 2 mg PRN Q2HR PRN IV MODERATE TO SEVERE PAIN; Start 12/14/16 at 11:45 Tramadol HCl (Ultram) 50 mg PRN Q6HRS PRN PO MILD PAIN Last administered on 07:32; Start 12/14/16 at 11:30 Hydralazine HCl (Apresoline) 10 mg PRN Q4HRS PRN IVP ELEVATED BP, SEE COMMENTS ; Start 12/14/16 at 11:30 Docusate Sodium (Colace) 100 mg PRN DAILY PRN PO CONSTIPATION; Start 12/14/16 at 11:30; Stop 12/19/16 at 17:43; Status DC Senna/Docusate Sodium (Senna Plus) 1 tab BID PO Last administered on 12/21/16 20:31; Start 12/14/16 at 12:00 Docusate Sodium (Colace) 100 mg BID PO Last administered on 12/21/16 20:32; Start 12/14/16 at 12:00 Magnesium Hydroxide (Milk Of Magnesia) 2,400 mg PRN Q12HR PRN PO CONSTIPATION; Start 12/14/16 at 11:30 Insulin Detemir (Levemir) 20 units QHS SQ Last administered on 12/21/16 20:40 ; Start 12/14/16 at 21:00; Stop 12/22/16 at 08:32; Status DC Heparin Sodium/ Sodium Chloride 1,000 ml @ As Directed STK-MED ONCE .ROUTE ; Start 12/15/16 at 07:09; Stop 12/15/16 at 07:10; Status DC Lidocaine HCl 20 ml STK-MED ONCE .ROUTE ; Start 12/15/16 at 07:10; Stop at 07:11; Status DC Iohexol (Omnipaque 300 Mg/ml) 100 ml STK-MED ONCE .ROUTE ; Start 12/15/16 at 07: 14; Stop 12/15/16 at 07:15; Status DC Fentanyl Citrate (Fentanyl 2ml Vial) 100 mcg STK-MED ONCE .ROUTE ; Start at 10:07; Stop 12/15/16 at 10:08; Status DC Midazolam HCl (Versed) 2 mg STK-MED ONCE .ROUTE ; Start 12/15/16 at 10:08; Stop 12/15/16 at 10:09; Status DC Verapamil HCl (Verapamil) 5 mg STK-MED ONCE .ROUTE ; Start 12/15/16 at 10:08; Stop 12/15/16 at 10:09; Status DC Heparin Sodium (Porcine) (Heparin Sodium) 10,000 unit STK-MED ONCE .ROUTE ; Start 12/15/16 at 10:08; Stop 12/15/16 at 10:09; Status DC Nitroglycerin (Nitroglycerin) 200 mcg STK-MED ONCE .ROUTE ; Start 12/15/16 at 10 :08; Stop 12/15/16 at 10:09; Status DC Nitroglycerin (Nitroglycerin) 200 mcg 1X ONCE IART Last administered on 10:43; Start 12/15/16 at 10:45; Stop 12/15/16 at 10:46; Status DC Verapamil HCl (Verapamil) 2.5 mg 1X ONCE IART Last administered on 12/15/16 10:43; Start 12/15/16 at 10:45; Stop 12/15/16 at 10:46; Status DC Heparin Sodium (Porcine) (Heparin Sodium) 2,500 unit 1X ONCE IART Last administered on 12/15/16 10:45; Start 12/15/16 at 10:45; Stop 12/15/16 at 10:46 ; Status DC Heparin Sodium/ Sodium Chloride 1,000 unit 1X ONCE IART Last administered on 10:42; Start 12/15/16 at 10:45; Stop 12/15/16 at 10:46; Status DC Midazolam HCl (Versed) 2 mg 1X ONCE IV Last administered on 12/15/16 10:44; Start 12/15/16 at 10:45; Stop 12/15/16 at 10:46; Status DC Fentanyl Citrate (Fentanyl 2ml Vial) 50 mcg 1X ONCE IV Last administered on 10:44; Start 12/15/16 at 10:45; Stop 12/15/16 at 10:46; Status DC Iohexol (Omnipaque 300 Mg/ml) 100 ml 1X ONCE IART Last administered on 10:42; Start 12/15/16 at 10:45; Stop 12/15/16 at 10:46; Status DC Lidocaine HCl 2 ml 1X ONCE IJ Last administered on 12/15/16 10:42; Start at 10:45; Stop 12/15/16 at 10:46; Status DC Sodium Chloride 1,000 ml @ 60 mls/hr [id number] IV Last administered on 03:31; Start 12/15/16 at 10:51; Stop 12/16/16 at 20:04; Status DC Polyethylene Glycol (miraLAX PACKET) 17 gm DAILY PO ; Start 12/16/16 at 16:30; Stop 12/16/16 at 16:30; Status DC Metoprolol Tartrate (Lopressor) 25 mg BID PO Last administered on 12/22/16 08: 21; Start 12/15/16 at 21:00 Polyethylene Glycol (miraLAX PACKET) 17 gm DAILY PO Last administered on 08:47; Start 12/17/16 at 07:00; Stop 12/19/16 at 12:28; Status DC Polyethylene Glycol (miraLAX PACKET) 17 gm 1X ONCE PO Last administered on 13:34; Start 12/16/16 at 13:30; Stop 12/16/16 at 13:31; Status DC Ondansetron HCl (Zofran) 4 mg PRN Q6HRS PRN IV NAUSEA/VOMITING; Start 12/17/16 at 07:00; Stop 12/18/16 at 06:59; Status DC Fentanyl Citrate (Fentanyl 2ml Vial) 25 mcg PRN Q5MIN PRN IV MILD PAIN; Start 12/17/16 at 07:00; Stop 12/18/16 at 06:59; Status DC Fentanyl Citrate (Fentanyl 2ml Vial) 50 mcg PRN Q5MIN PRN IV MODERATE PAIN; Start 12/17/16 at 07:00; Stop 12/18/16 at 06:59; Status DC Morphine Sulfate 1 mg PRN Q10MIN PRN IV SEVERE PAIN; Start 12/17/16 at 07:00; Stop 12/18/16 at 06:59; Status DC Ringer's Solution 1,000 ml @ 30 mls/hr Q24H IV ; Start 12/17/16 at 07:00; Stop 12/17/16 at 15:23; Status DC Lidocaine HCl (Xylocaine-Mpf 1% Vial) 2 ml PRN 1X PRN ID IV START; Start at 07:00; Stop 12/18/16 at 06:59; Status DC Hydromorphone HCl (Dilaudid) 0.5 mg PRN Q10MIN PRN IV SEV PAIN, Second choice; Start 12/17/16 at 07:00; Stop 12/18/16 at 06:59; Status DC Prochlorperazine Edisylate (Compazine) 5 mg PACU PRN PRN IV NAUSEA, MRX1; Start 12/17/16 at 07:00; Stop 12/18/16 at 06:59; Status DC Temazepam (Restoril) 7.5 mg PRN QHS PRN PO INSOMNIA Last administered on t 20:43; Start 12/16/16 at 14:30 Lidocaine/Sodium Bicarbonate (Buffered Lidocaine 1%) 20 ml STK-MED ONCE IJ ; Start 12/17/16 at 13:12; Stop 12/17/16 at 13:13; Status DC Midazolam HCl (Versed) 2 mg STK-MED ONCE .ROUTE ; Start 12/17/16 at 13:47; Stop 12/17/16 at 13:48; Status DC Lidocaine/Sodium Bicarbonate (Buffered Lidocaine 1%) 3 ml 1X ONCE IJ Last administered on 12/17/16 14:00; Start 12/17/16 at 14:30; Stop 12/17/16 at 14:31 ; Status DC Midazolam HCl (Versed) 1 mg 1X ONCE IV Last administered on 12/17/16 14:00; Start 12/17/16 at 14:30; Stop 12/17/16 at 14:31; Status DC Fentanyl Citrate (Fentanyl 2ml Vial) 50 mcg 1X ONCE IV Last administered on 14:26; Start 12/17/16 at 14:30; Stop 12/17/16 at 14:31; Status DC Nitroglycerin/ Dextrose 250 ml @ 0 mls/hr CONT PRN IV SEE I/O RECORD Last administered on 12/17/16 19:53; Start 12/17/16 at 19:45; Stop 12/18/16 at 11:37 ; Status DC Isosorbide Mononitrate (Imdur) 30 mg DAILY PO Last administered on 12/22/16 08 :21; Start 12/18/16 at 12:00 Oxymetazoline HCl (Afrin) 2 spray BID NS Last administered on 12/21/16 08:43; Start 12/18/16 at 21:00; Stop 12/21/16 at 20:59; Status DC Sodium Chloride (Saline Mist Nasal) 1 evon PRN Q1HR PRN NS NASAL CONGESTION Last administered on 12/18/16 20:26; Start 12/18/16 at 20:00 Polyethylene Glycol (miraLAX PACKET) 17 gm BID PO Last administered on 08:19; Start 12/19/16 at 21:00 Lorazepam (Ativan) 1 mg 1X ONCE IV Last administered on 12/19/16 14:25; Start 12/19/16 at 13:30; Stop 12/19/16 at 13:31; Status DC Lorazepam (Ativan) 0.5 mg Q6HRS PRN PO ANXIETY / AGITATION Last administered on 12/22/16 14:25; Start 12/19/16 at 13:30 Lidocaine (Lidoderm) 1 patch DAILY TD Last administered on 12/22/16 08:19; Start 12/20/16 at 12:30 Enoxaparin Sodium (Lovenox 40mg Syringe) 40 mg Q12H SQ Last administered on 08:22; Start 12/20/16 at 21:00 Oxycodone/ Acetaminophen (Percocet 5/325) 1 tab PRN Q4HRS PRN PO MODERATE PAIN Last administered on 12/21/16 09:52; Start 12/20/16 at 12:15 Oxycodone/ Acetaminophen (Percocet 10/325) 1 tab PRN Q4HRS PRN PO MODERATE PAIN Last administered on 12/22/16 14:24; Start 12/20/16 at 12:15 Clopidogrel Bisulfate (Plavix) 300 mg 1X ONCE PO Last administered on 11:00; Start 12/21/16 at 09:30; Stop 12/21/16 at 09:31; Status DC Clopidogrel Bisulfate (Plavix) 75 mg DAILYWBKFT PO Last administered on 08:21; Start 12/22/16 at 08:00 Insulin Detemir (Levemir) 25 units QHS SQ ; Start 12/22/16 at 21:00 Insulin Aspart (NovoLOG) 5 units TIDAC SQ Last administered on 12/22/16 13:14 ; Start 12/22/16 at 08:33 Ondansetron HCl (Zofran) 4 mg PRN Q6HRS PRN IV NAUSEA/VOMITING; Start 12/23/16 at 07:00; Stop 12/24/16 at 06:59 Fentanyl Citrate (Fentanyl 2ml Vial) 25 mcg PRN Q5MIN PRN IV MILD PAIN; Start 12/23/16 at 07:00; Stop 12/23/16 at 18:00 Fentanyl Citrate (Fentanyl 2ml Vial) 50 mcg PRN Q5MIN PRN IV MODERATE PAIN; Start 12/23/16 at 07:00; Stop 12/23/16 at 18:00 Morphine Sulfate 1 mg PRN Q10MIN PRN IV SEVERE PAIN; Start 12/23/16 at 07:00; Stop 12/23/16 at 18:00 Ringer's Solution 1,000 ml @ 30 mls/hr Q24H IV ; Start 12/23/16 at 07:00; Stop 12/23/16 at 18:59 Lidocaine HCl (Xylocaine-Mpf 1% Vial) 2 ml PRN 1X PRN ID IV START; Start at 07:00; Stop 12/23/16 at 18:00 Hydromorphone HCl (Dilaudid) 0.5 mg PRN Q10MIN PRN IV SEV PAIN, Second choice; Start 12/23/16 at 07:00; Stop 12/23/16 at 18:00 Prochlorperazine Edisylate (Compazine) 5 mg PACU PRN PRN IV NAUSEA, MRX1; Start 12/23/16 at 07:00; Stop 12/23/16 at 18:00 Active Scripts Active Reported Gabapentin 400 Mg Capsule 400 Mg PO TID PRN Tresiba Flextouch U-100 (Insulin Degludec) 100 Unit/1 Ml Insuln.pen 40 Unit SQ HS Tresiba Flextouch U-100 (Insulin Degludec) 100 Unit/1 Ml Insuln.pen 36 Unit SQ DAILY Cetirizine Hcl 10 Mg Tablet 1 Tab PO DAILY Tamsulosin Hcl 0.4 Mg Cap.er.24h 2 Cap PO DAILY Triamterene-Hctz 37.5-25 Mg Cp (Triamterene/Hydrochlorothiazid) 1 Each Capsule 1 Cap PO DAILY Atorvastatin Calcium 20 Mg Tablet 1 Tab PO DAILY Actos (Pioglitazone Hcl) 30 Mg Tablet 1 Tab PO DAILY Montelukast Sodium Tablet (Montelukast Sodium) 10 Mg Tablet 1 Tab PO DAILY Losartan Potassium 100 Mg Tablet 100 Mg PO DAILY Allergies Allergies: Coded Allergies: No Known Drug Allergies (Unverified , 12/13/16) ROS Review of System Patient denies fevers, chills, weight loss, dyspnea, angina, abdominal pain, change in bowels, or dysuria. 14 point review of systems is negative. Physical Exam Physical Examination PHYSICAL EXAMINATION: Vital signs: see above. General appearance is normal and in no acute distress. HEENT: Normocephalic and nontraumatic. Eyes, nose, ears, and throat are unremarkable. Neck is supple. No lymphadenopathy. No bruits are heard over the carotid artery. No crepitus. NEUROLOGICAL EXAMINATION: Mental Status Examination: Alert. Oriented to time, place, and person. Answers questions and follows commends. Pupils are equal round and reactive to light and accommodation. Extraocular movements are intact. Visual field exam shows no defect on the direct confrontation. No motor or sensory deficits on the facial exam. Uvula in the midline and the soft palate elevated symmetrically. No deviation of the tongue to any direction. Gross hearing is normal. Shoulder shrug normal. Muscle tone is normal. Muscle strength is 5, except 3/ 5 right foot drop, 4/5 right plantar weakness. Deep tendon reflexes are 0+ all around. Plantar reflex is with flexion response bilaterally. [id number] test performance is accurate. Alternative movements are accurate. Gait arthritic, uses a walkerl. Sensory exam shows stocking loss. No cerebellar signs are elicited. Vitals VITALS Vital Signs Date Time Temp Pulse Resp B/P (MAP) Pulse Ox O2 Delivery O2 Flow Rate FiO2 12/22/16 15:20 98.2 80 20 117/69 (85) 93 Nasal Cannula 2.0 98.2 Labs Labs Laboratory Tests Test 12/20/16 16:35 12/20/16 20:43 12/21/16 08:10 12/21/16 12:05 Glucose (Fingerstick) 246 mg/dL (70-99) 235 mg/dL (70-99) 205 mg/dL (70-99) 227 mg/dL (70-99) Test 12/21/16 16:58 12/21/16 20:28 12/22/16 08:16 12/22/16 11:45 Glucose (Fingerstick) 205 mg/dL (70-99) 296 mg/dL (70-99) 233 mg/dL (70-99) 213 mg/dL (70-99) Laboratory Tests Test 12/21/16 16:58 12/21/16 20:28 12/22/16 08:16 12/22/16 11:45 Glucose (Fingerstick) 205 mg/dL (70-99) 296 mg/dL (70-99) 233 mg/dL (70-99) 213 mg/dL (70-99) Images Images Brain MRI: There is an area of restricted diffusion with ADC correlate in the left cerebellar hemisphere measuring 6 mm. Findings are compatible with small acute infarct. There is prominence of the ventricles and sulci, within normal limits for age. There is no definite vasogenic or cytotoxic edema apparent. Intracranial flow voids are preserved. Cervicomedullary junction is unremarkable. Clival marrow signal appears preserved. The paranasal sinuses and mastoid air cells are clear. Report was called to the patient's nurseJesse. Infarct and limitations were discussed. IMPRESSION: 1. Small acute left cerebellar acute infarct. 2. Brain parenchymal volume loss. 3. Limited study, standard sequences could not be performed, standard coils could not be utilized, and no postcontrast imaging is provided. Carotids: No Doppler evidence of hemodynamically significant stenosis within the carotid or vertebral arteries Echocardiogram: LEFT VENTRICLE The left ventricle is not well visualized. The left ventricle is normal size. Left ventricle systolic function is normal. The Ejection Fraction is 55-60%. There is normal LV segmental wall motion. Tissue Doppler imaging reveals mild left ventricular diastolic dysfunction. Transmitral Doppler flow pattern is Grade I-abnormal relaxation pattern. RIGHT VENTRICLE The right ventricle is not well visualized. ATRIA The left atrium is not well visualized. The right atrium is not well visualized. The atrial septum is not well visualized. AORTIC VALVE The aortic valve is not well visualized but appears to open. Doppler and Color Flow revealed no significant aortic regurgitation. There is no significant aortic valvular stenosis. MITRAL VALVE The mitral valve is not well visualized. There is no mitral valve stenosis. Doppler and Color Flow revealed no mitral valve regurgitation noted. TRICUSPID VALVE The tricuspid valve is not well visualized. Doppler and Color Flow revealed no tricuspid valve regurgitation noted. Unable to estimate PA pressure. There is no tricuspid valve stenosis. PULMONIC VALVE The pulmonic valve is not well visualized. Doppler and Color Flow revealed no pulmonic valvular regurgitation. There is no pulmonic valvular stenosis. GREAT VESSELS The aortic root is not well visualized. Pulmonary veins not recorded. Due to poor image quality, the IVC could not be assessed. PERICARDIAL EFFUSION There is no evidence of significant pericardial effusion. Critical Notification Critical Value: No <Conclusion> Technically very difficult study. Valves poorly visualized. Left ventricle systolic function is normal. The Ejection Fraction is 55-60%. Transmitral Doppler flow pattern is Grade I-abnormal relaxation pattern. There is no evidence of significant pericardial effusion. Assessment/Plan Assessment/Plan Impression: Incidental left cerebellar stroke without any clinical correlation, no way that this could've been found on examination as it is quite small and again he has no cerebellar findings. 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 Recommendations: He was being prepared for coronary artery bypass surgery and had a full stroke workup already, no need to repeat Okay for planned stent procedure Okay for any needed treatment for the cancer. Okay for anticoagulation Continue clopidogrel Continue statin. Does not need rehabilitation related to this tiny stroke. Certainly not a candidate for alteplase as time of onset is unknown, most likely several days. Thank you for letting me help with the patient's care. NETTIE SOLANO MD Dec 22, 2016 16:15
--- NOTE | 2016-12-22 16:37 | PDOC ---
TA[facility] [employer] 12/22/16 1637: CARDIO Progress Notes Date and Time Date of Service 12/22/2016 Time of Evaluation 1630 Subjective Subjective: No shortness of breath, No Palpitations, Other (CP this AM but better this afternoon) Vitals Vitals Vital Signs Date Time Temp Pulse Resp B/P (MAP) Pulse Ox O2 Delivery O2 Flow Rate FiO2 12/22/16 15:20 98.2 80 20 117/69 (85) 93 Nasal Cannula 2.0 98.2 Weight Weight [ ] Input and Output Intake and Output Intake and Output 12/23/16 07:00 Intake Total 120 ml Balance 120 ml Intake Oral 120 ml # Voids 1 # Bowel Movements 1 Laboratory Labs Laboratory Tests Test 12/21/16 16:58 12/21/16 20:28 12/22/16 08:16 12/22/16 11:45 Glucose (Fingerstick) 205 mg/dL (70-99) 296 mg/dL (70-99) 233 mg/dL (70-99) 213 mg/dL (70-99) Physical Exam HEENT: Neck Supple W Full Motion Chest: Symmetric LUNGS: Other (diminished) Heart: S1S2, RRR (SR with PVC) Abdomen: Soft N/T, Other (obese ) Extremities: No Calf Tenderness Neurology: alert, oriented, follow commands Assessment Assessment 1. 3V CAD: not a CABG candidate given coexisting factors below. 2. Stage IV lung CA with metastatic disease (new diagnosis): hemonc following 3. Small Left cerebellar CVA: ok to proceed with PCI per neurology 4. Hypertension: controlled 5. Hyperlipidemia: statin therapy 6. Diabetes mellitus type 2: Per PCP Recommendations 1. Complex PCI/stent placement tomorrow with anesthesia assistance given that pt is not able to lay flat. 2. Discussed risks and benefits and agreeable to proceed. 3. Continue with secondary prevention and continue with optimization. 4. Plavix, BMP tomorrow. NATHAN SUAREZ MD 12/23/16 0047: CARDIO Progress Notes Plan Plan Pt. seen and examined. Agree with above [employer] note. Discussed plan for PCI with the patient and his . No acute events overnight. Continues to have intermiitent pain related to his rib lesions. Supportive care for now. PCI in a.m. THanks Late entry for 12/22/2016 GALTAZ YATES APRN Dec 22, 2016 16:37 NATHAN SUAREZ MD Dec 23, 2016 00:47
--- NOTE | 2016-12-22 16:59 | PDOC ---
PROGRESS NOTES Subjective Subjective HPI - -f/u of NSCLC- Adenocarcinoma - Stage IV ROS - has CP Objective Objective Vital Signs Date Time Temp Pulse Resp B/P (MAP) Pulse Ox O2 Delivery O2 Flow Rate FiO2 12/22/16 15:20 98.2 80 20 117/69 (85) 93 Nasal Cannula 2.0 98.2 Intake and Output 12/23/16 07:00 Intake Total 120 ml Balance 120 ml Intake Oral 120 ml # Voids 1 # Bowel Movements 1 Physical Exam Heart: Normal S1, Normal S2 General: Alert, Oriented X3 Lungs: Clear to auscultation Neuro: Normal speech Psych/Mental Status: Mental status NL Assessment Assessment Problems Medical Problems: (1) Chest pain Status: Acute (2) Non-STEMI (non-ST elevated myocardial infarction) Status: Acute IMPRESSION AND PLAN: 1. NSCLC- Adenocarcinoma - Stage IV - Left lower lobe lung mass with associated right-sided third rib bone lesion and evidence of mediastinal lymphadenopathy and a liver mass is clinically consistent with Stage IV lung cancer with metastatic disease. Appreciate cardiothoracic evaluation - s/p biopsy right rib lesion 12/17/16 ( I d/w pathologist). I agree to proceed with a PET scan as outpatient for completion of staging workup. f/u with me upon discharge for chemotherapy. I will plan biomarker testing. 2. Chest pain. Appreciate Cardiology and cardiothoracic evaluation. CABG was planned, but it was canceled because of the findings on the CT chest concerning for malignancy. Agree with stent placement 12/23/16. I d/w DR Parks. 3. Bone mets - Bone scan 12/19/16: There is a focus of increased activity in the anterior right second rib corresponds to a destructive lesion noted on the CT study. There is activity at the costovertebral junction on the right at approximately T5. There is mild sclerosis of the transverse process of T5 on the CT with mild soft tissue swelling which would suggest a metastatic lesion. There is activity in the upper lumbar spine and on the right at T12. There are mild lytic changes the L1 vertebra on the CT images again suggesting metastatic disease.. There is a small focus of activity in the sacrum. There is mild activity in the lateral iliac bone on the left. I d/w DR Ojeda and I agree with palliative radiation to rt rib. Plan Xgeva as outpatient. 4. CVA - MRI brain 12/19/16 reveals no mets - Small acute left cerebellar acute infarct. Appreciate neurology consult. I d/w DR Diggs. PATHOLOGY REPORT * * * * * * * * FINAL DIAGNOSIS: Chest wall mass, right, core needle biopsy: - Moderately differentiated adenocarcinoma. (Please see comment) (SKM:[email or web address]; 12/18/2016) COMMENT: The tumor cells are negative for CK5/6 and p40. The tumor cells are positive for cytokeratin 7, Napsin, and TTF-1. This patient's history of a 3 cm left lower lobe lung nodule is noted. The findings in this case are consistent with a metastatic moderately differentiated adenocarcinoma from the lung. Comment Review of Relevant I have reviewed the following items maxine (where applicable) has been applied. Labs Laboratory Tests Test 12/20/16 20:43 12/21/16 08:10 12/21/16 12:05 12/21/16 16:58 Glucose (Fingerstick) 235 mg/dL (70-99) 205 mg/dL (70-99) 227 mg/dL (70-99) 205 mg/dL (70-99) Test 12/21/16 20:28 12/22/16 08:16 12/22/16 11:45 Glucose (Fingerstick) 296 mg/dL (70-99) 233 mg/dL (70-99) 213 mg/dL (70-99) Laboratory Tests Test 12/21/16 16:58 12/21/16 20:28 12/22/16 08:16 12/22/16 11:45 Glucose (Fingerstick) 205 mg/dL (70-99) 296 mg/dL (70-99) 233 mg/dL (70-99) 213 mg/dL (70-99) Medications Current Medications Nitroglycerin (Nitro-Bid Oint) 1 inch 1X ONCE TP Last administered on t 18:38; Start 12/13/16 at 18:30; Stop 12/13/16 at 18:31; Status DC Aspirin (Children'S Aspirin) 324 mg 1X ONCE PO ; Start 12/13/16 at 18:30; Stop 12/13/16 at 18:31; Status DC Enoxaparin Sodium (Lovenox Per Pharmacy Treatment Dosing) 1 each PRN DAILY PRN MC SEE COMMENTS; Start 12/13/16 at 19:15; Stop 12/20/16 at 12:13; Status DC Enoxaparin Sodium (Lovenox 100mg Syringe) 100 mg 1X ONCE SQ Last administered on 12/13/16 19:50; Start 12/13/16 at 19:30; Stop 12/13/16 at 19:31; Status DC Enoxaparin Sodium (Lovenox 80mg Syringe) 80 mg 1X ONCE SQ Last administered on 12/13/16 19:50; Start 12/13/16 at 19:30; Stop 12/13/16 at 19:31; Status DC Ondansetron HCl (Zofran) 4 mg PRN Q8HRS PRN IV NAUSEA/VOMITING; Start 12/13/16 at 19:45; Stop 12/14/16 at 11:34; Status DC Morphine Sulfate 2 mg PRN Q2HR PRN IV PAIN; Start 12/13/16 at 19:45; Stop 12/14 at 11:34; Status DC Acetaminophen (Tylenol) 650 mg PRN Q4HRS PRN PO FEVER Last administered on 12/14 06:36; Start 12/13/16 at 19:45; Stop 12/14/16 at 11:34; Status DC Nitroglycerin (Nitrostat) 0.4 mg PRN Q5MIN PRN SL CHEST PAIN; Start 12/13/16 at 19:45; Stop 12/14/16 at 19:44; Status DC Insulin Aspart (NovoLOG) 0-9 UNITS QIDACHS SQ Last administered on 12/22/16 13 :13; Start 12/13/16 at 21:30 Dextrose (Dextrose 50%-Water Syringe) 12.5 gm PRN Q15MIN PRN IV SEE COMMENTS; Start 12/13/16 at 20:15 Morphine Sulfate (Morphine Ir) 15 mg PRN Q4HRS PRN PO SEVERE PAIN Last administered on 12/22/16 08:17; Start 12/13/16 at 20:15 Enoxaparin Sodium (Lovenox 100mg Syringe) 180 mg Q12HR SQ Last administered on 12/20/16 09:30; Start 12/14/16 at 09:00; Stop 12/20/16 at 12:09; Status DC Atorvastatin Calcium (Lipitor) 20 mg QHS PO Last administered on 12/21/16 20: 32; Start 12/14/16 at 21:00 Cetirizine HCl (ZyrTEC) 10 mg DAILY PO Last administered on 12/22/16 08:21; Start 12/14/16 at 12:00 Montelukast Sodium (Singulair) 10 mg DAILY PO Last administered on 12/22/16 08 :21; Start 12/14/16 at 12:00 Tamsulosin HCl (Flomax) 0.8 mg DAILY PO Last administered on 12/22/16 08:20; Start 12/14/16 at 12:00 Losartan Potassium (Cozaar) 100 mg DAILY PO Last administered on 12/15/16 11: 09; Start 12/14/16 at 12:00; Stop 12/15/16 at 16:19; Status DC Pioglitazone HCl (Actos) 30 mg DAILY PO Last administered on 12/22/16 08:20; Start 12/14/16 at 12:00 Triamterene/HCTZ (Maxzide 37.5/ 25mg) 1 tab DAILY PO Last administered on 08:20; Start 12/14/16 at 12:00 Acetaminophen (Tylenol) 650 mg PRN Q6HRS PRN PO FEVER Last administered on 12/18 20:33; Start 12/14/16 at 11:30 Ondansetron HCl (Zofran) 4 mg PRN Q6HRS PRN IV NAUSEA/VOMITING Last administered on 12/17/16 20:22; Start 12/14/16 at 11:30 Morphine Sulfate 2 mg PRN Q2HR PRN IV MODERATE TO SEVERE PAIN; Start 12/14/16 at 11:45 Tramadol HCl (Ultram) 50 mg PRN Q6HRS PRN PO MILD PAIN Last administered on 07:32; Start 12/14/16 at 11:30 Hydralazine HCl (Apresoline) 10 mg PRN Q4HRS PRN IVP ELEVATED BP, SEE COMMENTS ; Start 12/14/16 at 11:30 Docusate Sodium (Colace) 100 mg PRN DAILY PRN PO CONSTIPATION; Start 12/14/16 at 11:30; Stop 12/19/16 at 17:43; Status DC Senna/Docusate Sodium (Senna Plus) 1 tab BID PO Last administered on 12/21/16 20:31; Start 12/14/16 at 12:00 Docusate Sodium (Colace) 100 mg BID PO Last administered on 12/21/16 20:32; Start 12/14/16 at 12:00 Magnesium Hydroxide (Milk Of Magnesia) 2,400 mg PRN Q12HR PRN PO CONSTIPATION; Start 12/14/16 at 11:30 Insulin Detemir (Levemir) 20 units QHS SQ Last administered on 12/21/16 20:40 ; Start 12/14/16 at 21:00; Stop 12/22/16 at 08:32; Status DC Heparin Sodium/ Sodium Chloride 1,000 ml @ As Directed STK-MED ONCE .ROUTE ; Start 12/15/16 at 07:09; Stop 12/15/16 at 07:10; Status DC Lidocaine HCl 20 ml STK-MED ONCE .ROUTE ; Start 12/15/16 at 07:10; Stop at 07:11; Status DC Iohexol (Omnipaque 300 Mg/ml) 100 ml STK-MED ONCE .ROUTE ; Start 12/15/16 at 07: 14; Stop 12/15/16 at 07:15; Status DC Fentanyl Citrate (Fentanyl 2ml Vial) 100 mcg STK-MED ONCE .ROUTE ; Start at 10:07; Stop 12/15/16 at 10:08; Status DC Midazolam HCl (Versed) 2 mg STK-MED ONCE .ROUTE ; Start 12/15/16 at 10:08; Stop 12/15/16 at 10:09; Status DC Verapamil HCl (Verapamil) 5 mg STK-MED ONCE .ROUTE ; Start 12/15/16 at 10:08; Stop 12/15/16 at 10:09; Status DC Heparin Sodium (Porcine) (Heparin Sodium) 10,000 unit STK-MED ONCE .ROUTE ; Start 12/15/16 at 10:08; Stop 12/15/16 at 10:09; Status DC Nitroglycerin (Nitroglycerin) 200 mcg STK-MED ONCE .ROUTE ; Start 12/15/16 at 10 :08; Stop 12/15/16 at 10:09; Status DC Nitroglycerin (Nitroglycerin) 200 mcg 1X ONCE IART Last administered on 10:43; Start 12/15/16 at 10:45; Stop 12/15/16 at 10:46; Status DC Verapamil HCl (Verapamil) 2.5 mg 1X ONCE IART Last administered on 12/15/16 10:43; Start 12/15/16 at 10:45; Stop 12/15/16 at 10:46; Status DC Heparin Sodium (Porcine) (Heparin Sodium) 2,500 unit 1X ONCE IART Last administered on 12/15/16 10:45; Start 12/15/16 at 10:45; Stop 12/15/16 at 10:46 ; Status DC Heparin Sodium/ Sodium Chloride 1,000 unit 1X ONCE IART Last administered on 10:42; Start 12/15/16 at 10:45; Stop 12/15/16 at 10:46; Status DC Midazolam HCl (Versed) 2 mg 1X ONCE IV Last administered on 12/15/16 10:44; Start 12/15/16 at 10:45; Stop 12/15/16 at 10:46; Status DC Fentanyl Citrate (Fentanyl 2ml Vial) 50 mcg 1X ONCE IV Last administered on 10:44; Start 12/15/16 at 10:45; Stop 12/15/16 at 10:46; Status DC Iohexol (Omnipaque 300 Mg/ml) 100 ml 1X ONCE IART Last administered on 10:42; Start 12/15/16 at 10:45; Stop 12/15/16 at 10:46; Status DC Lidocaine HCl 2 ml 1X ONCE IJ Last administered on 12/15/16 10:42; Start at 10:45; Stop 12/15/16 at 10:46; Status DC Sodium Chloride 1,000 ml @ 60 mls/hr [id number] IV Last administered on 03:31; Start 12/15/16 at 10:51; Stop 12/16/16 at 20:04; Status DC Polyethylene Glycol (miraLAX PACKET) 17 gm DAILY PO ; Start 12/16/16 at 16:30; Stop 12/16/16 at 16:30; Status DC Metoprolol Tartrate (Lopressor) 25 mg BID PO Last administered on 12/22/16 08: 21; Start 12/15/16 at 21:00 Polyethylene Glycol (miraLAX PACKET) 17 gm DAILY PO Last administered on 08:47; Start 12/17/16 at 07:00; Stop 12/19/16 at 12:28; Status DC Polyethylene Glycol (miraLAX PACKET) 17 gm 1X ONCE PO Last administered on 13:34; Start 12/16/16 at 13:30; Stop 12/16/16 at 13:31; Status DC Ondansetron HCl (Zofran) 4 mg PRN Q6HRS PRN IV NAUSEA/VOMITING; Start 12/17/16 at 07:00; Stop 12/18/16 at 06:59; Status DC Fentanyl Citrate (Fentanyl 2ml Vial) 25 mcg PRN Q5MIN PRN IV MILD PAIN; Start 12/17/16 at 07:00; Stop 12/18/16 at 06:59; Status DC Fentanyl Citrate (Fentanyl 2ml Vial) 50 mcg PRN Q5MIN PRN IV MODERATE PAIN; Start 12/17/16 at 07:00; Stop 12/18/16 at 06:59; Status DC Morphine Sulfate 1 mg PRN Q10MIN PRN IV SEVERE PAIN; Start 12/17/16 at 07:00; Stop 12/18/16 at 06:59; Status DC Ringer's Solution 1,000 ml @ 30 mls/hr Q24H IV ; Start 12/17/16 at 07:00; Stop 12/17/16 at 15:23; Status DC Lidocaine HCl (Xylocaine-Mpf 1% Vial) 2 ml PRN 1X PRN ID IV START; Start at 07:00; Stop 12/18/16 at 06:59; Status DC Hydromorphone HCl (Dilaudid) 0.5 mg PRN Q10MIN PRN IV SEV PAIN, Second choice; Start 12/17/16 at 07:00; Stop 12/18/16 at 06:59; Status DC Prochlorperazine Edisylate (Compazine) 5 mg PACU PRN PRN IV NAUSEA, MRX1; Start 12/17/16 at 07:00; Stop 12/18/16 at 06:59; Status DC Temazepam (Restoril) 7.5 mg PRN QHS PRN PO INSOMNIA Last administered on 20:43; Start 12/16/16 at 14:30 Lidocaine/Sodium Bicarbonate (Buffered Lidocaine 1%) 20 ml STK-MED ONCE IJ ; Start 12/17/16 at 13:12; Stop 12/17/16 at 13:13; Status DC Midazolam HCl (Versed) 2 mg STK-MED ONCE .ROUTE ; Start 12/17/16 at 13:47; Stop 12/17/16 at 13:48; Status DC Lidocaine/Sodium Bicarbonate (Buffered Lidocaine 1%) 3 ml 1X ONCE IJ Last administered on 12/17/16 14:00; Start 12/17/16 at 14:30; Stop 12/17/16 at 14:31 ; Status DC Midazolam HCl (Versed) 1 mg 1X ONCE IV Last administered on 12/17/16 14:00; Start 12/17/16 at 14:30; Stop 12/17/16 at 14:31; Status DC Fentanyl Citrate (Fentanyl 2ml Vial) 50 mcg 1X ONCE IV Last administered on 14:26; Start 12/17/16 at 14:30; Stop 12/17/16 at 14:31; Status DC Nitroglycerin/ Dextrose 250 ml @ 0 mls/hr CONT PRN IV SEE I/O RECORD Last administered on 12/17/16 19:53; Start 12/17/16 at 19:45; Stop 12/18/16 at 11:37 ; Status DC Isosorbide Mononitrate (Imdur) 30 mg DAILY PO Last administered on 12/22/16 08 :21; Start 12/18/16 at 12:00 Oxymetazoline HCl (Afrin) 2 spray BID NS Last administered on 12/21/16 08:43; Start 12/18/16 at 21:00; Stop 12/21/16 at 20:59; Status DC Sodium Chloride (Saline Mist Nasal) 1 evon PRN Q1HR PRN NS NASAL CONGESTION Last administered on 12/18/16 20:26; Start 12/18/16 at 20:00 Polyethylene Glycol (miraLAX PACKET) 17 gm BID PO Last administered on 08:19; Start 12/19/16 at 21:00 Lorazepam (Ativan) 1 mg 1X ONCE IV Last administered on 12/19/16 14:25; Start 12/19/16 at 13:30; Stop 12/19/16 at 13:31; Status DC Lorazepam (Ativan) 0.5 mg Q6HRS PRN PO ANXIETY / AGITATION Last administered on 12/22/16 14:25; Start 12/19/16 at 13:30 Lidocaine (Lidoderm) 1 patch DAILY TD Last administered on 12/22/16 08:19; Start 12/20/16 at 12:30 Enoxaparin Sodium (Lovenox 40mg Syringe) 40 mg Q12H SQ Last administered on 08:22; Start 12/20/16 at 21:00 Oxycodone/ Acetaminophen (Percocet 5/325) 1 tab PRN Q4HRS PRN PO MODERATE PAIN Last administered on 12/21/16 09:52; Start 12/20/16 at 12:15 Oxycodone/ Acetaminophen (Percocet 10/325) 1 tab PRN Q4HRS PRN PO MODERATE PAIN Last administered on 12/22/16 14:24; Start 12/20/16 at 12:15 Clopidogrel Bisulfate (Plavix) 300 mg 1X ONCE PO Last administered on 11:00; Start 12/21/16 at 09:30; Stop 12/21/16 at 09:31; Status DC Clopidogrel Bisulfate (Plavix) 75 mg [id number] PO Last administered on 08:21; Start 12/22/16 at 08:00 Insulin Detemir (Levemir) 25 units QHS SQ ; Start 12/22/16 at 21:00 Insulin Aspart (NovoLOG) 5 units TIDAC SQ Last administered on 12/22/16 13:14 ; Start 12/22/16 at 08:33 Ondansetron HCl (Zofran) 4 mg PRN Q6HRS PRN IV NAUSEA/VOMITING; Start 12/23/16 at 07:00; Stop 12/24/16 at 06:59 Fentanyl Citrate (Fentanyl 2ml Vial) 25 mcg PRN Q5MIN PRN IV MILD PAIN; Start 12/23/16 at 07:00; Stop 12/23/16 at 18:00 Fentanyl Citrate (Fentanyl 2ml Vial) 50 mcg PRN Q5MIN PRN IV MODERATE PAIN; Start 12/23/16 at 07:00; Stop 12/23/16 at 18:00 Morphine Sulfate 1 mg PRN Q10MIN PRN IV SEVERE PAIN; Start 12/23/16 at 07:00; Stop 12/23/16 at 18:00 Ringer's Solution 1,000 ml @ 30 mls/hr Q24H IV ; Start 12/23/16 at 07:00; Stop 12/23/16 at 18:59 Lidocaine HCl (Xylocaine-Mpf 1% Vial) 2 ml PRN 1X PRN ID IV START; Start at 07:00; Stop 12/23/16 at 18:00 Hydromorphone HCl (Dilaudid) 0.5 mg PRN Q10MIN PRN IV SEV PAIN, Second choice; Start 12/23/16 at 07:00; Stop 12/23/16 at 18:00 Prochlorperazine Edisylate (Compazine) 5 mg PACU PRN PRN IV NAUSEA, MRX1; Start 12/23/16 at 07:00; Stop 12/23/16 at 18:00 Active Scripts Active Reported Gabapentin 400 Mg Capsule 400 Mg PO TID PRN Tresiba Flextouch U-100 (Insulin Degludec) 100 Unit/1 Ml Insuln.pen 40 Unit SQ HS Tresiba Flextouch U-100 (Insulin Degludec) 100 Unit/1 Ml Insuln.pen 36 Unit SQ DAILY Cetirizine Hcl 10 Mg Tablet 1 Tab PO DAILY Tamsulosin Hcl 0.4 Mg Cap.er.24h 2 Cap PO DAILY Triamterene-Hctz 37.5-25 Mg Cp (Triamterene/Hydrochlorothiazid) 1 Each Capsule 1 Cap PO DAILY Atorvastatin Calcium 20 Mg Tablet 1 Tab PO DAILY Actos (Pioglitazone Hcl) 30 Mg Tablet 1 Tab PO DAILY Montelukast Sodium Tablet (Montelukast Sodium) 10 Mg Tablet 1 Tab PO DAILY Losartan Potassium 100 Mg Tablet 100 Mg PO DAILY Vitals/I & O Vital Sign - Last 24 Hours 12/21/16 12/21/16 12/21/16 12/21/16 19:00 19:50 19:50 20:32 Temp 98.3 98.3 Pulse 78 78 Resp 18 20 B/P (MAP) 127/65 (85) 127/65 Pulse Ox 95 O2 Delivery Nasal Cannula Nasal Cannula Nasal Cannula O2 Flow Rate 2.0 2.0 2.0 12/21/16 12/22/16 12/22/16 12/22/16 23:00 03:00 07:50 08:00 Temp 98.4 98.4 98.2 98.4 98.4 98.2 Pulse 73 72 76 Resp 17 19 20 B/P (MAP) 135/73 (93) 140/78 (98) 157/78 (104) Pulse Ox 95 97 93 O2 Delivery Nasal Cannula Nasal Cannula Nasal Cannula Nasal Cannula O2 Flow Rate 2.0 2.0 2.0 2.0 12/22/16 12/22/16 12/22/16 12/22/16 08:17 08:21 08:21 09:15 Pulse 72 72 Resp 24 24 B/P (MAP) 140/78 140/78 Pulse Ox 93 93 O2 Delivery Nasal Cannula Nasal Cannula O2 Flow Rate 2.0 2.0 12/22/16 12/22/16 12/22/16 12/22/16 10:50 14:24 15:20 15:20 Temp 98.0 98.2 98.0 98.2 Pulse 68 80 Resp 22 24 24 20 B/P (MAP) 108/67 (81) 117/69 (85) Pulse Ox 91 91 93 93 O2 Delivery Nasal Cannula Nasal Cannula Nasal Cannula Nasal Cannula O2 Flow Rate 2.0 2.0 2.0 2.0 Intake and Output 12/22/16 12/22/16 12/23/16 15:00 23:00 07:00 Intake Total 120 ml Balance 120 ml ANIVAL PLASCENCIA MD Dec 22, 2016 16:59
[2016-12-22] MEDS: PANTOPRAZOLE 40 MG TABLET.DR. PO SCH (17:38)
[2016-12-22 19:44] VITALS: BP 149/79
[2016-12-22] MEDS ORDERED: INSULIN DETEMIR 300 UNITS/3 ML INSULN.PEN. SQ SCH (21:00)
[2016-12-22] MEDS: ATORVASTATIN CALCIUM 20 MG TABLET PO SCH (21:30)
[2016-12-22] MEDS: TEMAZEPAM 7.5 MG CAPSULE PO PRN (21:30)
[2016-12-22 22:34] VITALS: BP 135/76
[2016-12-23] VITALS (12 sets, daily range): BP systolic 110–140; BP diastolic 62–83
[2016-12-23] MEDS: LORazepam 0.5 MG TABLET PO PRN ×2 (03:12→09:06)
[2016-12-23] MEDS: MORPHINE IR 15 MG TABLET PO PRN ×2 (03:17→08:08)
[2016-12-23 06:12] LABS: CALCIUM 8.7 mg/dL (8.5-10.1); CREATININE 1.1 mg/dL (0.7-1.3); GFR 66.6; POTASSIUM 3.4 mmol/L (3.5-5.1)
[2016-12-23] MEDS ORDERED: HYDROmorphone 2 MG/ML VIAL IV PRN (07:00)
[2016-12-23] MEDS ORDERED: MORPHINE SULFATE 2 MG/ML DISP.SYRIN. IV PRN (07:00)
[2016-12-23] MEDS ORDERED: LIDOCAINE 1% PF 2 ML VIAL. ID PRN (07:00)
[2016-12-23] MEDS ORDERED: PROCHLORPERAZINE 10 MG/2 ML VIAL. IV PRN (07:00)
[2016-12-23] MEDS ORDERED: fentaNYL PF VIAL 100 MCG/2 ML VIAL IV PRN ×2 (07:00)
[2016-12-23] MEDS ORDERED: ONDANSETRON PF 4 MG/2 ML VIAL. IV PRN (07:00)
[2016-12-23] MEDS ORDERED: IV RINGERS,LACTATED 1000ML 1,000 ML IV SCH (07:00)
[2016-12-23] MEDS: PANTOPRAZOLE 40 MG TABLET.DR. PO SCH (07:30)
[2016-12-23] MEDS: INSULIN ASPART 300 UNITS/3 ML INSULN.PEN SQ SCH ×5 (07:30→21:00)
[2016-12-23] MEDS: CLOPIDOGREL BISULFATE 75 MG TABLET PO SCH (08:09)
[2016-12-23] MEDS: ISOSORBIDE MONONITRATE ER 30 MG TAB.ER.24H PO SCH (08:09)
[2016-12-23] MEDS: METOPROLOL TART IMMED RELEASE 25 MG TABLET. PO SCH ×2 (08:09→21:55)
[2016-12-23] MEDS ORDERED: POTASSIUM CHLORIDE 20 MEQ TABLET.ER. PO ONE ×2 (08:30)
[2016-12-23] MEDS: TRIAMTERENE/HCTZ 37.5/25MG TABLET. PO SCH (09:00)
[2016-12-23] MEDS: TAMSULOSIN 0.4 MG CAP.ER.24H. PO SCH (09:00)
[2016-12-23] MEDS: PIOGLITAZONE 15 MG TABLET. PO SCH (09:00)
[2016-12-23] MEDS: LIDOCAINE (700MG/PATCH) PATCH. TD SCH (09:00)
[2016-12-23] MEDS: SENNOSIDES/DOCUSATE 8.6/50MG TABLET. PO SCH ×2 (09:00→21:55)
[2016-12-23] MEDS: DOCUSATE SODIUM 100 MG CAPSULE. PO SCH ×2 (09:00→21:55)
[2016-12-23] MEDS: POLYETHYLENE GLYCOL 3350 17 GM PACKET. PO SCH ×2 (09:00→21:56)
[2016-12-23] MEDS: ENOXAPARIN 40 MG/0.4 ML SYRINGE. SQ SCH ×2 (09:00→21:56)
--- NOTE | 2016-12-23 09:15 | PDOC ---
PROGRESS NOTES Subjective Subjective HPI - Left lower lobe lung mass with associated right-sided third rib bone lesion and evidence of mediastinal lymphadenopathy and a liver mass is clinically consistent with Stage IV lung cancer with metastatic disease. ROS - has CP Objective Objective Vital Signs Date Time Temp Pulse Resp B/P (MAP) Pulse Ox O2 Delivery O2 Flow Rate FiO2 12/23/16 08:09 75 136/81 12/23/16 08:08 24 93 Nasal Cannula 3.0 12/23/16 03:04 98.2 98.2 Physical Exam Heart: Normal S1, Normal S2 General: Alert, Oriented X3 Lungs: Clear to auscultation Neuro: Normal speech Assessment Assessment Problems Medical Problems: (1) Chest pain Status: Acute (2) Non-STEMI (non-ST elevated myocardial infarction) Status: Acute IMPRESSION AND PLAN: 1. NSCLC- Adenocarcinoma - Stage IV - Left lower lobe lung mass with associated right-sided third rib bone lesion and evidence of mediastinal lymphadenopathy and a liver mass is clinically consistent with Stage IV lung cancer with metastatic disease. Appreciate cardiothoracic evaluation - s/p biopsy right rib lesion 12/17/16 ( I d/w pathologist). I agree to proceed with a PET scan as outpatient for completion of staging workup. Plan multidisciplinary tumor conference discussion today. f/u with me upon discharge for chemotherapy. I will plan biomarker testing. 2. Chest pain. Appreciate Cardiology and cardiothoracic evaluation. CABG was planned, but it was canceled because of the findings on the CT chest concerning for malignancy. Agree with stent placement 12/23/16. I d/w DR Parks. 3. Bone mets - Bone scan 12/19/16: There is a focus of increased activity in the anterior right second rib corresponds to a destructive lesion noted on the CT study. There is activity at the costovertebral junction on the right at approximately T5. There is mild sclerosis of the transverse process of T5 on the CT with mild soft tissue swelling which would suggest a metastatic lesion. There is activity in the upper lumbar spine and on the right at T12. There are mild lytic changes the L1 vertebra on the CT images again suggesting metastatic disease.. There is a small focus of activity in the sacrum. There is mild activity in the lateral iliac bone on the left. I d/w DR Ojeda and I agree with palliative radiation to rt rib. Plan Xgeva as outpatient. 4. CVA - MRI brain 12/19/16 reveals no mets - Small acute left cerebellar acute infarct. Appreciate neurology consult. I d/w DR Diggs. PATHOLOGY REPORT * * * * * * * * FINAL DIAGNOSIS: Chest wall mass, right, core needle biopsy: - Moderately differentiated adenocarcinoma. (Please see comment) (SKM:[email or web address]; 12/18/2016) COMMENT: The tumor cells are negative for CK5/6 and p40. The tumor cells are positive for cytokeratin 7, Napsin, and TTF-1. This patient's history of a 3 cm left lower lobe lung nodule is noted. The findings in this case are consistent with a metastatic moderately differentiated adenocarcinoma from the lung. Comment Review of Relevant I have reviewed the following items maxine (where applicable) has been applied. Labs Laboratory Tests Test 12/21/16 12:05 12/21/16 16:58 12/21/16 20:28 12/22/16 08:16 Glucose (Fingerstick) 227 mg/dL (70-99) 205 mg/dL (70-99) 296 mg/dL (70-99) 233 mg/dL (70-99) Test 12/22/16 11:45 12/22/16 17:01 12/22/16 21:12 12/23/16 04:45 Glucose (Fingerstick) 213 mg/dL (70-99) 237 mg/dL (70-99) 267 mg/dL (70-99) Sodium Level 136 mmol/L (136-145) Potassium Level 3.4 mmol/L (3.5-5.1) Chloride Level 97 mmol/L (98-107) Carbon Dioxide Level 35 mmol/L (21-32) Anion Gap 4 (6-14) Blood Urea Nitrogen 17 mg/dL (8-26) Creatinine 1.1 mg/dL (0.7-1.3) Estimated GFR (Cockcroft-Gault) 66.6 Glucose Level 256 mg/dL (70-99) Calcium Level 8.7 mg/dL (8.5-10.1) Magnesium Level 2.2 mg/dL (1.8-2.4) Test 12/23/16 08:40 Glucose (Fingerstick) 236 mg/dL (70-99) Laboratory Tests Test 12/22/16 11:45 12/22/16 17:01 12/22/16 21:12 12/23/16 04:45 Glucose (Fingerstick) 213 mg/dL (70-99) 237 mg/dL (70-99) 267 mg/dL (70-99) Sodium Level 136 mmol/L (136-145) Potassium Level 3.4 mmol/L (3.5-5.1) Chloride Level 97 mmol/L (98-107) Carbon Dioxide Level 35 mmol/L (21-32) Anion Gap 4 (6-14) Blood Urea Nitrogen 17 mg/dL (8-26) Creatinine 1.1 mg/dL (0.7-1.3) Estimated GFR (Cockcroft-Gault) 66.6 Glucose Level 256 mg/dL (70-99) Calcium Level 8.7 mg/dL (8.5-10.1) Magnesium Level 2.2 mg/dL (1.8-2.4) Test 12/23/16 08:40 Glucose (Fingerstick) 236 mg/dL (70-99) Medications Current Medications Nitroglycerin (Nitro-Bid Oint) 1 inch 1X ONCE TP Last administered on 18:38; Start 12/13/16 at 18:30; Stop 12/13/16 at 18:31; Status DC Aspirin (Children'S Aspirin) 324 mg 1X ONCE PO ; Start 12/13/16 at 18:30; Stop 12/13/16 at 18:31; Status DC Enoxaparin Sodium (Lovenox Per Pharmacy Treatment Dosing) 1 each PRN DAILY PRN MC SEE COMMENTS; Start 12/13/16 at 19:15; Stop 12/20/16 at 12:13; Status DC Enoxaparin Sodium (Lovenox 100mg Syringe) 100 mg 1X ONCE SQ Last administered on 12/13/16 19:50; Start 12/13/16 at 19:30; Stop 12/13/16 at 19:31; Status DC Enoxaparin Sodium (Lovenox 80mg Syringe) 80 mg 1X ONCE SQ Last administered on 12/13/16 19:50; Start 12/13/16 at 19:30; Stop 12/13/16 at 19:31; Status DC Ondansetron HCl (Zofran) 4 mg PRN Q8HRS PRN IV NAUSEA/VOMITING; Start 12/13/16 at 19:45; Stop 12/14/16 at 11:34; Status DC Morphine Sulfate 2 mg PRN Q2HR PRN IV PAIN; Start 12/13/16 at 19:45; Stop 12/14 at 11:34; Status DC Acetaminophen (Tylenol) 650 mg PRN Q4HRS PRN PO FEVER Last administered on 12/14 06:36; Start 12/13/16 at 19:45; Stop 12/14/16 at 11:34; Status DC Nitroglycerin (Nitrostat) 0.4 mg PRN Q5MIN PRN SL CHEST PAIN; Start 12/13/16 at 19:45; Stop 12/14/16 at 19:44; Status DC Insulin Aspart (NovoLOG) 0-9 UNITS QIDACHS SQ Last administered on 12/22/16 21 :39; Start 12/13/16 at 21:30 Dextrose (Dextrose 50%-Water Syringe) 12.5 gm PRN Q15MIN PRN IV SEE COMMENTS; Start 12/13/16 at 20:15 Morphine Sulfate (Morphine Ir) 15 mg PRN Q4HRS PRN PO SEVERE PAIN Last administered on 12/23/16 08:08; Start 12/13/16 at 20:15 Enoxaparin Sodium (Lovenox 100mg Syringe) 180 mg Q12HR SQ Last administered on 12/20/16 09:30; Start 12/14/16 at 09:00; Stop 12/20/16 at 12:09; Status DC Atorvastatin Calcium (Lipitor) 20 mg QHS PO Last administered on 12/22/16 21: 30; Start 12/14/16 at 21:00 Cetirizine HCl (ZyrTEC) 10 mg DAILY PO Last administered on 12/22/16 08:21; Start 12/14/16 at 12:00 Montelukast Sodium (Singulair) 10 mg DAILY PO Last administered on 12/22/16 08 :21; Start 12/14/16 at 12:00 Tamsulosin HCl (Flomax) 0.8 mg DAILY PO Last administered on 12/22/16 08:20; Start 12/14/16 at 12:00 Losartan Potassium (Cozaar) 100 mg DAILY PO Last administered on 12/15/16 11: 09; Start 12/14/16 at 12:00; Stop 12/15/16 at 16:19; Status DC Pioglitazone HCl (Actos) 30 mg DAILY PO Last administered on 12/22/16 08:20; Start 12/14/16 at 12:00 Triamterene/HCTZ (Maxzide 37.5/ 25mg) 1 tab DAILY PO Last administered on 08:20; Start 12/14/16 at 12:00 Acetaminophen (Tylenol) 650 mg PRN Q6HRS PRN PO FEVER Last administered on 12/18 20:33; Start 12/14/16 at 11:30 Ondansetron HCl (Zofran) 4 mg PRN Q6HRS PRN IV NAUSEA/VOMITING Last administered on 12/17/16 20:22; Start 12/14/16 at 11:30 Morphine Sulfate 2 mg PRN Q2HR PRN IV MODERATE TO SEVERE PAIN; Start 12/14/16 at 11:45 Tramadol HCl (Ultram) 50 mg PRN Q6HRS PRN PO MILD PAIN Last administered on 07:32; Start 12/14/16 at 11:30 Hydralazine HCl (Apresoline) 10 mg PRN Q4HRS PRN IVP ELEVATED BP, SEE COMMENTS ; Start 12/14/16 at 11:30 Docusate Sodium (Colace) 100 mg PRN DAILY PRN PO CONSTIPATION; Start 12/14/16 at 11:30; Stop 12/19/16 at 17:43; Status DC Senna/Docusate Sodium (Senna Plus) 1 tab BID PO Last administered on 12/22/16 21:31; Start 12/14/16 at 12:00 Docusate Sodium (Colace) 100 mg BID PO Last administered on 12/22/16 21:30; Start 12/14/16 at 12:00 Magnesium Hydroxide (Milk Of Magnesia) 2,400 mg PRN Q12HR PRN PO CONSTIPATION; Start 12/14/16 at 11:30 Insulin Detemir (Levemir) 20 units QHS SQ Last administered on 12/21/16 20:40 ; Start 12/14/16 at 21:00; Stop 12/22/16 at 08:32; Status DC Heparin Sodium/ Sodium Chloride 1,000 ml @ As Directed STK-MED ONCE .ROUTE ; Start 12/15/16 at 07:09; Stop 12/15/16 at 07:10; Status DC Lidocaine HCl 20 ml STK-MED ONCE .ROUTE ; Start 12/15/16 at 07:10; Stop at 07:11; Status DC Iohexol (Omnipaque 300 Mg/ml) 100 ml STK-MED ONCE .ROUTE ; Start 12/15/16 at 07: 14; Stop 12/15/16 at 07:15; Status DC Fentanyl Citrate (Fentanyl 2ml Vial) 100 mcg STK-MED ONCE .ROUTE ; Start at 10:07; Stop 12/15/16 at 10:08; Status DC Midazolam HCl (Versed) 2 mg STK-MED ONCE .ROUTE ; Start 12/15/16 at 10:08; Stop 12/15/16 at 10:09; Status DC Verapamil HCl (Verapamil) 5 mg STK-MED ONCE .ROUTE ; Start 12/15/16 at 10:08; Stop 12/15/16 at 10:09; Status DC Heparin Sodium (Porcine) (Heparin Sodium) 10,000 unit STK-MED ONCE .ROUTE ; Start 12/15/16 at 10:08; Stop 12/15/16 at 10:09; Status DC Nitroglycerin (Nitroglycerin) 200 mcg STK-MED ONCE .ROUTE ; Start 12/15/16 at 10 :08; Stop 12/15/16 at 10:09; Status DC Nitroglycerin (Nitroglycerin) 200 mcg 1X ONCE IART Last administered on 10:43; Start 12/15/16 at 10:45; Stop 12/15/16 at 10:46; Status DC Verapamil HCl (Verapamil) 2.5 mg 1X ONCE IART Last administered on 12/15/16 10:43; Start 12/15/16 at 10:45; Stop 12/15/16 at 10:46; Status DC Heparin Sodium (Porcine) (Heparin Sodium) 2,500 unit 1X ONCE IART Last administered on 12/15/16 10:45; Start 12/15/16 at 10:45; Stop 12/15/16 at 10:46 ; Status DC Heparin Sodium/ Sodium Chloride 1,000 unit 1X ONCE IART Last administered on 10:42; Start 12/15/16 at 10:45; Stop 12/15/16 at 10:46; Status DC Midazolam HCl (Versed) 2 mg 1X ONCE IV Last administered on 12/15/16 10:44; Start 12/15/16 at 10:45; Stop 12/15/16 at 10:46; Status DC Fentanyl Citrate (Fentanyl 2ml Vial) 50 mcg 1X ONCE IV Last administered on 10:44; Start 12/15/16 at 10:45; Stop 12/15/16 at 10:46; Status DC Iohexol (Omnipaque 300 Mg/ml) 100 ml 1X ONCE IART Last administered on 10:42; Start 12/15/16 at 10:45; Stop 12/15/16 at 10:46; Status DC Lidocaine HCl 2 ml 1X ONCE IJ Last administered on 12/15/16 10:42; Start at 10:45; Stop 12/15/16 at 10:46; Status DC Sodium Chloride 1,000 ml @ 60 mls/hr [id number] IV Last administered on 03:31; Start 12/15/16 at 10:51; Stop 12/16/16 at 20:04; Status DC Polyethylene Glycol (miraLAX PACKET) 17 gm DAILY PO ; Start 12/16/16 at 16:30; Stop 12/16/16 at 16:30; Status DC Metoprolol Tartrate (Lopressor) 25 mg BID PO Last administered on 12/23/16 08: 09; Start 12/15/16 at 21:00 Polyethylene Glycol (miraLAX PACKET) 17 gm DAILY PO Last administered on 08:47; Start 12/17/16 at 07:00; Stop 12/19/16 at 12:28; Status DC Polyethylene Glycol (miraLAX PACKET) 17 gm 1X ONCE PO Last administered on 13:34; Start 12/16/16 at 13:30; Stop 12/16/16 at 13:31; Status DC Ondansetron HCl (Zofran) 4 mg PRN Q6HRS PRN IV NAUSEA/VOMITING; Start 12/17/16 at 07:00; Stop 12/18/16 at 06:59; Status DC Fentanyl Citrate (Fentanyl 2ml Vial) 25 mcg PRN Q5MIN PRN IV MILD PAIN; Start 12/17/16 at 07:00; Stop 12/18/16 at 06:59; Status DC Fentanyl Citrate (Fentanyl 2ml Vial) 50 mcg PRN Q5MIN PRN IV MODERATE PAIN; Start 12/17/16 at 07:00; Stop 12/18/16 at 06:59; Status DC Morphine Sulfate 1 mg PRN Q10MIN PRN IV SEVERE PAIN; Start 12/17/16 at 07:00; Stop 12/18/16 at 06:59; Status DC Ringer's Solution 1,000 ml @ 30 mls/hr Q24H IV ; Start 12/17/16 at 07:00; Stop 12/17/16 at 15:23; Status DC Lidocaine HCl (Xylocaine-Mpf 1% Vial) 2 ml PRN 1X PRN ID IV START; Start at 07:00; Stop 12/18/16 at 06:59; Status DC Hydromorphone HCl (Dilaudid) 0.5 mg PRN Q10MIN PRN IV SEV PAIN, Second choice; Start 12/17/16 at 07:00; Stop 12/18/16 at 06:59; Status DC Prochlorperazine Edisylate (Compazine) 5 mg PACU PRN PRN IV NAUSEA, MRX1; Start 12/17/16 at 07:00; Stop 12/18/16 at 06:59; Status DC Temazepam (Restoril) 7.5 mg PRN QHS PRN PO INSOMNIA Last administered on 21:30; Start 12/16/16 at 14:30 Lidocaine/Sodium Bicarbonate (Buffered Lidocaine 1%) 20 ml STK-MED ONCE IJ ; Start 12/17/16 at 13:12; Stop 12/17/16 at 13:13; Status DC Midazolam HCl (Versed) 2 mg STK-MED ONCE .ROUTE ; Start 12/17/16 at 13:47; Stop 12/17/16 at 13:48; Status DC Lidocaine/Sodium Bicarbonate (Buffered Lidocaine 1%) 3 ml 1X ONCE IJ Last administered on 12/17/16 14:00; Start 12/17/16 at 14:30; Stop 12/17/16 at 14:31 ; Status DC Midazolam HCl (Versed) 1 mg 1X ONCE IV Last administered on 12/17/16 14:00; Start 12/17/16 at 14:30; Stop 12/17/16 at 14:31; Status DC Fentanyl Citrate (Fentanyl 2ml Vial) 50 mcg 1X ONCE IV Last administered on 14:26; Start 12/17/16 at 14:30; Stop 12/17/16 at 14:31; Status DC Nitroglycerin/ Dextrose 250 ml @ 0 mls/hr CONT PRN IV SEE I/O RECORD Last administered on 12/17/16 19:53; Start 12/17/16 at 19:45; Stop 12/18/16 at 11:37 ; Status DC Isosorbide Mononitrate (Imdur) 30 mg DAILY PO Last administered on 12/23/16 08 :09; Start 12/18/16 at 12:00 Oxymetazoline HCl (Afrin) 2 spray BID NS Last administered on 12/21/16 08:43; Start 12/18/16 at 21:00; Stop 12/21/16 at 20:59; Status DC Sodium Chloride (Saline Mist Nasal) 1 evon PRN Q1HR PRN NS NASAL CONGESTION Last administered on 12/18/16 20:26; Start 12/18/16 at 20:00 Polyethylene Glycol (miraLAX PACKET) 17 gm BID PO Last administered on 08:19; Start 12/19/16 at 21:00 Lorazepam (Ativan) 1 mg 1X ONCE IV Last administered on 12/19/16 14:25; Start 12/19/16 at 13:30; Stop 12/19/16 at 13:31; Status DC Lorazepam (Ativan) 0.5 mg Q6HRS PRN PO ANXIETY / AGITATION Last administered on 12/23/16 09:06; Start 12/19/16 at 13:30 Lidocaine (Lidoderm) 1 patch DAILY TD Last administered on 12/22/16 08:19; Start 12/20/16 at 12:30 Enoxaparin Sodium (Lovenox 40mg Syringe) 40 mg Q12H SQ Last administered on 21:31; Start 12/20/16 at 21:00 Oxycodone/ Acetaminophen (Percocet 5/325) 1 tab PRN Q4HRS PRN PO MODERATE PAIN Last administered on 12/21/16 09:52; Start 12/20/16 at 12:15 Oxycodone/ Acetaminophen (Percocet 10/325) 1 tab PRN Q4HRS PRN PO MODERATE PAIN Last administered on 12/22/16 20:15; Start 12/20/16 at 12:15 Clopidogrel Bisulfate (Plavix) 300 mg 1X ONCE PO Last administered on 11:00; Start 12/21/16 at 09:30; Stop 12/21/16 at 09:31; Status DC Clopidogrel Bisulfate (Plavix) 75 mg [id number] PO Last administered on 08:09; Start 12/22/16 at 08:00 Insulin Detemir (Levemir) 25 units QHS SQ Last administered on 12/22/16 21:38 ; Start 12/22/16 at 21:00; Stop 12/23/16 at 08:20; Status DC Insulin Aspart (NovoLOG) 5 units TIDAC SQ Last administered on 12/22/16 17:42 ; Start 12/22/16 at 08:33; Stop 12/23/16 at 08:20; Status DC Ondansetron HCl (Zofran) 4 mg PRN Q6HRS PRN IV NAUSEA/VOMITING; Start 12/23/16 at 07:00; Stop 12/24/16 at 06:59 Fentanyl Citrate (Fentanyl 2ml Vial) 25 mcg PRN Q5MIN PRN IV MILD PAIN; Start 12/23/16 at 07:00; Stop 12/23/16 at 18:00 Fentanyl Citrate (Fentanyl 2ml Vial) 50 mcg PRN Q5MIN PRN IV MODERATE PAIN; Start 12/23/16 at 07:00; Stop 12/23/16 at 18:00 Morphine Sulfate 1 mg PRN Q10MIN PRN IV SEVERE PAIN; Start 12/23/16 at 07:00; Stop 12/23/16 at 18:00 Ringer's Solution 1,000 ml @ 30 mls/hr Q24H IV ; Start 12/23/16 at 07:00; Stop 12/23/16 at 18:59 Lidocaine HCl (Xylocaine-Mpf 1% Vial) 2 ml PRN 1X PRN ID IV START; Start at 07:00; Stop 12/23/16 at 18:00 Hydromorphone HCl (Dilaudid) 0.5 mg PRN Q10MIN PRN IV SEV PAIN, Second choice; Start 12/23/16 at 07:00; Stop 12/23/16 at 18:00 Prochlorperazine Edisylate (Compazine) 5 mg PACU PRN PRN IV NAUSEA, MRX1; Start 12/23/16 at 07:00; Stop 12/23/16 at 18:00 Pantoprazole Sodium (Protonix) 40 mg DAILYAC PO Last administered on 12/22/16t 17:38; Start 12/22/16 at 17:30 Insulin Aspart (NovoLOG) 8 units TIDAC SQ ; Start 12/23/16 at 11:30 Insulin Detemir (Levemir) 30 units QHS SQ ; Start 12/23/16 at 21:00 Potassium Chloride (Klor-Con) 40 meq 1X ONCE PO ; Start 12/23/16 at 08:30; Stop 12/23/16 at 08:31; Status DC Potassium Chloride (Klor-Con) 40 meq 1X ONCE PO ; Start 12/23/16 at 08:30; Stop 12/23/16 at 08:31; Status DC Active Scripts Active Reported Gabapentin 400 Mg Capsule 400 Mg PO TID PRN Tresiba Flextouch U-100 (Insulin Degludec) 100 Unit/1 Ml Insuln.pen 40 Unit SQ HS Tresiba Flextouch U-100 (Insulin Degludec) 100 Unit/1 Ml Insuln.pen 36 Unit SQ DAILY Cetirizine Hcl 10 Mg Tablet 1 Tab PO DAILY Tamsulosin Hcl 0.4 Mg Cap.er.24h 2 Cap PO DAILY Triamterene-Hctz 37.5-25 Mg Cp (Triamterene/Hydrochlorothiazid) 1 Each Capsule 1 Cap PO DAILY Atorvastatin Calcium 20 Mg Tablet 1 Tab PO DAILY Actos (Pioglitazone Hcl) 30 Mg Tablet 1 Tab PO DAILY Montelukast Sodium Tablet (Montelukast Sodium) 10 Mg Tablet 1 Tab PO DAILY Losartan Potassium 100 Mg Tablet 100 Mg PO DAILY Vitals/I & O Vital Sign - Last 24 Hours 12/22/16 12/22/16 12/22/16 12/22/16 10:50 14:24 15:20 18:50 Temp 98.0 98.2 98.0 98.2 Pulse 68 80 Resp 22 24 20 24 B/P (MAP) 108/67 (81) 117/69 (85) Pulse Ox 91 91 93 93 O2 Delivery Nasal Cannula Nasal Cannula Nasal Cannula Nasal Cannula O2 Flow Rate 2.0 2.0 2.0 2.0 12/22/16 12/22/16 12/22/16 12/22/16 19:35 19:44 20:15 21:29 Temp 97.7 97.7 Pulse 82 Resp 20 18 18 B/P (MAP) 149/79 (102) Pulse Ox 96 96 94 O2 Delivery Nasal Cannula Nasal Cannula Nasal Cannula Nasal Cannula O2 Flow Rate 2.0 2.0 2.0 2.0 12/22/16 12/22/16 12/23/16 12/23/16 21:31 22:34 03:04 03:17 Temp 98.6 98.2 98.6 98.2 Pulse 88 77 75 Resp 18 18 18 B/P (MAP) 149/79 135/76 (95) 136/81 (99) Pulse Ox 92 94 93 O2 Delivery Nasal Cannula Nasal Cannula Nasal Cannula O2 Flow Rate 2.0 2.0 12/23/16 12/23/16 12/23/16 12/23/16 04:24 08:08 08:09 08:09 Pulse 75 75 Resp 18 24 B/P (MAP) 136/81 136/81 Pulse Ox 93 93 O2 Delivery Nasal Cannula Nasal Cannula O2 Flow Rate 3.0 3.0 ANIVAL PLASCENCIA MD Dec 23, 2016 09:14
--- NOTE | 2016-12-23 11:02 | PDOC ---
G I PROGRESS NOTE Subjective NPO for cath. Says bowels working OK. Physical Exam Lungs clear. RRR Abdomen soft, not tender nor distended. Review of Relevant I have reviewed the following items maxine (where applicable) has been applied. Labs Laboratory Tests Test 12/21/16 12:05 12/21/16 16:58 12/21/16 20:28 12/22/16 08:16 Glucose (Fingerstick) 227 mg/dL (70-99) 205 mg/dL (70-99) 296 mg/dL (70-99) 233 mg/dL (70-99) Test 12/22/16 11:45 12/22/16 17:01 12/22/16 21:12 12/23/16 04:45 Glucose (Fingerstick) 213 mg/dL (70-99) 237 mg/dL (70-99) 267 mg/dL (70-99) Sodium Level 136 mmol/L (136-145) Potassium Level 3.4 mmol/L (3.5-5.1) Chloride Level 97 mmol/L (98-107) Carbon Dioxide Level 35 mmol/L (21-32) Anion Gap 4 (6-14) Blood Urea Nitrogen 17 mg/dL (8-26) Creatinine 1.1 mg/dL (0.7-1.3) Estimated GFR (Cockcroft-Gault) 66.6 Glucose Level 256 mg/dL (70-99) Calcium Level 8.7 mg/dL (8.5-10.1) Magnesium Level 2.2 mg/dL (1.8-2.4) Test 12/23/16 08:40 Glucose (Fingerstick) 236 mg/dL (70-99) Laboratory Tests Test 12/22/16 11:45 12/22/16 17:01 12/22/16 21:12 12/23/16 04:45 Glucose (Fingerstick) 213 mg/dL (70-99) 237 mg/dL (70-99) 267 mg/dL (70-99) Sodium Level 136 mmol/L (136-145) Potassium Level 3.4 mmol/L (3.5-5.1) Chloride Level 97 mmol/L (98-107) Carbon Dioxide Level 35 mmol/L (21-32) Anion Gap 4 (6-14) Blood Urea Nitrogen 17 mg/dL (8-26) Creatinine 1.1 mg/dL (0.7-1.3) Estimated GFR (Cockcroft-Gault) 66.6 Glucose Level 256 mg/dL (70-99) Calcium Level 8.7 mg/dL (8.5-10.1) Magnesium Level 2.2 mg/dL (1.8-2.4) Test 12/23/16 08:40 Glucose (Fingerstick) 236 mg/dL (70-99) Medications Current Medications Nitroglycerin (Nitro-Bid Oint) 1 inch 1X ONCE TP Last administered on 18:38; Start 12/13/16 at 18:30; Stop 12/13/16 at 18:31; Status DC Aspirin (Children'S Aspirin) 324 mg 1X ONCE PO ; Start 12/13/16 at 18:30; Stop 12/13/16 at 18:31; Status DC Enoxaparin Sodium (Lovenox Per Pharmacy Treatment Dosing) 1 each PRN DAILY PRN MC SEE COMMENTS; Start 12/13/16 at 19:15; Stop 12/20/16 at 12:13; Status DC Enoxaparin Sodium (Lovenox 100mg Syringe) 100 mg 1X ONCE SQ Last administered on 12/13/16 19:50; Start 12/13/16 at 19:30; Stop 12/13/16 at 19:31; Status DC Enoxaparin Sodium (Lovenox 80mg Syringe) 80 mg 1X ONCE SQ Last administered on 12/13/16 19:50; Start 12/13/16 at 19:30; Stop 12/13/16 at 19:31; Status DC Ondansetron HCl (Zofran) 4 mg PRN Q8HRS PRN IV NAUSEA/VOMITING; Start 12/13/16 at 19:45; Stop 12/14/16 at 11:34; Status DC Morphine Sulfate 2 mg PRN Q2HR PRN IV PAIN; Start 12/13/16 at 19:45; Stop 12/14 at 11:34; Status DC Acetaminophen (Tylenol) 650 mg PRN Q4HRS PRN PO FEVER Last administered on 12/14 06:36; Start 12/13/16 at 19:45; Stop 12/14/16 at 11:34; Status DC Nitroglycerin (Nitrostat) 0.4 mg PRN Q5MIN PRN SL CHEST PAIN; Start 12/13/16 at 19:45; Stop 12/14/16 at 19:44; Status DC Insulin Aspart (NovoLOG) 0-9 UNITS QIDACHS SQ Last administered on 12/22/16 21 :39; Start 12/13/16 at 21:30 Dextrose (Dextrose 50%-Water Syringe) 12.5 gm PRN Q15MIN PRN IV SEE COMMENTS; Start 12/13/16 at 20:15 Morphine Sulfate (Morphine Ir) 15 mg PRN Q4HRS PRN PO SEVERE PAIN Last administered on 12/23/16 08:08; Start 12/13/16 at 20:15 Enoxaparin Sodium (Lovenox 100mg Syringe) 180 mg Q12HR SQ Last administered on 12/20/16 09:30; Start 12/14/16 at 09:00; Stop 12/20/16 at 12:09; Status DC Atorvastatin Calcium (Lipitor) 20 mg QHS PO Last administered on 12/22/16 21: 30; Start 12/14/16 at 21:00 Cetirizine HCl (ZyrTEC) 10 mg DAILY PO Last administered on 12/22/16 08:21; Start 12/14/16 at 12:00 Montelukast Sodium (Singulair) 10 mg DAILY PO Last administered on 12/22/16 08 :21; Start 12/14/16 at 12:00 Tamsulosin HCl (Flomax) 0.8 mg DAILY PO Last administered on 12/22/16 08:20; Start 12/14/16 at 12:00 Losartan Potassium (Cozaar) 100 mg DAILY PO Last administered on 12/15/16 11: 09; Start 12/14/16 at 12:00; Stop 12/15/16 at 16:19; Status DC Pioglitazone HCl (Actos) 30 mg DAILY PO Last administered on 12/22/16 08:20; Start 12/14/16 at 12:00 Triamterene/HCTZ (Maxzide 37.5/ 25mg) 1 tab DAILY PO Last administered on 08:20; Start 12/14/16 at 12:00 Acetaminophen (Tylenol) 650 mg PRN Q6HRS PRN PO FEVER Last administered on 12/18 20:33; Start 12/14/16 at 11:30 Ondansetron HCl (Zofran) 4 mg PRN Q6HRS PRN IV NAUSEA/VOMITING Last administered on 12/17/16 20:22; Start 12/14/16 at 11:30 Morphine Sulfate 2 mg PRN Q2HR PRN IV MODERATE TO SEVERE PAIN; Start 12/14/16 at 11:45 Tramadol HCl (Ultram) 50 mg PRN Q6HRS PRN PO MILD PAIN Last administered on 07:32; Start 12/14/16 at 11:30 Hydralazine HCl (Apresoline) 10 mg PRN Q4HRS PRN IVP ELEVATED BP, SEE COMMENTS ; Start 12/14/16 at 11:30 Docusate Sodium (Colace) 100 mg PRN DAILY PRN PO CONSTIPATION; Start 12/14/16 at 11:30; Stop 12/19/16 at 17:43; Status DC Senna/Docusate Sodium (Senna Plus) 1 tab BID PO Last administered on 12/22/16 21:31; Start 12/14/16 at 12:00 Docusate Sodium (Colace) 100 mg BID PO Last administered on 12/22/16 21:30; Start 12/14/16 at 12:00 Magnesium Hydroxide (Milk Of Magnesia) 2,400 mg PRN Q12HR PRN PO CONSTIPATION; Start 12/14/16 at 11:30 Insulin Detemir (Levemir) 20 units QHS SQ Last administered on 12/21/16 20:40 ; Start 12/14/16 at 21:00; Stop 12/22/16 at 08:32; Status DC Heparin Sodium/ Sodium Chloride 1,000 ml @ As Directed STK-MED ONCE .ROUTE ; Start 12/15/16 at 07:09; Stop 12/15/16 at 07:10; Status DC Lidocaine HCl 20 ml STK-MED ONCE .ROUTE ; Start 12/15/16 at 07:10; Stop at 07:11; Status DC Iohexol (Omnipaque 300 Mg/ml) 100 ml STK-MED ONCE .ROUTE ; Start 12/15/16 at 07: 14; Stop 12/15/16 at 07:15; Status DC Fentanyl Citrate (Fentanyl 2ml Vial) 100 mcg STK-MED ONCE .ROUTE ; Start at 10:07; Stop 12/15/16 at 10:08; Status DC Midazolam HCl (Versed) 2 mg STK-MED ONCE .ROUTE ; Start 12/15/16 at 10:08; Stop 12/15/16 at 10:09; Status DC Verapamil HCl (Verapamil) 5 mg STK-MED ONCE .ROUTE ; Start 12/15/16 at 10:08; Stop 12/15/16 at 10:09; Status DC Heparin Sodium (Porcine) (Heparin Sodium) 10,000 unit STK-MED ONCE .ROUTE ; Start 12/15/16 at 10:08; Stop 12/15/16 at 10:09; Status DC Nitroglycerin (Nitroglycerin) 200 mcg STK-MED ONCE .ROUTE ; Start 12/15/16 at 10 :08; Stop 12/15/16 at 10:09; Status DC Nitroglycerin (Nitroglycerin) 200 mcg 1X ONCE IART Last administered on 10:43; Start 12/15/16 at 10:45; Stop 12/15/16 at 10:46; Status DC Verapamil HCl (Verapamil) 2.5 mg 1X ONCE IART Last administered on 12/15/16 10:43; Start 12/15/16 at 10:45; Stop 12/15/16 at 10:46; Status DC Heparin Sodium (Porcine) (Heparin Sodium) 2,500 unit 1X ONCE IART Last administered on 12/15/16 10:45; Start 12/15/16 at 10:45; Stop 12/15/16 at 10:46 ; Status DC Heparin Sodium/ Sodium Chloride 1,000 unit 1X ONCE IART Last administered on 10:42; Start 12/15/16 at 10:45; Stop 12/15/16 at 10:46; Status DC Midazolam HCl (Versed) 2 mg 1X ONCE IV Last administered on 12/15/16 10:44; Start 12/15/16 at 10:45; Stop 12/15/16 at 10:46; Status DC Fentanyl Citrate (Fentanyl 2ml Vial) 50 mcg 1X ONCE IV Last administered on 10:44; Start 12/15/16 at 10:45; Stop 12/15/16 at 10:46; Status DC Iohexol (Omnipaque 300 Mg/ml) 100 ml 1X ONCE IART Last administered on 10:42; Start 12/15/16 at 10:45; Stop 12/15/16 at 10:46; Status DC Lidocaine HCl 2 ml 1X ONCE IJ Last administered on 12/15/16 10:42; Start at 10:45; Stop 12/15/16 at 10:46; Status DC Sodium Chloride 1,000 ml @ 60 mls/hr [id number] IV Last administered on 03:31; Start 12/15/16 at 10:51; Stop 12/16/16 at 20:04; Status DC Polyethylene Glycol (miraLAX PACKET) 17 gm DAILY PO ; Start 12/16/16 at 16:30; Stop 12/16/16 at 16:30; Status DC Metoprolol Tartrate (Lopressor) 25 mg BID PO Last administered on 12/23/16 08: 09; Start 12/15/16 at 21:00 Polyethylene Glycol (miraLAX PACKET) 17 gm DAILY PO Last administered on 08:47; Start 12/17/16 at 07:00; Stop 12/19/16 at 12:28; Status DC Polyethylene Glycol (miraLAX PACKET) 17 gm 1X ONCE PO Last administered on 13:34; Start 12/16/16 at 13:30; Stop 12/16/16 at 13:31; Status DC Ondansetron HCl (Zofran) 4 mg PRN Q6HRS PRN IV NAUSEA/VOMITING; Start 12/17/16 at 07:00; Stop 12/18/16 at 06:59; Status DC Fentanyl Citrate (Fentanyl 2ml Vial) 25 mcg PRN Q5MIN PRN IV MILD PAIN; Start 12/17/16 at 07:00; Stop 12/18/16 at 06:59; Status DC Fentanyl Citrate (Fentanyl 2ml Vial) 50 mcg PRN Q5MIN PRN IV MODERATE PAIN; Start 12/17/16 at 07:00; Stop 12/18/16 at 06:59; Status DC Morphine Sulfate 1 mg PRN Q10MIN PRN IV SEVERE PAIN; Start 12/17/16 at 07:00; Stop 12/18/16 at 06:59; Status DC Ringer's Solution 1,000 ml @ 30 mls/hr Q24H IV ; Start 12/17/16 at 07:00; Stop 12/17/16 at 15:23; Status DC Lidocaine HCl (Xylocaine-Mpf 1% Vial) 2 ml PRN 1X PRN ID IV START; Start at 07:00; Stop 12/18/16 at 06:59; Status DC Hydromorphone HCl (Dilaudid) 0.5 mg PRN Q10MIN PRN IV SEV PAIN, Second choice; Start 12/17/16 at 07:00; Stop 12/18/16 at 06:59; Status DC Prochlorperazine Edisylate (Compazine) 5 mg PACU PRN PRN IV NAUSEA, MRX1; Start 12/17/16 at 07:00; Stop 12/18/16 at 06:59; Status DC Temazepam (Restoril) 7.5 mg PRN QHS PRN PO INSOMNIA Last administered on 21:30; Start 12/16/16 at 14:30 Lidocaine/Sodium Bicarbonate (Buffered Lidocaine 1%) 20 ml STK-MED ONCE IJ ; Start 12/17/16 at 13:12; Stop 12/17/16 at 13:13; Status DC Midazolam HCl (Versed) 2 mg STK-MED ONCE .ROUTE ; Start 12/17/16 at 13:47; Stop 12/17/16 at 13:48; Status DC Lidocaine/Sodium Bicarbonate (Buffered Lidocaine 1%) 3 ml 1X ONCE IJ Last administered on 12/17/16 14:00; Start 12/17/16 at 14:30; Stop 12/17/16 at 14:31 ; Status DC Midazolam HCl (Versed) 1 mg 1X ONCE IV Last administered on 12/17/16 14:00; Start 12/17/16 at 14:30; Stop 12/17/16 at 14:31; Status DC Fentanyl Citrate (Fentanyl 2ml Vial) 50 mcg 1X ONCE IV Last administered on 14:26; Start 12/17/16 at 14:30; Stop 12/17/16 at 14:31; Status DC Nitroglycerin/ Dextrose 250 ml @ 0 mls/hr CONT PRN IV SEE I/O RECORD Last administered on 12/17/16 19:53; Start 12/17/16 at 19:45; Stop 12/18/16 at 11:37 ; Status DC Isosorbide Mononitrate (Imdur) 30 mg DAILY PO Last administered on 12/23/16 08 :09; Start 12/18/16 at 12:00 Oxymetazoline HCl (Afrin) 2 spray BID NS Last administered on 12/21/16 08:43; Start 12/18/16 at 21:00; Stop 12/21/16 at 20:59; Status DC Sodium Chloride (Saline Mist Nasal) 1 evon PRN Q1HR PRN NS NASAL CONGESTION Last administered on 12/18/16 20:26; Start 12/18/16 at 20:00 Polyethylene Glycol (miraLAX PACKET) 17 gm BID PO Last administered on 08:19; Start 12/19/16 at 21:00 Lorazepam (Ativan) 1 mg 1X ONCE IV Last administered on 12/19/16 14:25; Start 12/19/16 at 13:30; Stop 12/19/16 at 13:31; Status DC Lorazepam (Ativan) 0.5 mg Q6HRS PRN PO ANXIETY / AGITATION Last administered on 12/23/16 09:06; Start 12/19/16 at 13:30 Lidocaine (Lidoderm) 1 patch DAILY TD Last administered on 12/22/16 08:19; Start 12/20/16 at 12:30 Enoxaparin Sodium (Lovenox 40mg Syringe) 40 mg Q12H SQ Last administered on 21:31; Start 12/20/16 at 21:00 Oxycodone/ Acetaminophen (Percocet 5/325) 1 tab PRN Q4HRS PRN PO MODERATE PAIN Last administered on 12/21/16 09:52; Start 12/20/16 at 12:15 Oxycodone/ Acetaminophen (Percocet 10/325) 1 tab PRN Q4HRS PRN PO MODERATE PAIN Last administered on 12/22/16 20:15; Start 12/20/16 at 12:15 Clopidogrel Bisulfate (Plavix) 300 mg 1X ONCE PO Last administered on 11:00; Start 12/21/16 at 09:30; Stop 12/21/16 at 09:31; Status DC Clopidogrel Bisulfate (Plavix) 75 mg DAILYWBKFT PO Last administered on 08:09; Start 12/22/16 at 08:00 Insulin Detemir (Levemir) 25 units QHS SQ Last administered on 12/22/16 21:38 ; Start 12/22/16 at 21:00; Stop 12/23/16 at 08:20; Status DC Insulin Aspart (NovoLOG) 5 units TIDAC SQ Last administered on 12/22/16 17:42 ; Start 12/22/16 at 08:33; Stop 12/23/16 at 08:20; Status DC Ondansetron HCl (Zofran) 4 mg PRN Q6HRS PRN IV NAUSEA/VOMITING; Start 12/23/16 at 07:00; Stop 12/24/16 at 06:59 Fentanyl Citrate (Fentanyl 2ml Vial) 25 mcg PRN Q5MIN PRN IV MILD PAIN; Start 12/23/16 at 07:00; Stop 12/23/16 at 18:00 Fentanyl Citrate (Fentanyl 2ml Vial) 50 mcg PRN Q5MIN PRN IV MODERATE PAIN; Start 12/23/16 at 07:00; Stop 12/23/16 at 18:00 Morphine Sulfate 1 mg PRN Q10MIN PRN IV SEVERE PAIN; Start 12/23/16 at 07:00; Stop 12/23/16 at 18:00 Ringer's Solution 1,000 ml @ 30 mls/hr Q24H IV ; Start 12/23/16 at 07:00; Stop 12/23/16 at 18:59 Lidocaine HCl (Xylocaine-Mpf 1% Vial) 2 ml PRN 1X PRN ID IV START; Start at 07:00; Stop 12/23/16 at 18:00 Hydromorphone HCl (Dilaudid) 0.5 mg PRN Q10MIN PRN IV SEV PAIN, Second choice; Start 12/23/16 at 07:00; Stop 12/23/16 at 18:00 Prochlorperazine Edisylate (Compazine) 5 mg PACU PRN PRN IV NAUSEA, MRX1; Start 12/23/16 at 07:00; Stop 12/23/16 at 18:00 Pantoprazole Sodium (Protonix) 40 mg DAILYAC PO Last administered on 12/22/16t 17:38; Start 12/22/16 at 17:30 Insulin Aspart (NovoLOG) 8 units TIDAC SQ ; Start 12/23/16 at 11:30 Insulin Detemir (Levemir) 30 units QHS SQ ; Start 12/23/16 at 21:00 Potassium Chloride (Klor-Con) 40 meq 1X ONCE PO ; Start 12/23/16 at 08:30; Stop 12/23/16 at 08:31; Status DC Potassium Chloride (Klor-Con) 40 meq 1X ONCE PO ; Start 12/23/16 at 08:30; Stop 12/23/16 at 08:31; Status DC Active Scripts Active Reported Gabapentin 400 Mg Capsule 400 Mg PO TID PRN Tresiba Flextouch U-100 (Insulin Degludec) 100 Unit/1 Ml Insuln.pen 40 Unit SQ HS Tresiba Flextouch U-100 (Insulin Degludec) 100 Unit/1 Ml Insuln.pen 36 Unit SQ DAILY Cetirizine Hcl 10 Mg Tablet 1 Tab PO DAILY Tamsulosin Hcl 0.4 Mg Cap.er.24h 2 Cap PO DAILY Triamterene-Hctz 37.5-25 Mg Cp (Triamterene/Hydrochlorothiazid) 1 Each Capsule 1 Cap PO DAILY Atorvastatin Calcium 20 Mg Tablet 1 Tab PO DAILY Actos (Pioglitazone Hcl) 30 Mg Tablet 1 Tab PO DAILY Montelukast Sodium Tablet (Montelukast Sodium) 10 Mg Tablet 1 Tab PO DAILY Losartan Potassium 100 Mg Tablet 100 Mg PO DAILY Vitals/I & O Vital Sign - Last 24 Hours 12/22/16 12/22/16 12/22/16 12/22/16 14:24 15:20 18:50 19:35 Temp 98.2 98.2 Pulse 80 Resp 24 20 24 B/P (MAP) 117/69 (85) Pulse Ox 91 93 93 O2 Delivery Nasal Cannula Nasal Cannula Nasal Cannula Nasal Cannula O2 Flow Rate 2.0 2.0 2.0 2.0 12/22/16 12/22/16 12/22/16 12/22/16 19:44 20:15 21:29 21:31 Temp 97.7 97.7 Pulse 82 88 Resp 20 18 18 B/P (MAP) 149/79 (102) 149/79 Pulse Ox 96 96 94 O2 Delivery Nasal Cannula Nasal Cannula Nasal Cannula O2 Flow Rate 2.0 2.0 2.0 12/22/16 12/23/16 12/23/16 12/23/16 22:34 03:04 03:17 04:24 Temp 98.6 98.2 98.6 98.2 Pulse 77 75 Resp 18 18 18 18 B/P (MAP) 135/76 (95) 136/81 (99) Pulse Ox 92 94 93 93 O2 Delivery Nasal Cannula Nasal Cannula Nasal Cannula Nasal Cannula O2 Flow Rate 2.0 2.0 3.0 12/23/16 12/23/16 12/23/16 12/23/16 07:00 08:00 08:08 08:09 Temp 97.9 97.9 Pulse 60 75 Resp 20 24 B/P (MAP) 129/73 (91) 136/81 Pulse Ox 93 93 O2 Delivery Nasal Cannula Nasal Cannula Nasal Cannula O2 Flow Rate 2.0 3.0 3.0 12/23/16 08:09 Pulse 75 B/P (MAP) 136/81 Intake and Output 12/23/16 12/23/16 12/24/16 14:59 22:59 06:59 Intake Total 100 ml Balance 100 ml Problem List Problems Medical Problems: (1) Chest pain Status: Acute (2) Non-STEMI (non-ST elevated myocardial infarction) Status: Acute Assessment Constipation, stable. CAD--PCI today. Metastatic adenoCa, lung. Plan of Care: Continue current Tx, Mgmt SILVIA DASILVA MD Dec 23, 2016 11:02
[2016-12-23] MEDS ORDERED: INSULIN ASPART 300 UNITS/3 ML INSULN.PEN SQ SCH (11:30)
--- NOTE | 2016-12-23 12:15 | PDOC ---
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 Plan No additional neurological studies required. Continue current medications okay for heart cath today Subjective No complaints, in restroom Objective Vital Signs Date Time Temp Pulse Resp B/P (MAP) Pulse Ox O2 Delivery O2 Flow Rate FiO2 12/23/16 11:00 97.8 69 20 120/76 (91) 92 Nasal Cannula 2.0 97.8 Intake and Output 12/24/16 07:00 Intake Total 100 ml Balance 100 ml Intake Oral 100 ml # Voids 1 # Bowel Movements 1 PHYSICAL EXAM Alert. Oriented to time, place and person. PERRL. EOMI. CN: no focal findings. Muscle tone: normal. Muscle strength: 5/5, except 3/5 right foot drop, 4/5 right plantar weakness DTR: 0+ Plantar reflex: flexor Gait: not examined in bed. Sensory exam: no abnormal findings. No cerebellar signs elicited. Review of Relevant I have reviewed the following items maxine (where applicable) has been applied. Labs Laboratory Tests Test 12/21/16 16:58 12/21/16 20:28 12/22/16 08:16 12/22/16 11:45 Glucose (Fingerstick) 205 mg/dL (70-99) 296 mg/dL (70-99) 233 mg/dL (70-99) 213 mg/dL (70-99) Test 12/22/16 17:01 12/22/16 21:12 12/23/16 04:45 12/23/16 08:40 Glucose (Fingerstick) 237 mg/dL (70-99) 267 mg/dL (70-99) 236 mg/dL (70-99) Sodium Level 136 mmol/L (136-145) Potassium Level 3.4 mmol/L (3.5-5.1) Chloride Level 97 mmol/L (98-107) Carbon Dioxide Level 35 mmol/L (21-32) Anion Gap 4 (6-14) Blood Urea Nitrogen 17 mg/dL (8-26) Creatinine 1.1 mg/dL (0.7-1.3) Estimated GFR (Cockcroft-Gault) 66.6 Glucose Level 256 mg/dL (70-99) Calcium Level 8.7 mg/dL (8.5-10.1) Magnesium Level 2.2 mg/dL (1.8-2.4) Test 12/23/16 10:54 Glucose (Fingerstick) 239 mg/dL (70-99) Laboratory Tests Test 12/22/16 17:01 12/22/16 21:12 12/23/16 04:45 12/23/16 08:40 Glucose (Fingerstick) 237 mg/dL (70-99) 267 mg/dL (70-99) 236 mg/dL (70-99) Sodium Level 136 mmol/L (136-145) Potassium Level 3.4 mmol/L (3.5-5.1) Chloride Level 97 mmol/L (98-107) Carbon Dioxide Level 35 mmol/L (21-32) Anion Gap 4 (6-14) Blood Urea Nitrogen 17 mg/dL (8-26) Creatinine 1.1 mg/dL (0.7-1.3) Estimated GFR (Cockcroft-Gault) 66.6 Glucose Level 256 mg/dL (70-99) Calcium Level 8.7 mg/dL (8.5-10.1) Magnesium Level 2.2 mg/dL (1.8-2.4) Test 12/23/16 10:54 Glucose (Fingerstick) 239 mg/dL (70-99) Medications Current Medications Nitroglycerin (Nitro-Bid Oint) 1 inch 1X ONCE TP Last administered on 18:38; Start 12/13/16 at 18:30; Stop 12/13/16 at 18:31; Status DC Aspirin (Children'S Aspirin) 324 mg 1X ONCE PO ; Start 12/13/16 at 18:30; Stop 12/13/16 at 18:31; Status DC Enoxaparin Sodium (Lovenox Per Pharmacy Treatment Dosing) 1 each PRN DAILY PRN MC SEE COMMENTS; Start 12/13/16 at 19:15; Stop 12/20/16 at 12:13; Status DC Enoxaparin Sodium (Lovenox 100mg Syringe) 100 mg 1X ONCE SQ Last administered on 12/13/16 19:50; Start 12/13/16 at 19:30; Stop 12/13/16 at 19:31; Status DC Enoxaparin Sodium (Lovenox 80mg Syringe) 80 mg 1X ONCE SQ Last administered on 12/13/16 19:50; Start 12/13/16 at 19:30; Stop 12/13/16 at 19:31; Status DC Ondansetron HCl (Zofran) 4 mg PRN Q8HRS PRN IV NAUSEA/VOMITING; Start 12/13/16 at 19:45; Stop 12/14/16 at 11:34; Status DC Morphine Sulfate 2 mg PRN Q2HR PRN IV PAIN; Start 12/13/16 at 19:45; Stop 12/14 at 11:34; Status DC Acetaminophen (Tylenol) 650 mg PRN Q4HRS PRN PO FEVER Last administered on 12/14 06:36; Start 12/13/16 at 19:45; Stop 12/14/16 at 11:34; Status DC Nitroglycerin (Nitrostat) 0.4 mg PRN Q5MIN PRN SL CHEST PAIN; Start 12/13/16 at 19:45; Stop 12/14/16 at 19:44; Status DC Insulin Aspart (NovoLOG) 0-9 UNITS QIDACHS SQ Last administered on 12/22/16 21 :39; Start 12/13/16 at 21:30 Dextrose (Dextrose 50%-Water Syringe) 12.5 gm PRN Q15MIN PRN IV SEE COMMENTS; Start 12/13/16 at 20:15 Morphine Sulfate (Morphine Ir) 15 mg PRN Q4HRS PRN PO SEVERE PAIN Last administered on 12/23/16 08:08; Start 12/13/16 at 20:15 Enoxaparin Sodium (Lovenox 100mg Syringe) 180 mg Q12HR SQ Last administered on 12/20/16 09:30; Start 12/14/16 at 09:00; Stop 12/20/16 at 12:09; Status DC Atorvastatin Calcium (Lipitor) 20 mg QHS PO Last administered on 12/22/16 21: 30; Start 12/14/16 at 21:00 Cetirizine HCl (ZyrTEC) 10 mg DAILY PO Last administered on 12/22/16 08:21; Start 12/14/16 at 12:00 Montelukast Sodium (Singulair) 10 mg DAILY PO Last administered on 12/22/16 08 :21; Start 12/14/16 at 12:00 Tamsulosin HCl (Flomax) 0.8 mg DAILY PO Last administered on 12/22/16 08:20; Start 12/14/16 at 12:00 Losartan Potassium (Cozaar) 100 mg DAILY PO Last administered on 12/15/16 11: 09; Start 12/14/16 at 12:00; Stop 12/15/16 at 16:19; Status DC Pioglitazone HCl (Actos) 30 mg DAILY PO Last administered on 12/22/16 08:20; Start 12/14/16 at 12:00 Triamterene/HCTZ (Maxzide 37.5/ 25mg) 1 tab DAILY PO Last administered on 08:20; Start 12/14/16 at 12:00 Acetaminophen (Tylenol) 650 mg PRN Q6HRS PRN PO FEVER Last administered on 12/18 20:33; Start 12/14/16 at 11:30 Ondansetron HCl (Zofran) 4 mg PRN Q6HRS PRN IV NAUSEA/VOMITING Last administered on 12/17/16 20:22; Start 12/14/16 at 11:30 Morphine Sulfate 2 mg PRN Q2HR PRN IV MODERATE TO SEVERE PAIN; Start 12/14/16 at 11:45 Tramadol HCl (Ultram) 50 mg PRN Q6HRS PRN PO MILD PAIN Last administered on 07:32; Start 12/14/16 at 11:30 Hydralazine HCl (Apresoline) 10 mg PRN Q4HRS PRN IVP ELEVATED BP, SEE COMMENTS ; Start 12/14/16 at 11:30 Docusate Sodium (Colace) 100 mg PRN DAILY PRN PO CONSTIPATION; Start 12/14/16 at 11:30; Stop 12/19/16 at 17:43; Status DC Senna/Docusate Sodium (Senna Plus) 1 tab BID PO Last administered on 12/22/16 21:31; Start 12/14/16 at 12:00 Docusate Sodium (Colace) 100 mg BID PO Last administered on 12/22/16 21:30; Start 12/14/16 at 12:00 Magnesium Hydroxide (Milk Of Magnesia) 2,400 mg PRN Q12HR PRN PO CONSTIPATION; Start 12/14/16 at 11:30 Insulin Detemir (Levemir) 20 units QHS SQ Last administered on 12/21/16 20:40 ; Start 12/14/16 at 21:00; Stop 12/22/16 at 08:32; Status DC Heparin Sodium/ Sodium Chloride 1,000 ml @ As Directed STK-MED ONCE .ROUTE ; Start 12/15/16 at 07:09; Stop 12/15/16 at 07:10; Status DC Lidocaine HCl 20 ml STK-MED ONCE .ROUTE ; Start 12/15/16 at 07:10; Stop at 07:11; Status DC Iohexol (Omnipaque 300 Mg/ml) 100 ml STK-MED ONCE .ROUTE ; Start 12/15/16 at 07: 14; Stop 12/15/16 at 07:15; Status DC Fentanyl Citrate (Fentanyl 2ml Vial) 100 mcg STK-MED ONCE .ROUTE ; Start at 10:07; Stop 12/15/16 at 10:08; Status DC Midazolam HCl (Versed) 2 mg STK-MED ONCE .ROUTE ; Start 12/15/16 at 10:08; Stop 12/15/16 at 10:09; Status DC Verapamil HCl (Verapamil) 5 mg STK-MED ONCE .ROUTE ; Start 12/15/16 at 10:08; Stop 12/15/16 at 10:09; Status DC Heparin Sodium (Porcine) (Heparin Sodium) 10,000 unit STK-MED ONCE .ROUTE ; Start 12/15/16 at 10:08; Stop 12/15/16 at 10:09; Status DC Nitroglycerin (Nitroglycerin) 200 mcg STK-MED ONCE .ROUTE ; Start 12/15/16 at 10 :08; Stop 12/15/16 at 10:09; Status DC Nitroglycerin (Nitroglycerin) 200 mcg 1X ONCE IART Last administered on t 10:43; Start 12/15/16 at 10:45; Stop 12/15/16 at 10:46; Status DC Verapamil HCl (Verapamil) 2.5 mg 1X ONCE IART Last administered on 12/15/16 10:43; Start 12/15/16 at 10:45; Stop 12/15/16 at 10:46; Status DC Heparin Sodium (Porcine) (Heparin Sodium) 2,500 unit 1X ONCE IART Last administered on 12/15/16 10:45; Start 12/15/16 at 10:45; Stop 12/15/16 at 10:46 ; Status DC Heparin Sodium/ Sodium Chloride 1,000 unit 1X ONCE IART Last administered on 10:42; Start 12/15/16 at 10:45; Stop 12/15/16 at 10:46; Status DC Midazolam HCl (Versed) 2 mg 1X ONCE IV Last administered on 12/15/16 10:44; Start 12/15/16 at 10:45; Stop 12/15/16 at 10:46; Status DC Fentanyl Citrate (Fentanyl 2ml Vial) 50 mcg 1X ONCE IV Last administered on 10:44; Start 12/15/16 at 10:45; Stop 12/15/16 at 10:46; Status DC Iohexol (Omnipaque 300 Mg/ml) 100 ml 1X ONCE IART Last administered on 10:42; Start 12/15/16 at 10:45; Stop 12/15/16 at 10:46; Status DC Lidocaine HCl 2 ml 1X ONCE IJ Last administered on 12/15/16 10:42; Start at 10:45; Stop 12/15/16 at 10:46; Status DC Sodium Chloride 1,000 ml @ 60 mls/hr [id number] IV Last administered on 03:31; Start 12/15/16 at 10:51; Stop 12/16/16 at 20:04; Status DC Polyethylene Glycol (miraLAX PACKET) 17 gm DAILY PO ; Start 12/16/16 at 16:30; Stop 12/16/16 at 16:30; Status DC Metoprolol Tartrate (Lopressor) 25 mg BID PO Last administered on 12/23/16 08: 09; Start 12/15/16 at 21:00 Polyethylene Glycol (miraLAX PACKET) 17 gm DAILY PO Last administered on 08:47; Start 12/17/16 at 07:00; Stop 12/19/16 at 12:28; Status DC Polyethylene Glycol (miraLAX PACKET) 17 gm 1X ONCE PO Last administered on 13:34; Start 12/16/16 at 13:30; Stop 12/16/16 at 13:31; Status DC Ondansetron HCl (Zofran) 4 mg PRN Q6HRS PRN IV NAUSEA/VOMITING; Start 12/17/16 at 07:00; Stop 12/18/16 at 06:59; Status DC Fentanyl Citrate (Fentanyl 2ml Vial) 25 mcg PRN Q5MIN PRN IV MILD PAIN; Start 12/17/16 at 07:00; Stop 12/18/16 at 06:59; Status DC Fentanyl Citrate (Fentanyl 2ml Vial) 50 mcg PRN Q5MIN PRN IV MODERATE PAIN; Start 12/17/16 at 07:00; Stop 12/18/16 at 06:59; Status DC Morphine Sulfate 1 mg PRN Q10MIN PRN IV SEVERE PAIN; Start 12/17/16 at 07:00; Stop 12/18/16 at 06:59; Status DC Ringer's Solution 1,000 ml @ 30 mls/hr Q24H IV ; Start 12/17/16 at 07:00; Stop 12/17/16 at 15:23; Status DC Lidocaine HCl (Xylocaine-Mpf 1% Vial) 2 ml PRN 1X PRN ID IV START; Start at 07:00; Stop 12/18/16 at 06:59; Status DC Hydromorphone HCl (Dilaudid) 0.5 mg PRN Q10MIN PRN IV SEV PAIN, Second choice; Start 12/17/16 at 07:00; Stop 12/18/16 at 06:59; Status DC Prochlorperazine Edisylate (Compazine) 5 mg PACU PRN PRN IV NAUSEA, MRX1; Start 12/17/16 at 07:00; Stop 12/18/16 at 06:59; Status DC Temazepam (Restoril) 7.5 mg PRN QHS PRN PO INSOMNIA Last administered on 21:30; Start 12/16/16 at 14:30 Lidocaine/Sodium Bicarbonate (Buffered Lidocaine 1%) 20 ml STK-MED ONCE IJ ; Start 12/17/16 at 13:12; Stop 12/17/16 at 13:13; Status DC Midazolam HCl (Versed) 2 mg STK-MED ONCE .ROUTE ; Start 12/17/16 at 13:47; Stop 12/17/16 at 13:48; Status DC Lidocaine/Sodium Bicarbonate (Buffered Lidocaine 1%) 3 ml 1X ONCE IJ Last administered on 12/17/16 14:00; Start 12/17/16 at 14:30; Stop 12/17/16 at 14:31 ; Status DC Midazolam HCl (Versed) 1 mg 1X ONCE IV Last administered on 12/17/16 14:00; Start 12/17/16 at 14:30; Stop 12/17/16 at 14:31; Status DC Fentanyl Citrate (Fentanyl 2ml Vial) 50 mcg 1X ONCE IV Last administered on 14:26; Start 12/17/16 at 14:30; Stop 12/17/16 at 14:31; Status DC Nitroglycerin/ Dextrose 250 ml @ 0 mls/hr CONT PRN IV SEE I/O RECORD Last administered on 12/17/16 19:53; Start 12/17/16 at 19:45; Stop 12/18/16 at 11:37 ; Status DC Isosorbide Mononitrate (Imdur) 30 mg DAILY PO Last administered on 12/23/16 08 :09; Start 12/18/16 at 12:00 Oxymetazoline HCl (Afrin) 2 spray BID NS Last administered on 12/21/16 08:43; Start 12/18/16 at 21:00; Stop 12/21/16 at 20:59; Status DC Sodium Chloride (Saline Mist Nasal) 1 evon PRN Q1HR PRN NS NASAL CONGESTION Last administered on 12/18/16 20:26; Start 12/18/16 at 20:00 Polyethylene Glycol (miraLAX PACKET) 17 gm BID PO Last administered on 08:19; Start 12/19/16 at 21:00 Lorazepam (Ativan) 1 mg 1X ONCE IV Last administered on 12/19/16 14:25; Start 12/19/16 at 13:30; Stop 12/19/16 at 13:31; Status DC Lorazepam (Ativan) 0.5 mg Q6HRS PRN PO ANXIETY / AGITATION Last administered on 12/23/16 09:06; Start 12/19/16 at 13:30 Lidocaine (Lidoderm) 1 patch DAILY TD Last administered on 12/22/16 08:19; Start 12/20/16 at 12:30 Enoxaparin Sodium (Lovenox 40mg Syringe) 40 mg Q12H SQ Last administered on 21:31; Start 12/20/16 at 21:00 Oxycodone/ Acetaminophen (Percocet 5/325) 1 tab PRN Q4HRS PRN PO MODERATE PAIN Last administered on 12/21/16 09:52; Start 12/20/16 at 12:15 Oxycodone/ Acetaminophen (Percocet 10/325) 1 tab PRN Q4HRS PRN PO MODERATE PAIN Last administered on 12/22/16 20:15; Start 12/20/16 at 12:15 Clopidogrel Bisulfate (Plavix) 300 mg 1X ONCE PO Last administered on 11:00; Start 12/21/16 at 09:30; Stop 12/21/16 at 09:31; Status DC Clopidogrel Bisulfate (Plavix) 75 mg [id number] PO Last administered on 08:09; Start 12/22/16 at 08:00 Insulin Detemir (Levemir) 25 units QHS SQ Last administered on 12/22/16 21:38 ; Start 12/22/16 at 21:00; Stop 12/23/16 at 08:20; Status DC Insulin Aspart (NovoLOG) 5 units TIDAC SQ Last administered on 12/22/16 17:42 ; Start 12/22/16 at 08:33; Stop 12/23/16 at 08:20; Status DC Ondansetron HCl (Zofran) 4 mg PRN Q6HRS PRN IV NAUSEA/VOMITING; Start 12/23/16 at 07:00; Stop 12/24/16 at 06:59 Fentanyl Citrate (Fentanyl 2ml Vial) 25 mcg PRN Q5MIN PRN IV MILD PAIN; Start 12/23/16 at 07:00; Stop 12/23/16 at 18:00 Fentanyl Citrate (Fentanyl 2ml Vial) 50 mcg PRN Q5MIN PRN IV MODERATE PAIN; Start 12/23/16 at 07:00; Stop 12/23/16 at 18:00 Morphine Sulfate 1 mg PRN Q10MIN PRN IV SEVERE PAIN; Start 12/23/16 at 07:00; Stop 12/23/16 at 18:00 Ringer's Solution 1,000 ml @ 30 mls/hr Q24H IV ; Start 12/23/16 at 07:00; Stop 12/23/16 at 18:59 Lidocaine HCl (Xylocaine-Mpf 1% Vial) 2 ml PRN 1X PRN ID IV START; Start at 07:00; Stop 12/23/16 at 18:00 Hydromorphone HCl (Dilaudid) 0.5 mg PRN Q10MIN PRN IV SEV PAIN, Second choice; Start 12/23/16 at 07:00; Stop 12/23/16 at 18:00 Prochlorperazine Edisylate (Compazine) 5 mg PACU PRN PRN IV NAUSEA, MRX1; Start 12/23/16 at 07:00; Stop 12/23/16 at 18:00 Pantoprazole Sodium (Protonix) 40 mg DAILYAC PO Last administered on 12/22/16 17:38; Start 12/22/16 at 17:30 Insulin Aspart (NovoLOG) 8 units TIDAC SQ ; Start 12/23/16 at 11:30 Insulin Detemir (Levemir) 30 units QHS SQ ; Start 12/23/16 at 21:00 Potassium Chloride (Klor-Con) 40 meq 1X ONCE PO Last administered on 11:00; Start 12/23/16 at 08:30; Stop 12/23/16 at 08:31; Status DC Potassium Chloride (Klor-Con) 40 meq 1X ONCE PO ; Start 12/23/16 at 08:30; Stop 12/23/16 at 08:31; Status DC Active Scripts Active Reported Gabapentin 400 Mg Capsule 400 Mg PO TID PRN Tresiba Flextouch U-100 (Insulin Degludec) 100 Unit/1 Ml Insuln.pen 40 Unit SQ HS Tresiba Flextouch U-100 (Insulin Degludec) 100 Unit/1 Ml Insuln.pen 36 Unit SQ DAILY Cetirizine Hcl 10 Mg Tablet 1 Tab PO DAILY Tamsulosin Hcl 0.4 Mg Cap.er.24h 2 Cap PO DAILY Triamterene-Hctz 37.5-25 Mg Cp (Triamterene/Hydrochlorothiazid) 1 Each Capsule 1 Cap PO DAILY Atorvastatin Calcium 20 Mg Tablet 1 Tab PO DAILY Actos (Pioglitazone Hcl) 30 Mg Tablet 1 Tab PO DAILY Montelukast Sodium Tablet (Montelukast Sodium) 10 Mg Tablet 1 Tab PO DAILY Losartan Potassium 100 Mg Tablet 100 Mg PO DAILY Vitals/I & O Vital Sign - Last 24 Hours 12/22/16 12/22/16 12/22/16 12/22/16 14:24 15:20 18:50 19:35 Temp 98.2 98.2 Pulse 80 Resp 24 20 24 B/P (MAP) 117/69 (85) Pulse Ox 91 93 93 O2 Delivery Nasal Cannula Nasal Cannula Nasal Cannula Nasal Cannula O2 Flow Rate 2.0 2.0 2.0 2.0 12/22/16 12/22/16 12/22/16 12/22/16 19:44 20:15 21:29 21:31 Temp 97.7 97.7 Pulse 82 88 Resp 20 18 18 B/P (MAP) 149/79 (102) 149/79 Pulse Ox 96 96 94 O2 Delivery Nasal Cannula Nasal Cannula Nasal Cannula O2 Flow Rate 2.0 2.0 2.0 12/22/16 12/23/16 12/23/16 12/23/16 22:34 03:04 03:17 04:24 Temp 98.6 98.2 98.6 98.2 Pulse 77 75 Resp 18 18 18 18 B/P (MAP) 135/76 (95) 136/81 (99) Pulse Ox 92 94 93 93 O2 Delivery Nasal Cannula Nasal Cannula Nasal Cannula Nasal Cannula O2 Flow Rate 2.0 2.0 3.0 12/23/16 12/23/16 12/23/16 12/23/16 07:00 08:00 08:08 08:09 Temp 97.9 97.9 Pulse 60 75 Resp 20 24 B/P (MAP) 129/73 (91) 136/81 Pulse Ox 93 93 O2 Delivery Nasal Cannula Nasal Cannula Nasal Cannula O2 Flow Rate 2.0 3.0 3.0 12/23/16 12/23/16 08:09 11:00 Temp 97.8 97.8 Pulse 75 69 Resp 20 B/P (MAP) 136/81 120/76 (91) Pulse Ox 92 O2 Delivery Nasal Cannula O2 Flow Rate 2.0 Intake and Output 12/23/16 12/23/16 12/24/16 15:00 23:00 07:00 Intake Total 100 ml Balance 100 ml NETTIE SOLANO MD Dec 23, 2016 12:15
--- NOTE | 2016-12-23 12:33 | PDOC ---
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, T5, L1 and liver - new dx via tissue lung biopsy NSTEMI - CABG on hold bec of lung CA new dx CHEST Pain with NSTEMI, BONE mets , anxiety Never smoker V TACH (12/17) dm2 better control now htn, controlled morbid obesity CKD 2-3 constipation resolved mild malnutrition Anxiety NOS MRI showed left small acute cerebellar stroke, no mets unsteady gait, multi factorial plan: fu with specialists PCI today as per card CABG held given metastatic lung Ca on insulin, increase levemir to 30u qhs, aspart 9u tid, SSI fu with onco and RT for outpt PET and outpt chemo and XRT on opoids for pain control, ativan prn for anxiety small acute cerebellar stroke likely not the reason to cause pt unsteady gait plan dc in 1-2ds History of Present Illness History of Present Illness ROS: no fever, chills, sob chest pain still. with right side tenderness, likely 2/2 bone mets on NC 2 L hyperglycemia >200 cannot do CABG since has lung adenocarcinoma mets to liver and bones MRI showed a small acute left cerebellar stroke Vitals Vitals Vital Signs Date Time Temp Pulse Resp B/P (MAP) Pulse Ox O2 Delivery O2 Flow Rate FiO2 12/23/16 11:00 97.8 69 20 120/76 (91) 92 Nasal Cannula 2.0 97.8 Physical Exam General: Alert, Oriented X3 Heart: Normal S1, Normal S2 Lungs: Clear Abdomen: Soft, No tenderness Extremities: No edema Skin: No significant lesion Labs LABS Laboratory Tests Test 12/22/16 17:01 12/22/16 21:12 12/23/16 04:45 12/23/16 08:40 Glucose (Fingerstick) 237 mg/dL (70-99) 267 mg/dL (70-99) 236 mg/dL (70-99) Sodium Level 136 mmol/L (136-145) Potassium Level 3.4 mmol/L (3.5-5.1) Chloride Level 97 mmol/L (98-107) Carbon Dioxide Level 35 mmol/L (21-32) Anion Gap 4 (6-14) Blood Urea Nitrogen 17 mg/dL (8-26) Creatinine 1.1 mg/dL (0.7-1.3) Estimated GFR (Cockcroft-Gault) 66.6 Glucose Level 256 mg/dL (70-99) Calcium Level 8.7 mg/dL (8.5-10.1) Magnesium Level 2.2 mg/dL (1.8-2.4) Test 12/23/16 10:54 Glucose (Fingerstick) 239 mg/dL (70-99) Assessment and Plan Assessmemt and Plan Problems Medical Problems: (1) Chest pain Status: Acute (2) Non-STEMI (non-ST elevated myocardial infarction) Status: Acute Problems: Comment Review of Relevant I have reviewed the following items maxine (where applicable) has been applied. Labs Laboratory Tests Test 12/21/16 16:58 12/21/16 20:28 12/22/16 08:16 12/22/16 11:45 Glucose (Fingerstick) 205 mg/dL (70-99) 296 mg/dL (70-99) 233 mg/dL (70-99) 213 mg/dL (70-99) Test 12/22/16 17:01 12/22/16 21:12 12/23/16 04:45 12/23/16 08:40 Glucose (Fingerstick) 237 mg/dL (70-99) 267 mg/dL (70-99) 236 mg/dL (70-99) Sodium Level 136 mmol/L (136-145) Potassium Level 3.4 mmol/L (3.5-5.1) Chloride Level 97 mmol/L (98-107) Carbon Dioxide Level 35 mmol/L (21-32) Anion Gap 4 (6-14) Blood Urea Nitrogen 17 mg/dL (8-26) Creatinine 1.1 mg/dL (0.7-1.3) Estimated GFR (Cockcroft-Gault) 66.6 Glucose Level 256 mg/dL (70-99) Calcium Level 8.7 mg/dL (8.5-10.1) Magnesium Level 2.2 mg/dL (1.8-2.4) Test 12/23/16 10:54 Glucose (Fingerstick) 239 mg/dL (70-99) Laboratory Tests Test 12/22/16 17:01 12/22/16 21:12 12/23/16 04:45 12/23/16 08:40 Glucose (Fingerstick) 237 mg/dL (70-99) 267 mg/dL (70-99) 236 mg/dL (70-99) Sodium Level 136 mmol/L (136-145) Potassium Level 3.4 mmol/L (3.5-5.1) Chloride Level 97 mmol/L (98-107) Carbon Dioxide Level 35 mmol/L (21-32) Anion Gap 4 (6-14) Blood Urea Nitrogen 17 mg/dL (8-26) Creatinine 1.1 mg/dL (0.7-1.3) Estimated GFR (Cockcroft-Gault) 66.6 Glucose Level 256 mg/dL (70-99) Calcium Level 8.7 mg/dL (8.5-10.1) Magnesium Level 2.2 mg/dL (1.8-2.4) Test 12/23/16 10:54 Glucose (Fingerstick) 239 mg/dL (70-99) Medications Current Medications Nitroglycerin (Nitro-Bid Oint) 1 inch 1X ONCE TP Last administered on 18:38; Start 12/13/16 at 18:30; Stop 12/13/16 at 18:31; Status DC Aspirin (Children'S Aspirin) 324 mg 1X ONCE PO ; Start 12/13/16 at 18:30; Stop 12/13/16 at 18:31; Status DC Enoxaparin Sodium (Lovenox Per Pharmacy Treatment Dosing) 1 each PRN DAILY PRN MC SEE COMMENTS; Start 12/13/16 at 19:15; Stop 12/20/16 at 12:13; Status DC Enoxaparin Sodium (Lovenox 100mg Syringe) 100 mg 1X ONCE SQ Last administered on 12/13/16 19:50; Start 12/13/16 at 19:30; Stop 12/13/16 at 19:31; Status DC Enoxaparin Sodium (Lovenox 80mg Syringe) 80 mg 1X ONCE SQ Last administered on 12/13/16 19:50; Start 12/13/16 at 19:30; Stop 12/13/16 at 19:31; Status DC Ondansetron HCl (Zofran) 4 mg PRN Q8HRS PRN IV NAUSEA/VOMITING; Start 12/13/16 at 19:45; Stop 12/14/16 at 11:34; Status DC Morphine Sulfate 2 mg PRN Q2HR PRN IV PAIN; Start 12/13/16 at 19:45; Stop 12/14 at 11:34; Status DC Acetaminophen (Tylenol) 650 mg PRN Q4HRS PRN PO FEVER Last administered on 12/14 06:36; Start 12/13/16 at 19:45; Stop 12/14/16 at 11:34; Status DC Nitroglycerin (Nitrostat) 0.4 mg PRN Q5MIN PRN SL CHEST PAIN; Start 12/13/16 at 19:45; Stop 12/14/16 at 19:44; Status DC Insulin Aspart (NovoLOG) 0-9 UNITS QIDACHS SQ Last administered on 12/22/16 21 :39; Start 12/13/16 at 21:30 Dextrose (Dextrose 50%-Water Syringe) 12.5 gm PRN Q15MIN PRN IV SEE COMMENTS; Start 12/13/16 at 20:15 Morphine Sulfate (Morphine Ir) 15 mg PRN Q4HRS PRN PO SEVERE PAIN Last administered on 12/23/16 08:08; Start 12/13/16 at 20:15 Enoxaparin Sodium (Lovenox 100mg Syringe) 180 mg Q12HR SQ Last administered on 12/20/16 09:30; Start 12/14/16 at 09:00; Stop 12/20/16 at 12:09; Status DC Atorvastatin Calcium (Lipitor) 20 mg QHS PO Last administered on 12/22/16 21: 30; Start 12/14/16 at 21:00 Cetirizine HCl (ZyrTEC) 10 mg DAILY PO Last administered on 12/22/16 08:21; Start 12/14/16 at 12:00 Montelukast Sodium (Singulair) 10 mg DAILY PO Last administered on 12/22/16 08 :21; Start 12/14/16 at 12:00 Tamsulosin HCl (Flomax) 0.8 mg DAILY PO Last administered on 12/22/16 08:20; Start 12/14/16 at 12:00 Losartan Potassium (Cozaar) 100 mg DAILY PO Last administered on 12/15/16 11: 09; Start 12/14/16 at 12:00; Stop 12/15/16 at 16:19; Status DC Pioglitazone HCl (Actos) 30 mg DAILY PO Last administered on 12/22/16 08:20; Start 12/14/16 at 12:00 Triamterene/HCTZ (Maxzide 37.5/ 25mg) 1 tab DAILY PO Last administered on 08:20; Start 12/14/16 at 12:00 Acetaminophen (Tylenol) 650 mg PRN Q6HRS PRN PO FEVER Last administered on 12/18 20:33; Start 12/14/16 at 11:30 Ondansetron HCl (Zofran) 4 mg PRN Q6HRS PRN IV NAUSEA/VOMITING Last administered on 12/17/16 20:22; Start 12/14/16 at 11:30 Morphine Sulfate 2 mg PRN Q2HR PRN IV MODERATE TO SEVERE PAIN; Start 12/14/16 at 11:45 Tramadol HCl (Ultram) 50 mg PRN Q6HRS PRN PO MILD PAIN Last administered on 07:32; Start 12/14/16 at 11:30 Hydralazine HCl (Apresoline) 10 mg PRN Q4HRS PRN IVP ELEVATED BP, SEE COMMENTS ; Start 12/14/16 at 11:30 Docusate Sodium (Colace) 100 mg PRN DAILY PRN PO CONSTIPATION; Start 12/14/16 at 11:30; Stop 12/19/16 at 17:43; Status DC Senna/Docusate Sodium (Senna Plus) 1 tab BID PO Last administered on 12/22/16 21:31; Start 12/14/16 at 12:00 Docusate Sodium (Colace) 100 mg BID PO Last administered on 12/22/16 21:30; Start 12/14/16 at 12:00 Magnesium Hydroxide (Milk Of Magnesia) 2,400 mg PRN Q12HR PRN PO CONSTIPATION; Start 12/14/16 at 11:30 Insulin Detemir (Levemir) 20 units QHS SQ Last administered on 12/21/16 20:40 ; Start 12/14/16 at 21:00; Stop 12/22/16 at 08:32; Status DC Heparin Sodium/ Sodium Chloride 1,000 ml @ As Directed STK-MED ONCE .ROUTE ; Start 12/15/16 at 07:09; Stop 12/15/16 at 07:10; Status DC Lidocaine HCl 20 ml STK-MED ONCE .ROUTE ; Start 12/15/16 at 07:10; Stop at 07:11; Status DC Iohexol (Omnipaque 300 Mg/ml) 100 ml STK-MED ONCE .ROUTE ; Start 12/15/16 at 07: 14; Stop 12/15/16 at 07:15; Status DC Fentanyl Citrate (Fentanyl 2ml Vial) 100 mcg STK-MED ONCE .ROUTE ; Start at 10:07; Stop 12/15/16 at 10:08; Status DC Midazolam HCl (Versed) 2 mg STK-MED ONCE .ROUTE ; Start 12/15/16 at 10:08; Stop 12/15/16 at 10:09; Status DC Verapamil HCl (Verapamil) 5 mg STK-MED ONCE .ROUTE ; Start 12/15/16 at 10:08; Stop 12/15/16 at 10:09; Status DC Heparin Sodium (Porcine) (Heparin Sodium) 10,000 unit STK-MED ONCE .ROUTE ; Start 12/15/16 at 10:08; Stop 12/15/16 at 10:09; Status DC Nitroglycerin (Nitroglycerin) 200 mcg STK-MED ONCE .ROUTE ; Start 12/15/16 at 10 :08; Stop 12/15/16 at 10:09; Status DC Nitroglycerin (Nitroglycerin) 200 mcg 1X ONCE IART Last administered on 10:43; Start 12/15/16 at 10:45; Stop 12/15/16 at 10:46; Status DC Verapamil HCl (Verapamil) 2.5 mg 1X ONCE IART Last administered on 12/15/16 10:43; Start 12/15/16 at 10:45; Stop 12/15/16 at 10:46; Status DC Heparin Sodium (Porcine) (Heparin Sodium) 2,500 unit 1X ONCE IART Last administered on 12/15/16 10:45; Start 12/15/16 at 10:45; Stop 12/15/16 at 10:46 ; Status DC Heparin Sodium/ Sodium Chloride 1,000 unit 1X ONCE IART Last administered on 10:42; Start 12/15/16 at 10:45; Stop 12/15/16 at 10:46; Status DC Midazolam HCl (Versed) 2 mg 1X ONCE IV Last administered on 12/15/16 10:44; Start 12/15/16 at 10:45; Stop 12/15/16 at 10:46; Status DC Fentanyl Citrate (Fentanyl 2ml Vial) 50 mcg 1X ONCE IV Last administered on 10:44; Start 12/15/16 at 10:45; Stop 12/15/16 at 10:46; Status DC Iohexol (Omnipaque 300 Mg/ml) 100 ml 1X ONCE IART Last administered on 10:42; Start 12/15/16 at 10:45; Stop 12/15/16 at 10:46; Status DC Lidocaine HCl 2 ml 1X ONCE IJ Last administered on 12/15/16 10:42; Start at 10:45; Stop 12/15/16 at 10:46; Status DC Sodium Chloride 1,000 ml @ 60 mls/hr [id number] IV Last administered on 03:31; Start 12/15/16 at 10:51; Stop 12/16/16 at 20:04; Status DC Polyethylene Glycol (miraLAX PACKET) 17 gm DAILY PO ; Start 12/16/16 at 16:30; Stop 12/16/16 at 16:30; Status DC Metoprolol Tartrate (Lopressor) 25 mg BID PO Last administered on 12/23/16 08: 09; Start 12/15/16 at 21:00 Polyethylene Glycol (miraLAX PACKET) 17 gm DAILY PO Last administered on 08:47; Start 12/17/16 at 07:00; Stop 12/19/16 at 12:28; Status DC Polyethylene Glycol (miraLAX PACKET) 17 gm 1X ONCE PO Last administered on 13:34; Start 12/16/16 at 13:30; Stop 12/16/16 at 13:31; Status DC Ondansetron HCl (Zofran) 4 mg PRN Q6HRS PRN IV NAUSEA/VOMITING; Start 12/17/16 at 07:00; Stop 12/18/16 at 06:59; Status DC Fentanyl Citrate (Fentanyl 2ml Vial) 25 mcg PRN Q5MIN PRN IV MILD PAIN; Start 12/17/16 at 07:00; Stop 12/18/16 at 06:59; Status DC Fentanyl Citrate (Fentanyl 2ml Vial) 50 mcg PRN Q5MIN PRN IV MODERATE PAIN; Start 12/17/16 at 07:00; Stop 12/18/16 at 06:59; Status DC Morphine Sulfate 1 mg PRN Q10MIN PRN IV SEVERE PAIN; Start 12/17/16 at 07:00; Stop 12/18/16 at 06:59; Status DC Ringer's Solution 1,000 ml @ 30 mls/hr Q24H IV ; Start 12/17/16 at 07:00; Stop 12/17/16 at 15:23; Status DC Lidocaine HCl (Xylocaine-Mpf 1% Vial) 2 ml PRN 1X PRN ID IV START; Start at 07:00; Stop 12/18/16 at 06:59; Status DC Hydromorphone HCl (Dilaudid) 0.5 mg PRN Q10MIN PRN IV SEV PAIN, Second choice; Start 12/17/16 at 07:00; Stop 12/18/16 at 06:59; Status DC Prochlorperazine Edisylate (Compazine) 5 mg PACU PRN PRN IV NAUSEA, MRX1; Start 12/17/16 at 07:00; Stop 12/18/16 at 06:59; Status DC Temazepam (Restoril) 7.5 mg PRN QHS PRN PO INSOMNIA Last administered on 21:30; Start 12/16/16 at 14:30 Lidocaine/Sodium Bicarbonate (Buffered Lidocaine 1%) 20 ml STK-MED ONCE IJ ; Start 12/17/16 at 13:12; Stop 12/17/16 at 13:13; Status DC Midazolam HCl (Versed) 2 mg STK-MED ONCE .ROUTE ; Start 12/17/16 at 13:47; Stop 12/17/16 at 13:48; Status DC Lidocaine/Sodium Bicarbonate (Buffered Lidocaine 1%) 3 ml 1X ONCE IJ Last administered on 12/17/16 14:00; Start 12/17/16 at 14:30; Stop 12/17/16 at 14:31 ; Status DC Midazolam HCl (Versed) 1 mg 1X ONCE IV Last administered on 12/17/16 14:00; Start 12/17/16 at 14:30; Stop 12/17/16 at 14:31; Status DC Fentanyl Citrate (Fentanyl 2ml Vial) 50 mcg 1X ONCE IV Last administered on 14:26; Start 12/17/16 at 14:30; Stop 12/17/16 at 14:31; Status DC Nitroglycerin/ Dextrose 250 ml @ 0 mls/hr CONT PRN IV SEE I/O RECORD Last administered on 12/17/16 19:53; Start 12/17/16 at 19:45; Stop 12/18/16 at 11:37 ; Status DC Isosorbide Mononitrate (Imdur) 30 mg DAILY PO Last administered on 12/23/16 08 :09; Start 12/18/16 at 12:00 Oxymetazoline HCl (Afrin) 2 spray BID NS Last administered on 12/21/16 08:43; Start 12/18/16 at 21:00; Stop 12/21/16 at 20:59; Status DC Sodium Chloride (Saline Mist Nasal) 1 evon PRN Q1HR PRN NS NASAL CONGESTION Last administered on 12/18/16 20:26; Start 12/18/16 at 20:00 Polyethylene Glycol (miraLAX PACKET) 17 gm BID PO Last administered on 08:19; Start 12/19/16 at 21:00 Lorazepam (Ativan) 1 mg 1X ONCE IV Last administered on 12/19/16 14:25; Start 12/19/16 at 13:30; Stop 12/19/16 at 13:31; Status DC Lorazepam (Ativan) 0.5 mg Q6HRS PRN PO ANXIETY / AGITATION Last administered on 12/23/16 09:06; Start 12/19/16 at 13:30 Lidocaine (Lidoderm) 1 patch DAILY TD Last administered on 12/22/16 08:19; Start 12/20/16 at 12:30 Enoxaparin Sodium (Lovenox 40mg Syringe) 40 mg Q12H SQ Last administered on 21:31; Start 12/20/16 at 21:00 Oxycodone/ Acetaminophen (Percocet 5/325) 1 tab PRN Q4HRS PRN PO MODERATE PAIN Last administered on 12/21/16 09:52; Start 12/20/16 at 12:15 Oxycodone/ Acetaminophen (Percocet 10/325) 1 tab PRN Q4HRS PRN PO MODERATE PAIN Last administered on 12/22/16 20:15; Start 12/20/16 at 12:15 Clopidogrel Bisulfate (Plavix) 300 mg 1X ONCE PO Last administered on 11:00; Start 12/21/16 at 09:30; Stop 12/21/16 at 09:31; Status DC Clopidogrel Bisulfate (Plavix) 75 mg DAILYWBKFT PO Last administered on 08:09; Start 12/22/16 at 08:00 Insulin Detemir (Levemir) 25 units QHS SQ Last administered on 12/22/16 21:38 ; Start 12/22/16 at 21:00; Stop 12/23/16 at 08:20; Status DC Insulin Aspart (NovoLOG) 5 units TIDAC SQ Last administered on 12/22/16 17:42 ; Start 12/22/16 at 08:33; Stop 12/23/16 at 08:20; Status DC Ondansetron HCl (Zofran) 4 mg PRN Q6HRS PRN IV NAUSEA/VOMITING; Start 12/23/16 at 07:00; Stop 12/24/16 at 06:59 Fentanyl Citrate (Fentanyl 2ml Vial) 25 mcg PRN Q5MIN PRN IV MILD PAIN; Start 12/23/16 at 07:00; Stop 12/23/16 at 18:00 Fentanyl Citrate (Fentanyl 2ml Vial) 50 mcg PRN Q5MIN PRN IV MODERATE PAIN; Start 12/23/16 at 07:00; Stop 12/23/16 at 18:00 Morphine Sulfate 1 mg PRN Q10MIN PRN IV SEVERE PAIN; Start 12/23/16 at 07:00; Stop 12/23/16 at 18:00 Ringer's Solution 1,000 ml @ 30 mls/hr Q24H IV ; Start 12/23/16 at 07:00; Stop 12/23/16 at 18:59 Lidocaine HCl (Xylocaine-Mpf 1% Vial) 2 ml PRN 1X PRN ID IV START; Start at 07:00; Stop 12/23/16 at 18:00 Hydromorphone HCl (Dilaudid) 0.5 mg PRN Q10MIN PRN IV SEV PAIN, Second choice; Start 12/23/16 at 07:00; Stop 12/23/16 at 18:00 Prochlorperazine Edisylate (Compazine) 5 mg PACU PRN PRN IV NAUSEA, MRX1; Start 12/23/16 at 07:00; Stop 12/23/16 at 18:00 Pantoprazole Sodium (Protonix) 40 mg DAILYAC PO Last administered on 12/22/16 17:38; Start 12/22/16 at 17:30 Insulin Aspart (NovoLOG) 8 units TIDAC SQ ; Start 12/23/16 at 11:30 Insulin Detemir (Levemir) 30 units QHS SQ ; Start 12/23/16 at 21:00 Potassium Chloride (Klor-Con) 40 meq 1X ONCE PO Last administered on 11:00; Start 12/23/16 at 08:30; Stop 12/23/16 at 08:31; Status DC Potassium Chloride (Klor-Con) 40 meq 1X ONCE PO ; Start 12/23/16 at 08:30; Stop 12/23/16 at 08:31; Status DC Active Scripts Active Reported Gabapentin 400 Mg Capsule 400 Mg PO TID PRN Tresiba Flextouch U-100 (Insulin Degludec) 100 Unit/1 Ml Insuln.pen 40 Unit SQ HS Tresiba Flextouch U-100 (Insulin Degludec) 100 Unit/1 Ml Insuln.pen 36 Unit SQ DAILY Cetirizine Hcl 10 Mg Tablet 1 Tab PO DAILY Tamsulosin Hcl 0.4 Mg Cap.er.24h 2 Cap PO DAILY Triamterene-Hctz 37.5-25 Mg Cp (Triamterene/Hydrochlorothiazid) 1 Each Capsule 1 Cap PO DAILY Atorvastatin Calcium 20 Mg Tablet 1 Tab PO DAILY Actos (Pioglitazone Hcl) 30 Mg Tablet 1 Tab PO DAILY Montelukast Sodium Tablet (Montelukast Sodium) 10 Mg Tablet 1 Tab PO DAILY Losartan Potassium 100 Mg Tablet 100 Mg PO DAILY Vitals/I & O Vital Sign - Last 24 Hours 12/22/16 12/22/16 12/22/16 12/22/16 14:24 15:20 18:50 19:35 Temp 98.2 98.2 Pulse 80 Resp 24 20 24 B/P (MAP) 117/69 (85) Pulse Ox 91 93 93 O2 Delivery Nasal Cannula Nasal Cannula Nasal Cannula Nasal Cannula O2 Flow Rate 2.0 2.0 2.0 2.0 12/22/16 12/22/16 12/22/16 12/22/16 19:44 20:15 21:29 21:31 Temp 97.7 97.7 Pulse 82 88 Resp 20 18 18 B/P (MAP) 149/79 (102) 149/79 Pulse Ox 96 96 94 O2 Delivery Nasal Cannula Nasal Cannula Nasal Cannula O2 Flow Rate 2.0 2.0 2.0 12/22/16 12/23/16 12/23/16 12/23/16 22:34 03:04 03:17 04:24 Temp 98.6 98.2 98.6 98.2 Pulse 77 75 Resp 18 18 18 18 B/P (MAP) 135/76 (95) 136/81 (99) Pulse Ox 92 94 93 93 O2 Delivery Nasal Cannula Nasal Cannula Nasal Cannula Nasal Cannula O2 Flow Rate 2.0 2.0 3.0 12/23/16 12/23/16 12/23/16 12/23/16 07:00 08:00 08:08 08:09 Temp 97.9 97.9 Pulse 60 75 Resp 20 24 B/P (MAP) 129/73 (91) 136/81 Pulse Ox 93 93 O2 Delivery Nasal Cannula Nasal Cannula Nasal Cannula O2 Flow Rate 2.0 3.0 3.0 12/23/16 12/23/16 08:09 11:00 Temp 97.8 97.8 Pulse 75 69 Resp 20 B/P (MAP) 136/81 120/76 (91) Pulse Ox 92 O2 Delivery Nasal Cannula O2 Flow Rate 2.0 Intake and Output 12/23/16 12/23/16 12/24/16 15:00 23:00 07:00 Intake Total 100 ml Balance 100 ml GOLDEN PEARSON MD Dec 23, 2016 12:33
[2016-12-23] MEDS ORDERED: LIDOCAINE 2% 20 ML VIAL. ONE (12:39)
[2016-12-23] MEDS ORDERED: IOHEXOL 300 MG/ML 100ML VIAL. ONE (12:39)
[2016-12-23] MEDS ORDERED: PROPOFOL 80 ML IV ONE (12:50)
[2016-12-23] MEDS ORDERED: LIDOCAINE 2% PF Vial for OR 5 ML VIAL. ONE (12:51)
[2016-12-23] MEDS ORDERED: KETAMINE HCL 500 MG/10 ML VIAL. ONE (12:53)
[2016-12-23] MEDS ORDERED: MIDAZOLAM HCL/PF 2 MG/2 ML VIAL. ONE (12:53)
[2016-12-23] MEDS ORDERED: GLYCOPYRROLATE 1 MG/5 ML VIAL. ONE (12:54)
[2016-12-23] MEDS ORDERED: PHENYLEPHRINE in 0.9% NACL PF 1 MG/10 ML DISP.SYRIN. IV ONE (12:54)
[2016-12-23] MEDS ORDERED: SUCCINYLCHOLINE 200 MG/10 ML VIAL. ONE (12:57)
--- NOTE | 2016-12-23 13:03 | PDOC ---
PULMONARY PROGRESS NOTES Subjective NO MORE CHEST PAIN EASIER BREATHING Vitals Vital Signs Date Time Temp Pulse Resp B/P (MAP) Pulse Ox O2 Delivery O2 Flow Rate FiO2 12/23/16 11:00 97.8 69 20 120/76 (91) 92 Nasal Cannula 2.0 97.8 ROS: No Nausea, No Chest Pain, No Abdominal Pain, No Increase Cough General: Alert Lungs: Clear Cardiovascular: S1, S2 Abdomen: Soft, Other (obese) Neuro Exam: Alert Extremities: Other (1+edema) Skin: Warm Labs Laboratory Tests Test 12/21/16 16:58 12/21/16 20:28 12/22/16 08:16 12/22/16 11:45 Glucose (Fingerstick) 205 mg/dL (70-99) 296 mg/dL (70-99) 233 mg/dL (70-99) 213 mg/dL (70-99) Test 12/22/16 17:01 12/22/16 21:12 12/23/16 04:45 12/23/16 08:40 Glucose (Fingerstick) 237 mg/dL (70-99) 267 mg/dL (70-99) 236 mg/dL (70-99) Sodium Level 136 mmol/L (136-145) Potassium Level 3.4 mmol/L (3.5-5.1) Chloride Level 97 mmol/L (98-107) Carbon Dioxide Level 35 mmol/L (21-32) Anion Gap 4 (6-14) Blood Urea Nitrogen 17 mg/dL (8-26) Creatinine 1.1 mg/dL (0.7-1.3) Estimated GFR (Cockcroft-Gault) 66.6 Glucose Level 256 mg/dL (70-99) Calcium Level 8.7 mg/dL (8.5-10.1) Magnesium Level 2.2 mg/dL (1.8-2.4) Test 12/23/16 10:54 Glucose (Fingerstick) 239 mg/dL (70-99) Laboratory Tests Test 12/22/16 17:01 12/22/16 21:12 12/23/16 04:45 12/23/16 08:40 Glucose (Fingerstick) 237 mg/dL (70-99) 267 mg/dL (70-99) 236 mg/dL (70-99) Sodium Level 136 mmol/L (136-145) Potassium Level 3.4 mmol/L (3.5-5.1) Chloride Level 97 mmol/L (98-107) Carbon Dioxide Level 35 mmol/L (21-32) Anion Gap 4 (6-14) Blood Urea Nitrogen 17 mg/dL (8-26) Creatinine 1.1 mg/dL (0.7-1.3) Estimated GFR (Cockcroft-Gault) 66.6 Glucose Level 256 mg/dL (70-99) Calcium Level 8.7 mg/dL (8.5-10.1) Magnesium Level 2.2 mg/dL (1.8-2.4) Test 12/23/16 10:54 Glucose (Fingerstick) 239 mg/dL (70-99) Medications Active Scripts Medications Dose Route/Sig Max Daily Dose Days Date Category Gabapentin 400 Mg Capsule 400 Mg PO TID PRN 12/15/16 Reported Tresiba Flextouch U-100 (Insulin Degludec) 100 Unit/1 Ml Insuln.pen 40 Unit SQ HS 12/14/16 Reported Tresiba Flextouch U-100 (Insulin Degludec) 100 Unit/1 Ml Insuln.pen 36 Unit SQ DAILY 12/14/16 Reported Cetirizine Hcl 10 Mg Tablet 1 Tab PO DAILY 12/14/16 Reported Tamsulosin Hcl 0.4 Mg Cap.er.24h 2 Cap PO DAILY 12/14/16 Reported Triamterene-Hctz 37.5-25 Mg Cp (Triamterene/Hydrochlorothiazid) 1 Each Capsule 1 Cap PO DAILY 12/14/16 Reported Atorvastatin Calcium 20 Mg Tablet 1 Tab PO DAILY 12/14/16 Reported Actos (Pioglitazone Hcl) 30 Mg Tablet 1 Tab PO DAILY 12/14/16 Reported Montelukast Sodium Tablet (Montelukast Sodium) 10 Mg Tablet 1 Tab PO DAILY 12/14/16 Reported Losartan Potassium 100 Mg Tablet 100 Mg PO DAILY 12/14/16 Reported Impression . 1. Abnormal CT of the chest revealing several findings ,left lower lobe mass measuring 3.0 x 2.2 cm. STAGE 4 LUNG CA 2. Mediastinal adenopathy. 3. Right rib soft tissue density. 4. Coronary artery disease S/P PCI 5. Obesity. 6. Hypertension. 7. UNSTABLE ANGINA POA Plan . S/P PCI NOW NO CHEST PAIN EASIER BREATHING 6 MIN WALK D/C IN AM OK FOLLOW ONCO INPUT RESP STATUS IS COMPENSATED OP PET ARUNA NOVAK MD Dec 23, 2016 13:03
[2016-12-23] MEDS ORDERED: NITROGLYCERIN 200 MCG/2 ML SYRINGE FOR CATH/VASC LAB. ONE (13:57)
[2016-12-23] MEDS ORDERED: HEPARIN for IV BOLUS 10,000 UNIT/10 ML VIAL. ONE (13:57)
[2016-12-23] MEDS ORDERED: VERAPAMIL 5 MG/2 ML VIAL. ONE (13:57)
[2016-12-23] MEDS ORDERED: BIVALIRUDIN 250 MG VIAL. IV ONE ×2 (14:04→14:15)
[2016-12-23] MEDS ORDERED: HEPARIN for IV BOLUS 10,000 UNIT/10 ML VIAL. IART ONE (14:15)
[2016-12-23] MEDS ORDERED: IOHEXOL 300 MG/ML 100ML VIAL. IART ONE (14:15)
[2016-12-23] MEDS ORDERED: NITROGLYCERIN 200 MCG/2 ML SYRINGE FOR CATH/VASC LAB. IART ONE ×2 (14:15)
[2016-12-23] MEDS ORDERED: VERAPAMIL 5 MG/2 ML VIAL. IART ONE (14:15)
[2016-12-23] MEDS ORDERED: LIDOCAINE 2% 20 ML VIAL. IJ ONE (14:15)
[2016-12-23] MEDS ORDERED: IV 1/2 NORMAL SALINE 1,000 ML IV SCH (14:40)
[2016-12-23] MEDS ORDERED: ACETAMINOPHEN 325 MG TABLET. PO PRN (14:45)
[2016-12-23] MEDS ORDERED: NITROGLYCERIN SUBLINGUAL 0.4 MG BOTTLE OF 25. SL PRN (14:45)
--- NOTE | 2016-12-23 14:54 | CARD ---
APPROVED REPORT Procedure(s) performed: Successful PCI/stents placement to the left anterior descending artery and al so the obtuse marginal branch of left circumflex artery. INDICATION The indication(s) include : 66-year-old male was found to have three-vessel coronary artery disease ( 100% chronic total occlusion of the right coronary artery, 95% stenosis involving the left anterior d escending artery and 70% stenosis involving the first obtuse marginal branch of left circumflex arter y) on cardiac catheterization 12/15/16 done in the setting of non-STEMI. He was referred to CT surgery team for possible coronary artery bypass surgery. However, he was deemed a poor surgical candidate d ue to metastatic lung cancer diagnosed this admission. Hence he presented for percutaneous revascular ization of his LAD and LCx. Since RCA occlusion was chronic with [id number] collaterals reconstitu ting PDA/PLB, this would be managed medically.. PROCEDURE NARRATIVE Affect pain the risks, benefits and alternative options, informed consent was obtained from patient. Patient was brought to the cardiac Hand [facility] and his right wrist was prepped and draped in the usual f ashion after confirming a positive modified Dung's test. 6 [place] sheath was placed in the right rad ial artery after obtaining arterial access. A 6 [place] XB 3.5 guide catheter was then advanced under fluoroscopy guidance and the left main coronary artery was engaged. Selective angiography confirmed t he previously described 90-95% stenosis involving the proximal to midsegment of the left anterior refugio cending artery and 70% stenosis involving the first obtuse marginal branch of left circumflex artery. The stenosis in the left anterior descending artery was crossed with a 0.014 inch [employer] guid ewire, predilated with a 2.5 x 12 mm trek balloon following which this was successfully treated with a 3.5 x 15 mm MultiLink vision stent. Follow-up angiorrhaphy showed resolution of the stenosis to 0% with CASH-3 distal flow. Subsequently, the stenosis in the first obtuse marginal branch of left circu mflex artery was crossed with the same guidewire and directly treated with a 2.5 x 15 mm MultiLink mi ni vision stent. Follow-up angiography showed resolution of the stenosis to 0% with CASH-3 distal josselin w. Bare-metal stents were used due to new diagnosis of metastatic lung cancer. Patient tolerated the procedure well. Hemostasis was achieved using TR band. There were no immediate complications. Conclusion Successful PCI/bare metal stents placement to the left anterior descending artery and also the obtuse marginal branch of left circumflex artery. Recommendations 1. Aspirin 325 mg daily 2. Plavix 75 mg for atleast 4 weeks and preferably one year 3. Cardiovascular risk factor modification
[2016-12-23] MEDS ORDERED: INSULIN ASPART 100 UNIT/ML 10ML VIAL. SQ PRN (15:15)
[2016-12-23] MEDS: CETIRIZINE HCL 10 MG TABLET. PO SCH (15:41)
[2016-12-23] MEDS: MONTELUKAST SODIUM 10 MG TABLET. PO SCH (15:41)
[2016-12-23] MEDS ORDERED: INSULIN DETEMIR 300 UNITS/3 ML INSULN.PEN. SQ SCH (21:00)
[2016-12-23] MEDS: ATORVASTATIN CALCIUM 20 MG TABLET PO SCH (21:55)
[2016-12-23] MEDS: TEMAZEPAM 7.5 MG CAPSULE PO PRN (21:55)
[2016-12-23] MEDS: oxyCODONE/APAP 10/325 1 TAB TABLET PO PRN (21:56)
[2016-12-24 03:00] VITALS: BP 113/70
[2016-12-24] MEDS: PANTOPRAZOLE 40 MG TABLET.DR. PO SCH (06:12)
[2016-12-24 07:00] VITALS: BP 120/74
[2016-12-24] MEDS: TAMSULOSIN 0.4 MG CAP.ER.24H. PO SCH (08:37)
[2016-12-24] MEDS: MONTELUKAST SODIUM 10 MG TABLET. PO SCH (08:37)
[2016-12-24] MEDS: CLOPIDOGREL BISULFATE 75 MG TABLET PO SCH (08:38)
[2016-12-24] MEDS: PIOGLITAZONE 15 MG TABLET. PO SCH (08:38)
[2016-12-24] MEDS: CETIRIZINE HCL 10 MG TABLET. PO SCH (08:38)
[2016-12-24] MEDS: METOPROLOL TART IMMED RELEASE 25 MG TABLET. PO SCH (08:38)
[2016-12-24] MEDS: SENNOSIDES/DOCUSATE 8.6/50MG TABLET. PO SCH (08:38)
[2016-12-24] MEDS: ISOSORBIDE MONONITRATE ER 30 MG TAB.ER.24H PO SCH (08:38)
[2016-12-24] MEDS: TRIAMTERENE/HCTZ 37.5/25MG TABLET. PO SCH (08:38)
[2016-12-24] MEDS: LIDOCAINE (700MG/PATCH) PATCH. TD SCH (08:39)
[2016-12-24] MEDS: DOCUSATE SODIUM 100 MG CAPSULE. PO SCH (08:39)
[2016-12-24] MEDS: POLYETHYLENE GLYCOL 3350 17 GM PACKET. PO SCH (08:39)
[2016-12-24] MEDS: INSULIN ASPART 300 UNITS/3 ML INSULN.PEN SQ SCH ×6 (08:45→17:03)
[2016-12-24] MEDS: ENOXAPARIN 40 MG/0.4 ML SYRINGE. SQ SCH (08:56)
[2016-12-24] MEDS: oxyCODONE/APAP 10/325 1 TAB TABLET PO PRN (08:56)
--- NOTE | 2016-12-24 09:38 | PDOC ---
Subjective: Subjective: Stooling well. Asks if he can take Miralax at home. Objective: Vital Signs: Vital Signs Date Time Temp Pulse Resp B/P (MAP) Pulse Ox O2 Delivery O2 Flow Rate FiO2 12/24/16 08:56 18 Nasal Cannula 2.0 12/24/16 08:38 72 120/74 12/24/16 07:00 98.4 95 98.4 Labs: Laboratory Tests Test 12/23/16 10:54 12/23/16 14:56 12/23/16 15:45 12/23/16 20:19 Glucose (Fingerstick) 239 mg/dL 198 mg/dL 184 mg/dL 180 mg/dL Test 12/24/16 07:52 Glucose (Fingerstick) 198 mg/dL Imaging: Cath 12/23/16 Conclusion Successful PCI/bare metal stents placement to the left anterior descending artery and also the obtuse marginal branch of left circumflex artery. Recommendations 1. Aspirin 325 mg daily 2. Plavix 75 mg for atleast 4 weeks and preferably one year 3. Cardiovascular risk factor modification PE: GEN: NAD, up to chair LUNGS: clear HEART: RRR ABD: NABS, S/ND/NT, overweight NEURO/PSYCH: A & O 3 A/P: NSCLC Stage IV CAD s/p cath/stent 12/23 - on ASA, Plavix Irregular bowel habits/constipation - improved -- Continue same per GI - encouraged Miralax as outpt, adjusting dose as needed. DC per primary/cardiology. FRANSISCO GERMAIN Dec 24, 2016 09:38
--- NOTE | 2016-12-24 09:57 | PDOC ---
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 Status-post coronary stents Plan Subjective No complaints, in restroom Objective Vital Signs Date Time Temp Pulse Resp B/P (MAP) Pulse Ox O2 Delivery O2 Flow Rate FiO2 12/23/16 11:00 97.8 69 20 120/76 (91) 92 Nasal Cannula 2.0 97.8 Intake and Output 12/24/16 07:00 Intake Total 100 ml Balance 100 ml Intake Oral 100 ml # Voids 1 # Bowel Movements 1 PHYSICAL EXAM Plan No additional neurological studies required. Continue current medications. Aspirin, Plavix, statin Follow-up with neurology as needed Subjective No complaints Objective Vital Signs Date Time Temp Pulse Resp B/P (MAP) Pulse Ox O2 Delivery O2 Flow Rate FiO2 12/24/16 08:56 18 Nasal Cannula 2.0 12/24/16 08:38 72 120/74 12/24/16 07:00 98.4 95 98.4 PHYSICAL EXAM Alert. Oriented to time, place and person. PERRL. EOMI. CN: no focal findings. Muscle tone: normal. Muscle strength: 5/5, except 3/5 right foot drop, 4/5 right plantar weakness DTR: 0+ Plantar reflex: flexor Gait: not examined in bed. Sensory exam: no abnormal findings. No cerebellar signs elicited. Review of Relevant I have reviewed the following items maxine (where applicable) has been applied. Labs Laboratory Tests Test 12/22/16 11:45 12/22/16 17:01 12/22/16 21:12 12/23/16 04:45 Glucose (Fingerstick) 213 mg/dL (70-99) 237 mg/dL (70-99) 267 mg/dL (70-99) Sodium Level 136 mmol/L (136-145) Potassium Level 3.4 mmol/L (3.5-5.1) Chloride Level 97 mmol/L (98-107) Carbon Dioxide Level 35 mmol/L (21-32) Anion Gap 4 (6-14) Blood Urea Nitrogen 17 mg/dL (8-26) Creatinine 1.1 mg/dL (0.7-1.3) Estimated GFR (Cockcroft-Gault) 66.6 Glucose Level 256 mg/dL (70-99) Calcium Level 8.7 mg/dL (8.5-10.1) Magnesium Level 2.2 mg/dL (1.8-2.4) Test 12/23/16 08:40 12/23/16 10:54 12/23/16 14:56 12/23/16 15:45 Glucose (Fingerstick) 236 mg/dL (70-99) 239 mg/dL (70-99) 198 mg/dL (70-99) 184 mg/dL (70-99) Test 12/23/16 20:19 12/24/16 07:52 Glucose (Fingerstick) 180 mg/dL (70-99) 198 mg/dL (70-99) Laboratory Tests Test 12/23/16 10:54 12/23/16 14:56 12/23/16 15:45 12/23/16 20:19 Glucose (Fingerstick) 239 mg/dL (70-99) 198 mg/dL (70-99) 184 mg/dL (70-99) 180 mg/dL (70-99) Test 12/24/16 07:52 Glucose (Fingerstick) 198 mg/dL (70-99) Medications Current Medications Nitroglycerin (Nitro-Bid Oint) 1 inch 1X ONCE TP Last administered on 18:38; Start 12/13/16 at 18:30; Stop 12/13/16 at 18:31; Status DC Aspirin (Children'S Aspirin) 324 mg 1X ONCE PO ; Start 12/13/16 at 18:30; Stop 12/13/16 at 18:31; Status DC Enoxaparin Sodium (Lovenox Per Pharmacy Treatment Dosing) 1 each PRN DAILY PRN MC SEE COMMENTS; Start 12/13/16 at 19:15; Stop 12/20/16 at 12:13; Status DC Enoxaparin Sodium (Lovenox 100mg Syringe) 100 mg 1X ONCE SQ Last administered on 12/13/16 19:50; Start 12/13/16 at 19:30; Stop 12/13/16 at 19:31; Status DC Enoxaparin Sodium (Lovenox 80mg Syringe) 80 mg 1X ONCE SQ Last administered on 12/13/16 19:50; Start 12/13/16 at 19:30; Stop 12/13/16 at 19:31; Status DC Ondansetron HCl (Zofran) 4 mg PRN Q8HRS PRN IV NAUSEA/VOMITING; Start 12/13/16 at 19:45; Stop 12/14/16 at 11:34; Status DC Morphine Sulfate 2 mg PRN Q2HR PRN IV PAIN; Start 12/13/16 at 19:45; Stop 12/14 at 11:34; Status DC Acetaminophen (Tylenol) 650 mg PRN Q4HRS PRN PO FEVER Last administered on 12/14 06:36; Start 12/13/16 at 19:45; Stop 12/14/16 at 11:34; Status DC Nitroglycerin (Nitrostat) 0.4 mg PRN Q5MIN PRN SL CHEST PAIN; Start 12/13/16 at 19:45; Stop 12/14/16 at 19:44; Status DC Insulin Aspart (NovoLOG) 0-9 UNITS QIDACHS SQ Last administered on 12/24/16 08 :47; Start 12/13/16 at 21:30 Dextrose (Dextrose 50%-Water Syringe) 12.5 gm PRN Q15MIN PRN IV SEE COMMENTS; Start 12/13/16 at 20:15 Morphine Sulfate (Morphine Ir) 15 mg PRN Q4HRS PRN PO SEVERE PAIN Last administered on 12/23/16 08:08; Start 12/13/16 at 20:15 Enoxaparin Sodium (Lovenox 100mg Syringe) 180 mg Q12HR SQ Last administered on 12/20/16 09:30; Start 12/14/16 at 09:00; Stop 12/20/16 at 12:09; Status DC Atorvastatin Calcium (Lipitor) 20 mg QHS PO Last administered on 12/23/16 21: 55; Start 12/14/16 at 21:00 Cetirizine HCl (ZyrTEC) 10 mg DAILY PO Last administered on 12/24/16 08:38; Start 12/14/16 at 12:00 Montelukast Sodium (Singulair) 10 mg DAILY PO Last administered on 12/24/16 08 :37; Start 12/14/16 at 12:00 Tamsulosin HCl (Flomax) 0.8 mg DAILY PO Last administered on 12/24/16 08:37; Start 12/14/16 at 12:00 Losartan Potassium (Cozaar) 100 mg DAILY PO Last administered on 12/15/16 11: 09; Start 12/14/16 at 12:00; Stop 12/15/16 at 16:19; Status DC Pioglitazone HCl (Actos) 30 mg DAILY PO Last administered on 12/24/16 08:38; Start 12/14/16 at 12:00 Triamterene/HCTZ (Maxzide 37.5/ 25mg) 1 tab DAILY PO Last administered on 08:38; Start 12/14/16 at 12:00 Acetaminophen (Tylenol) 650 mg PRN Q6HRS PRN PO FEVER Last administered on 12/18 20:33; Start 12/14/16 at 11:30 Ondansetron HCl (Zofran) 4 mg PRN Q6HRS PRN IV NAUSEA/VOMITING Last administered on 12/17/16 20:22; Start 12/14/16 at 11:30 Morphine Sulfate 2 mg PRN Q2HR PRN IV MODERATE TO SEVERE PAIN; Start 12/14/16 at 11:45 Tramadol HCl (Ultram) 50 mg PRN Q6HRS PRN PO MILD PAIN Last administered on 07:32; Start 12/14/16 at 11:30 Hydralazine HCl (Apresoline) 10 mg PRN Q4HRS PRN IVP ELEVATED BP, SEE COMMENTS ; Start 12/14/16 at 11:30 Docusate Sodium (Colace) 100 mg PRN DAILY PRN PO CONSTIPATION; Start 12/14/16 at 11:30; Stop 12/19/16 at 17:43; Status DC Senna/Docusate Sodium (Senna Plus) 1 tab BID PO Last administered on 12/24/16 08:38; Start 12/14/16 at 12:00 Docusate Sodium (Colace) 100 mg BID PO Last administered on 12/24/16 08:39; Start 12/14/16 at 12:00 Magnesium Hydroxide (Milk Of Magnesia) 2,400 mg PRN Q12HR PRN PO CONSTIPATION; Start 12/14/16 at 11:30 Insulin Detemir (Levemir) 20 units QHS SQ Last administered on 12/21/16 20:40 ; Start 12/14/16 at 21:00; Stop 12/22/16 at 08:32; Status DC Heparin Sodium/ Sodium Chloride 1,000 ml @ As Directed STK-MED ONCE .ROUTE ; Start 12/15/16 at 07:09; Stop 12/15/16 at 07:10; Status DC Lidocaine HCl 20 ml STK-MED ONCE .ROUTE ; Start 12/15/16 at 07:10; Stop at 07:11; Status DC Iohexol (Omnipaque 300 Mg/ml) 100 ml STK-MED ONCE .ROUTE ; Start 12/15/16 at 07: 14; Stop 12/15/16 at 07:15; Status DC Fentanyl Citrate (Fentanyl 2ml Vial) 100 mcg STK-MED ONCE .ROUTE ; Start at 10:07; Stop 12/15/16 at 10:08; Status DC Midazolam HCl (Versed) 2 mg STK-MED ONCE .ROUTE ; Start 12/15/16 at 10:08; Stop 12/15/16 at 10:09; Status DC Verapamil HCl (Verapamil) 5 mg STK-MED ONCE .ROUTE ; Start 12/15/16 at 10:08; Stop 12/15/16 at 10:09; Status DC Heparin Sodium (Porcine) (Heparin Sodium) 10,000 unit STK-MED ONCE .ROUTE ; Start 12/15/16 at 10:08; Stop 12/15/16 at 10:09; Status DC Nitroglycerin (Nitroglycerin) 200 mcg STK-MED ONCE .ROUTE ; Start 12/15/16 at 10 :08; Stop 12/15/16 at 10:09; Status DC Nitroglycerin (Nitroglycerin) 200 mcg 1X ONCE IART Last administered on 10:43; Start 12/15/16 at 10:45; Stop 12/15/16 at 10:46; Status DC Verapamil HCl (Verapamil) 2.5 mg 1X ONCE IART Last administered on 12/15/16 10:43; Start 12/15/16 at 10:45; Stop 12/15/16 at 10:46; Status DC Heparin Sodium (Porcine) (Heparin Sodium) 2,500 unit 1X ONCE IART Last administered on 12/15/16 10:45; Start 12/15/16 at 10:45; Stop 12/15/16 at 10:46 ; Status DC Heparin Sodium/ Sodium Chloride 1,000 unit 1X ONCE IART Last administered on 10:42; Start 12/15/16 at 10:45; Stop 12/15/16 at 10:46; Status DC Midazolam HCl (Versed) 2 mg 1X ONCE IV Last administered on 12/15/16 10:44; Start 12/15/16 at 10:45; Stop 12/15/16 at 10:46; Status DC Fentanyl Citrate (Fentanyl 2ml Vial) 50 mcg 1X ONCE IV Last administered on 10:44; Start 12/15/16 at 10:45; Stop 12/15/16 at 10:46; Status DC Iohexol (Omnipaque 300 Mg/ml) 100 ml 1X ONCE IART Last administered on 10:42; Start 12/15/16 at 10:45; Stop 12/15/16 at 10:46; Status DC Lidocaine HCl 2 ml 1X ONCE IJ Last administered on 12/15/16 10:42; Start at 10:45; Stop 12/15/16 at 10:46; Status DC Sodium Chloride 1,000 ml @ 60 mls/hr [id number] IV Last administered on 03:31; Start 12/15/16 at 10:51; Stop 12/16/16 at 20:04; Status DC Polyethylene Glycol (miraLAX PACKET) 17 gm DAILY PO ; Start 12/16/16 at 16:30; Stop 12/16/16 at 16:30; Status DC Metoprolol Tartrate (Lopressor) 25 mg BID PO Last administered on 12/24/16 08: 38; Start 12/15/16 at 21:00 Polyethylene Glycol (miraLAX PACKET) 17 gm DAILY PO Last administered on 08:47; Start 12/17/16 at 07:00; Stop 12/19/16 at 12:28; Status DC Polyethylene Glycol (miraLAX PACKET) 17 gm 1X ONCE PO Last administered on 13:34; Start 12/16/16 at 13:30; Stop 12/16/16 at 13:31; Status DC Ondansetron HCl (Zofran) 4 mg PRN Q6HRS PRN IV NAUSEA/VOMITING; Start 12/17/16 at 07:00; Stop 12/18/16 at 06:59; Status DC Fentanyl Citrate (Fentanyl 2ml Vial) 25 mcg PRN Q5MIN PRN IV MILD PAIN; Start 12/17/16 at 07:00; Stop 12/18/16 at 06:59; Status DC Fentanyl Citrate (Fentanyl 2ml Vial) 50 mcg PRN Q5MIN PRN IV MODERATE PAIN; Start 12/17/16 at 07:00; Stop 12/18/16 at 06:59; Status DC Morphine Sulfate 1 mg PRN Q10MIN PRN IV SEVERE PAIN; Start 12/17/16 at 07:00; Stop 12/18/16 at 06:59; Status DC Ringer's Solution 1,000 ml @ 30 mls/hr Q24H IV ; Start 12/17/16 at 07:00; Stop 12/17/16 at 15:23; Status DC Lidocaine HCl (Xylocaine-Mpf 1% Vial) 2 ml PRN 1X PRN ID IV START; Start at 07:00; Stop 12/18/16 at 06:59; Status DC Hydromorphone HCl (Dilaudid) 0.5 mg PRN Q10MIN PRN IV SEV PAIN, Second choice; Start 12/17/16 at 07:00; Stop 12/18/16 at 06:59; Status DC Prochlorperazine Edisylate (Compazine) 5 mg PACU PRN PRN IV NAUSEA, MRX1; Start 12/17/16 at 07:00; Stop 12/18/16 at 06:59; Status DC Temazepam (Restoril) 7.5 mg PRN QHS PRN PO INSOMNIA Last administered on 21:55; Start 12/16/16 at 14:30 Lidocaine/Sodium Bicarbonate (Buffered Lidocaine 1%) 20 ml STK-MED ONCE IJ ; Start 12/17/16 at 13:12; Stop 12/17/16 at 13:13; Status DC Midazolam HCl (Versed) 2 mg STK-MED ONCE .ROUTE ; Start 12/17/16 at 13:47; Stop 12/17/16 at 13:48; Status DC Lidocaine/Sodium Bicarbonate (Buffered Lidocaine 1%) 3 ml 1X ONCE IJ Last administered on 12/17/16 14:00; Start 12/17/16 at 14:30; Stop 12/17/16 at 14:31 ; Status DC Midazolam HCl (Versed) 1 mg 1X ONCE IV Last administered on 12/17/16 14:00; Start 12/17/16 at 14:30; Stop 12/17/16 at 14:31; Status DC Fentanyl Citrate (Fentanyl 2ml Vial) 50 mcg 1X ONCE IV Last administered on 14:26; Start 12/17/16 at 14:30; Stop 12/17/16 at 14:31; Status DC Nitroglycerin/ Dextrose 250 ml @ 0 mls/hr CONT PRN IV SEE I/O RECORD Last administered on 12/17/16 19:53; Start 12/17/16 at 19:45; Stop 12/18/16 at 11:37 ; Status DC Isosorbide Mononitrate (Imdur) 30 mg DAILY PO Last administered on 12/24/16 08 :38; Start 12/18/16 at 12:00 Oxymetazoline HCl (Afrin) 2 spray BID NS Last administered on 12/21/16 08:43; Start 12/18/16 at 21:00; Stop 12/21/16 at 20:59; Status DC Sodium Chloride (Saline Mist Nasal) 1 evon PRN Q1HR PRN NS NASAL CONGESTION Last administered on 12/18/16 20:26; Start 12/18/16 at 20:00 Polyethylene Glycol (miraLAX PACKET) 17 gm BID PO Last administered on 08:39; Start 12/19/16 at 21:00 Lorazepam (Ativan) 1 mg 1X ONCE IV Last administered on 12/19/16 14:25; Start 12/19/16 at 13:30; Stop 12/19/16 at 13:31; Status DC Lorazepam (Ativan) 0.5 mg Q6HRS PRN PO ANXIETY / AGITATION Last administered on 12/23/16 09:06; Start 12/19/16 at 13:30 Lidocaine (Lidoderm) 1 patch DAILY TD Last administered on 12/24/16 08:39; Start 12/20/16 at 12:30 Enoxaparin Sodium (Lovenox 40mg Syringe) 40 mg Q12H SQ Last administered on 08:56; Start 12/20/16 at 21:00 Oxycodone/ Acetaminophen (Percocet 5/325) 1 tab PRN Q4HRS PRN PO MODERATE PAIN Last administered on 12/21/16 09:52; Start 12/20/16 at 12:15 Oxycodone/ Acetaminophen (Percocet 10/325) 1 tab PRN Q4HRS PRN PO MODERATE PAIN Last administered on 12/24/16 08:56; Start 12/20/16 at 12:15 Clopidogrel Bisulfate (Plavix) 300 mg 1X ONCE PO Last administered on 11:00; Start 12/21/16 at 09:30; Stop 12/21/16 at 09:31; Status DC Clopidogrel Bisulfate (Plavix) 75 mg [id number] PO Last administered on 08:38; Start 12/22/16 at 08:00 Insulin Detemir (Levemir) 25 units QHS SQ Last administered on 12/22/16 21:38 ; Start 12/22/16 at 21:00; Stop 12/23/16 at 08:20; Status DC Insulin Aspart (NovoLOG) 5 units TIDAC SQ Last administered on 12/22/16 17:42 ; Start 12/22/16 at 08:33; Stop 12/23/16 at 08:20; Status DC Ondansetron HCl (Zofran) 4 mg PRN Q6HRS PRN IV NAUSEA/VOMITING; Start 12/23/16 at 07:00; Stop 12/24/16 at 06:59; Status DC Fentanyl Citrate (Fentanyl 2ml Vial) 25 mcg PRN Q5MIN PRN IV MILD PAIN; Start 12/23/16 at 07:00; Stop 12/23/16 at 18:00; Status DC Fentanyl Citrate (Fentanyl 2ml Vial) 50 mcg PRN Q5MIN PRN IV MODERATE PAIN; Start 12/23/16 at 07:00; Stop 12/23/16 at 18:00; Status DC Morphine Sulfate 1 mg PRN Q10MIN PRN IV SEVERE PAIN; Start 12/23/16 at 07:00; Stop 12/23/16 at 18:00; Status DC Ringer's Solution 1,000 ml @ 30 mls/hr Q24H IV ; Start 12/23/16 at 07:00; Stop 12/23/16 at 16:13; Status DC Lidocaine HCl (Xylocaine-Mpf 1% Vial) 2 ml PRN 1X PRN ID IV START; Start at 07:00; Stop 12/23/16 at 18:00; Status DC Hydromorphone HCl (Dilaudid) 0.5 mg PRN Q10MIN PRN IV SEV PAIN, Second choice; Start 12/23/16 at 07:00; Stop 12/23/16 at 18:00; Status DC Prochlorperazine Edisylate (Compazine) 5 mg PACU PRN PRN IV NAUSEA, MRX1; Start 12/23/16 at 07:00; Stop 12/23/16 at 18:00; Status DC Pantoprazole Sodium (Protonix) 40 mg DAILYAC PO Last administered on 12/24/16 06:12; Start 12/22/16 at 17:30 Insulin Aspart (NovoLOG) 8 units TIDAC SQ ; Start 12/23/16 at 11:30; Stop at 12:33; Status DC Insulin Detemir (Levemir) 30 units QHS SQ Last administered on 12/23/16 22:00 ; Start 12/23/16 at 21:00 Potassium Chloride (Klor-Con) 40 meq 1X ONCE PO Last administered on 11:00; Start 12/23/16 at 08:30; Stop 12/23/16 at 08:31; Status DC Potassium Chloride (Klor-Con) 40 meq 1X ONCE PO ; Start 12/23/16 at 08:30; Stop 12/23/16 at 08:31; Status DC Insulin Aspart (NovoLOG) 9 units TIDAC SQ Last administered on 12/24/16 08:45 ; Start 12/23/16 at 16:30 Heparin Sodium/ Sodium Chloride 1,000 ml @ As Directed STK-MED ONCE .ROUTE ; Start 12/23/16 at 12:39; Stop 12/23/16 at 12:40; Status DC Lidocaine HCl 20 ml STK-MED ONCE .ROUTE ; Start 12/23/16 at 12:39; Stop at 12:40; Status DC Iohexol (Omnipaque 300 Mg/ml) 100 ml STK-MED ONCE .ROUTE ; Start 12/23/16 at 12: 39; Stop 12/23/16 at 12:40; Status DC Heparin Sodium (Porcine) (Heparin Sodium) 10,000 unit STK-MED ONCE .ROUTE ; Start 12/23/16 at 13:57; Stop 12/23/16 at 13:58; Status DC Verapamil HCl (Verapamil) 5 mg STK-MED ONCE .ROUTE ; Start 12/23/16 at 13:57; Stop 12/23/16 at 13:58; Status DC Nitroglycerin (Nitroglycerin) 200 mcg STK-MED ONCE .ROUTE ; Start 12/23/16 at 13 :57; Stop 12/23/16 at 13:58; Status DC Bivalirudin (Angiomax) 250 mg STK-MED ONCE IV ; Start 12/23/16 at 14:04; Stop 12/23/16 at 14:05; Status DC Nitroglycerin (Nitroglycerin) 200 mcg 1X ONCE IART Last administered on 14:40; Start 12/23/16 at 14:15; Stop 12/23/16 at 14:34; Status DC Verapamil HCl (Verapamil) 2.5 mg 1X ONCE IART Last administered on 12/23/16 14:41; Start 12/23/16 at 14:15; Stop 12/23/16 at 14:34; Status DC Heparin Sodium (Porcine) (Heparin Sodium) 2,500 unit 1X ONCE IART Last administered on 12/23/16 14:42; Start 12/23/16 at 14:15; Stop 12/23/16 at 14:34 ; Status DC Heparin Sodium/ Sodium Chloride 1,000 unit 1X ONCE IART Last administered on 12/23/16 14:41; Start 12/23/16 at 14:15; Stop 12/23/16 at 14:34; Status DC Iohexol (Omnipaque 300 Mg/ml) 125 ml 1X ONCE IART Last administered on 14:40; Start 12/23/16 at 14:15; Stop 12/23/16 at 14:34; Status DC Bivalirudin (Angiomax) 250 mg 1X ONCE IV Last administered on 12/23/16 14:41 ; Start 12/23/16 at 14:15; Stop 12/23/16 at 14:34; Status DC Lidocaine HCl 2 ml 1X ONCE IJ Last administered on 12/23/16 14:41; Start 12/23/16 at 14:15; Stop 12/23/16 at 14:34; Status DC Nitroglycerin (Nitroglycerin) 200 mcg 1X ONCE IART Last administered on 14:40; Start 12/23/16 at 14:15; Stop 12/23/16 at 14:35; Status DC Sodium Chloride 1,000 ml @ 75 mls/hr [id number] IV Last administered on 14:40; Start 12/23/16 at 14:40; Stop 12/24/16 at 01:11; Status DC Acetaminophen (Tylenol) 650 mg PRN Q6HRS PRN PO MILD PAIN / TEMP; Start at 14:45; Stop 12/24/16 at 01:12; Status DC Nitroglycerin (Nitrostat) 0.4 mg PRN Q5MIN PRN SL CHEST PAIN; Start 12/23/16 at 14:45 Insulin Aspart (NovoLOG VIAL) 4 unit 1X PACU PRN SQ SEE COMMENTS Last administered on 12/23/16 15:10; Start 12/23/16 at 15:15 Active Scripts Active Reported Gabapentin 400 Mg Capsule 400 Mg PO TID PRN Tresiba Flextouch U-100 (Insulin Degludec) 100 Unit/1 Ml Insuln.pen 40 Unit SQ HS Tresiba Flextouch U-100 (Insulin Degludec) 100 Unit/1 Ml Insuln.pen 36 Unit SQ DAILY Cetirizine Hcl 10 Mg Tablet 1 Tab PO DAILY Tamsulosin Hcl 0.4 Mg Cap.er.24h 2 Cap PO DAILY Triamterene-Hctz 37.5-25 Mg Cp (Triamterene/Hydrochlorothiazid) 1 Each Capsule 1 Cap PO DAILY Atorvastatin Calcium 20 Mg Tablet 1 Tab PO DAILY Actos (Pioglitazone Hcl) 30 Mg Tablet 1 Tab PO DAILY Montelukast Sodium Tablet (Montelukast Sodium) 10 Mg Tablet 1 Tab PO DAILY Losartan Potassium 100 Mg Tablet 100 Mg PO DAILY Vitals/I & O Vital Sign - Last 24 Hours 12/23/16 12/23/16 12/23/16 12/23/16 11:00 14:41 14:43 14:47 Temp 97.8 99.1 97.8 99.1 Pulse 69 82 86 83 Resp 20 14 16 B/P (MAP) 120/76 (91) 130/70 Pulse Ox 92 92 99 O2 Delivery Nasal Cannula Nasal Cannula Nasal Cannula O2 Flow Rate 2.0 2.0 2 12/23/16 12/23/16 12/23/16 12/23/16 14:47 15:02 15:45 16:00 Pulse 78 76 76 Resp 16 B/P (MAP) 116/66 121/70 (87) 110/65 (80) Pulse Ox 95 O2 Delivery Nasal Cannula Nasal Cannula O2 Flow Rate 2 2 12/23/16 12/23/16 12/23/16 12/23/16 16:15 16:30 17:00 17:30 Pulse 76 80 80 82 B/P (MAP) 112/68 (83) 112/64 (80) 111/62 (78) 133/72 (92) 12/23/16 12/23/16 12/23/16 12/23/16 19:20 19:55 21:55 21:56 Temp 97.8 97.8 Pulse 85 85 Resp 20 16 B/P (MAP) 131/76 (94) 131/76 Pulse Ox 96 96 O2 Delivery Nasal Cannula Nasal Cannula Nasal Cannula O2 Flow Rate 2.0 2.0 2.0 12/23/16 12/23/16 12/24/16 12/24/16 22:56 23:05 03:00 07:00 Temp 98.4 98.4 98.4 98.4 98.4 98.4 Pulse 78 70 73 Resp 18 18 18 18 B/P (MAP) 121/63 (82) 113/70 (84) 120/74 (89) Pulse Ox 94 94 94 95 O2 Delivery Nasal Cannula Nasal Cannula Nasal Cannula Nasal Cannula O2 Flow Rate 3.0 2.0 3.0 3.0 12/24/16 12/24/16 12/24/16 08:38 08:38 08:56 Pulse 74 72 Resp 18 B/P (MAP) 120/74 120/74 O2 Delivery Nasal Cannula O2 Flow Rate 2.0 NETTIE SOLANO MD Dec 24, 2016 09:57
--- NOTE | 2016-12-24 10:05 | PDOC ---
PROGRESS NOTES Subjective Subjective HPI - Left lower lobe lung mass with associated right-sided third rib bone lesion and evidence of mediastinal lymphadenopathy and a liver mass is clinically consistent with Stage IV lung cancer with metastatic disease. ROS - CP better Objective Objective Vital Signs Date Time Temp Pulse Resp B/P (MAP) Pulse Ox O2 Delivery O2 Flow Rate FiO2 12/24/16 08:56 18 Nasal Cannula 2.0 12/24/16 08:38 72 120/74 12/24/16 07:00 98.4 95 98.4 Physical Exam Heart: Normal S1, Normal S2 General: Alert, Oriented X3 Lungs: Clear to auscultation Neuro: Normal speech Psych/Mental Status: Mental status NL Assessment Assessment Problems Medical Problems: (1) Chest pain Status: Acute (2) Non-STEMI (non-ST elevated myocardial infarction) Status: Acute IMPRESSION AND PLAN: 1. NSCLC- Adenocarcinoma - Stage IV - Left lower lobe lung mass with associated right-sided third rib bone lesion and evidence of mediastinal lymphadenopathy and a liver mass is clinically consistent with Stage IV lung cancer with metastatic disease. Appreciate cardiothoracic evaluation - s/p biopsy right rib lesion 12/17/16 ( I d/w pathologist). I agree to proceed with a PET scan as outpatient for completion of staging workup. Plan multidisciplinary tumor conference discussion today. f/u with me upon discharge for chemotherapy. I will plan biomarker testing. 2. Chest pain. Appreciate Cardiology and cardiothoracic evaluation. CABG was planned, but it was canceled because of the findings on the CT chest concerning for malignancy. s/p stent placement 12/23/16. I d/w DR Parks. 3. Bone mets - Bone scan 12/19/16: There is a focus of increased activity in the anterior right second rib corresponds to a destructive lesion noted on the CT study. There is activity at the costovertebral junction on the right at approximately T5. There is mild sclerosis of the transverse process of T5 on the CT with mild soft tissue swelling which would suggest a metastatic lesion. There is activity in the upper lumbar spine and on the right at T12. There are mild lytic changes the L1 vertebra on the CT images again suggesting metastatic disease.. There is a small focus of activity in the sacrum. There is mild activity in the lateral iliac bone on the left. I d/w DR Ojeda and I agree with palliative radiation to rt rib. Simulation to be done soon. Plan Xgeva as outpatient. 4. CVA - MRI brain 12/19/16 reveals no mets - Small acute left cerebellar acute infarct. Appreciate neurology consult. I d/w DR Diggs. PATHOLOGY REPORT * * * * * * * * FINAL DIAGNOSIS: Chest wall mass, right, core needle biopsy: - Moderately differentiated adenocarcinoma. (Please see comment) (SKM:[email or web address]; 12/18/2016) COMMENT: The tumor cells are negative for CK5/6 and p40. The tumor cells are positive for cytokeratin 7, Napsin, and TTF-1. This patient's history of a 3 cm left lower lobe lung nodule is noted. The findings in this case are consistent with a metastatic moderately differentiated adenocarcinoma from the lung. Comment Review of Relevant I have reviewed the following items maxine (where applicable) has been applied. Labs Laboratory Tests Test 12/22/16 11:45 12/22/16 17:01 12/22/16 21:12 12/23/16 04:45 Glucose (Fingerstick) 213 mg/dL (70-99) 237 mg/dL (70-99) 267 mg/dL (70-99) Sodium Level 136 mmol/L (136-145) Potassium Level 3.4 mmol/L (3.5-5.1) Chloride Level 97 mmol/L (98-107) Carbon Dioxide Level 35 mmol/L (21-32) Anion Gap 4 (6-14) Blood Urea Nitrogen 17 mg/dL (8-26) Creatinine 1.1 mg/dL (0.7-1.3) Estimated GFR (Cockcroft-Gault) 66.6 Glucose Level 256 mg/dL (70-99) Calcium Level 8.7 mg/dL (8.5-10.1) Magnesium Level 2.2 mg/dL (1.8-2.4) Test 12/23/16 08:40 12/23/16 10:54 12/23/16 14:56 12/23/16 15:45 Glucose (Fingerstick) 236 mg/dL (70-99) 239 mg/dL (70-99) 198 mg/dL (70-99) 184 mg/dL (70-99) Test 12/23/16 20:19 12/24/16 07:52 Glucose (Fingerstick) 180 mg/dL (70-99) 198 mg/dL (70-99) Laboratory Tests Test 12/23/16 10:54 12/23/16 14:56 12/23/16 15:45 12/23/16 20:19 Glucose (Fingerstick) 239 mg/dL (70-99) 198 mg/dL (70-99) 184 mg/dL (70-99) 180 mg/dL (70-99) Test 12/24/16 07:52 Glucose (Fingerstick) 198 mg/dL (70-99) Medications Current Medications Nitroglycerin (Nitro-Bid Oint) 1 inch 1X ONCE TP Last administered on 18:38; Start 12/13/16 at 18:30; Stop 12/13/16 at 18:31; Status DC Aspirin (Children'S Aspirin) 324 mg 1X ONCE PO ; Start 12/13/16 at 18:30; Stop 12/13/16 at 18:31; Status DC Enoxaparin Sodium (Lovenox Per Pharmacy Treatment Dosing) 1 each PRN DAILY PRN MC SEE COMMENTS; Start 12/13/16 at 19:15; Stop 12/20/16 at 12:13; Status DC Enoxaparin Sodium (Lovenox 100mg Syringe) 100 mg 1X ONCE SQ Last administered on 12/13/16 19:50; Start 12/13/16 at 19:30; Stop 12/13/16 at 19:31; Status DC Enoxaparin Sodium (Lovenox 80mg Syringe) 80 mg 1X ONCE SQ Last administered on 12/13/16 19:50; Start 12/13/16 at 19:30; Stop 12/13/16 at 19:31; Status DC Ondansetron HCl (Zofran) 4 mg PRN Q8HRS PRN IV NAUSEA/VOMITING; Start 12/13/16 at 19:45; Stop 12/14/16 at 11:34; Status DC Morphine Sulfate 2 mg PRN Q2HR PRN IV PAIN; Start 12/13/16 at 19:45; Stop 12/14 at 11:34; Status DC Acetaminophen (Tylenol) 650 mg PRN Q4HRS PRN PO FEVER Last administered on 12/14 06:36; Start 12/13/16 at 19:45; Stop 12/14/16 at 11:34; Status DC Nitroglycerin (Nitrostat) 0.4 mg PRN Q5MIN PRN SL CHEST PAIN; Start 12/13/16 at 19:45; Stop 12/14/16 at 19:44; Status DC Insulin Aspart (NovoLOG) 0-9 UNITS QIDACHS SQ Last administered on 12/24/16 08 :47; Start 12/13/16 at 21:30 Dextrose (Dextrose 50%-Water Syringe) 12.5 gm PRN Q15MIN PRN IV SEE COMMENTS; Start 12/13/16 at 20:15 Morphine Sulfate (Morphine Ir) 15 mg PRN Q4HRS PRN PO SEVERE PAIN Last administered on 12/23/16 08:08; Start 12/13/16 at 20:15 Enoxaparin Sodium (Lovenox 100mg Syringe) 180 mg Q12HR SQ Last administered on 12/20/16 09:30; Start 12/14/16 at 09:00; Stop 12/20/16 at 12:09; Status DC Atorvastatin Calcium (Lipitor) 20 mg QHS PO Last administered on 12/23/16 21: 55; Start 12/14/16 at 21:00 Cetirizine HCl (ZyrTEC) 10 mg DAILY PO Last administered on 12/24/16 08:38; Start 12/14/16 at 12:00 Montelukast Sodium (Singulair) 10 mg DAILY PO Last administered on 12/24/16 08 :37; Start 12/14/16 at 12:00 Tamsulosin HCl (Flomax) 0.8 mg DAILY PO Last administered on 12/24/16 08:37; Start 12/14/16 at 12:00 Losartan Potassium (Cozaar) 100 mg DAILY PO Last administered on 12/15/16 11: 09; Start 12/14/16 at 12:00; Stop 12/15/16 at 16:19; Status DC Pioglitazone HCl (Actos) 30 mg DAILY PO Last administered on 12/24/16 08:38; Start 12/14/16 at 12:00 Triamterene/HCTZ (Maxzide 37.5/ 25mg) 1 tab DAILY PO Last administered on 08:38; Start 12/14/16 at 12:00 Acetaminophen (Tylenol) 650 mg PRN Q6HRS PRN PO FEVER Last administered on 12/18 20:33; Start 12/14/16 at 11:30 Ondansetron HCl (Zofran) 4 mg PRN Q6HRS PRN IV NAUSEA/VOMITING Last administered on 12/17/16 20:22; Start 12/14/16 at 11:30 Morphine Sulfate 2 mg PRN Q2HR PRN IV MODERATE TO SEVERE PAIN; Start 12/14/16 at 11:45 Tramadol HCl (Ultram) 50 mg PRN Q6HRS PRN PO MILD PAIN Last administered on 07:32; Start 12/14/16 at 11:30 Hydralazine HCl (Apresoline) 10 mg PRN Q4HRS PRN IVP ELEVATED BP, SEE COMMENTS ; Start 12/14/16 at 11:30 Docusate Sodium (Colace) 100 mg PRN DAILY PRN PO CONSTIPATION; Start 12/14/16 at 11:30; Stop 12/19/16 at 17:43; Status DC Senna/Docusate Sodium (Senna Plus) 1 tab BID PO Last administered on 12/24/16 08:38; Start 12/14/16 at 12:00 Docusate Sodium (Colace) 100 mg BID PO Last administered on 12/24/16 08:39; Start 12/14/16 at 12:00 Magnesium Hydroxide (Milk Of Magnesia) 2,400 mg PRN Q12HR PRN PO CONSTIPATION; Start 12/14/16 at 11:30 Insulin Detemir (Levemir) 20 units QHS SQ Last administered on 12/21/16 20:40 ; Start 12/14/16 at 21:00; Stop 12/22/16 at 08:32; Status DC Heparin Sodium/ Sodium Chloride 1,000 ml @ As Directed STK-MED ONCE .ROUTE ; Start 12/15/16 at 07:09; Stop 12/15/16 at 07:10; Status DC Lidocaine HCl 20 ml STK-MED ONCE .ROUTE ; Start 12/15/16 at 07:10; Stop at 07:11; Status DC Iohexol (Omnipaque 300 Mg/ml) 100 ml STK-MED ONCE .ROUTE ; Start 12/15/16 at 07: 14; Stop 12/15/16 at 07:15; Status DC Fentanyl Citrate (Fentanyl 2ml Vial) 100 mcg STK-MED ONCE .ROUTE ; Start at 10:07; Stop 12/15/16 at 10:08; Status DC Midazolam HCl (Versed) 2 mg STK-MED ONCE .ROUTE ; Start 12/15/16 at 10:08; Stop 12/15/16 at 10:09; Status DC Verapamil HCl (Verapamil) 5 mg STK-MED ONCE .ROUTE ; Start 12/15/16 at 10:08; Stop 12/15/16 at 10:09; Status DC Heparin Sodium (Porcine) (Heparin Sodium) 10,000 unit STK-MED ONCE .ROUTE ; Start 12/15/16 at 10:08; Stop 12/15/16 at 10:09; Status DC Nitroglycerin (Nitroglycerin) 200 mcg STK-MED ONCE .ROUTE ; Start 12/15/16 at 10 :08; Stop 12/15/16 at 10:09; Status DC Nitroglycerin (Nitroglycerin) 200 mcg 1X ONCE IART Last administered on 10:43; Start 12/15/16 at 10:45; Stop 12/15/16 at 10:46; Status DC Verapamil HCl (Verapamil) 2.5 mg 1X ONCE IART Last administered on 12/15/16 10:43; Start 12/15/16 at 10:45; Stop 12/15/16 at 10:46; Status DC Heparin Sodium (Porcine) (Heparin Sodium) 2,500 unit 1X ONCE IART Last administered on 12/15/16 10:45; Start 12/15/16 at 10:45; Stop 12/15/16 at 10:46 ; Status DC Heparin Sodium/ Sodium Chloride 1,000 unit 1X ONCE IART Last administered on 10:42; Start 12/15/16 at 10:45; Stop 12/15/16 at 10:46; Status DC Midazolam HCl (Versed) 2 mg 1X ONCE IV Last administered on 12/15/16 10:44; Start 12/15/16 at 10:45; Stop 12/15/16 at 10:46; Status DC Fentanyl Citrate (Fentanyl 2ml Vial) 50 mcg 1X ONCE IV Last administered on 10:44; Start 12/15/16 at 10:45; Stop 12/15/16 at 10:46; Status DC Iohexol (Omnipaque 300 Mg/ml) 100 ml 1X ONCE IART Last administered on 10:42; Start 12/15/16 at 10:45; Stop 12/15/16 at 10:46; Status DC Lidocaine HCl 2 ml 1X ONCE IJ Last administered on 12/15/16 10:42; Start at 10:45; Stop 12/15/16 at 10:46; Status DC Sodium Chloride 1,000 ml @ 60 mls/hr [id number] IV Last administered on 03:31; Start 12/15/16 at 10:51; Stop 12/16/16 at 20:04; Status DC Polyethylene Glycol (miraLAX PACKET) 17 gm DAILY PO ; Start 12/16/16 at 16:30; Stop 12/16/16 at 16:30; Status DC Metoprolol Tartrate (Lopressor) 25 mg BID PO Last administered on 12/24/16 08: 38; Start 12/15/16 at 21:00 Polyethylene Glycol (miraLAX PACKET) 17 gm DAILY PO Last administered on 08:47; Start 12/17/16 at 07:00; Stop 12/19/16 at 12:28; Status DC Polyethylene Glycol (miraLAX PACKET) 17 gm 1X ONCE PO Last administered on 13:34; Start 12/16/16 at 13:30; Stop 12/16/16 at 13:31; Status DC Ondansetron HCl (Zofran) 4 mg PRN Q6HRS PRN IV NAUSEA/VOMITING; Start 12/17/16 at 07:00; Stop 12/18/16 at 06:59; Status DC Fentanyl Citrate (Fentanyl 2ml Vial) 25 mcg PRN Q5MIN PRN IV MILD PAIN; Start 12/17/16 at 07:00; Stop 12/18/16 at 06:59; Status DC Fentanyl Citrate (Fentanyl 2ml Vial) 50 mcg PRN Q5MIN PRN IV MODERATE PAIN; Start 12/17/16 at 07:00; Stop 12/18/16 at 06:59; Status DC Morphine Sulfate 1 mg PRN Q10MIN PRN IV SEVERE PAIN; Start 12/17/16 at 07:00; Stop 12/18/16 at 06:59; Status DC Ringer's Solution 1,000 ml @ 30 mls/hr Q24H IV ; Start 12/17/16 at 07:00; Stop 12/17/16 at 15:23; Status DC Lidocaine HCl (Xylocaine-Mpf 1% Vial) 2 ml PRN 1X PRN ID IV START; Start at 07:00; Stop 12/18/16 at 06:59; Status DC Hydromorphone HCl (Dilaudid) 0.5 mg PRN Q10MIN PRN IV SEV PAIN, Second choice; Start 12/17/16 at 07:00; Stop 12/18/16 at 06:59; Status DC Prochlorperazine Edisylate (Compazine) 5 mg PACU PRN PRN IV NAUSEA, MRX1; Start 12/17/16 at 07:00; Stop 12/18/16 at 06:59; Status DC Temazepam (Restoril) 7.5 mg PRN QHS PRN PO INSOMNIA Last administered on 21:55; Start 12/16/16 at 14:30 Lidocaine/Sodium Bicarbonate (Buffered Lidocaine 1%) 20 ml STK-MED ONCE IJ ; Start 12/17/16 at 13:12; Stop 12/17/16 at 13:13; Status DC Midazolam HCl (Versed) 2 mg STK-MED ONCE .ROUTE ; Start 12/17/16 at 13:47; Stop 12/17/16 at 13:48; Status DC Lidocaine/Sodium Bicarbonate (Buffered Lidocaine 1%) 3 ml 1X ONCE IJ Last administered on 12/17/16 14:00; Start 12/17/16 at 14:30; Stop 12/17/16 at 14:31 ; Status DC Midazolam HCl (Versed) 1 mg 1X ONCE IV Last administered on 12/17/16 14:00; Start 12/17/16 at 14:30; Stop 12/17/16 at 14:31; Status DC Fentanyl Citrate (Fentanyl 2ml Vial) 50 mcg 1X ONCE IV Last administered on 14:26; Start 12/17/16 at 14:30; Stop 12/17/16 at 14:31; Status DC Nitroglycerin/ Dextrose 250 ml @ 0 mls/hr CONT PRN IV SEE I/O RECORD Last administered on 12/17/16 19:53; Start 12/17/16 at 19:45; Stop 12/18/16 at 11:37 ; Status DC Isosorbide Mononitrate (Imdur) 30 mg DAILY PO Last administered on 12/24/16 08 :38; Start 12/18/16 at 12:00 Oxymetazoline HCl (Afrin) 2 spray BID NS Last administered on 12/21/16 08:43; Start 12/18/16 at 21:00; Stop 12/21/16 at 20:59; Status DC Sodium Chloride (Saline Mist Nasal) 1 evon PRN Q1HR PRN NS NASAL CONGESTION Last administered on 12/18/16 20:26; Start 12/18/16 at 20:00 Polyethylene Glycol (miraLAX PACKET) 17 gm BID PO Last administered on 08:39; Start 12/19/16 at 21:00 Lorazepam (Ativan) 1 mg 1X ONCE IV Last administered on 12/19/16 14:25; Start 12/19/16 at 13:30; Stop 12/19/16 at 13:31; Status DC Lorazepam (Ativan) 0.5 mg Q6HRS PRN PO ANXIETY / AGITATION Last administered on 12/23/16 09:06; Start 12/19/16 at 13:30 Lidocaine (Lidoderm) 1 patch DAILY TD Last administered on 12/24/16 08:39; Start 12/20/16 at 12:30 Enoxaparin Sodium (Lovenox 40mg Syringe) 40 mg Q12H SQ Last administered on 08:56; Start 12/20/16 at 21:00 Oxycodone/ Acetaminophen (Percocet 5/325) 1 tab PRN Q4HRS PRN PO MODERATE PAIN Last administered on 12/21/16 09:52; Start 12/20/16 at 12:15 Oxycodone/ Acetaminophen (Percocet 10/325) 1 tab PRN Q4HRS PRN PO MODERATE PAIN Last administered on 12/24/16 08:56; Start 12/20/16 at 12:15 Clopidogrel Bisulfate (Plavix) 300 mg 1X ONCE PO Last administered on 11:00; Start 12/21/16 at 09:30; Stop 12/21/16 at 09:31; Status DC Clopidogrel Bisulfate (Plavix) 75 mg [id number] PO Last administered on 08:38; Start 12/22/16 at 08:00 Insulin Detemir (Levemir) 25 units QHS SQ Last administered on 12/22/16 21:38 ; Start 12/22/16 at 21:00; Stop 12/23/16 at 08:20; Status DC Insulin Aspart (NovoLOG) 5 units TIDAC SQ Last administered on 12/22/16 17:42 ; Start 12/22/16 at 08:33; Stop 12/23/16 at 08:20; Status DC Ondansetron HCl (Zofran) 4 mg PRN Q6HRS PRN IV NAUSEA/VOMITING; Start 12/23/16 at 07:00; Stop 12/24/16 at 06:59; Status DC Fentanyl Citrate (Fentanyl 2ml Vial) 25 mcg PRN Q5MIN PRN IV MILD PAIN; Start 12/23/16 at 07:00; Stop 12/23/16 at 18:00; Status DC Fentanyl Citrate (Fentanyl 2ml Vial) 50 mcg PRN Q5MIN PRN IV MODERATE PAIN; Start 12/23/16 at 07:00; Stop 12/23/16 at 18:00; Status DC Morphine Sulfate 1 mg PRN Q10MIN PRN IV SEVERE PAIN; Start 12/23/16 at 07:00; Stop 12/23/16 at 18:00; Status DC Ringer's Solution 1,000 ml @ 30 mls/hr Q24H IV ; Start 12/23/16 at 07:00; Stop 12/23/16 at 16:13; Status DC Lidocaine HCl (Xylocaine-Mpf 1% Vial) 2 ml PRN 1X PRN ID IV START; Start at 07:00; Stop 12/23/16 at 18:00; Status DC Hydromorphone HCl (Dilaudid) 0.5 mg PRN Q10MIN PRN IV SEV PAIN, Second choice; Start 12/23/16 at 07:00; Stop 12/23/16 at 18:00; Status DC Prochlorperazine Edisylate (Compazine) 5 mg PACU PRN PRN IV NAUSEA, MRX1; Start 12/23/16 at 07:00; Stop 12/23/16 at 18:00; Status DC Pantoprazole Sodium (Protonix) 40 mg DAILYAC PO Last administered on 12/24/16 06:12; Start 12/22/16 at 17:30 Insulin Aspart (NovoLOG) 8 units TIDAC SQ ; Start 12/23/16 at 11:30; Stop at 12:33; Status DC Insulin Detemir (Levemir) 30 units QHS SQ Last administered on 12/23/16 22:00 ; Start 12/23/16 at 21:00 Potassium Chloride (Klor-Con) 40 meq 1X ONCE PO Last administered on 11:00; Start 12/23/16 at 08:30; Stop 12/23/16 at 08:31; Status DC Potassium Chloride (Klor-Con) 40 meq 1X ONCE PO ; Start 12/23/16 at 08:30; Stop 12/23/16 at 08:31; Status DC Insulin Aspart (NovoLOG) 9 units TIDAC SQ Last administered on 12/24/16 08:45 ; Start 12/23/16 at 16:30 Heparin Sodium/ Sodium Chloride 1,000 ml @ As Directed STK-MED ONCE .ROUTE ; Start 12/23/16 at 12:39; Stop 12/23/16 at 12:40; Status DC Lidocaine HCl 20 ml STK-MED ONCE .ROUTE ; Start 12/23/16 at 12:39; Stop at 12:40; Status DC Iohexol (Omnipaque 300 Mg/ml) 100 ml STK-MED ONCE .ROUTE ; Start 12/23/16 at 12: 39; Stop 12/23/16 at 12:40; Status DC Heparin Sodium (Porcine) (Heparin Sodium) 10,000 unit STK-MED ONCE .ROUTE ; Start 12/23/16 at 13:57; Stop 12/23/16 at 13:58; Status DC Verapamil HCl (Verapamil) 5 mg STK-MED ONCE .ROUTE ; Start 12/23/16 at 13:57; Stop 12/23/16 at 13:58; Status DC Nitroglycerin (Nitroglycerin) 200 mcg STK-MED ONCE .ROUTE ; Start 12/23/16 at 13 :57; Stop 12/23/16 at 13:58; Status DC Bivalirudin (Angiomax) 250 mg STK-MED ONCE IV ; Start 12/23/16 at 14:04; Stop 12/23/16 at 14:05; Status DC Nitroglycerin (Nitroglycerin) 200 mcg 1X ONCE IART Last administered on 14:40; Start 12/23/16 at 14:15; Stop 12/23/16 at 14:34; Status DC Verapamil HCl (Verapamil) 2.5 mg 1X ONCE IART Last administered on 12/23/16 14:41; Start 12/23/16 at 14:15; Stop 12/23/16 at 14:34; Status DC Heparin Sodium (Porcine) (Heparin Sodium) 2,500 unit 1X ONCE IART Last administered on 12/23/16 14:42; Start 12/23/16 at 14:15; Stop 12/23/16 at 14:34 ; Status DC Heparin Sodium/ Sodium Chloride 1,000 unit 1X ONCE IART Last administered on 12/23/16 14:41; Start 12/23/16 at 14:15; Stop 12/23/16 at 14:34; Status DC Iohexol (Omnipaque 300 Mg/ml) 125 ml 1X ONCE IART Last administered on 14:40; Start 12/23/16 at 14:15; Stop 12/23/16 at 14:34; Status DC Bivalirudin (Angiomax) 250 mg 1X ONCE IV Last administered on 12/23/16 14:41 ; Start 12/23/16 at 14:15; Stop 12/23/16 at 14:34; Status DC Lidocaine HCl 2 ml 1X ONCE IJ Last administered on 12/23/16 14:41; Start 12/23/16 at 14:15; Stop 12/23/16 at 14:34; Status DC Nitroglycerin (Nitroglycerin) 200 mcg 1X ONCE IART Last administered on 14:40; Start 12/23/16 at 14:15; Stop 12/23/16 at 14:35; Status DC Sodium Chloride 1,000 ml @ 75 mls/hr [id number] IV Last administered on 14:40; Start 12/23/16 at 14:40; Stop 12/24/16 at 01:11; Status DC Acetaminophen (Tylenol) 650 mg PRN Q6HRS PRN PO MILD PAIN / TEMP; Start at 14:45; Stop 12/24/16 at 01:12; Status DC Nitroglycerin (Nitrostat) 0.4 mg PRN Q5MIN PRN SL CHEST PAIN; Start 12/23/16 at 14:45 Insulin Aspart (NovoLOG VIAL) 4 unit 1X PACU PRN SQ SEE COMMENTS Last administered on 12/23/16t 15:10; Start 12/23/16 at 15:15 Active Scripts Active Reported Gabapentin 400 Mg Capsule 400 Mg PO TID PRN Tresiba Flextouch U-100 (Insulin Degludec) 100 Unit/1 Ml Insuln.pen 40 Unit SQ HS Tresiba Flextouch U-100 (Insulin Degludec) 100 Unit/1 Ml Insuln.pen 36 Unit SQ DAILY Cetirizine Hcl 10 Mg Tablet 1 Tab PO DAILY Tamsulosin Hcl 0.4 Mg Cap.er.24h 2 Cap PO DAILY Triamterene-Hctz 37.5-25 Mg Cp (Triamterene/Hydrochlorothiazid) 1 Each Capsule 1 Cap PO DAILY Atorvastatin Calcium 20 Mg Tablet 1 Tab PO DAILY Actos (Pioglitazone Hcl) 30 Mg Tablet 1 Tab PO DAILY Montelukast Sodium Tablet (Montelukast Sodium) 10 Mg Tablet 1 Tab PO DAILY Losartan Potassium 100 Mg Tablet 100 Mg PO DAILY Vitals/I & O Vital Sign - Last 24 Hours 12/23/16 12/23/16 12/23/16 12/23/16 11:00 14:41 14:43 14:47 Temp 97.8 99.1 97.8 99.1 Pulse 69 82 86 83 Resp 20 14 16 B/P (MAP) 120/76 (91) 130/70 Pulse Ox 92 92 99 O2 Delivery Nasal Cannula Nasal Cannula Nasal Cannula O2 Flow Rate 2.0 2.0 2 12/23/16 12/23/16 12/23/16 12/23/16 14:47 15:02 15:45 16:00 Pulse 78 76 76 Resp 16 B/P (MAP) 116/66 121/70 (87) 110/65 (80) Pulse Ox 95 O2 Delivery Nasal Cannula Nasal Cannula O2 Flow Rate 2 2 12/23/16 12/23/16 12/23/16 12/23/16 16:15 16:30 17:00 17:30 Pulse 76 80 80 82 B/P (MAP) 112/68 (83) 112/64 (80) 111/62 (78) 133/72 (92) 12/23/16 12/23/16 12/23/16 12/23/16 19:20 19:55 21:55 21:56 Temp 97.8 97.8 Pulse 85 85 Resp 20 16 B/P (MAP) 131/76 (94) 131/76 Pulse Ox 96 96 O2 Delivery Nasal Cannula Nasal Cannula Nasal Cannula O2 Flow Rate 2.0 2.0 2.0 12/23/16 12/23/16 12/24/16 12/24/16 22:56 23:05 03:00 07:00 Temp 98.4 98.4 98.4 98.4 98.4 98.4 Pulse 78 70 73 Resp 18 18 18 18 B/P (MAP) 121/63 (82) 113/70 (84) 120/74 (89) Pulse Ox 94 94 94 95 O2 Delivery Nasal Cannula Nasal Cannula Nasal Cannula Nasal Cannula O2 Flow Rate 3.0 2.0 3.0 3.0 12/24/16 12/24/16 12/24/16 08:38 08:38 08:56 Pulse 74 72 Resp 18 B/P (MAP) 120/74 120/74 O2 Delivery Nasal Cannula O2 Flow Rate 2.0 ANIVAL PLASCENCIA MD Dec 24, 2016 10:05
[2016-12-24 11:00] VITALS: BP 136/72
--- NOTE | 2016-12-24 11:02 | PDOC ---
PULMONARY PROGRESS NOTES Subjective NO MORE CHEST PAIN EASIER BREATHING Vitals Vital Signs Date Time Temp Pulse Resp B/P (MAP) Pulse Ox O2 Delivery O2 Flow Rate FiO2 12/24/16 08:56 18 Nasal Cannula 2.0 12/24/16 08:38 72 120/74 12/24/16 07:00 98.4 95 98.4 ROS: No Nausea, No Chest Pain, No Abdominal Pain, No Increase Cough General: Alert Lungs: Clear Cardiovascular: S1, S2 Abdomen: Soft, Other (obese) Neuro Exam: Alert Extremities: Other (1+edema) Skin: Warm Labs Laboratory Tests Test 12/22/16 11:45 12/22/16 17:01 12/22/16 21:12 12/23/16 04:45 Glucose (Fingerstick) 213 mg/dL (70-99) 237 mg/dL (70-99) 267 mg/dL (70-99) Sodium Level 136 mmol/L (136-145) Potassium Level 3.4 mmol/L (3.5-5.1) Chloride Level 97 mmol/L (98-107) Carbon Dioxide Level 35 mmol/L (21-32) Anion Gap 4 (6-14) Blood Urea Nitrogen 17 mg/dL (8-26) Creatinine 1.1 mg/dL (0.7-1.3) Estimated GFR (Cockcroft-Gault) 66.6 Glucose Level 256 mg/dL (70-99) Calcium Level 8.7 mg/dL (8.5-10.1) Magnesium Level 2.2 mg/dL (1.8-2.4) Test 12/23/16 08:40 12/23/16 10:54 12/23/16 14:56 12/23/16 15:45 Glucose (Fingerstick) 236 mg/dL (70-99) 239 mg/dL (70-99) 198 mg/dL (70-99) 184 mg/dL (70-99) Test 12/23/16 20:19 12/24/16 07:52 Glucose (Fingerstick) 180 mg/dL (70-99) 198 mg/dL (70-99) Laboratory Tests Test 12/23/16 14:56 12/23/16 15:45 12/23/16 20:19 12/24/16 07:52 Glucose (Fingerstick) 198 mg/dL (70-99) 184 mg/dL (70-99) 180 mg/dL (70-99) 198 mg/dL (70-99) Medications Active Scripts Medications Dose Route/Sig Max Daily Dose Days Date Category Gabapentin 400 Mg Capsule 400 Mg PO TID PRN 12/15/16 Reported Tresiba Flextouch U-100 (Insulin Degludec) 100 Unit/1 Ml Insuln.pen 40 Unit SQ HS 12/14/16 Reported Tresiba Flextouch U-100 (Insulin Degludec) 100 Unit/1 Ml Insuln.pen 36 Unit SQ DAILY 12/14/16 Reported Cetirizine Hcl 10 Mg Tablet 1 Tab PO DAILY 12/14/16 Reported Tamsulosin Hcl 0.4 Mg Cap.er.24h 2 Cap PO DAILY 12/14/16 Reported Triamterene-Hctz 37.5-25 Mg Cp (Triamterene/Hydrochlorothiazid) 1 Each Capsule 1 Cap PO DAILY 12/14/16 Reported Atorvastatin Calcium 20 Mg Tablet 1 Tab PO DAILY 12/14/16 Reported Actos (Pioglitazone Hcl) 30 Mg Tablet 1 Tab PO DAILY 12/14/16 Reported Montelukast Sodium Tablet (Montelukast Sodium) 10 Mg Tablet 1 Tab PO DAILY 12/14/16 Reported Losartan Potassium 100 Mg Tablet 100 Mg PO DAILY 12/14/16 Reported Impression . 1. Abnormal CT of the chest revealing several findings ,left lower lobe mass measuring 3.0 x 2.2 cm. STAGE 4 LUNG CA 2. Mediastinal adenopathy. 3. Right rib soft tissue density. 4. Coronary artery disease S/P PCI 5. Obesity. 6. Hypertension. 7. UNSTABLE ANGINA POA Plan . S/P PCI NOW NO CHEST PAIN EASIER BREATHING 6 MIN WALK TODAY D/C HOME FOLLOW ONCO INPUT RESP STATUS IS COMPENSATED OP PET PER ONCOLOGY JUNITO PANIAGUA MD Dec 24, 2016 11:02
[2016-12-24] MEDS ORDERED: CLOP75TA PO (13:01)
[2016-12-24] MEDS ORDERED: METO25TA4 PO (13:01)
[2016-12-24] MEDS ORDERED: ISOS30TA4 PO (13:01)
[2016-12-24] MEDS ORDERED: OXYC1TAB7 PO (13:01)
--- NOTE | 2016-12-24 13:28 | PDOC3 ---
Discharge Summary [facility] Date of Admission: Dec 13, 2016 Discharge Date: Dec 24, 2016 Admitting Diagnosis left lung Ad[place] CA stage 4 with mets to bones right 3rd rib, T5, L1 and liver mass - new dx via tissue lung biopsy NSTEMI - CABG on hold bec of lung CA new dx CHEST Pain with NSTEMI, right 3rd rib mets , anxiety Never smoker V TACH (12/17) dm2 better control now htn, controlled morbid obesity CKD 2-3 constipation resolved mild malnutrition Anxiety NOS MRI showed left small acute cerebellar stroke, no mets unsteady gait, multi factorial Problems: Final Diagnosis CONSULTS RT, ONCO. CARD, PULM GI Brief Hospital Course Mr. Ortiz is a 66 old M, NON smoker, no home o2, comes for chest pain, echo showed EF 55%. Cath showed multiple vessle dz, planed for CABG. however, CT chest showed a left lung mass , bx showed adenocarcinoma, bone scan showed bone mes. MRI showed a small acute cerebellar stroke which likely not the reason to cause him mild unsteady gait tho, no brain mets. also has a liver mass which is likely met too. pt got 2nd cath and got bare metal stent at LAD, and left circum flex. Hba1c 9.3, however, pt's insurance not cover levemir, and would like to cont his home insulin regimen bid, agreed to increase them and talk to PCP. pt still has mild right upper chest pain, 2/2 rib met likely. passed 6min walk. dc with oxycodone, walker and may need a brace/shoe to home , fu with dr. Bateman. dc time 35min . General: Alert, Oriented X3 . obese. Heart: Normal S1, Normal S2. right upper chest wall mild tenderness. Lungs: Clear Abdomen: Soft, No tenderness Extremities: No edema Skin: No significant lesion Problems: Disposition HH CONDITION AT DISCHARGE: Improved Diet cardiac Scheduled Atorvastatin Calcium (Atorvastatin Calcium), 1 TAB PO DAILY, (Reported) Cetirizine Hcl (Cetirizine Hcl), 1 TAB PO DAILY, (Reported) Clopidogrel Bisulfate (Clopidogrel), 75 MG PO DAILYWBKFT Insulin Degludec (Tresiba Flextouch U-100), 36 UNIT SQ DAILY, (Reported) Insulin Degludec (Tresiba Flextouch U-100), 40 UNIT SQ HS, (Reported) Isosorbide Mononitrate (Isosorbide Mononitrate Er), 30 MG PO DAILY Metoprolol Tartrate (Metoprolol Tartrate), 25 MG PO BID Montelukast Sodium (Montelukast Sodium Tablet), 1 TAB PO DAILY, (Reported) Pioglitazone Hcl (Actos), 1 TAB PO DAILY, (Reported) Tamsulosin Hcl (Tamsulosin Hcl), 2 CAP PO DAILY, (Reported) Triamterene/Hydrochlorothiazid (Triamterene-Hctz 37.5-25 Mg Cp), 1 CAP PO DAILY, (Reported) Scheduled PRN Gabapentin (Gabapentin), 400 MG PO TID PRN for PAIN, (Reported) Oxycodone Hcl/Acetaminophen (Oxycodone-Acetaminophen 5-325), 1 TAB PO PRN Q4HRS PRN for MODERATE PAIN Discontinued Medications Losartan Potassium (Losartan Potassium), 100 MG PO DAILY, (Reported) Follow Up onco and RT in 2 weeks GOLDEN PEARSON MD Dec 24, 2016 13:28
--- NOTE | 2016-12-24 13:44 | PDOC ---
MELINDAFRANCISCO JAVIER ONI 12/24/16 1343: CARDIO Progress Notes Date and Time Date of Service 12/24/16 Time of Evaluation 1130 Subjective Subjective: No Chest Pain, No shortness of breath, No Palpitations, Other Vitals Vitals Vital Signs Date Time Temp Pulse Resp B/P (MAP) Pulse Ox O2 Delivery O2 Flow Rate FiO2 12/24/16 11:00 97.6 73 18 136/72 (93) 93 Nasal Cannula 3.0 97.6 Weight Weight [ ] Laboratory Labs Laboratory Tests Test 12/23/16 14:56 12/23/16 15:45 12/23/16 20:19 12/24/16 07:52 Glucose (Fingerstick) 198 mg/dL (70-99) 184 mg/dL (70-99) 180 mg/dL (70-99) 198 mg/dL (70-99) Test 12/24/16 11:10 Glucose (Fingerstick) 240 mg/dL (70-99) Physical Exam HEENT: Neck Supple W Full Motion Chest: Symmetric LUNGS: Other (diminished) Heart: S1S2, RRR (SR with PVC) Abdomen: Soft N/T, Other (obese ) Extremities: No Calf Tenderness, Other (right radial arteriotomy site soft, clean, and dry. No erythema, ecchymosis, or hematoma present. Neurovascular status intact. ) Neurology: alert, oriented, follow commands Assessment Assessment 1. 3V CAD; not a CABG candidate given coexisting factors below. s/p PCI/BMS to LAD and OM 2. Stage IV lung CA with metastatic disease (new diagnosis); hemonc following. outpatient PET scan planned. 3. Hypertension: controlled 4. Hyperlipidemia: statin therapy 5. Diabetes mellitus type 2: Treated per IM Recommendations Continue secondary prevention measures including DAPT with ASA and Plavix Risk stratification modification Cardiac rehab referral F/u in our office with Dr. Culver as previously scheduled. SIDNEY CULVER MD 12/25/16 1129: CARDIO Progress Notes Assessment Assessment Patient seen and examined 12/24/16. Agree with CHAIR FRAME BUILDER's assessment and plan. s/p PCI/stents to LAD and OM, presently stable and feeling better Telemetry did not show any significant arrhythmias Continue dual antiplatelet therapy Follow-up with our office in 1 month FRANCISCO JAVIER LAWRENCE APRN Dec 24, 2016 13:43 SIDNEY CULVER MD Dec 25, 2016 11:29
[2016-12-24] MEDS ORDERED: ASPIRIN ENTERIC COATED 325 MG TABLET.DR. PO SCH (13:45)
--- NOTE | 2016-12-24 15:56 | PDOC ---
PROGRESS NOTES Subjective Subjective He is planning to go home today and because of foot edema he could not put on his shoes and wear right AFO which he received. Objective Objective Vital Signs Date Time Temp Pulse Resp B/P (MAP) Pulse Ox O2 Delivery O2 Flow Rate FiO2 12/24/16 11:00 97.6 73 18 136/72 (93) 93 Nasal Cannula 3.0 97.6 Physical Exam Physical Exam He is sitting in bedside chair and seems to be comfortable and he continues with redness and edema of his feet and legs.He did not have roller walker to take home with him. Assessment Assessment Problems Medical Problems: (1) Chest pain Status: Acute (2) Non-STEMI (non-ST elevated myocardial infarction) Status: Acute Plan Plan of Care To make sure he gets [place] boots for use to help ease edema and redness of his feet and legs. Comment Review of Relevant I have reviewed the following items maxine (where applicable) has been applied. Labs Laboratory Tests Test 12/22/16 17:01 12/22/16 21:12 12/23/16 04:45 12/23/16 08:40 Glucose (Fingerstick) 237 mg/dL (70-99) 267 mg/dL (70-99) 236 mg/dL (70-99) Sodium Level 136 mmol/L (136-145) Potassium Level 3.4 mmol/L (3.5-5.1) Chloride Level 97 mmol/L (98-107) Carbon Dioxide Level 35 mmol/L (21-32) Anion Gap 4 (6-14) Blood Urea Nitrogen 17 mg/dL (8-26) Creatinine 1.1 mg/dL (0.7-1.3) Estimated GFR (Cockcroft-Gault) 66.6 Glucose Level 256 mg/dL (70-99) Calcium Level 8.7 mg/dL (8.5-10.1) Magnesium Level 2.2 mg/dL (1.8-2.4) Test 12/23/16 10:54 12/23/16 14:56 12/23/16 15:45 12/23/16 20:19 Glucose (Fingerstick) 239 mg/dL (70-99) 198 mg/dL (70-99) 184 mg/dL (70-99) 180 mg/dL (70-99) Test 12/24/16 07:52 12/24/16 11:10 Glucose (Fingerstick) 198 mg/dL (70-99) 240 mg/dL (70-99) Laboratory Tests Test 12/23/16 20:19 12/24/16 07:52 12/24/16 11:10 Glucose (Fingerstick) 180 mg/dL (70-99) 198 mg/dL (70-99) 240 mg/dL (70-99) Medications Current Medications Nitroglycerin (Nitro-Bid Oint) 1 inch 1X ONCE TP Last administered on 18:38; Start 12/13/16 at 18:30; Stop 12/13/16 at 18:31; Status DC Aspirin (Children'S Aspirin) 324 mg 1X ONCE PO ; Start 12/13/16 at 18:30; Stop 12/13/16 at 18:31; Status DC Enoxaparin Sodium (Lovenox Per Pharmacy Treatment Dosing) 1 each PRN DAILY PRN MC SEE COMMENTS; Start 12/13/16 at 19:15; Stop 12/20/16 at 12:13; Status DC Enoxaparin Sodium (Lovenox 100mg Syringe) 100 mg 1X ONCE SQ Last administered on 12/13/16 19:50; Start 12/13/16 at 19:30; Stop 12/13/16 at 19:31; Status DC Enoxaparin Sodium (Lovenox 80mg Syringe) 80 mg 1X ONCE SQ Last administered on 12/13/16 19:50; Start 12/13/16 at 19:30; Stop 12/13/16 at 19:31; Status DC Ondansetron HCl (Zofran) 4 mg PRN Q8HRS PRN IV NAUSEA/VOMITING; Start 12/13/16 at 19:45; Stop 12/14/16 at 11:34; Status DC Morphine Sulfate 2 mg PRN Q2HR PRN IV PAIN; Start 12/13/16 at 19:45; Stop 12/14 at 11:34; Status DC Acetaminophen (Tylenol) 650 mg PRN Q4HRS PRN PO FEVER Last administered on 12/14 06:36; Start 12/13/16 at 19:45; Stop 12/14/16 at 11:34; Status DC Nitroglycerin (Nitrostat) 0.4 mg PRN Q5MIN PRN SL CHEST PAIN; Start 12/13/16 at 19:45; Stop 12/14/16 at 19:44; Status DC Insulin Aspart (NovoLOG) 0-9 UNITS QIDACHS SQ Last administered on 12/24/16 13 :21; Start 12/13/16 at 21:30 Dextrose (Dextrose 50%-Water Syringe) 12.5 gm PRN Q15MIN PRN IV SEE COMMENTS; Start 12/13/16 at 20:15 Morphine Sulfate (Morphine Ir) 15 mg PRN Q4HRS PRN PO SEVERE PAIN Last administered on 12/23/16 08:08; Start 12/13/16 at 20:15 Enoxaparin Sodium (Lovenox 100mg Syringe) 180 mg Q12HR SQ Last administered on 12/20/16 09:30; Start 12/14/16 at 09:00; Stop 12/20/16 at 12:09; Status DC Atorvastatin Calcium (Lipitor) 20 mg QHS PO Last administered on 12/23/16 21: 55; Start 12/14/16 at 21:00 Cetirizine HCl (ZyrTEC) 10 mg DAILY PO Last administered on 12/24/16 08:38; Start 12/14/16 at 12:00 Montelukast Sodium (Singulair) 10 mg DAILY PO Last administered on 12/24/16 08 :37; Start 12/14/16 at 12:00 Tamsulosin HCl (Flomax) 0.8 mg DAILY PO Last administered on 12/24/16 08:37; Start 12/14/16 at 12:00 Losartan Potassium (Cozaar) 100 mg DAILY PO Last administered on 12/15/16 11: 09; Start 12/14/16 at 12:00; Stop 12/15/16 at 16:19; Status DC Pioglitazone HCl (Actos) 30 mg DAILY PO Last administered on 12/24/16 08:38; Start 12/14/16 at 12:00 Triamterene/HCTZ (Maxzide 37.5/ 25mg) 1 tab DAILY PO Last administered on 08:38; Start 12/14/16 at 12:00 Acetaminophen (Tylenol) 650 mg PRN Q6HRS PRN PO FEVER Last administered on 9/28 /17at 20:33; Start 12/14/16 at 11:30 Ondansetron HCl (Zofran) 4 mg PRN Q6HRS PRN IV NAUSEA/VOMITING Last administered on 12/17/16 20:22; Start 12/14/16 at 11:30 Morphine Sulfate 2 mg PRN Q2HR PRN IV MODERATE TO SEVERE PAIN; Start 12/14/16 at 11:45 Tramadol HCl (Ultram) 50 mg PRN Q6HRS PRN PO MILD PAIN Last administered on 07:32; Start 12/14/16 at 11:30 Hydralazine HCl (Apresoline) 10 mg PRN Q4HRS PRN IVP ELEVATED BP, SEE COMMENTS ; Start 12/14/16 at 11:30 Docusate Sodium (Colace) 100 mg PRN DAILY PRN PO CONSTIPATION; Start 12/14/16 at 11:30; Stop 12/19/16 at 17:43; Status DC Senna/Docusate Sodium (Senna Plus) 1 tab BID PO Last administered on 12/24/16 08:38; Start 12/14/16 at 12:00 Docusate Sodium (Colace) 100 mg BID PO Last administered on 12/24/16 08:39; Start 12/14/16 at 12:00 Magnesium Hydroxide (Milk Of Magnesia) 2,400 mg PRN Q12HR PRN PO CONSTIPATION; Start 12/14/16 at 11:30 Insulin Detemir (Levemir) 20 units QHS SQ Last administered on 12/21/16 20:40 ; Start 12/14/16 at 21:00; Stop 12/22/16 at 08:32; Status DC Heparin Sodium/ Sodium Chloride 1,000 ml @ As Directed STK-MED ONCE .ROUTE ; Start 12/15/16 at 07:09; Stop 12/15/16 at 07:10; Status DC Lidocaine HCl 20 ml STK-MED ONCE .ROUTE ; Start 12/15/16 at 07:10; Stop at 07:11; Status DC Iohexol (Omnipaque 300 Mg/ml) 100 ml STK-MED ONCE .ROUTE ; Start 12/15/16 at 07: 14; Stop 12/15/16 at 07:15; Status DC Fentanyl Citrate (Fentanyl 2ml Vial) 100 mcg STK-MED ONCE .ROUTE ; Start at 10:07; Stop 12/15/16 at 10:08; Status DC Midazolam HCl (Versed) 2 mg STK-MED ONCE .ROUTE ; Start 12/15/16 at 10:08; Stop 12/15/16 at 10:09; Status DC Verapamil HCl (Verapamil) 5 mg STK-MED ONCE .ROUTE ; Start 12/15/16 at 10:08; Stop 12/15/16 at 10:09; Status DC Heparin Sodium (Porcine) (Heparin Sodium) 10,000 unit STK-MED ONCE .ROUTE ; Start 12/15/16 at 10:08; Stop 12/15/16 at 10:09; Status DC Nitroglycerin (Nitroglycerin) 200 mcg STK-MED ONCE .ROUTE ; Start 12/15/16 at 10 :08; Stop 12/15/16 at 10:09; Status DC Nitroglycerin (Nitroglycerin) 200 mcg 1X ONCE IART Last administered on 10:43; Start 12/15/16 at 10:45; Stop 12/15/16 at 10:46; Status DC Verapamil HCl (Verapamil) 2.5 mg 1X ONCE IART Last administered on 12/15/16 10:43; Start 12/15/16 at 10:45; Stop 12/15/16 at 10:46; Status DC Heparin Sodium (Porcine) (Heparin Sodium) 2,500 unit 1X ONCE IART Last administered on 12/15/16 10:45; Start 12/15/16 at 10:45; Stop 12/15/16 at 10:46 ; Status DC Heparin Sodium/ Sodium Chloride 1,000 unit 1X ONCE IART Last administered on 10:42; Start 12/15/16 at 10:45; Stop 12/15/16 at 10:46; Status DC Midazolam HCl (Versed) 2 mg 1X ONCE IV Last administered on 12/15/16 10:44; Start 12/15/16 at 10:45; Stop 12/15/16 at 10:46; Status DC Fentanyl Citrate (Fentanyl 2ml Vial) 50 mcg 1X ONCE IV Last administered on 10:44; Start 12/15/16 at 10:45; Stop 12/15/16 at 10:46; Status DC Iohexol (Omnipaque 300 Mg/ml) 100 ml 1X ONCE IART Last administered on 10:42; Start 12/15/16 at 10:45; Stop 12/15/16 at 10:46; Status DC Lidocaine HCl 2 ml 1X ONCE IJ Last administered on 12/15/16 10:42; Start at 10:45; Stop 12/15/16 at 10:46; Status DC Sodium Chloride 1,000 ml @ 60 mls/hr [id number] IV Last administered on 03:31; Start 12/15/16 at 10:51; Stop 12/16/16 at 20:04; Status DC Polyethylene Glycol (miraLAX PACKET) 17 gm DAILY PO ; Start 12/16/16 at 16:30; Stop 12/16/16 at 16:30; Status DC Metoprolol Tartrate (Lopressor) 25 mg BID PO Last administered on 12/24/16 08: 38; Start 12/15/16 at 21:00 Polyethylene Glycol (miraLAX PACKET) 17 gm DAILY PO Last administered on 08:47; Start 12/17/16 at 07:00; Stop 12/19/16 at 12:28; Status DC Polyethylene Glycol (miraLAX PACKET) 17 gm 1X ONCE PO Last administered on 13:34; Start 12/16/16 at 13:30; Stop 12/16/16 at 13:31; Status DC Ondansetron HCl (Zofran) 4 mg PRN Q6HRS PRN IV NAUSEA/VOMITING; Start 12/17/16 at 07:00; Stop 12/18/16 at 06:59; Status DC Fentanyl Citrate (Fentanyl 2ml Vial) 25 mcg PRN Q5MIN PRN IV MILD PAIN; Start 12/17/16 at 07:00; Stop 12/18/16 at 06:59; Status DC Fentanyl Citrate (Fentanyl 2ml Vial) 50 mcg PRN Q5MIN PRN IV MODERATE PAIN; Start 12/17/16 at 07:00; Stop 12/18/16 at 06:59; Status DC Morphine Sulfate 1 mg PRN Q10MIN PRN IV SEVERE PAIN; Start 12/17/16 at 07:00; Stop 12/18/16 at 06:59; Status DC Ringer's Solution 1,000 ml @ 30 mls/hr Q24H IV ; Start 12/17/16 at 07:00; Stop 12/17/16 at 15:23; Status DC Lidocaine HCl (Xylocaine-Mpf 1% Vial) 2 ml PRN 1X PRN ID IV START; Start at 07:00; Stop 12/18/16 at 06:59; Status DC Hydromorphone HCl (Dilaudid) 0.5 mg PRN Q10MIN PRN IV SEV PAIN, Second choice; Start 12/17/16 at 07:00; Stop 12/18/16 at 06:59; Status DC Prochlorperazine Edisylate (Compazine) 5 mg PACU PRN PRN IV NAUSEA, MRX1; Start 12/17/16 at 07:00; Stop 12/18/16 at 06:59; Status DC Temazepam (Restoril) 7.5 mg PRN QHS PRN PO INSOMNIA Last administered on 21:55; Start 12/16/16 at 14:30 Lidocaine/Sodium Bicarbonate (Buffered Lidocaine 1%) 20 ml STK-MED ONCE IJ ; Start 12/17/16 at 13:12; Stop 12/17/16 at 13:13; Status DC Midazolam HCl (Versed) 2 mg STK-MED ONCE .ROUTE ; Start 12/17/16 at 13:47; Stop 12/17/16 at 13:48; Status DC Lidocaine/Sodium Bicarbonate (Buffered Lidocaine 1%) 3 ml 1X ONCE IJ Last administered on 12/17/16 14:00; Start 12/17/16 at 14:30; Stop 12/17/16 at 14:31 ; Status DC Midazolam HCl (Versed) 1 mg 1X ONCE IV Last administered on 12/17/16 14:00; Start 12/17/16 at 14:30; Stop 12/17/16 at 14:31; Status DC Fentanyl Citrate (Fentanyl 2ml Vial) 50 mcg 1X ONCE IV Last administered on 14:26; Start 12/17/16 at 14:30; Stop 12/17/16 at 14:31; Status DC Nitroglycerin/ Dextrose 250 ml @ 0 mls/hr CONT PRN IV SEE I/O RECORD Last administered on 12/17/16 19:53; Start 12/17/16 at 19:45; Stop 12/18/16 at 11:37 ; Status DC Isosorbide Mononitrate (Imdur) 30 mg DAILY PO Last administered on 12/24/16 08 :38; Start 12/18/16 at 12:00 Oxymetazoline HCl (Afrin) 2 spray BID NS Last administered on 12/21/16 08:43; Start 12/18/16 at 21:00; Stop 12/21/16 at 20:59; Status DC Sodium Chloride (Saline Mist Nasal) 1 evon PRN Q1HR PRN NS NASAL CONGESTION Last administered on 12/18/16 20:26; Start 12/18/16 at 20:00 Polyethylene Glycol (miraLAX PACKET) 17 gm BID PO Last administered on 08:39; Start 12/19/16 at 21:00 Lorazepam (Ativan) 1 mg 1X ONCE IV Last administered on 12/19/16 14:25; Start 12/19/16 at 13:30; Stop 12/19/16 at 13:31; Status DC Lorazepam (Ativan) 0.5 mg Q6HRS PRN PO ANXIETY / AGITATION Last administered on 12/23/16 09:06; Start 12/19/16 at 13:30 Lidocaine (Lidoderm) 1 patch DAILY TD Last administered on 12/24/16 08:39; Start 12/20/16 at 12:30 Enoxaparin Sodium (Lovenox 40mg Syringe) 40 mg Q12H SQ Last administered on 08:56; Start 12/20/16 at 21:00 Oxycodone/ Acetaminophen (Percocet 5/325) 1 tab PRN Q4HRS PRN PO MODERATE PAIN Last administered on 12/21/16 09:52; Start 12/20/16 at 12:15 Oxycodone/ Acetaminophen (Percocet 10/325) 1 tab PRN Q4HRS PRN PO MODERATE PAIN Last administered on 12/24/16 08:56; Start 12/20/16 at 12:15 Clopidogrel Bisulfate (Plavix) 300 mg 1X ONCE PO Last administered on 11:00; Start 12/21/16 at 09:30; Stop 12/21/16 at 09:31; Status DC Clopidogrel Bisulfate (Plavix) 75 mg DAILYWBKFT PO Last administered on 08:38; Start 12/22/16 at 08:00 Insulin Detemir (Levemir) 25 units QHS SQ Last administered on 12/22/16 21:38 ; Start 12/22/16 at 21:00; Stop 12/23/16 at 08:20; Status DC Insulin Aspart (NovoLOG) 5 units TIDAC SQ Last administered on 12/22/16 17:42 ; Start 12/22/16 at 08:33; Stop 12/23/16 at 08:20; Status DC Ondansetron HCl (Zofran) 4 mg PRN Q6HRS PRN IV NAUSEA/VOMITING; Start 12/23/16 at 07:00; Stop 12/24/16 at 06:59; Status DC Fentanyl Citrate (Fentanyl 2ml Vial) 25 mcg PRN Q5MIN PRN IV MILD PAIN; Start 12/23/16 at 07:00; Stop 12/23/16 at 18:00; Status DC Fentanyl Citrate (Fentanyl 2ml Vial) 50 mcg PRN Q5MIN PRN IV MODERATE PAIN; Start 12/23/16 at 07:00; Stop 12/23/16 at 18:00; Status DC Morphine Sulfate 1 mg PRN Q10MIN PRN IV SEVERE PAIN; Start 12/23/16 at 07:00; Stop 12/23/16 at 18:00; Status DC Ringer's Solution 1,000 ml @ 30 mls/hr Q24H IV ; Start 12/23/16 at 07:00; Stop 12/23/16 at 16:13; Status DC Lidocaine HCl (Xylocaine-Mpf 1% Vial) 2 ml PRN 1X PRN ID IV START; Start at 07:00; Stop 12/23/16 at 18:00; Status DC Hydromorphone HCl (Dilaudid) 0.5 mg PRN Q10MIN PRN IV SEV PAIN, Second choice; Start 12/23/16 at 07:00; Stop 12/23/16 at 18:00; Status DC Prochlorperazine Edisylate (Compazine) 5 mg PACU PRN PRN IV NAUSEA, MRX1; Start 12/23/16 at 07:00; Stop 12/23/16 at 18:00; Status DC Pantoprazole Sodium (Protonix) 40 mg DAILYAC PO Last administered on 12/24/16 06:12; Start 12/22/16 at 17:30 Insulin Aspart (NovoLOG) 8 units TIDAC SQ ; Start 12/23/16 at 11:30; Stop at 12:33; Status DC Insulin Detemir (Levemir) 30 units QHS SQ Last administered on 12/23/16 22:00 ; Start 12/23/16 at 21:00 Potassium Chloride (Klor-Con) 40 meq 1X ONCE PO Last administered on 11:00; Start 12/23/16 at 08:30; Stop 12/23/16 at 08:31; Status DC Potassium Chloride (Klor-Con) 40 meq 1X ONCE PO ; Start 12/23/16 at 08:30; Stop 12/23/16 at 08:31; Status DC Insulin Aspart (NovoLOG) 9 units TIDAC SQ Last administered on 12/24/16 13:21 ; Start 12/23/16 at 16:30 Heparin Sodium/ Sodium Chloride 1,000 ml @ As Directed STK-MED ONCE .ROUTE ; Start 12/23/16 at 12:39; Stop 12/23/16 at 12:40; Status DC Lidocaine HCl 20 ml STK-MED ONCE .ROUTE ; Start 12/23/16 at 12:39; Stop at 12:40; Status DC Iohexol (Omnipaque 300 Mg/ml) 100 ml STK-MED ONCE .ROUTE ; Start 12/23/16 at 12: 39; Stop 12/23/16 at 12:40; Status DC Heparin Sodium (Porcine) (Heparin Sodium) 10,000 unit STK-MED ONCE .ROUTE ; Start 12/23/16 at 13:57; Stop 12/23/16 at 13:58; Status DC Verapamil HCl (Verapamil) 5 mg STK-MED ONCE .ROUTE ; Start 12/23/16 at 13:57; Stop 12/23/16 at 13:58; Status DC Nitroglycerin (Nitroglycerin) 200 mcg STK-MED ONCE .ROUTE ; Start 12/23/16 at 13 :57; Stop 12/23/16 at 13:58; Status DC Bivalirudin (Angiomax) 250 mg STK-MED ONCE IV ; Start 12/23/16 at 14:04; Stop 12/23/16 at 14:05; Status DC Nitroglycerin (Nitroglycerin) 200 mcg 1X ONCE IART Last administered on 14:40; Start 12/23/16 at 14:15; Stop 12/23/16 at 14:34; Status DC Verapamil HCl (Verapamil) 2.5 mg 1X ONCE IART Last administered on 12/23/16 14:41; Start 12/23/16 at 14:15; Stop 12/23/16 at 14:34; Status DC Heparin Sodium (Porcine) (Heparin Sodium) 2,500 unit 1X ONCE IART Last administered on 12/23/16 14:42; Start 12/23/16 at 14:15; Stop 12/23/16 at 14:34 ; Status DC Heparin Sodium/ Sodium Chloride 1,000 unit 1X ONCE IART Last administered on 12/23/16 14:41; Start 12/23/16 at 14:15; Stop 12/23/16 at 14:34; Status DC Iohexol (Omnipaque 300 Mg/ml) 125 ml 1X ONCE IART Last administered on 14:40; Start 12/23/16 at 14:15; Stop 12/23/16 at 14:34; Status DC Bivalirudin (Angiomax) 250 mg 1X ONCE IV Last administered on 12/23/16 14:41 ; Start 12/23/16 at 14:15; Stop 12/23/16 at 14:34; Status DC Lidocaine HCl 2 ml 1X ONCE IJ Last administered on 12/23/16 14:41; Start 12/23/16 at 14:15; Stop 12/23/16 at 14:34; Status DC Nitroglycerin (Nitroglycerin) 200 mcg 1X ONCE IART Last administered on 14:40; Start 12/23/16 at 14:15; Stop 12/23/16 at 14:35; Status DC Sodium Chloride 1,000 ml @ 75 mls/hr [id number] IV Last administered on 14:40; Start 12/23/16 at 14:40; Stop 12/24/16 at 01:11; Status DC Acetaminophen (Tylenol) 650 mg PRN Q6HRS PRN PO MILD PAIN / TEMP; Start at 14:45; Stop 12/24/16 at 01:12; Status DC Nitroglycerin (Nitrostat) 0.4 mg PRN Q5MIN PRN SL CHEST PAIN; Start 12/23/16 at 14:45 Insulin Aspart (NovoLOG VIAL) 4 unit 1X PACU PRN SQ SEE COMMENTS Last administered on 12/23/16 15:10; Start 12/23/16 at 15:15 Aspirin (Ecotrin) 325 mg DAILYWBKFT PO Last administered on 12/24/16 14:34; Start 12/24/16 at 13:45 Active Scripts Active Oxycodone-Acetaminophen 5-325 (Oxycodone Hcl/Acetaminophen) 1 Each Tablet 1 Tab PO PRN Q4HRS PRN Metoprolol Tartrate 25 Mg Tablet 25 Mg PO BID 30 Days Isosorbide Mononitrate Er (Isosorbide Mononitrate) 30 Mg Tab.er.24h 30 Mg PO DAILY 30 Days Clopidogrel (Clopidogrel Bisulfate) 75 Mg Tablet 75 Mg PO DAILYWBKFT 30 Days Reported Gabapentin 400 Mg Capsule 400 Mg PO TID PRN Tresiba Flextouch U-100 (Insulin Degludec) 100 Unit/1 Ml Insuln.pen 40 Unit SQ HS Tresiba Flextouch U-100 (Insulin Degludec) 100 Unit/1 Ml Insuln.pen 36 Unit SQ DAILY Cetirizine Hcl 10 Mg Tablet 1 Tab PO DAILY Tamsulosin Hcl 0.4 Mg Cap.er.24h 2 Cap PO DAILY Triamterene-Hctz 37.5-25 Mg Cp (Triamterene/Hydrochlorothiazid) 1 Each Capsule 1 Cap PO DAILY Atorvastatin Calcium 20 Mg Tablet 1 Tab PO DAILY Actos (Pioglitazone Hcl) 30 Mg Tablet 1 Tab PO DAILY Montelukast Sodium Tablet (Montelukast Sodium) 10 Mg Tablet 1 Tab PO DAILY Vitals/I & O Vital Sign - Last 24 Hours 12/23/16 12/23/16 12/23/16 12/23/16 16:00 16:15 16:30 17:00 Pulse 76 76 80 80 B/P (MAP) 110/65 (80) 112/68 (83) 112/64 (80) 111/62 (78) 12/23/16 12/23/16 12/23/16 12/23/16 17:30 19:20 19:55 21:55 Temp 97.8 97.8 Pulse 82 85 85 Resp 20 B/P (MAP) 133/72 (92) 131/76 (94) 131/76 Pulse Ox 96 O2 Delivery Nasal Cannula Nasal Cannula O2 Flow Rate 2.0 2.0 12/23/16 12/23/16 12/23/16 12/24/16 21:56 22:56 23:05 03:00 Temp 98.4 98.4 98.4 98.4 Pulse 78 70 Resp 16 18 18 B/P (MAP) 121/63 (82) 113/70 (84) Pulse Ox 96 94 94 94 O2 Delivery Nasal Cannula Nasal Cannula Nasal Cannula O2 Flow Rate 2.0 2.0 3.0 12/24/16 12/24/16 12/24/16 12/24/16 07:00 08:00 08:38 08:38 Temp 98.4 98.4 Pulse 73 74 72 Resp 18 B/P (MAP) 120/74 (89) 120/74 120/74 Pulse Ox 95 O2 Delivery Nasal Cannula Nasal Cannula O2 Flow Rate 3.0 3.0 12/24/16 12/24/16 12/24/16 08:56 09:56 11:00 Temp 97.6 97.6 Pulse 73 Resp 18 16 18 B/P (MAP) 136/72 (93) Pulse Ox 93 O2 Delivery Nasal Cannula Nasal Cannula Nasal Cannula O2 Flow Rate 2.0 2.0 3.0 ARCHIE MILTON MD Dec 24, 2016 15:56
--- NOTE | 2016-12-24 17:05 | PDOC ---
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 Admitted with unstable angina and coronary cath revealed 3 vessel disease. CABG was planned. Screening CT revealed occult lung cancer with bx of tird rib met confirming adenocarcinoma. Underwent successful stenting yesterday with resolution of anginal chest pain. He continues to have right anterior chest pain at site of met disease with some radiation to the back. Simulated to begin treatment to the osseous met today. 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 Plan on beginning palliative radiation on Thursday12/29/2016. Unstable angina with 3 vessel disease, now improved following stent placement. HEMANT STEPHENS MD Dec 24, 2016 17:05
[2016-12-24] MEDS: ACETAMINOPHEN 325 MG TABLET. PO PRN (17:06)
[2016-12-31] MEDS ORDERED: LORA0.5T96 PO (12:06)
== END 2016-12-24 17:37 | disposition home health service (06) | DRG 981 ==
LOC: ER 18:17 → 2 SOUTH 20:16
PROVIDERS: ADMIT Internal Medicine; ATTEND Internal Medicine
PROC: 4A023N7 Measurement of Cardiac Sampling and Pressure, Left Heart, Percutaneous Approach (ICD-10-PCS; principal; 2016-12-15)
PROC: B2111ZZ Fluoroscopy of Multiple Coronary Arteries using Low Osmolar Contrast (ICD-10-PCS; 2016-12-15)
PROC: B2151ZZ Fluoroscopy of Left Heart using Low Osmolar Contrast (ICD-10-PCS; 2016-12-15)
PROC: 0WB83ZX Excision of Chest Wall, Percutaneous Approach, Diagnostic (ICD-10-PCS; 2016-12-17)
PROC: 0BBL3ZX Excision of Left Lung, Percutaneous Approach, Diagnostic (ICD-10-PCS; 2016-12-17)
PROC: 02713EZ Dilation of Coronary Artery, Two Arteries with Two Intraluminal Devices, Percutaneous Approach (ICD-10-PCS; 2016-12-23)
DX: C34.32 Malignant neoplasm of lower lobe, left bronchus or lung (principal); I63.9 Cerebral infarction, unspecified; I21.4 Non-ST elevation (NSTEMI) myocardial infarction; N17.0 Acute kidney failure with tubular necrosis; C79.51 Secondary malignant neoplasm of bone; E44.1 Mild protein-calorie malnutrition; E11.22 Type 2 diabetes mellitus with diabetic chronic kidney disease; N18.3 Chronic kidney disease, stage 3 (moderate); Z68.43 Body mass index [BMI] 50.0-59.9, adult; I25.110 Atherosclerotic heart disease of native coronary artery with unstable angina pectoris; E11.42 Type 2 diabetes mellitus with diabetic polyneuropathy; J45.909 Unspecified asthma, uncomplicated; E11.65 Type 2 diabetes mellitus with hyperglycemia; E66.01 Morbid (severe) obesity due to excess calories; E78.00 Pure hypercholesterolemia, unspecified; E78.5 Hyperlipidemia, unspecified; F41.9 Anxiety disorder, unspecified; G47.33 Obstructive sleep apnea (adult) (pediatric); I12.9 Hypertensive chronic kidney disease with stage 1 through stage 4 chronic kidney disease, or unspecified chronic kidney disease; K21.9 Gastro-esophageal reflux disease without esophagitis; K59.00 Constipation, unspecified; M17.0 Bilateral primary osteoarthritis of knee; M21.371 Foot drop, right foot; N40.0 Benign prostatic hyperplasia without lower urinary tract symptoms; Z82.49 Family history of ischemic heart disease and other diseases of the circulatory system; Z85.3 Personal history of malignant neoplasm of breast; Z90.49 Acquired absence of other specified parts of digestive tract; Z95.5 Presence of coronary angioplasty implant and graft; Z96.653 Presence of artificial knee joint, bilateral; I25.82 Chronic total occlusion of coronary artery; R59.1 Generalized enlarged lymph nodes
CPT/HCPCS: 32405; 36415; 70551; 71010; 71250; 77012; 77290; 77334; 78306; 80048; 80053; 80061; 81325; 82962; 83036; 83735; 84484; 85025; 85520; 85610; 85730; 86850; 86900; 86901; 86920; 88271; 88274; 88275; 88305; 88341; 88342; 88360; 88381; 92928; 93005; 93306; 93458; 93880; 93970; 94620; 96372; 96374; 99152; 99153; A9503; C1725; C1769; C1876; C1887; C1892; J0330; J0583; J1644; J1650; J1815; J2060; J2250; J2370; J2405; J2704; J3010; J3490; Q9967; 81235; 97116; 99291-25; J2001

== ENCOUNTER → 2017-01-08 | Outpatient (CLI) | payer OTHER ==
[2016-12-24 11:00] VITALS: BP 136/72
[~2017-01-08] MED LIST: ATOR20TA58 PO; CETI10TA16 PO; CLOP75TA PO; GABA-587 PO; INSU100I30 SQ; ISOS30TA4 PO; LORA0.5T96 PO; LOSA100T6 PO; METO25TA4 PO; MONT10TA9 PO; OXYC1TAB7 PO; PIOG30TA41 PO; TAMS0.4C2 PO; TRIA1CAP3 PO
--- NOTE | 2017-01-08 13:55 | RAD ---
Indication lung malignancy. Staging. PET/CT was performed from the skull through the proximal 5. CT was performed primarily for localization and attenuation purposes as opposed to primary diagnostic purposes. The blood sugar during the examination was 150. 13.5 mCi of FDG was administered. No prior PET/CT imaging is available. Note is made of the CT examination 12/15/2016, the interventional procedure targeted to a mass in the right chest wall 12/17/2016 and the bone scan 12/19/2016 demonstrating findings compatible with skeletal metastatic disease. On CT the visualized brain appears unremarkable. No significant finding is seen in the neck. Soft tissue mass in the left lower lobe is noted. Bony destructive process in the right anterior chest is additionally noted. The appearance of the chest has not changed substantially relative to the recent CT. Modest adenopathy is noted in the mediastinum. No significant finding is seen in the abdomen or pelvis. The prostate is mildly enlarged. There are areas of lytic disease seen in the spinal column compatible with metastatic disease as suggested on the referenced bone scan. On PET the FDG is physiologically distributed in the visualized brain. No abnormal activity is seen in the neck. Known soft tissue mass in the left lower lobe is FDG avid. Maximum SUV is approximately 3.9. The finding is most compatible with a primary malignancy. No definite FDG avid mediastinal or hilar lymph nodes are seen. The bony destructive process in the right anterior chest wall is FDG avid with a maximum SUV of approximately 6.2 and is compatible with a focus of metastatic disease. Several foci of increased FDG activity are seen in the spine consistent with metastatic disease. No definite abnormal soft tissue focus is seen in the abdomen or pelvis. IMPRESSION: The known mass in the left lower lobe is FDG avid and is most consistent with a primary malignancy. Soft tissue mass with associated lytic destruction of the adjacent rib in the right chest wall is FDG avid compatible with a focus of metastatic disease. Multiple foci of abnormal activity are seen in the spinal column also compatible with metastatic disease as suggested on recent bone scan.
== END | disposition home or self-care (01) ==
LOC: PETSC 10:45
PROVIDERS: ATTEND Internal Medicine Hematology & Oncology
DX: C34.92 Malignant neoplasm of unspecified part of left bronchus or lung (principal); R22.2 Localized swelling, mass and lump, trunk
CPT/HCPCS: 78815; A9552

== ENCOUNTER → 2017-04-09 | Outpatient (CLI) | payer MEDICARE | END | disposition home or self-care (01) | LOC: PETSC 08:03 | DX: C34.32 Malignant neoplasm of lower lobe, left bronchus or lung (principal); C79.51 Secondary malignant neoplasm of bone; K76.0 Fatty (change of) liver, not elsewhere classified; I70.0 Atherosclerosis of aorta; Z90.49 Acquired absence of other specified parts of digestive tract | CPT/HCPCS: 78815; A9552 ==

== ENCOUNTER → 2017-05-21 | Outpatient (CLI) | payer MEDICARE | END | disposition home or self-care (01) | LOC: PETSC 09:14 | DX: C34.32 Malignant neoplasm of lower lobe, left bronchus or lung (principal); C79.51 Secondary malignant neoplasm of bone | CPT/HCPCS: 78815; A9552 ==

== ENCOUNTER 2017-08-04 06:53 | Outpatient (CLI) | payer MEDICARE ==
[2017-08-04 07:30] LABS: ADD MAN DIFF? NO
[2017-08-04 07:33] LABS: BASO % 1 % (0-3); EOS # 0.1 x10^3/uL (0.0-0.7); EOS % 2 % (0-3); HEMATOCRIT 41.6 % (39.0-53.0); HEMOGLOBIN 14.2 g/dL (13.0-17.5); LYMPH # 0.6 x10^3/uL (1.0-4.8); LYMPH % 10 % (24-48); MEAN CORPUSCULAR HEMOGLOBIN 32 pg (25-35); MEAN CORPUSCULAR HGB CONC 34 g/dL (31-37); MEAN CORPUSCULAR VOLUME 93 fL (79-100); MONO # 0.6 x10^3/uL (0.0-1.1); MONO % 10 % (0-9); NEUT # 4.8 x10^3uL (1.8-7.7); NEUT % 78 % (31-73); PLATELET COUNT 324 x10^3/uL (140-400); RED BLOOD COUNT 4.46 x10^6/uL (4.30-5.70); RED CELL DISTRIBUTION WIDTH 17.2 % (11.5-14.5); WHITE BLOOD COUNT 6.2 x10^3/uL (4.0-11.0)
[2017-08-04 07:42] LABS: INR 1.2 (0.8-1.1); PARTIAL THROMBOPLASTIN TIME 25 SEC (24-38); PROTHROMBIN TIME PATIENT 14.2 SEC (11.7-14.0)
[2017-08-04] MEDS ORDERED: LIDOCAINE 2% 20 ML VIAL. (08:13)
[2017-08-04] MEDS ORDERED: LIDOCAINE 2%/EPI 1:100,000 20 ML VIAL. (08:14)
[2017-08-04] MEDS ORDERED: fentaNYL PF VIAL 100 MCG/2 ML VIAL (08:39)
[2017-08-04] MEDS ORDERED: MIDAZOLAM HCL/PF 2 MG/2 ML VIAL. (08:39)
[2017-08-04] MEDS: MIDAZOLAM HCL/PF 2 MG/2 ML VIAL. IV (09:12)
[2017-08-04] MEDS: LIDOCAINE 2%/EPI 1:100,000 20 ML VIAL. IJ (09:12)
[2017-08-04] MEDS: fentaNYL PF VIAL 100 MCG/2 ML VIAL IV (09:12)
== END 2017-08-04 10:51 | disposition home or self-care (01) ==
LOC: INTRAD 06:53
DX: Z45.2 Encounter for adjustment and management of vascular access device (principal); C34.90 Malignant neoplasm of unspecified part of unspecified bronchus or lung; C79.51 Secondary malignant neoplasm of bone; Z95.5 Presence of coronary angioplasty implant and graft; E78.00 Pure hypercholesterolemia, unspecified; I10 Essential (primary) hypertension; E11.9 Type 2 diabetes mellitus without complications; J45.909 Unspecified asthma, uncomplicated; Z86.718 Personal history of other venous thrombosis and embolism; G47.33 Obstructive sleep apnea (adult) (pediatric); Z90.49 Acquired absence of other specified parts of digestive tract; Z98.890 Other specified postprocedural states; Z96.653 Presence of artificial knee joint, bilateral; Z79.01 Long term (current) use of anticoagulants
CPT/HCPCS: 36415; 36561; 76937; 77001; 85025; 85610; 85730; 99152; 99153; C1751; C1769; C1892; J0690; J2250; J3010; J3490

== ENCOUNTER → 2017-08-06 | Outpatient (CLI) | payer MEDICARE | END | disposition home or self-care (01) | LOC: US 07:47 | DX: I70.293 Other atherosclerosis of native arteries of extremities, bilateral legs (principal); I87.2 Venous insufficiency (chronic) (peripheral); R60.0 Localized edema | CPT/HCPCS: 93925; 93970 ==

== ENCOUNTER → 2017-12-16 | Outpatient (CLI) | payer MEDICARE ==
[2017-10-13 15:00] VITALS: BP 142/76
[~2017-12-16] MED LIST changes: +ASPI-630 PO; +DOCU100C28 PO; +DOXY100C2 PO; +FLUC200T4 PO; +FOLI1TAB16 PO; +FURO40TA4 PO; +LEVO500T59 PO; -LOSA100T6 PO; +LOSA100T7 PO; +LOSA25TA PO; +MAG355OR12 PO; +ONDA8TAB9 PO; +PEMB100V IV; +PEME100V IV; +SPIR25TA PO; +[UNRECOGNIZED DRUG - CODE] IV
--- NOTE | 2017-12-17 14:20 | RAD ---
MR#: [id number] Date of Study: 12/16/2017 Ordering Physician: SIDNEY FLORES, Referring Physician: SIDNEY FLORES, Tech: LONNIE Schilling, RDMS, RTR APPROVED REPORT Bilateral Lower Extremity Venous Study for DVT Patient Location: OUT-PATIENT Indications post ablation Findings Grayscale images of the bilateral saphenofemoral junctions do not reveal any obvious evidence of thro mbus. The bilateral greater saphenous veins have been previously ablated. The bilateral superficial femoral veins grossly do not demonstrate any significant thrombus with norm al color flow. Compressibility was difficult to visualize due to significantly obese body habitus. Bilateral popliteal veins appear to be grossly compressible. Bilateral below calf veins were not well visualized but grossly there is color Doppler flow noted. Critical Notification Critical Value: No <Conclusion> Limited DVT scan due to body habitus. Grossly no significant thrombus noted above the popliteal segme nt Signed by : Rod Parks, Electronically Approved : 12/17/2017 14:19:07
== END | disposition home or self-care (01) ==
LOC: US 14:47
PROVIDERS: ATTEND Internal Medicine Cardiovascular Disease
DX: I87.2 Venous insufficiency (chronic) (peripheral) (principal)
CPT/HCPCS: 93970

== ENCOUNTER → 2017-12-17 | Outpatient (CLI) | payer MEDICARE ==
[2017-10-13 15:00] VITALS: BP 142/76
--- NOTE | 2017-12-18 16:45 | RAD ---
Examination: PET W CT SKULL TO MIDTHIGH History: Lung cancer Comparison/Correlation: 05/21/2017 PET/CT exam Findings: PET/CT examination was performed from the skull base to the proximal thigh following administration of 13.5 mCi F-18 FDG intravenously. Serum blood glucose at the time of injection was 166 mg/dL. SUV max of the liver is up to 3.0. There are diffuse nodular foci of uptake visualized throughout the entire body on this exam. This is presumably artifactual. Left-sided infusion port catheter is identified to terminate at the superior cavoatrial junction. Opacification of mastoid air cells is noted particularly on the right. Bony structures are diffusely dense similar to previous exam. There is a dense exophytic bony lesion involving the right third rib anteriorly which is similar to appears exam. Associated sclerosis of the rib is evident at this site. No significant change. Left posterior basilar calcified granulomas are present. Respiratory motion limits evaluation of the lung solorio. Left lower lung field ovoid nodular opacity is similar to the previous exam. Diffuse fatty infiltration of the liver is present. Cholecystectomy noted. Spleen, pancreas, adrenal glands, and kidneys are unremarkable on this noncontrast exam. Urinary bladder is mostly decompressed. Mild prostatomegaly suggested. Impression: Numerous foci of moderately intense uptake noted throughout the body. This is likely artifactual. This exam is nondiagnostic as a result. Repeat exam is recommended when able.
== END | disposition home or self-care (01) ==
LOC: PETSC 14:06
PROVIDERS: ATTEND Internal Medicine Hematology & Oncology
DX: C34.32 Malignant neoplasm of lower lobe, left bronchus or lung (principal); C79.51 Secondary malignant neoplasm of bone; R92.8 Other abnormal and inconclusive findings on diagnostic imaging of breast; K76.0 Fatty (change of) liver, not elsewhere classified; E11.22 Type 2 diabetes mellitus with diabetic chronic kidney disease; I13.0 Hypertensive heart and chronic kidney disease with heart failure and stage 1 through stage 4 chronic kidney disease, or unspecified chronic kidney disease; N18.3 Chronic kidney disease, stage 3 (moderate); I50.32 Chronic diastolic (congestive) heart failure; E78.5 Hyperlipidemia, unspecified; E78.00 Pure hypercholesterolemia, unspecified; Z79.4 Long term (current) use of insulin; Z90.49 Acquired absence of other specified parts of digestive tract
CPT/HCPCS: 78815; A9552

== ENCOUNTER → 2017-12-21 | Outpatient (CLI) | payer MEDICARE ==
[2017-10-13 15:00] VITALS: BP 142/76
[~2017-12-21] MED LIST changes: +LIDOCAINE 1%/EPI 1:100,000 50 ML, SODIUM BICARBONATE VIAL 5 MEQ in IV NORMAL SALINE 100... SQ STA
--- NOTE | 2017-12-21 13:05 | CARD ---
MR#: [id number] Date of Study: 12/21/2017 Ordering Physician: SIDNEY CULVER, Referring Physician: SIDNEY CULVER, Tech: MANNY VasquezT: Rao GONZALEZ; MOE APPROVED REPORT Patient StatusOUT-PATIENT Lead Custodian: Mary TATE, RVT: Rao GONZALEZ; MOE Procedure(s) performed: Endovenous radiofrequency ablation of the Right Lesser Saphenous vein INDICATION FOR PROCEDURE The indication(s) include : Symptomatic Chronic Venous Insufficiency with Varicose Veins, lower extre mity pain and edema. PROCEDURE NARRATIVE The patient was transferred to the procedure suite and the insufficient saphenous vein was mapped by ultrasound and diagrammed on the underlying skin. The depth and diameter of the vein(s) to be treate d was documented. The varicose tributary veins and suitable access sites were identified and mapped as well. The patient was then positioned prone on the procedure table. The entire limb was sterilel y prepared and the lower extremity and treatment table were sterilely draped. The RF catheter was p laced on the sterile field, flushed and wiped down, prepared, and connected by a sterile cable. The patient was placed in reverse-Trendelenburg position and local anesthesia was instilled in the sk in overlying the access site. A skin incision was made overlying the identified and mapped lesser sa phenous vein entry site. The vein was punctured through the incision and using ultrasound guidance a nd the Seldinger technique a guide wire was introduced through the needle which was then exchanged ov er the guide wire for a 7 F sheath. The guide wire was removed and the sheath was flushed. The RF p robe was placed into the vein through the sheath and positioned at a point just distal (about 0.5 to 1 cm) to the entrance point of the lesser saphenous vein into the popliteal junction. After the RF probe position was verified by the ultrasound, tumescent anesthesia was infiltrated, und er ultrasound guidance, precisely into the perivenuus compartment along the entire length of vein fro m the entry site to the saphenofemoral junction until a "halo" of fluid was noted around the vein. The patient was then placed in Trendelenburg position. After the RF probe position was again confirm ed with ultrasound imaging, moderate external compression was applied over the RF heating element, an d RF energy was applied. The probe was withdrawn sequentially in 6.5 cm steps with slight overlap of 7 cm segments of ablation and monitored to keep the probe temperature at 120 degrees Celsius and the generator output well below its maximum power. Treatment Segments: 6 Total Length: 26 cm. Total Ablation time: 2 minutes. Repeat ultrasound of the saphenous vein was performed confirming successful treatment. The catheter and sheath were withdrawn and hemostasis established with direct pressure. After assuring hemostasis , the skin incision over the saphenous vein was closed with a bandage and an external compression travis ssing was applied from the level of the foot to the most proximal level of the thigh. Signed by : Sidney Culver, Electronically Approved : 12/21/2017 13:04:21
== END | disposition home or self-care (01) ==
LOC: VNUS 08:22
PROVIDERS: ATTEND Internal Medicine Cardiovascular Disease
DX: I83.811 Varicose veins of right lower extremity with pain (principal)
CPT/HCPCS: 36475; J3490; J7030

== ENCOUNTER → 2017-12-31 | Outpatient (CLI) | payer MEDICARE ==
[2017-10-13 15:00] VITALS: BP 142/76
[~2017-12-31] MED LIST changes: +0.9 % SOD CHL for STERILE FIELD 10 ML DISP.SYRIN. ONE; +HEPARIN PF 500 UNIT/5 ML DISP.SYRIN. IV ONE; -LIDOCAINE 1%/EPI 1:100,000 50 ML, SODIUM BICARBONATE VIAL 5 MEQ in IV NORMAL SALINE 100... SQ STA
--- NOTE | 2017-12-31 15:04 | RAD ---
FDG tumor localization scan, PET/CT, 12/31/2017: History: Restaging lung cancer Following IV injection of 14 mCi of 18 F-FDG, imaging was performed from the skull base to the proximal thighs. The noncontrast CT component was performed for attenuation correction and anatomic localization purposes rather than for primary diagnosis. The patient's blood glucose level at the time of injection was 131 MG/DL. Comparison is made to a study 05/21/2017. The study is compromised by numerous artifacts. The CT component demonstrates considerable respiratory motion. Physiologic activity is seen in the neck. No hypermetabolic neck abnormality is evident. There is a persistent left lower lobe spiculated pulmonary mass measuring approximately 2.8 cm. It is of similar size when compared to the previous study. There is a less clearly defined opacity extending medially to the inferior aspect of the hilum. There is a hypermetabolic focus within the lateral aspect of this mass demonstrating a maximum SUV of 4.9. On the previous study of 05/21/2017 the maximum SUV in this process was 2.7. No hypermetabolic mediastinal abnormality is seen. There is a persistent hypertrophic sclerotic process involving the anterior aspect of the right third rib, demonstrating mildly increased FDG uptake with a maximum SUV of 4.9. On the previous study the maximum SUV at this level was 2.7. Normal GI tract and urinary tract activity is present in the abdomen or pelvis. No hypermetabolic intra-abdominal or pelvic lesion is seen, although the sensitivity of the study is decreased by the multifocal artifacts. Scattered sclerotic foci in the bones appear to be unchanged on the CT component. IMPRESSION: 1. Suboptimal exam due to technical factors. 2. Persistent left lower lobe mass with with a focus of abnormal FDG uptake, slightly increased compared to the 05/21/2017 exam. 3. FDG uptake at the site of a anterior right third rib lesion has increased slightly. 4. Otherwise radiographically stable sclerotic bony metastasis..
== END | disposition home or self-care (01) ==
LOC: PETSC 11:23
PROVIDERS: ATTEND Internal Medicine Hematology & Oncology
DX: C79.51 Secondary malignant neoplasm of bone (principal); Z85.118 Personal history of other malignant neoplasm of bronchus and lung
CPT/HCPCS: 78815; A9552

== ENCOUNTER → 2018-04-21 | Outpatient (CLI) | payer BC, MEDICARE ==
[2017-10-13 15:00] VITALS: BP 142/76
[~2018-04-21] MED LIST changes: -0.9 % SOD CHL for STERILE FIELD 10 ML DISP.SYRIN. ONE; +CONTRAST GIVEN. MC PRN; -GABA-587 PO; +GABA-689 PO; +IOHEXOL 240 MG/ML 50ML VIAL. PO ONE; +IOHEXOL 300 MG/ML 100ML VIAL. IV ONE; +LOSA100T14 PO; -LOSA100T7 PO
--- NOTE | 2018-04-21 08:43 | RAD ---
EXAM: Left shoulder, 3 views. HISTORY: Pain. COMPARISON: None. FINDINGS: 3 views of left shoulder obtained. There is no fracture, dislocation or subluxation. There is minimal glenohumeral and acromioclavicular osteoarthritis and degenerative change at the rotator cuff insertion on the greater tuberosity. There is partial visual location of a left chest wall port catheter. The visualized left lung is unremarkable. IMPRESSION: Minimal left acromioclavicular and glenohumeral osteoarthritis. No acute osseous finding. Electronically signed by: Antoinette Santamaria MD (04/21/2018 8:38 AM) [place] [id number]
--- NOTE | 2018-04-21 10:24 | RAD ---
EXAM: CT Chest and Abdomen with IV contrast CLINICAL HISTORY: f/u lung c COMPARISON: PET scan 12/31/2017, prior CT chest 10/10/2017, 08/13/2017. TECHNIQUE: Helical CT of the chest and abdomen was performed following the administration of intravenous contrast. Axial, coronal and sagittal reformatted images were generated. ---PQRS compliance statement - One or more of the following individualized dose reduction techniques were utilized for this study: 1. Automated exposure control 2. Adjustment of the mA and/or kV according to patient size 3. Use of iterative reconstruction technique--- FINDINGS: Chest: Heart is not enlarged. Coronary artery calcifications are seen. No pericardial effusion. Left chest Port-A-Cath tip terminates over the middistal SVC. An azygoesophageal lymph node measures 1.8 x 1.3, previously 2.2 x 1.1 cm. Accounting for differences in technique, this is likely unchanged in size. The previously seen right paratracheal lymph node measures 1.2 x 0.9 cm, previously 1.1 cm short axis. No axillary lymphadenopathy. No pleural effusion or pneumothorax. A left lower lobe spiculated lung mass measures approximately 3 x 2.1 cm, previously 3.3 x 1.9 cm. Accounting for differences in scan plane, this is also likely not changed in size. Degree of septal thickening has improved. The lingular and lower lobe groundglass opacities are stable. Left lower lobe calcified granuloma is again seen. Otherwise no suspicious lung nodule or mass is identified. Abdomen: No focal liver lesion. Cholecystectomy clips are seen. No biliary ductal dilatation. Adrenal glands are normal. Spleen is unremarkable. Pancreas is unremarkable. Visualized portions of the small and large bowel are unremarkable without abnormal dilatation. The appendix is normal. No abdominal ascites. No abdominal lymphadenopathy. Bones: Multilevel degenerative changes of spine are seen. Diffuse osseous sclerosis with focal sclerotic lesions are seen within the T12, L1 and L2 vertebral bodies. Sclerotic lesion of the anterior right second rib is seen. Bilateral accessory cervical ribs are seen. IMPRESSION: 1. Left lower lobe spiculated lung mass is grossly stable in size accounting for differences in scan plane. 2. Mediastinal lymphadenopathy is also grossly stable. 3. Sclerotic bone lesions are seen. The right second rib lesion is stable Electronically signed by: Salomón Felipe MD (04/21/2018 10:20 AM) [id number]
--- NOTE | 2018-04-21 13:24 | RAD ---
Whole body bone scan 04/21/2017 CLINICAL INDICATION: Lung carcinoma, left shoulder pain for 2 months. Currently receiving chemotherapy. COMPARISON: Same day CT chest and abdomen, PET CT 12/31/2017. TECHNIQUE: Following the intravenous injection of 26.0 mCi of Tc-99m labeled methylene diphosphonate (MDP), delayed images of the whole body were performed in anterior and posterior projections. Findings: There is physiologic uptake in both kidneys with excretion into the urinary bladder. There is intense focal uptake in the anterior right 2nd rib at the costochondral junction. There is abnormal increased uptake throughout the mid and lower thoracic spine and upper lumbar spine as well as the left acetabulum and intertrochanteric right proximal femur. There is faint uptake in the midshaft of the left femoral diaphysis which is not typical for degenerative uptake. There is mild uptake of the left shoulder and left elbow. IMPRESSION: 1. Abnormal tracer uptake throughout the axial and appendicular skeleton, as detailed above consistent with osseous metastatic disease. 2. Uptake in the mid left humerus, concerning for additional site of metastasis. 3. There is uptake in the left shoulder and elbow which is likely degenerative, however if there is concern, dedicated elbow radiographs could be obtained. Electronically signed by: Noe Tang MD (04/21/2018 1:20 PM) [facility]
== END | disposition home or self-care (01) ==
LOC: NM 07:57
PROVIDERS: ATTEND Internal Medicine Hematology & Oncology
DX: C34.32 Malignant neoplasm of lower lobe, left bronchus or lung (principal); C79.51 Secondary malignant neoplasm of bone; M19.012 Primary osteoarthritis, left shoulder; I25.10 Atherosclerotic heart disease of native coronary artery without angina pectoris; M48.8X5 Other specified spondylopathies, thoracolumbar region; J84.10 Pulmonary fibrosis, unspecified
CPT/HCPCS: 71260; 73030; 74160; 78306; 96374; A9503; Q9966; Q9967

== ENCOUNTER → 2018-08-10 | Outpatient (CLI) | payer BC ==
[2017-10-13 15:00] VITALS: BP 142/76
[~2018-08-10] MED LIST changes: -CONTRAST GIVEN. MC PRN; +FURO-68 PO; +TRAM50TA PO
--- NOTE | 2018-08-10 13:36 | RAD ---
CT of the chest, abdomen and pelvis with contrast, 08/10/2018: History: Lung malignancy follow-up Multidetector CT imaging was performed following oral and IV administration of contrast. Comparison is made to a study from 04/21/2018. There is a spiculated mass in the left lower lobe measuring approximately 2 x 3 cm. There has been no definite change in size since the previous study. There are streaky opacities posteriorly in both lower lobes compatible with atelectasis and/or scarring. A calcified granuloma is present in the left lower lobe. A 12 mm nodular opacity in the left posterior costophrenic angle seen on image 47 of series #2 has increased in size since the previous study where there was only a tiny opacity in this region. There is no evidence of pleural fluid. A left Port-A-Cath remains in place extending into the inferior aspect of the superior vena cava. Moderate coronary artery calcifications are present. Mediastinal lymph nodes of borderline size persist and have shown no definite change. The largest of these in the right paratracheal region. It measures 9-10 mm in short axis dimension. The gallbladder is surgically absent. There is a vague 2.5 cm area of decreased density present in the subcapsular region of the right hepatic lobe anterolaterally, near the level of the gallbladder clips. There is a slight associated bulge in the hepatic contour at this level. This is best seen on image 29 of series #4. The appearance suggests a small liver mass such as a metastasis. No pancreatic abnormality is detected. The spleen is of normal size. No renal abnormality is detected. Aortoiliac calcific plaquing is present without evidence of aneurysm. No abdominal or pelvic adenopathy is seen. The prostate gland is at the upper limits of normal in size. The bowel loops are of normal caliber. The left flank regions was not completely included on this study due to technical factors. No free fluid or free air is evident in the abdomen or pelvis. Scattered sclerotic foci in the bones appear unchanged. There is an unchanged hypertrophic sclerotic lesion involving the anterior aspect of he right upper rib. Extensive multilevel hypertrophic degenerative change is present in the spine. IMPRESSION: 1. Unchanged left lower lobe pulmonary mass. 2. Enlarging tiny nodule in the left lung base posteriorly could be neoplastic or inflammatory. 3. Probable small liver lesion raising the possibility of a hepatic metastasis. 4. Stable blastic osseous metastatic disease. PQRS Compliance Statement: One or more of the following individualized dose reduction techniques were utilized for this examination: 1. Automated exposure control 2. Adjustment of the mA and/or kV according to patient size 3. Use of iterative reconstruction technique PQRS Compliance Statement: One or more of the following individualized dose reduction techniques were utilized for this examination: 1. Automated exposure control 2. Adjustment of the mA and/or kV according to patient size 3. Use of iterative reconstruction technique
== END | disposition home or self-care (01) ==
LOC: CT 11:05
PROVIDERS: ATTEND Internal Medicine Hematology & Oncology
DX: C79.51 Secondary malignant neoplasm of bone (principal); C34.32 Malignant neoplasm of lower lobe, left bronchus or lung; R91.8 Other nonspecific abnormal finding of lung field; R91.1 Solitary pulmonary nodule; I25.10 Atherosclerotic heart disease of native coronary artery without angina pectoris; J98.59 Other diseases of mediastinum, not elsewhere classified; J84.10 Pulmonary fibrosis, unspecified; I70.0 Atherosclerosis of aorta; M89.38 Hypertrophy of bone, other site; M47.819 Spondylosis without myelopathy or radiculopathy, site unspecified; Z90.49 Acquired absence of other specified parts of digestive tract
CPT/HCPCS: 71260; 74177; Q9966; Q9967

== ENCOUNTER → 2018-09-21 | Outpatient (CLI) | payer BC ==
[2017-10-13 15:00] VITALS: BP 142/76
[~2018-09-21] MED LIST changes: -HEPARIN PF 500 UNIT/5 ML DISP.SYRIN. IV ONE; -IOHEXOL 240 MG/ML 50ML VIAL. PO ONE; -IOHEXOL 300 MG/ML 100ML VIAL. IV ONE; +MONT10TA49 PO; -MONT10TA9 PO
--- NOTE | 2018-09-21 17:19 | RAD ---
Examination: VENOUS UPPER EXTREMITY LEFT History: Swelling FINDINGS: Grayscale and Doppler analysis of the left upper extremity deep venous system was performed with graded compression and augmentation. The internal jugular, subclavian, axillary, brachial, basilic, cephalic, radial and ulnar veins were assessed. There is no evidence of deep venous thrombosis. Subcutaneous edema is noted involving the left medial forearm in the region of reported swelling. IMPRESSION: 1. No evidence of left upper extremity deep venous thrombosis. 2. Edema involving the medial left forearm. Electronically signed by: Tashi Marcelino MD (09/21/2018 5:16 PM) [facility]
== END | disposition home or self-care (01) ==
LOC: US 15:57
PROVIDERS: ATTEND Internal Medicine Hematology & Oncology
DX: R60.0 Localized edema (principal); C34.92 Malignant neoplasm of unspecified part of left bronchus or lung
CPT/HCPCS: 93971

== ENCOUNTER → 2018-10-28 | Outpatient (CLI) | payer BC ==
[2017-10-13 15:00] VITALS: BP 142/76
[~2018-10-28] MED LIST changes: +HEPARIN PF 500 UNIT/5 ML DISP.SYRIN. IV ONE
--- NOTE | 2018-10-28 12:33 | NUR ---
left chest port accessed prior to PET scan and flushed and packed w/ heparin per protocol post PET scan. pt tolerated this well
--- NOTE | 2018-10-29 13:39 | RAD ---
PET ONCOLOGY CLINICAL INDICATION: Lung cancer. Restaging scan.. PET for subsequent treatment strategy. FDG PET-CT of the Body TECHNIQUE: The patient received an IV injection of 14.3 mCi 18F-FDG in the Chemo-Port . After an initial uptake phase of approximately 60-90 minutes, a CT scan without oral contrast, without IV contrast was acquired. Subsequently, positron emission tomography images from the skull base to mid thigh were obtained. CT, PET and fused images were reconstructed in transaxial, coronal, and sagittal projections and interpreted from a workstation. The patient's plasma glucose was 184 mg/dl. PRIOR STUDIES: 12/31/2017 CORRELATIVE STUDIES: 08/10/2018 FINDINGS: CT: Limited exam due to lack of IV contrast. Noncontrast sections through the visualized brain and orbits are within normal limits. No enlarged cervical adenopathy. Left chest wall Chemo-Port is seen with its tip in the SVC. No enlarged axillary, mediastinal lymph nodes. Evaluation of hilar lymphadenopathy is limited due to lack of IV contrast. Heart is normal in size. No pericardial effusion. Trace left pleural effusion. Motion artifact is seen in the lungs limiting optimal evaluation. Ill-defined low attenuating lesion is seen in the subcapsular segment IVb approximately measuring 3.0 x 3.0 cm. Status post cholecystectomy. Noncontrast appearance of the spleen, pancreas, adrenals and kidneys within normal limits. No enlarged retroperitoneal or pelvic adenopathy. No free pelvic fluid or ascites. No bowel obstruction. Normal appendix. The prostate and seminal vesicles show no large mass. Urinary bladder is decompressed limiting evaluation however shows no radiopaque stones. Stable cloudlike calcification seen at the right third anterior costochondral junction. Diffuse sclerosis of the bones suggesting diffuse osseous metastasis. PET: Left lower lobe nodule demonstrating high metabolic activity with SUV max of 4.4. Segment IVb liver lesion demonstrating high metabolic activity with SUV max of 6.0. Janett hepatis lymph node measuring 1.8 cm demonstrating high metabolic activity SUV max of 3.3. Increased focus of metabolic activity seen in the superficial left anterior chest wall with SUV max of 10.[address] Diffusely increased metabolic activity seen in the bones compatible with metastatic disease. IMPRESSION: PET-CT from the skull base to mid thigh demonstrates: 1. Metabolically active left lower lobe pulmonary nodule. 2. Segment IVb liver lesion and janett hepatis lymph node demonstrating high metabolic activity highly concerning for metastatic disease. 3. Diffuse osseous metastasis. 4. Increased lower activity superficial left anterolateral chest wall without correlate on CT. Clinically correlate with physical exam. Attention on future imaging. Electronically signed by: Jose Ruiz DO (10/29/2018 1:36 PM) [facility]
== END | disposition home or self-care (01) ==
LOC: PETSC 10:07
PROVIDERS: ATTEND Internal Medicine Hematology & Oncology
DX: C79.51 Secondary malignant neoplasm of bone (principal); C34.32 Malignant neoplasm of lower lobe, left bronchus or lung; R91.1 Solitary pulmonary nodule; K76.89 Other specified diseases of liver; R53.83 Other fatigue; M79.89 Other specified soft tissue disorders; Z90.49 Acquired absence of other specified parts of digestive tract
CPT/HCPCS: 78815; A9552